=== PATIENT | female | born 1995 | race Caucasian/White ===

== ENCOUNTER → 2017-02-14 09:49 | Outpatient (REF) | payer MEDICAID, SELFPAY ==
[2017-02-14 13:45] LABS: Amphetamine/Metha Screen,Urine Negative ng/mL (<1000); Barbiturates Screen,Urine Negative ng/mL (<200); Benzodiazepines Screen,Urine Negative ng/mL (200); Cannabinoid Screen,Urine Negative ng/mL (<50); Cocaine Screen,Urine Negative ng/g (<300); Methadone Screen,Urine Negative ng/mL (<300); Opiate Screen,Urine Positive ng/mL (<300); Phencyclidine Screen,Urine Negative ng/mL (<25)
[2017-02-26 00:14] LABS: Codeine Positive (.); Hydrocodone Negative (Cutoff=100); Hydromorphone Negative (Cutoff=100); Morphine Positive (.)
[2017-02-26 10:47] LABS: Opiates Positive (.)
== END ==
LOC: LAB 09:49
PROVIDERS: Visit Provider Physician Assistant
DX: Z79.899 Other long term (current) drug therapy (principal)
CPT/HCPCS: 80305; 80361; G0480

== ENCOUNTER → 2020-07-06 17:58 | Outpatient (CLI) | payer MEDICAID, SELFPAY ==
[2020-07-06 18:58] LABS: Basophils # 0.1 K/mm3 (0-0.2); Basophils % 0.6 % (0.1-2.0); Eosinophils # 0.2 K/mm3 (0.0-0.4); Eosinophils % 2.6 % (0.1-12.0); Hematocrit 43.1 % (37.0-47.0); Hemoglobin 14.3 g/dL (12.2-16.2); Lymphocytes # 2.6 K/mm3 (0.7-4.5); Lymphocytes % 29.1 % (10-50); Mean Corpuscular HGB Conc 33.1 g/dL (31.8-35.4); Mean Corpuscular Hemoglobin 30.7 pg (27.0-31.2); Mean Corpuscular Volume 92.7 fl (81-99); Mean Platelet Volume 8.3 fl (7.4-10.4); Monocytes # 0.5 K/mm3 (0.1-1.0); Monocytes % 5.1 % (1.7-9.3); Neutrophils # 5.6 K/mm3 (1.8-7.8); Neutrophils % 62.7 % (37.0-80.0); Platelet Count 364 K/mm3 (142-424); Red Blood Count 4.65 M/mm3 (4.20-5.40); Red Cell Distribution Width 14.2 % (11.5-17.5); White Blood Count 8.9 K/mm3 (4.8-10.8)
[2020-07-06 19:30] LABS: Alanine Aminotransferase 40 U/L (12-78); Albumin/Globulin Ratio 1.6 (1.1-1.8); Alkaline Phosphatase 62 U/L (38-126); Anion Gap 12.2 mEq/L (5-15); Aspartate Amino Transferase 49 U/L (14-36); Bilirubin,Total 0.5 mg/dl (0.2-1.3); Blood Urea Nitrogen 7 mg/dl (7-17); Carbon Dioxide 22 mmol/L (22.0-30.0); Chloride 107 mmol/L (98-107); Chol/HDL Ratio 6.8 (1-3.5); Cholesterol 163 mg/dl (140-200); Estimated Glomerular Filt Rate 191 ml/min (>60); GFR (African American) 232 ML/MIN (>60); Globulin 2.5 g/dL (1.3-3.2); Glucose 213 mg/dl (74-100); HDL Cholesterol 24 mg/dl (40-60); Potassium 4.2 mmoL/L (3.5-5.1); Sodium 137 mmol/L (136-145); Total Protein,Serum 6.5 g/dl (6.3-8.2)
[2020-07-06 19:41] LABS: C-Reactive Protein 16.7 mg/L (0-4); Direct LDL Cholesterol 41.16 mg/dL (100-129)
[2020-07-06 19:45] LABS: Free T4 (Free Thyroxine) 1.16 ng/dl (0.78-2.19)
[2020-07-06 19:46] LABS: 25-OH Vitamin D, Total < 12.8 ng/mL (30-100); Triglycerides 732 mg/dl (30-150)
[2020-07-06 20:54] LABS: Erythrocyte Sedimentation Rate 16 mm/hr (0-20)
[2020-07-06 23:41] LABS: Hemoglobin A1C 8.2 % (4.0-6.0)
[2020-07-08 08:15] LABS: RA Latex Turbid. <10.0 IU/mL (0.0-13.9)
[2020-07-09 00:08] LABS: Anti-Cyclic Citrullinated Pept 4 units (0-19)
== END ==
PROVIDERS: Visit Provider Physician Assistant
DX: E03.9 Hypothyroidism, unspecified (principal); E11.9 Type 2 diabetes mellitus without complications; E78.5 Hyperlipidemia, unspecified; E55.9 Vitamin D deficiency, unspecified; M06.9 Rheumatoid arthritis, unspecified
CPT/HCPCS: 80053; 80061; 82306; 83036; 84439; 84443; 85025; 85651; 86140; 86200; 86431

== ENCOUNTER → 2020-08-12 12:44 | Outpatient (POV) | payer MEDICAID, SELFPAY ==
[2020-08-12 13:00] VITALS: BP 152/100; PULSE 99; RESP 18; O2SAT 97; BMI 45.1
--- NOTE | 2020-08-12 13:19 | HMH.PMCON ---
Assessment and Plan (1) Myofascial muscle pain Status: Chronic Category: Medical Code(s): M79.18 - Myalgia, other site (2) Chronic pain of right thumb Status: Chronic Category: Medical Code(s): M79.644 - Pain in right finger(s); G89.29 - Other chronic pain (3) Peripheral neuropathy Status: Chronic Category: Medical Code(s): G62.9 - Polyneuropathy, unspecified - Assessment and plan all Dx Assessment and Plan for all problems:: We will schedule the patient for a 2-week follow-up. We will start her on gabapentin 100 mg 1 tablet p.o. 3 times daily, Flexeril 5 mg 1 tablet p.o. 3 times daily and compounding cream to apply topically to her right thumb area. She is not in injective therapy candidate due to increased blood glucose levels at this time. We will see if she can be managed with oral medications at this time. She will need to increase on her gabapentin at her next visit. We will give her 2 weeks of gabapentin at this dose and plan to increase her at the next visit. We will see if Flexeril and compounding cream give her any relief. Risks and benefits of the medication have been explained in detail to the patient. The patient has been advised to consult with his/her primary care provider and pharmacist regarding drug-drug interaction of medications currently prescribed. Patient has been instructed to contact the clinic with any concerns before the next appointment. Dr. Colindres has reviewed this note and agrees with this plan of care. This note was dictated using voice recognition software and make contain errors or omissions. HPI - Data of Consult Patient: new to practice Consult date: 08/12/20 Requesting Physician: Kya Silverio APRN Primary Care Provider: SYD Tapia - Consult Narrative Reason for consult: Right thumb pain, myofascial pain History of present illness: Ms. Solano is a 25 year old female who presents today for consultation for right thumb pain and low back pain. Patient was referred to us by Viola Phipps PA-C. Patient says that she has had ongoing low back pain for many years. She is a diabetic with uncontrolled blood glucose levels. She says her blood sugar runs between 300-600. She says they are currently adjusting her medications at her primary care provider's office. She has been on gabapentin in the past for peripheral neuropathy due to severe burning and tingling in her bilateral legs and feet. She became last year and as a result was taken off the medication. She says that she was taking up to 800 mg three times a day. We did discuss starting the medication, however, we will need to start at a lower dose. She is in agreement. Patient says that she has dull aching in her low back area that is worse when she is standing and walking. She also has neck and shoulder pain. She says when she is lying down she has worse pain. Leaning forward does not worsen or lessen her pain. She has tried physical therapy for more than 6 weeks and says her pain worsened. She has been taking ibuprofen and meloxicam. I did advise the patient to use caution in taking more than one anti-inflammatory to time. She also has diabetes with concerns for her kidney function. She says that meloxicam has not been working for her and will contact her primary care provider to inform her she will stop the medication. She will continue with her ibuprofen for now. Patient says that she is having what feels like aching and spasms in her low back and neck area. She has taken muscle relaxers in the past, however, she did feel very groggy with the medication. She says it did help somewhat, however. She does have right thumb pain. She has had multiple surgeries as well as injections to the area with no relief. She is not likely considered a candidate for injective therapy due to increased blood glucose levels. We did discuss compounding cream to apply topically to the area. We also discussed starti
== END ==
PROVIDERS: PCP Physician Assistant; Visit Provider Clinical Nurse Specialist Family Health
DX: M79.18 Myalgia, other site (principal); M79.644 Pain in right finger(s); G62.9 Polyneuropathy, unspecified
CPT/HCPCS: 99202; G0463

== ENCOUNTER → 2020-08-26 12:51 | Outpatient (POV) | payer MEDICAID, SELFPAY ==
[2020-08-26 13:07] VITALS: BP 152/90; PULSE 109; RESP 18; O2SAT 96; BMI 44.6
--- NOTE | 2020-08-26 15:21 | P.CONS_ITS ---
[facility] Pain Management SOAP Note Subjective:: Patient is a 25-year-old white female who presents today for follow-up. She is being treated for peripheral neuropathy. Patient was started on gabapentin 100 mg 1 tablet p.o. 3 times daily at her last visit. She was also started on Flexeril as well as compounding cream. She reports Flexeril is making her very drowsy. She only takes it at bedtime. Gabapentin has given her significant relief of her lower extremity numbness and tingling as well as pain. The compounding cream helps as well, however, only for short time. She says that she has gotten about 30 to 40% relief of her pain with gabapentin. We discussed increasing this dose today. She would like to try this. Her pain is a 3 out of 10 today. Review of Systems General: No recent weight changes, no fever, no sleep disturbances Respiratory: No cough, no shortness of air, no recurring pulmonary infections Cardiovascular/peripheral vascular: No chest pain, no palpitations, no edema, no shortness of breath Gastrointestinal: No new onset incontinence, normal bowel movements reported Genitourinary: No new onset incontinence Musculoskeletal: Bilateral lower extremity pain with numbness and tingling Psychiatric: Normal mood/affect Neurological: [Denies weakness in extremities], [denies balance issues] Objective:: Physical exam General: Alert and oriented x3, no acute distress, pleasant and cooperative, [on room air] Lungs: Respirations even and unlabored, symmetrical chest expansion Eyes: PERRL Musculoskeletal: Flexion and extension of bilateral lower extremities guarded secondary to pain, deep tendon reflexes normal, strength in upper and lower extremities [5/5], [abnormal gait noted] Neurological: Speech clear, energy manager equal, no gross sensory deficit Assessment:: Peripheral neuropathy Plan:: We will increase the patient's gabapentin to 300 mg 1 tablet p.o. twice daily. We will give her 3 months of medication and see her back in the clinic in 3 months for reevaluation of symptoms. She has been instructed she can contact the clinic if she has pain before that appointment. Patient has been instructed to contact the clinic with any concerns before the next appointment. Dr. Colindres has reviewed this note and agrees with this plan of care. This note was dictated using voice recognition software and make contain errors or omissions. [facility] History I have reviewed the patient's past medical history: Yes Medical History: Reports:: Anxiety, Depression, Diabetes Mellitus Type 2, Gastroesophageal Reflux Disease(GERD) *Have you ever received a pneumonia vaccine?: No *Have you received a flu vaccine this season?: No Other Medical History: Reports: Arthritis, Hypothyroidism Other Surgeries: Yes: , Other - *Social History Smoking Status: Current every day smoker Tobacco Type: cigarettes # Packs/Day (cigarettes): 1 Alcohol Intake: never Substance Use Type: denies use *Occupational Status:: unemployed *Travel in the last 8 weeks: None - Psychiatric History Pschychiatric History:: Reports:: Anxiety, Depression Family Hx:: Cancer
== END ==
PROVIDERS: Visit Provider Clinical Nurse Specialist Family Health
DX: G62.9 Polyneuropathy, unspecified (principal)
CPT/HCPCS: 99212; G0463

== ENCOUNTER → 2020-10-07 15:42 | Outpatient (CLI) | payer MEDICAID, SELFPAY ==
[2020-10-07 16:12] LABS: Basophils # 0.1 K/mm3 (0-0.2); Basophils % 1.2 % (0.1-2.0); Eosinophils # 0.3 K/mm3 (0.0-0.4); Eosinophils % 2.5 % (0.1-12.0); Hematocrit 47.1 % (37.0-47.0); Hemoglobin 15.2 g/dL (12.2-16.2); Lymphocytes # 2.6 K/mm3 (0.7-4.5); Lymphocytes % 25.9 % (10-50); Mean Corpuscular HGB Conc 32.4 g/dL (31.8-35.4); Mean Corpuscular Hemoglobin 30.9 pg (27.0-31.2); Mean Corpuscular Volume 95.5 fl (81-99); Mean Platelet Volume 7.6 fl (7.4-10.4); Monocytes # 0.4 K/mm3 (0.1-1.0); Monocytes % 4.1 % (1.7-9.3); Neutrophils # 6.6 K/mm3 (1.8-7.8); Neutrophils % 66.2 % (37.0-80.0); Platelet Count 392 K/mm3 (142-424); Red Blood Count 4.93 M/mm3 (4.20-5.40)
[2020-10-07 16:52] LABS: Hemoglobin A1C 9.5 % (4.0-6.0)
[2020-10-07 18:30] LABS: Alanine Aminotransferase 18 U/L (12-78); Albumin Level 3.9 g/dl (3.5-5.0); Albumin/Globulin Ratio 1.3 (1.1-1.8); Alkaline Phosphatase 72 U/L (38-126); Anion Gap 14.3 mEq/L (5-15); Aspartate Amino Transferase 21 U/L (14-36); Bilirubin,Total 0.3 mg/dl (0.2-1.3); Blood Urea Nitrogen 5 mg/dl (7-17); Calcium 9.6 mg/dl (8.4-10.2); Carbon Dioxide 25 mmol/L (22.0-30.0); Chloride 100 mmol/L (98-107); Chol/HDL Ratio 8.6 (1-3.5); Cholesterol 249 mg/dl (140-200); Estimated Glomerular Filt Rate 191 ml/min (>60); GFR (African American) 232 ML/MIN (>60); Glucose 258 mg/dl (74-100); HDL Cholesterol 29 mg/dl (40-60); Potassium 4.3 mmoL/L (3.5-5.1); Sodium 135 mmol/L (136-145); Total Protein,Serum 6.9 g/dl (6.3-8.2)
[2020-10-07 18:43] LABS: 25-OH Vitamin D, Total 17.2 ng/mL (30-100)
[2020-10-07 18:49] LABS: T4 (Thyroxine) 8.7 ug/dl (5.53-11.0)
[2020-10-07 19:03] LABS: Thyroid Stimulating Hormone 2.58 uIU/mL (0.465-4.68)
[2020-10-07 19:09] LABS: Direct LDL Cholesterol < 30 mg/dL (100-129)
[2020-10-07 19:22] LABS: Triglycerides 1739 mg/dl (30-150)
== END ==
PROVIDERS: Visit Provider Physician Assistant
DX: E11.9 Type 2 diabetes mellitus without complications (principal); Z79.84 Long term (current) use of oral hypoglycemic drugs
CPT/HCPCS: 36415; 80053; 80061; 82043; 82306; 83036; 84436; 84443; 85025

== ENCOUNTER → 2020-10-13 14:54 | Outpatient (CLI) | payer MEDICAID, SELFPAY | PROVIDERS: PCP Physician Assistant; Visit Provider Physician Assistant | DX: G47.30 Sleep apnea, unspecified (principal); R06.83 Snoring | CPT/HCPCS: 95806 ==

== ENCOUNTER → 2020-10-20 17:31 | Outpatient (CLI) | payer MEDICAID, SELFPAY | PROVIDERS: Visit Provider Physician Assistant | DX: R10.2 Pelvic and perineal pain (principal) | CPT/HCPCS: 87086 ==

== ENCOUNTER → 2020-11-15 14:58 | Outpatient (CLI) | payer MEDICAID, SELFPAY | PROVIDERS: Visit Provider Physician Assistant | DX: N39.0 Urinary tract infection, site not specified (principal) | CPT/HCPCS: 87210 ==

== ENCOUNTER → 2020-11-25 12:50 | Outpatient (POV) | payer MEDICAID, SELFPAY ==
[2020-11-25 12:58] VITALS: BP 145/90; PULSE 92; RESP 18; O2SAT 98; BMI 43.9
--- NOTE | 2020-11-25 13:18 | HMH.PAINSOAP ---
[facility] Pain Management SOAP Note Subjective:: Patient is a 25-year-old white female who presents today for follow-up. The patient is treated for peripheral neuropathy. She does report to be getting relief with her gabapentin which is 300 mg 1 tablet p.o. twice daily. She would like an increase. She says the medicine in the middle the day. She is rating her pain a 6 out of 10 today. She has tried taking anti-inflammatories which is not giving her significant relief of her lower extremity pain. She has taken Tylenol 3 in the past which gives her some relief. We discussed trying Ultram for a short period to see if this relieves the pain. She understands we will not be able to increase this to any other medication, however, for peripheral neuropathy. She has tried other medications which have not been beneficial for her pain. Review of Systems General: No recent weight changes, no fever, no sleep disturbances Respiratory: No cough, no shortness of air, no recurring pulmonary infections Cardiovascular/peripheral vascular: No chest pain, no palpitations, no edema, no shortness of breath Gastrointestinal: No new onset incontinence, normal bowel movements reported Genitourinary: No new onset incontinence Musculoskeletal: Bilateral lower extremity pain Psychiatric: [Normal mood/affect] Neurological: [Denies weakness in extremities], [denies balance issues] Objective:: Physical exam General: Alert and oriented x3, no acute distress, pleasant and cooperative Lungs: Respirations even and unlabored, symmetrical chest expansion Eyes: PERRL Musculoskeletal: Flexion and extension of bilateral lower extremities somewhat guarded secondary to pain, [antalgic gait noted] Neurological: Speech clear, no gross sensory deficit Assessment:: Peripheral neuropathy Plan:: We will increase patient's gabapentin to 300 mg 1 tablet p.o. 3 times daily. Patient is having significant pain with standing and walking in her lower extremities. I will start the patient on a low-dose of tramadol at 50 mg 1 tablet p.o. twice daily. We will not be able to change this medication to any other medicines for neuropathy only, however. She has tried other oral medications with no significant relief. If the patient continues to have pain we may need to refer her to neurology for further work-up. Risks and benefits of the medication have been explained in detail to the patient. The patient does understand the risk of dependence on the medication when given over a prolonged period. Patient has been advised of risks of oversedation with the prescribed medication. Narcan has been offered to the paitent in the event of oversedation. Patient has been advised that a family member should also be educated regarding administration of Narcan. The patient has been advised to consult with his/her primary care provider and pharmacist regarding drug-drug interaction of medications currently prescribed. Patient has been prescribed a controlled substance after being counseled on the medication, medication safety, and possible side effects. ARIES report has been obtained and reviewed prior to prescription and found to be appropriate. Opioid contract was reviewed and signed by the patient, and that they have agreed to all of the terms set forth by our compliance program. Patient has been instructed to contact the clinic with any concerns before the next appointment. Dr. Colindres has reviewed this note and agrees with this plan of care. This note was dictated using voice recognition software and make contain errors or omissions. [facility] History I have reviewed the patient's past medical history: Yes Medical History: Reports:: Anxiety, Depression, Diabetes Mellitus Type 2, Gastroesophageal Reflux Disease(GERD) *Have you ever received a pneumonia vaccine?: No *Have you received a flu vaccine this season?: Yes Other Medical History: Reports: Arthritis, Hypothyroidism Other
== END ==
PROVIDERS: Visit Provider Clinical Nurse Specialist Family Health
DX: G62.9 Polyneuropathy, unspecified (principal)
CPT/HCPCS: 99212; G0463

== ENCOUNTER → 2021-02-22 14:35 | Outpatient (POV) | payer MEDICAID, SELFPAY ==
[2021-02-22 14:52] VITALS: BP 186/90; PULSE 110; RESP 18; O2SAT 95; BMI 44.2
--- NOTE | 2021-02-22 18:31 | HMH.PAINSOAP ---
[facility] Pain Management SOAP Note Subjective:: Patient is a 26-year-old white female who presents today for follow-up. The patient is being treated in our clinic for peripheral neuropathy. She was started on gabapentin 1 tablet p.o. 3 times daily which is given her significant relief. She was also started on tramadol which gave her minimal relief. The patient says that she feels she gets more relief with ibuprofen. She is complaining of burning sensation to bilateral feet along with tingling. She has taken Tylenol 3 in the past which did give her relief. She does report have a history of childhood arthritis. She has not had any recent physical therapy. Patient says that her pain is now radiating into the low back area, made worse with standing, walking, and sitting. Review of Systems General: No recent weight changes, no fever, no sleep disturbances Respiratory: No cough, no shortness of air, no recurring pulmonary infections Cardiovascular/peripheral vascular: No chest pain, no palpitations, no edema, no shortness of breath Gastrointestinal: No new onset incontinence, normal bowel movements reported Genitourinary: No new onset incontinence Musculoskeletal: Low back pain with radiation into bilateral lower extremities with numbness and tingling into bilateral feet burning sensation bilateral feet Psychiatric: [Normal mood/affect] Neurological: [Denies weakness in extremities], [denies balance issues] Objective:: Physical exam General: Alert and oriented x3, no acute distress, pleasant and cooperative Lungs: Respirations even and unlabored, symmetrical chest expansion Eyes: PERRL Musculoskeletal: Flexion and extension of lumbar [spine] somewhat guarded secondary to pain, [antalgic gait noted] Neurological: Speech clear, no gross sensory deficit Assessment:: Peripheral neuropathy, low back pain with lumbar radiculopathy Plan:: We will schedule the patient for repeat physical therapy. She has tried physical therapy for greater than 6 weeks in the past and did not get much relief. She is willing to undergo physical therapy once again. She has not had any recent imaging of lumbar spine. We will order MRI lumbar spine. We will also start the patient on Cymbalta 30 mg 1 tablet p.o. daily along with her gabapentin 310 mg 1 tablet p.o. 3 times daily. We will see if the patient gets relief of her peripheral neuropathy symptoms with medication management. We will also review her MRI next visit. [facility] #[id number] has been reviewed and is appropriate. Morphine equivalent is 10. ORT is minimal risk. Patient has signed and completed a pain management agreement/contract today. Risks and benefits of the medication have been explained in detail to the patient. If side effects do present with the medication, patient has been advised to stop the medication immediately and call the clinic. The patient has been advised to consult with his/her primary care provider and pharmacist regarding drug-drug interaction of medications currently prescribed. [facility] History I have reviewed the patient's past medical history: Yes Medical History: Reports:: Anxiety, Depression, Diabetes Mellitus Type 2, Gastroesophageal Reflux Disease(GERD) *Have you ever received a pneumonia vaccine?: No *Have you received a flu vaccine this season?: No Other Medical History: Reports: Arthritis, Hypothyroidism Other Surgeries: Yes: , Other - *Social History Smoking Status: Current every day smoker Tobacco Type: cigarettes # Packs/Day (cigarettes): 1 Alcohol Intake: never Substance Use Type: denies use *Occupational Status:: unemployed *Travel in the last 8 weeks: None - Psychiatric History Pschychiatric History:: Reports:: Anxiety, Depression Family Hx:: Cancer
== END ==
PROVIDERS: Visit Provider Clinical Nurse Specialist Family Health
DX: G62.9 Polyneuropathy, unspecified (principal); M54.50 Low back pain, unspecified; M54.16 Radiculopathy, lumbar region
CPT/HCPCS: 99212; G0463

== ENCOUNTER → 2021-03-22 15:37 | Outpatient (CLI) | payer MEDICAID, SELFPAY ==
[2021-03-22 15:51] LABS: Microscopic, Urine URINE MICROSCOPIC (MICROSCOPIC)
--- NOTE | 2021-03-22 16:03 | MR_ITS ---
PROCEDURE INFORMATION: Exam: MR Lumbar Spine Without Contrast. Exam date and time: 03/22/2021 4:03 PM Age: 26 years old Clinical indication: Low back pain; Additional info: Back pain. Lbp [id number]. No injury or trauma. Bilateral leg pain. No prior. TECHNIQUE: Imaging protocol: Multiplanar magnetic resonance images of the lumbar spine without contrast. COMPARISON: ABDPELW/O CT ABD PELVIS W/O CONTRAST 11/09/2015 10:47 AM FINDINGS: Vertebrae: Mild multilevel spondylosis. Mild facet arthrosis and slight T2 signal within some of the facets, greatest at L4-L5 bilaterally. Epidural space: Epidural lipomatosis causes mild thecal sac effacement, greatest at L5 at S1. Spinal cord: The conus terminates at the L1 level is unremarkable. Discs/Spinal canal/Neural foramina: No evidence of significant central spinal or neural foraminal stenosis. Soft tissues: Unremarkable. IMPRESSION: No evidence of high-grade central spinal or neural foraminal stenosis. Otherwise, as above.
[2021-03-22 16:32] LABS: Basophils # 0.1 K/mm3 (0-0.2); Basophils % 0.9 % (0.1-2.0); Eosinophils # 0.2 K/mm3 (0.0-0.4); Hematocrit 43.1 % (37.0-47.0); Hemoglobin 14.3 g/dL (12.2-16.2); Lymphocytes # 2.9 K/mm3 (0.7-4.5); Lymphocytes % 24.1 % (10-50); Mean Corpuscular HGB Conc 33.2 g/dL (31.8-35.4); Mean Corpuscular Hemoglobin 30.8 pg (27.0-31.2); Mean Corpuscular Volume 92.7 fl (81-99); Mean Platelet Volume 7.5 fl (7.4-10.4); Monocytes # 0.4 K/mm3 (0.1-1.0); Monocytes % 3.6 % (1.7-9.3); Neutrophils # 8.3 K/mm3 (1.8-7.8); Neutrophils % 69.3 % (37.0-80.0); Platelet Count 473 K/mm3 (142-424); Red Blood Count 4.65 M/mm3 (4.20-5.40); Red Cell Distribution Width 13.9 % (11.5-17.5); White Blood Count 11.9 K/mm3 (4.8-10.8)
[2021-03-22 17:08] LABS: Albumin Level 4.1 g/dl (3.5-5.0); Anion Gap 11.2 mEq/L (5-15); Blood Urea Nitrogen 7 mg/dl (7-17); Carbon Dioxide 24 mmol/L (22.0-30.0); Chloride 106 mmol/L (98-107); Estimated Glomerular Filt Rate 190 ml/min (>60); GFR (African American) 230 ML/MIN (>60); Glucose 221 mg/dl (74-100); Phosphorous 3.7 mg/dl (2.5-4.5); Potassium 4.2 mmoL/L (3.5-5.1); Sodium 137 mmol/L (136-145)
[2021-03-22 17:21] LABS: Intact Parathyroid Hormone 36.2 pg/mL (7.5-53.5)
[2021-03-22 17:22] LABS: Appearance,Urine CLEAR (Clear); Bilirubin,Urine Negative (Negative); Blood, Urine TRACE-I (Negative); Color,Urine AMBER (Yellow); Glucose,Urine (UA) 2+ (Negative); Ketones,Urine TRACE (Negative); Leukocyte Esterase,Urine Negative (Negative); Nitrate,Urine POSITIVE (Negative); Protein,Urine Negative (Negative); Specific Gravity, Urine 1.025 (1.005-1.030)
[2021-03-22 17:27] LABS: 25-OH Vitamin D, Total 22.6 ng/mL (30-100)
[2021-03-22 17:33] LABS: Bacteria,Urine Trace /lpf
[2021-03-22 17:34] LABS: Creatinine,Urine Random 83 mg/dL (Not Estab.); Total Protein,Urine Random < 5.0 mg/dL (0.0-12.0)
[2021-03-22 17:38] LABS: Microalbumin/Creatinine Ratio 19.1
== END ==
PROVIDERS: PCP Physician Assistant; Visit Provider Clinical Nurse Specialist Family Health
DX: M54.50 Low back pain, unspecified (principal); R80.9 Proteinuria, unspecified; E55.9 Vitamin D deficiency, unspecified
CPT/HCPCS: 36415; 72148; 76376; 80069; 81001; 82043; 82306; 82570; 83970; 84155; 85025

== ENCOUNTER → 2021-03-29 16:00 | Outpatient (CLI) | payer MEDICAID, SELFPAY | PROVIDERS: Visit Provider Emergency Medicine | DX: R82.90 Unspecified abnormal findings in urine (principal) | CPT/HCPCS: 87086 ==

== ENCOUNTER → 2021-04-11 13:48 | Outpatient (POV) | payer MEDICAID, SELFPAY ==
[2021-04-11 14:04] VITALS: BP 157/84; PULSE 105; RESP 20; TEMP 36.5; O2SAT 98; BMI 42.5
--- NOTE | 2021-04-11 15:36 | HMH.PAINSOAP ---
[facility] Pain Management SOAP Note Subjective:: Patient is a pleasant 26-year-old female who is here today for follow-up. Patient has been having low back pain, bilateral hip pain for a while now. Her MRI on March 22, 2021 is grossly unremarkable. There is no evidence of significant central spinal or neuroforaminal stenosis. We have referred the patient to physical therapy twice with no relief of symptoms. We are currently managing the patient with gabapentin 300 mg 4 times a day and tramadol 50 mg twice a day. Patient states that these medications are helping her manage her pain. The gabapentin is helping her diabetic neuropathies. 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 Patient says that she has been having these bilateral hip pain since her child about 2 years ago. She says that the pain radiates to bilateral lower extremities but does not cross her knees. This is worse with any prolonged activities such as sitting, standing, and walking. Her ODD score is low risk. Loki #[id number] with an active morphine equivalent of 0 Review of Systems General: No recent weight changes, no fever, no sleep disturbances Respiratory: No cough, no shortness of air, no recurring pulmonary infections Cardiovascular/peripheral vascular: No chest pain, no palpitations, no edema, no shortness of breath Gastrointestinal: No new onset incontinence, normal bowel movements reported Genitourinary: No new onset incontinence Musculoskeletal: Low back pain, bilateral hip pain Psychiatric: [Normal mood/affect] Neurological: [Denies weakness in extremities], [denies balance issues] Objective:: Physical exam General: Alert and oriented x3, no acute distress, pleasant and cooperative Lungs: Respirations even and unlabored, symmetrical chest expansion Eyes: PERRL Musculoskeletal: Flexion and extension of lumbar [spine] somewhat guarded secondary to pain; bilateral hips are positive for TITO, Saravanan's, compression and distraction Neurological: Speech clear, no gross sensory deficit Assessment:: Degenerative disc disease of the lumbar spine with lumbar radiculopathy Bilateral sacroiliitis Plan:: Patient's bilateral hips are positive for TITO, Saravanan's, compression, and distraction. She has had 2 rounds of physical therapy with no relief. Patient has also tried and failed conservative therapies as her oral medication and at home exercise regarding 6 weeks. We will schedule the patient for a bilateral SI injection. Risk and benefits of this procedure has been discussed with the patient. patient would like to proceed with this procedure. We will increase the patient's gabapentin 300 mg to 4 times a day and continue her tramadol 50 mg twice a day. We will provide the patient with 1 month worth of refill. Would like to follow-up with the patient after her SI injections. Patient has been instructed to contact the clinic with any concerns before the next appointment. This note was dictated using voice recognition software and may contain errors or omissions. [facility] History Medical History: Reports:: Anxiety, Depression, Diabetes Mellitus Type 2, Gastroesophageal Reflux Disease(GERD) *Have you ever received a pneumonia vaccine?: No *Have you received a flu vaccine this season?: No Other Medical History: Reports: Arthritis, Hypothyroidism Other Surgeries: Yes: , Other - *Social History Smoking Status: Current every day smoker Tobacco Type: cigarettes # Packs/Day (cigarettes): 1 Alcohol Intake: never Substance Use Type: denies use *Occupational Status:: other *Travel in the last 8 weeks: None - Psychiatric History Pschychiatric History:: Reports:: Anxiety, Depression Family Hx:: Cancer
== END ==
PROVIDERS: Visit Provider Student in an Organized Health Care Education/Training Program
DX: M51.16 Intervertebral disc disorders with radiculopathy, lumbar region (principal); M46.1 Sacroiliitis, not elsewhere classified
CPT/HCPCS: 99212; G0463

== ENCOUNTER → 2021-05-24 10:50 | Outpatient (CLI) | payer MEDICAID, SELFPAY ==
[2021-05-24 13:30] LABS: Basophils # 0.2 K/mm3 (0-0.2); Basophils % 2.1 % (0.1-2.0); Eosinophils # 0.3 K/mm3 (0.0-0.4); Eosinophils % 2.7 % (0.1-12.0); Hematocrit 44.3 % (37.0-47.0); Lymphocytes # 2.5 K/mm3 (0.7-4.5); Lymphocytes % 25.9 % (10-50); Mean Corpuscular HGB Conc 31.6 g/dL (31.8-35.4); Mean Corpuscular Hemoglobin 30.2 pg (27.0-31.2); Mean Corpuscular Volume 95.5 fl (81-99); Mean Platelet Volume 8.4 fl (7.4-10.4); Monocytes # 0.4 K/mm3 (0.1-1.0); Monocytes % 4.6 % (1.7-9.3); Neutrophils # 6.1 K/mm3 (1.8-7.8); Neutrophils % 64.7 % (37.0-80.0); Platelet Count 441 K/mm3 (142-424); Red Blood Count 4.64 M/mm3 (4.20-5.40); Red Cell Distribution Width 14.1 % (11.5-17.5); White Blood Count 9.5 K/mm3 (4.8-10.8)
[2021-05-24 13:32] LABS: Alanine Aminotransferase 37 U/L (12-78); Albumin Level 4.2 g/dl (3.5-5.0); Albumin/Globulin Ratio 1.6 (1.1-1.8); Alkaline Phosphatase 51 U/L (38-126); Anion Gap 10.2 mEq/L (5-15); Aspartate Amino Transferase 38 U/L (14-36); Bilirubin,Total 0.3 mg/dl (0.2-1.3); Blood Urea Nitrogen 8 mg/dl (7-17); Calcium 9.2 mg/dl (8.4-10.2); Carbon Dioxide 24 mmol/L (22.0-30.0); Chloride 108 mmol/L (98-107); Cholesterol 149 mg/dl (140-200); Estimated Glomerular Filt Rate 190 ml/min (>60); GFR (African American) 230 ML/MIN (>60); Globulin 2.6 g/dL (1.3-3.2); Glucose 158 mg/dl (74-100); HDL Cholesterol 25 mg/dl (40-60); Potassium 4.2 mmoL/L (3.5-5.1); Sodium 138 mmol/L (136-145); Total Protein,Serum 6.8 g/dl (6.3-8.2)
[2021-05-24 13:40] LABS: Triglycerides 633 mg/dl (30-150)
[2021-05-24 13:43] LABS: Direct LDL Cholesterol 44.54 mg/dL (100-129)
[2021-05-24 13:50] LABS: 25-OH Vitamin D, Total 21.4 ng/mL (30-100)
[2021-05-24 14:19] LABS: Hemoglobin A1C 7.7 % (4.0-6.0)
[2021-05-24 14:22] LABS: Vitamin B12 235 pg/mL (239-931)
== END ==
PROVIDERS: PCP Physician Assistant; Visit Provider Physician Assistant
DX: E11.9 Type 2 diabetes mellitus without complications (principal); Z79.84 Long term (current) use of oral hypoglycemic drugs; Z79.899 Other long term (current) drug therapy
CPT/HCPCS: 80053; 80061; 82306; 82607; 83036; 84443; 85025

== ENCOUNTER → 2021-06-30 10:18 | Outpatient (CLI) | payer MEDICAID, SELFPAY | PROVIDERS: PCP Nurse Practitioner Family; Visit Provider Nurse Practitioner Family | DX: N39.0 Urinary tract infection, site not specified (principal) | CPT/HCPCS: 87086 ==

== ENCOUNTER → 2021-08-04 14:45 | Outpatient (POV) | payer MEDICAID, SELFPAY ==
--- NOTE | 2021-08-04 15:53 | HMH.PAINSOAP ---
[facility] Pain Management SOAP Note Subjective:: Patient is a pleasant 26-year-old white female who is here for follow-up and medication refill. Patient is currently being treated for degenerative disc disease of lumbar spine with lumbar radiculopathy, bilateral sacroiliitis. Patient states her pain today is a 2 out of 10. She states the pain is in her right hand and low back into her right leg. 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 She states her right hand pain started about 4 months ago. She describes it as a stabbing numbing sensation that radiates to her elbow and it is constant. She states her low back and right leg is an aching sensation that worsens with activity such as walking, standing, sitting. patient had previously discussed bilateral SI injections but has not had them currently. Patient is a diabetic and is not well controlled. We are currently managing the patient with gabapentin 300 mg 4 times a day and tramadol twice a day. She states these medications do help manage her pain. She states that she was in the ER in May regarding her hand, at which time she was given Tylenol 3 which helped with her pain. She would like to see about being prescribed this medication over tramadol. She is requesting refills at this time and updated imaging for her worsening symptoms in her hand. Her Loki is [id number]. It has been reviewed and is appropriate. Review of Systems: General: No recent weight changes, no fever, no sleep disturbances Respiratory: No cough, no shortness of air, no recurring pulmonary infections Cardiovascular/peripheral vascular: No chest pain, no palpitations, no edema, no shortness of breath Gastrointestinal: No new onset incontinence, normal bowel movements reported Genitourinary: No new onset incontinence Musculoskeletal: Right hand pain, low back pain Psychiatric: [Normal mood/affect] Neurological: [Denies weakness in extremities], [denies balance issues] Objective:: Physical Exam: General: Alert and oriented x3, no acute distress, pleasant and cooperative Lungs: Respirations even and unlabored, symmetrical chest expansion Eyes: PERRL Musculoskeletal: Flexion and extension of right hand somewhat guarded secondary to pain, [antalgic gait noted] Neurological: Speech clear, no gross sensory deficit Assessment:: Degenerative disc disease of lumbar spine with lumbar radiculopathy, bilateral sacroiliitis, paresthesia, limb pain Plan:: At this time patient has declined injective therapy. She has had injective therapy in her right hand before and stated it gave no relief. We have discussed injections in the past but patient is a poorly controlled diabetic patient has tried and failed conservative therapies such as oral medication and home exercise regarding 6 weeks. She has tried physical therapy with minimal relief in the past. I will refill patient's gabapentin 300 mg 4 times daily and tramadol 50 mg twice daily. These medications will be given a 30-day supply. I did discuss with the patient regarding insurance covering new imaging and that an x-ray would be ordered first before the MRI. I will order an x-ray for her right hand per patient's request. I have told the patient to follow-up with her primary care regarding findings. We have also discussed referring patient to Ortho for her hand. She will return to clinic in 1 month for med refill and follow-up. Patient has been instructed to contact the clinic with any concerns before the next appointment. Dr. Colindres has reviewed this note and agrees with this plan of care. This note was dictated using voice recognition software and make contain errors or omissions. [facility] History I have reviewed the patient's past medical history: Yes Medical History: Reports:: Anxiety, Depression, Diabetes Mellitus Type 2, Gastroesophageal Reflux Disease(GERD) *Have you ever received a pneumonia vaccine?: No *Have you re
[2021-08-04 16:48] VITALS: BP 154/93; PULSE 100; RESP 18; TEMP 36.7; O2SAT 95; BMI 42.5
== END ==
PROVIDERS: Visit Provider Student in an Organized Health Care Education/Training Program
DX: M51.16 Intervertebral disc disorders with radiculopathy, lumbar region (principal); M46.1 Sacroiliitis, not elsewhere classified; M79.18 Myalgia, other site
CPT/HCPCS: 99212; G0463

== ENCOUNTER → 2021-09-01 15:35 | Outpatient (CLI) | payer MEDICAID, SELFPAY ==
--- NOTE | 2021-09-01 15:44 | XR_ITS ---
FINAL REPORT CLINICAL HISTORY: DEFECT, surgery to hand when 1 years old, pt has started having pain again in the last few months FINDINGS: AP, lateral and oblique views of the right hand were obtained. There is no prior exam for comparison. There is no acute fracture or dislocation. There is deformity to the distal tuft of the thumb which may be related to an old injury. There is an expansile slightly lucent lesion measuring 8 mm the proximal phalanx of the thumb which could be a small enchondroma. The remaining osseous structures are without acute abnormality. There is significant soft tissue edema of the thumb and radial side of the hand, etiology is unclear. This is slightly typical for swelling associated with cellulitis. No foreign body is identified. IMPRESSION: Lucent lesion measuring 8 mm the proximal phalanx of the thumb which could be a small enchondroma. Significant soft tissue edema as described, recommend comparison with prior exams, MRI may be helpful. Reviewed, Interpreted and Dictated by Wilma Cat MD Transcribed by Radha Reddy Authenticated and [facility]
== END ==
PROVIDERS: PCP Physician Assistant; Visit Provider Student in an Organized Health Care Education/Training Program
DX: M79.641 Pain in right hand (principal)
CPT/HCPCS: 73130

== ENCOUNTER → 2021-09-05 14:40 | Outpatient (POV) | payer MEDICAID, SELFPAY ==
[2021-09-05 14:55] VITALS: BP 145/98; PULSE 102; RESP 20; TEMP 36.6; O2SAT 99; BMI 44.6
--- NOTE | 2021-09-05 15:27 | HMH.PAINSOAP ---
[facility] Pain Management SOAP Note Subjective:: Patient is a pleasant 26-year-old female with an uncontrolled diabetes presents today for follow-up. Patient is current being treated for degenerative disc disease of lumbar spine with lumbar radiculopathy symptoms, bilateral sacroiliitis, right hand pain, diabetic neuropathy. 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 She is done well with her right hand was started to have pain around 4 to 5 months ago. She has not gone to see orthopedics again. Patient is currently being managed with gabapentin 300 mg 3 times a day and tramadol 50 mg twice a day. She states that the gabapentin is still helping manage her discomfort but the tramadol only provides 1 to 2 hours of relief. She states that about 4 to 5 months ago, she was tried on Tylenol 3 when she was in the ED. She states that this medication helped her pain significantly. She states that she was on this medication for about 8 years when she was being seen at a pain clinic in [place]. States that she is stable on this medication and wants to know if she can try this medication again. Additionally, she is also complaining of pain around her bilateral upper buttock. She previously had SI injections that provided minimal relief. Denies any precipitating factors such as falls or traumas. She does have a point of tenderness around the lateral aspect of her bilateral upper buttocks. Denies any radiating pain to her feet other than her diabetic neuropathy. She rates her pain today as [address] [facility] [id number] morphine equivalent of 10. Review of Systems: General: No recent weight changes, no fever, no sleep disturbances Respiratory: No cough, no shortness of air, no recurring pulmonary infections Cardiovascular/peripheral vascular: No chest pain, no palpitations, no edema, no shortness of breath Gastrointestinal: No new onset incontinence, normal bowel movements reported Genitourinary: No new onset incontinence Musculoskeletal: Right hand pain, LBP, shoaib hip pain Psychiatric: [Normal mood/affect] Neurological: [Denies weakness in extremities], [denies balance issues] Objective:: Physical Exam: General: Alert and oriented x3, no acute distress, pleasant and cooperative Lungs: Respirations even and unlabored, symmetrical chest expansion Eyes: PERRL Musculoskeletal: Flexion and extension of lumbar [spine] somewhat guarded secondary to pain, [antalgic gait noted]; limited range of motion of the right hand secondary to pain. She has point of tenderness around the bilateral upper buttocks that is more lateral from the SI joint Neurological: Speech clear, no gross sensory deficit Assessment:: Degenerative disease of lumbar spine with lumbar radiculopathy symptoms, myofascial pain, right hand pain Plan:: Patient continues to have pain on her right hand that has gotten worse around 4 to 5 months ago. She does have a congenital defect on this right hand and has had multiple surgeries on this hand in the past. We will get a right hand MRI and refer this patient to hand orthopedics for further evaluation. I will try this patient on Tylenol 3 for 2 weeks and start the patient on a compounding cream. I will continue the patient's gabapentin 300 mg 4 times a day. At her next follow up, we will talk about the superior cluneal nerve block since her pain is more lateral from the SI joint. Patient has been instructed to contact the clinic with any concerns before the next appointment. Dr. Colindres has reviewed this note and agrees with this plan of care. This note was dictated using voice recognition software and make contain errors or omissions. [facility] History Medical History: Reports:: Anxiety, Depression, Diabetes Mellitus Type 2, Gastroesophageal Reflux Disease(GERD) *Have you ever received a pneumonia vaccine?: No *Have you received a flu vaccine this season?: No Other Medical History: Estiven
== END ==
PROVIDERS: Visit Provider Student in an Organized Health Care Education/Training Program
DX: M51.16 Intervertebral disc disorders with radiculopathy, lumbar region (principal); M79.18 Myalgia, other site; M79.641 Pain in right hand
CPT/HCPCS: 99212; G0463

== ENCOUNTER 2021-09-15 11:09 | Emergency (ER) | payer MEDICAID, SELFPAY ==
[2021-09-15 11:18] VITALS: BP 138/91; PULSE 103; RESP 17; TEMP 36.7; O2SAT 98; BMI 42.1
--- NOTE | 2021-09-15 11:26 | CA_ITS ---
FINAL REPORT TECHNIQUE: Color Doppler, duplex Doppler and compression sonography of the right lower extremity venous system was performed. CLINICAL HISTORY: r/o dvt, BURNING SENSATION RIGHT LOWER LEG FINDINGS: There is no evidence of deep venous thrombosis from the level of the groin to the calf. The veins are patent and compressible. IMPRESSION: No evidence of deep venous thrombosis right lower extremity. Reviewed, Interpreted and Dictated by Augustine Campa III, MD Transcribed by Radha Reddy Authenticated and . [facility]
--- NOTE | 2021-09-15 11:37 | PC.NURSE ---
echo at the bedside for doppler
--- NOTE | 2021-09-15 11:48 | HMH.EDGENADL ---
ED Disposition Clinical Impression: Pain of right lower extremity Disposition: Home, Self-Care Condition on Discharge: Good Additional Instructions: Tylenol or ibuprofen for pain. Follow-up with primary care provider, call for appointment. Referrals: Viola Phipps PA [Primary Care Provider] - - Critical Care Critical Care Time: No Attestation: On 09/15/21, the high probability of a clinically significant, sudden or life threatening deterioration of the following system(s) required my full and direct attention, intervention and personal management. The time I documented below is in addition to time spent performing reported procedures but includes the following listed in this critical care notation. Medical Decision Making - Loki Inquiry Pt receiving controlled substance: No Vital Signs: 09/15/21 11:18 Temperature 98.1 F Temperature Source Oral Pulse Rate [Left Radial] 103 H Respiratory Rate 17 Blood Pressure [Right Arm] 138/91 H Blood Pressure Mean [Right Arm] 106 02 Sat by Pulse Oximetry 98 Oxygen Delivery Method Room Air - US Data US Images: Lower Extremity Findings Narrative: As per [facility] procedure, doppler report received from compliance field technician: Negative General Adult HPI - General Chief complaint: Extremity Problem,Nontraumatic Stated complaint: possible blood clot rt leg Time Seen by Provider: 09/15/21 11:48 Mode of Arrival: Ambulatory Limitations: No Limitations Description of Symptoms (Recalled from ER Triage Doc. by RN): pt to ed from pcp office for dvt r/o. pt states she has noticed her right calf swelling and feeling tight and painful x2 months. pt states it is painful to bear weight on. pt states she notices redness and heat off and on. - History of Present Illness HPI narrative: Complains of right leg pain and swelling. States her primary care provider sent her into have a blood clot ruled out. For 1 month she has had some pain in her right leg. Initially it started on her medial distal right calf as a burning sensation. She says over the past few days it is moved up to her medial right thigh. Pain increases with walking. No pain with straight leg raising. She has some chronic numbness of her right leg. She feels like her right leg has been a little more swollen than her left leg. She called her PCP this morning to schedule an appointment for evaluation and was told to come to the emergency room. - Related Data Home Medications Medication Instructions Recorded Confirmed aspirin 81 mg tablet,delayed 81 mg PO DAILY 03/29/21 09/12/21 release Atorvastatin Calcium [Lipitor 10mg See Rx Instructions .ROUTE .COMPLEX 04/11/21 09/12/21 Tab] Blood-Glucose Meter See Rx Instructions .ROUTE DAILY 04/11/21 09/12/21 lisinopriL [Lisinopril] 10 mg PO DAILY 04/11/21 09/12/21 Cholecalciferol (Vitamin D3) 25 mcg PO DAILY 08/04/21 09/12/21 [Vitamin D3 1,000 Unit Cap] Cyanocobalamin (Vitamin B-12) 5,000 mcg PO DAILY 08/04/21 09/12/21 [Vitamin B-12] Gabapentin 300 mg PO QID 08/04/21 09/12/21 Phentermine HCl 37.5 mg PO DAILY 08/04/21 09/12/21 Sitagliptin Phosphate [Januvia] See Rx Instructions .ROUTE .COMPLEX 08/04/21 09/12/21 Fluticasone Propionate 2 spray NS DAILY 09/05/21 09/12/21 Previous Rx's Medication Instructions Recorded tizanidine 4 mg tablet 4 mg PO Q8H PRN #90 tab 05/24/21 ergocalciferol (vitamin D2) 1,250 50,000 unit PO WEEKLY #14 cap 05/25/21 mcg (50,000 unit) capsule ondansetron 4 mg disintegrating 4 mg PO Q6H PRN #20 tab 07/01/21 tablet phenazopyridine 100 mg tablet 100 mg PO TID PRN 0 Days #6 tab 07/01/21 blood sugar diagnostic See Rx Instructions .ROUTE 08/05/21 .MEDSUPPLY #100 each dulaglutide 1.5 mg/0.5 mL 1.5 mg SQ WEEKLY #2 ml 08/05/21 subcutaneous pen injector lancets 33 gauge See Rx Instructions .ROUTE DAILY 08/05/21 #100 each alcohol swabs 1 pad TP TID #100 each 08/22/21 glipizide 10 mg tablet, extended 10 mg PO DAILY #90 t
--- NOTE | 2021-09-15 11:56 | PC.NURSE ---
tablet technician reports negative doppler
--- NOTE | 2021-09-15 12:00 | PC.NURSE ---
at the bedside to speak to pt
[2021-09-15 12:03] VITALS: BP 131/79; PULSE 94; RESP 17; TEMP 36.7; O2SAT 96
== END 2021-09-15 12:06 | disposition home or self-care (01) ==
PROVIDERS: Emergency Provider Emergency Medicine; PCP Physician Assistant
DX: M79.604 Pain in right leg (principal); Z79.82 Long term (current) use of aspirin; Z79.899 Other long term (current) drug therapy; Z88.0 Allergy status to penicillin; Z88.1 Allergy status to other antibiotic agents; E11.9 Type 2 diabetes mellitus without complications; K21.9 Gastro-esophageal reflux disease without esophagitis; F41.9 Anxiety disorder, unspecified; F32.A Depression, unspecified; Z72.0 Tobacco use
CPT/HCPCS: 93971; 99284

== ENCOUNTER 2021-10-11 10:22 | Emergency (ER) | payer MEDICAID, SELFPAY ==
[2021-10-11 11:20] VITALS: BP 143/90; PULSE 91; RESP 16; TEMP 36.8; O2SAT 98; BMI 42.5
[2021-10-11 11:30] LABS: Apearance,Urine Cloudy (Clear); Color,Urine Dark Yellow (Yellow); PH,Urine 5.5 (5.0-8.5); Protein,Urine 1+ (Negative); Specific Gravity, Urine >= 1.030 (1.005-1.030)
[2021-10-11 11:31] LABS: Bilirubin,Urine 1+ (Negative); Blood, Urine 3+ (Negative); Glucose,Urine (UA) 4+ (Negative); Ketones,Urine Negative (Negative); UTC Leukocyte Esterase,Urine Negative (Negative); UTC Nitrate,Urine Negative (Negative); Urobilinogen,Urine 0.2 EU/dl (0.2)
--- NOTE | 2021-10-11 11:43 | EXP.UTC ---
Discharge Plan Disposition Patient Disposition: Home, Self-Care Condition: Good Prescriptions Prescriptions: New ciprofloxacin HCl [Cipro] 500 mg tablet 500 mg PO BID Qty: 14 0RF phenazopyridine [Pyridium] 200 mg tablet 200 mg PO Q8H Qty: 6 0RF ondansetron 4 mg Tablet,Disintegrating 4 mg PO Q8H PRN (Reason: Nausea) Qty: 20 0RF No Action tizanidine [Zanaflex] 4 mg tablet 4 mg PO Q8H PRN (Reason: muscle spasticity) Qty: 90 0RF norethindrone (contraceptive) [Ortho Micronor] 0.35 mg tablet 0.35 mg PO DAILY Qty: 28 11RF ergocalciferol (vitamin D2) 1,250 mcg (50,000 unit) capsule 50,000 unit PO WEEKLY Qty: 14 3RF phenazopyridine [Pyridium] 100 mg tablet 100 mg PO TID PRN (Reason: pain) 0 Days Qty: 6 0RF ondansetron 4 mg tablet,disintegrating 4 mg PO Q6H PRN (Reason: nausea and vomiting) Qty: 20 0RF (DME) blood sugar diagnostic Strip See Rx Instructions .Route .MEDSUPPLY Qty: 100 2RF Rx Instructions: Test sugar three times daile of As directed (DME) lancets 33 gauge misc See Rx Instructions .Route DAILY Qty: 100 2RF Rx Instructions: Test sugar three time daily or As directed dulaglutide 1.5 mg/0.5 mL pen injector 1.5 mg SQ WEEKLY Qty: 2 2RF omeprazole 40 mg capsule,delayed release(DR/EC) 40 mg PO DAILY Qty: 90 3RF glipizide 10 mg tablet extended release 24hr 10 mg PO DAILY Qty: 90 3RF metformin 500 mg tablet 500 mg PO BID 90 Days Qty: 180 0RF Rx Instructions: 500 mg PO twice a day; alcohol swabs Pads, Medicated 1 pad TP TID Qty: 100 2RF cholecalciferol (vitamin D3) 25 mcg (1,000 unit) capsule 25 mcg PO DAILY Qty: 90 3RF atorvastatin 10 mg tablet See Rx Instructions .Route .COMPLEX Qty: 90 3RF Rx Instructions: TAKE 1 TABLET BY MOUTH AT BEDTIME cyanocobalamin (vitamin B-12) 5,000 mcg tablet,disintegrating 5,000 mcg PO DAILY Qty: 90 3RF aspirin [Adult Aspirin Regimen] 81 mg tablet,delayed release (DR/EC) 81 mg PO DAILY Qty: 90 3RF Paxlovid (EUA) 300 mg (150 mg x 2)-100 mg tablet See Rx Instructions PO .COMPLEX Qty: 30 0RF Rx Instructions: take TWO 150 mg tablets of nirmatrelvir with ONE 100 mg tablet of ritonavir twice daily for 5 days PO phenazopyridine [Pyridium] 200 mg tablet 200 mg PO TID Qty: 6 0RF acetaminophen-codeine 1 EACH tablet 1 each PO BID Qty: 30 0RF fluticasone propionate 16 GM spray,suspension 2 spray NS DAILY Rx Instructions: administer into each nostril gabapentin 300 MG capsule 300 mg PO QID Qty: 120 0RF (DME) blood-glucose meter 1 EACH kit See Rx Instructions .Route DAILY Rx Instructions: TID lisinopril 10 MG tablet 10 mg PO DAILY phentermine 37.5 MG tablet 37.5 mg PO DAILY Rx Instructions: must administer 30 minutes before or 1-2 hours after breakfast gabapentin 300 MG capsule 300 mg PO QID sitagliptin 100 MG tablet See Rx Instructions .Route .COMPLEX Rx Instructions: TAKE 1 TABLET BY MOUTH ONCE DAILY Referrals Follow up/Referrals: Viola Phipps PA [Primary Care Provider] - See instructions Activity Restrictions/Add. Instructions Additional Instructions/Restrictions: Drink plenty of fluids. Take tylenol or ibuprofen for pain or fever. Take the medications as directed. Follow up with your regular doctor. GO TO THE ER FOR ANY WORSENING SYMPTOMS The pyridium will make your urine turn orange, this is an expected side effect. It will stain your clothes if it comes into contact with them. We will culture the urine. That will tell what bacteria is causing your infection and which antibiotics will treat it best. Sometimes the first antibiotic we prescribe turns out to not work against different bacteria. So, make sure you follow up within 3 days if you are not getting better. Clinical Impressions Clinical Impression: UTI (urinary tract infecti
[2021-10-11 12:09] VITALS: BP 143/90; PULSE 91; RESP 16; TEMP 36.8
== END 2021-10-11 12:10 | disposition home or self-care (01) ==
PROVIDERS: Emergency Provider Nurse Practitioner Family; PCP Physician Assistant
DX: N39.0 Urinary tract infection, site not specified (principal); K21.9 Gastro-esophageal reflux disease without esophagitis; E78.5 Hyperlipidemia, unspecified; E11.9 Type 2 diabetes mellitus without complications; E03.9 Hypothyroidism, unspecified; E55.9 Vitamin D deficiency, unspecified; F32.A Depression, unspecified; F17.210 Nicotine dependence, cigarettes, uncomplicated; R11.0 Nausea; Z79.1 Long term (current) use of non-steroidal anti-inflammatories (NSAID); Z79.51 Long term (current) use of inhaled steroids; Z79.82 Long term (current) use of aspirin; Z79.84 Long term (current) use of oral hypoglycemic drugs; Z79.899 Other long term (current) drug therapy; Z88.0 Allergy status to penicillin; Z88.1 Allergy status to other antibiotic agents; Z88.3 Allergy status to other anti-infective agents; Z88.8 Allergy status to other drugs, medicaments and biological substances
CPT/HCPCS: 81003; 87086; 99213; G0463

== ENCOUNTER → 2021-11-02 13:00 | Outpatient (CLI) | payer MEDICAID, SELFPAY | PROVIDERS: PCP Physician Assistant; Visit Provider Physician Assistant | DX: N39.0 Urinary tract infection, site not specified (principal) | CPT/HCPCS: 87086 ==

== ENCOUNTER → 2021-11-03 11:02 | Outpatient (POV) | payer MEDICAID, SELFPAY ==
[2021-11-03 12:08] VITALS: BP 154/80; PULSE 99; RESP 18; TEMP 36.5; O2SAT 98; BMI 44.1
--- NOTE | 2021-11-03 12:40 | EXP.PAIN.SOA ---
[facility] Pain Management SOAP Note Subjective:: Patient is a pleasant 26-year-old female who presents today for follow-up. We are currently treating the patient for degenerative disc disease of lumbar spine with lumbar radiculopathy symptoms, bilateral sacroiliitis, right hand pain, diabetic neuropathy. Today the patient rates her pain a 4 out of 10. She denies any new trauma or injury. She states the pain is still in her low back and describes it as a aching, throbbing sensation that is worse with increased activity. Patient has had injective therapy in the past for this such as the cluneal nerve nerve block and SI injections however these did not help her pain symptoms. Patient also states she has continued to have pain in her right hand and noticed a second knot that is popped up at her wrist and causes radiating pain into her forearm. Previously we did order a right hand MRI however the patient did not go to this appointment due to being sick. She is interested in proceeding forward with this today. She is currently managed with gabapentin 300 mg a day and Tylenol 3 30 mg twice a day. Patient denies any side effects from this medication. She states this medication does improve her pain symptoms. Patient is also prescribed compounding cream that she states offers some improvement of her symptoms of her feet neuropathy. Her Loki is [id number]. It has been reviewed and appropriate. Review of Systems: General: No recent weight changes, no fever, no sleep disturbances Respiratory: No cough, no shortness of air, no recurring pulmonary infections Cardiovascular/peripheral vascular: No chest pain, no palpitations, no edema, no shortness of breath Gastrointestinal: No new onset incontinence, normal bowel movements reported Genitourinary: No new onset incontinence Musculoskeletal: Low back pain, right hand pain Psychiatric: [Normal mood/affect] Neurological: [Denies weakness in extremities], [denies balance issues] Objective:: Physical Exam: General: Alert and oriented x3, no acute distress, pleasant and cooperative Lungs: Respirations even and unlabored, symmetrical chest expansion Eyes: PERRL Musculoskeletal: Flexion and extension of lumbar [spine] somewhat guarded secondary to pain, [antalgic gait noted] Neurological: Speech clear, no gross sensory deficit Assessment:: Degenerative disc disease of lumbar spine with lumbar radiculopathy symptoms, bilateral sacroiliitis, right hand pain, diabetic neuropathy Plan:: Patient continues to have significant pain in her low back and right hand. I will reorder the patient a right hand MRI and do a referral to hand orthopedics. I have also discussed with the patient that if she continues to have pain along her low back and pelvis that we will order updated imaging in the future. I will refill the patient's gabapentin 300 mg 4 times a day and Tylenol 3 30 mg twice daily and provide a 1 month supply of both of these medications. Patient will follow-up following imaging. Patient has been advised of risks of oversedation with the prescribed medication. Narcan has been offered to the patient in the event of oversedation. Patient has been advised that a family member should also be educated regarding administration of Narcan. Patient has been instructed to contact the clinic with any concerns before the next appointment. Dr. Colindres has reviewed this note and agrees with this plan of care. This note was dictated using voice recognition software and make contain errors or omissions. [facility] Medical History Depression Diabetes mellitus GERD (gastroesophageal reflux disease) Hyperlipidemia Hypothyroidism Vitamin D deficiency Surgical History (Updated 11/02/21 @ 13:01 by Irasema Cochran LPN) History of History of carpal tunnel surgery Social History Smoking Status: Current every day smoker t
== END | disposition home or self-care (01) ==
PROVIDERS: Visit Provider Nurse Practitioner Family
DX: M51.16 Intervertebral disc disorders with radiculopathy, lumbar region (principal); M46.1 Sacroiliitis, not elsewhere classified; E11.40 Type 2 diabetes mellitus with diabetic neuropathy, unspecified; M79.641 Pain in right hand; F17.210 Nicotine dependence, cigarettes, uncomplicated; Z79.899 Other long term (current) drug therapy
CPT/HCPCS: 99212; G0463

== ENCOUNTER → 2021-11-11 06:54 | Outpatient (CLI) | payer MEDICAID, SELFPAY ==
--- NOTE | 2021-11-11 07:12 | CT_ITS ---
FINAL REPORT CLINICAL HISTORY: renal stone protocol. pt states she has hernia at her incision site. c section 2 years ago. COMPARISON: 11/09/2015 FINDINGS: Axial CT images of the abdomen and pelvis were obtained without intravenous contrast. Coronal reformatted images were also obtained.This study was performed with techniques to keep radiation doses as low as reasonably achievable (ALARA). Individualized dose reduction techniques using automated exposure control or adjustment of mA and/or kV according to the patient's size were employed. Abdomen: The lung bases are clear. There is no evidence of renal stone. There is mild left hydronephrosis and hydroureter secondary to a 9 mm stone in the mid left ureter at the L5-S1 level. The gallbladder is present. The liver, spleen and pancreas have an unremarkable, unenhanced appearance. No mass or adenopathy is seen. No inflammatory process is identified. Pelvis: The appendix is normal. The urinary bladder is unremarkable. There is no evidence of bowel obstruction. There is a large infra-umbilical hernia. The hernia orifice measures 6 cm in transverse dimension. The hernia sac measures up to 22 cm in transverse dimension and contains multiple nonobstructed small bowel loops. IMPRESSION: Mild left hydronephrosis and hydroureter secondary to a 9 mm stone in the mid left ureter. Large infra-umbilical hernia containing multiple nonobstructed small bowel loops. Reviewed, Interpreted and Dictated by Augustine Campa III, MD Transcribed by Brooke Floyd Authenticated and [facility]
== END ==
PROVIDERS: PCP Physician Assistant; Visit Provider Physician Assistant
DX: R10.9 Unspecified abdominal pain (principal); R31.9 Hematuria, unspecified
CPT/HCPCS: 74176

== ENCOUNTER → 2021-12-20 14:42 | Outpatient (POV) | payer MEDICAID, SELFPAY ==
[2021-12-20 14:51] VITALS: BP 148/76; PULSE 108; RESP 18; O2SAT 97; BMI 41.6
--- NOTE | 2021-12-20 15:00 | EXP.PAIN.SOA ---
[facility] Pain Management SOAP Note Subjective:: Patient is a pleasant 26-year-old female who presents today for medication refill and follow-up. We are currently treating the patient for degenerative disc disease of lumbar spine with lumbar radiculopathy symptoms, bilateral sacroiliitis, right hand pain, diabetic neuropathy. Today the patient rates her pain a 2 out of 10. Patient denies any new trauma or injury. Patient denies any change in location or type of pain she experiences. Patient does states she continues to have pain in her and describes it as a aching, throbbing sensation that is worse with increased activity. We have done injective therapy in the past such as a cluneal nerve block and SI injection however this did not provide significant improvement. Patient also continues to have significant pain in her right hand that radiates into her forearm. Previously we did order a right hand MRI however the patient was unable to tolerate the procedure due to positioning and adding a weight onto her hand. Patient states that she did have increasing pain and swelling following this attempted imaging. We were planning on referring her to hand orthopedics at our last visit once she completed her imaging however at this time we have not been able to do this. Patient is currently managed with gabapentin 300 mg a day and Tylenol 3 30 mg twice a day. Patient denies any side effects from these medications. She states these medications do help improve her symptoms. She is requesting refills of these 2 medications at today's visit. Patient is also prescribed compounding cream that she states provides some additional improvement. Patient does states since her last visit she has gotten a left kidney stone that is approximately 20 mm in size and is requiring surgery. Patient states she goes to [facility] on the of this month to remove this. Patient also states her abdominal hernia that she was trying to get repaired by someone at however she has not had any luck and has been dismissed by . Patient does state this hernia is about the size of a basketball and she is now trying to contact someone at [facility]. Her Loki is [phone]. It is been reviewed and appropriate. Review of Systems: General: No recent weight changes, no fever, no sleep disturbances Respiratory: No cough, no shortness of air, no recurring pulmonary infections Cardiovascular/peripheral vascular: No chest pain, no palpitations, no edema, no shortness of breath Gastrointestinal: No new onset incontinence, normal bowel movements reported Genitourinary: No new onset incontinence Musculoskeletal: Low back pain, right hand pain Psychiatric: [Normal mood/affect] Neurological: [Denies weakness in extremities], [denies balance issues] Objective:: Physical Exam: General: Alert and oriented x3, no acute distress, pleasant and cooperative Lungs: Respirations even and unlabored, symmetrical chest expansion Eyes: PERRL Musculoskeletal: Flexion and extension of right hand, lumbar [spine] somewhat guarded secondary to pain, [antalgic gait noted] Neurological: Speech clear, no gross sensory deficit Assessment:: Degenerative disc disease of lumbar spine with lumbar radiculopathy symptoms, bilateral sacroiliitis, right hand pain, diabetic neuropathy Plan:: Patient continues to experience significant pain in her low back as well as her right hand. Patient was unable to tolerate the MRI imaging for her right hand in order to be referred to hand orthopedics. I will order a CT without contrast of the right hand at today's appointment. I will also refill the patient's gabapentin 300 mg 4 times a day and Tylenol 3 twice a day and provide a 1 month supply of this medication. We will follow-up with the patient in 1 month. Patient will return to clinic in 1 month for reevaluation of symptoms, medication refill and follow-up. Patient has been instructed to contact the clinic with any concerns b
== END | disposition home or self-care (01) ==
PROVIDERS: PCP Physician Assistant; Visit Provider Nurse Practitioner Family
DX: M51.16 Intervertebral disc disorders with radiculopathy, lumbar region (principal); M46.1 Sacroiliitis, not elsewhere classified; E11.40 Type 2 diabetes mellitus with diabetic neuropathy, unspecified; M79.641 Pain in right hand; Z72.0 Tobacco use
CPT/HCPCS: 99212; G0463

== ENCOUNTER → 2022-01-19 13:38 | Outpatient (POV) | payer MEDICAID, SELFPAY ==
[2022-01-19 13:44] VITALS: BP 133/84; PULSE 102; RESP 18; O2SAT 97; BMI 41.6
--- NOTE | 2022-01-19 14:04 | EXP.PAIN.SOA ---
[facility] Pain Management SOAP Note Subjective:: Patient is a pleasant 26-year-old female who presents today for medication refill and follow-up. We are currently treating the patient for degenerative disc disease of lumbar spine with lumbar radiculopathy symptoms, bilateral sacroiliitis, right hand pain, diabetic neuropathy. Today the patient rates her pain a 3 out of 10. Patient denies any new trauma or injury. Patient denies any change location or type of pain she experiences. Patient is currently managed on Tylenol 3 twice a day and gabapentin 300 mg 4 times a day. Patient denies any side effects from these medications. She states these medications do help manage her pain symptoms along with her compounding cream. She is requesting refills at today's visit. Patient has had multiple injections in the past however she did not have significant improvement. Patient is scheduled to go in for a right hand CT however she stated that she has not been able to schedule this but is planning on doing that after our visit today. Patient was sent for a referral to [facility] orthopedics however we have been waiting on this due to the imaging. Her Loki is [id number]. Its been reviewed and appropriate. Review of Systems: General: No recent weight changes, no fever, no sleep disturbances Respiratory: No cough, no shortness of air, no recurring pulmonary infections Cardiovascular/peripheral vascular: No chest pain, no palpitations, no edema, no shortness of breath Gastrointestinal: No new onset incontinence, normal bowel movements reported Genitourinary: No new onset incontinence Musculoskeletal: No back pain, right hand pain Psychiatric: [Normal mood/affect] Neurological: [Denies weakness in extremities], [denies balance issues] Objective:: Physical Exam: General: Alert and oriented x3, no acute distress, pleasant and cooperative Lungs: Respirations even and unlabored, symmetrical chest expansion Eyes: PERRL Musculoskeletal: Flexion and extension of lumbar [spine] somewhat guarded secondary to pain, [antalgic gait noted] Neurological: Speech clear, no gross sensory deficit Assessment:: Degenerative disc disease of lumbar spine with lumbar radiculopathy symptoms, bilateral sacroiliitis, right hand pain, diabetic neuropathy, chronic hand pain Plan:: -year-oldPatient continues to experience significant pain in her low back as well as her right hand. I will refill the patient's Tylenol 3 twice a day and gabapentin 300 mg 4 times a day and provide a 1 month supply of this medication. Patient is scheduling her CT after our visit here today and as soon as we have this imaging we will send it on with the referral to hand orthopedics. Patient will return to clinic in 1 month for reevaluation of symptoms, medication refill and follow-up. Patient has been advised of risks of oversedation with the prescribed medication. Narcan has been offered to the patient in the event of oversedation. Patient has been advised that a family member should also be educated regarding administration of Narcan. Patient has been instructed to contact the clinic with any concerns before the next appointment. Dr. Colindres has reviewed this note and agrees with this plan of care. This note was dictated using voice recognition software and make contain errors or omissions. [facility] Disclaimer: The information contained in this section may have been updated after the patient was seen, as this information can be updated by other users. Medical History (Updated 01/13/22 @ 14:27 by Cristóbal Ramirez APRN) Depression Diabetes mellitus GERD (gastroesophageal reflux disease) Hyperlipidemia Hypothyroidism Vitamin D deficiency Surgical History (Updated 11/02/21 @ 13:01 by Irasema Cochran LPN) History of History of carpal tunnel surgery Social History Smoking Status: Current every day smoker tobacco type: cigarettes packs per day:
== END | disposition home or self-care (01) ==
PROVIDERS: PCP Nurse Practitioner Family; Visit Provider Nurse Practitioner Family
DX: M51.16 Intervertebral disc disorders with radiculopathy, lumbar region (principal); M46.1 Sacroiliitis, not elsewhere classified; E11.40 Type 2 diabetes mellitus with diabetic neuropathy, unspecified; M79.641 Pain in right hand; G89.29 Other chronic pain
CPT/HCPCS: 99212; G0463

== ENCOUNTER 2022-02-03 14:00 | Outpatient (RCR) | payer MEDICAID, SELFPAY ==
--- NOTE | 2022-02-03 15:38 | HMH.PTOPEV ---
PT Outpatient Evaluation Rehab PT Outpatient Evaluation Start: 02/03/22 14:11 Freq: Status: Active Protocol: Document 02/03/22 15:27 PHORNE (Rec: 02/03/22 15:38 PHORNE [id number]) E-signed By Kareem Lau, PT Outpatient Therapy Subjective History Subjective History This is the initial PT eval for Yamileth Solano 26 yowf who presents with c/o severe vertigo symptoms over the past 2 mos which last mins to hrs per episode. She reports laying or turning to her R side will cause her symptoms. She also reports significant hx of seasonal allergies, recent sinus infection, continued fluid in her R ear, and decreased hearing in the R ear. She reports that if she can tolerate laying on her R side long enough, fluid with drain from her ear onto her pillow. She reports nausea, sometimes severe, associated with her vertigo. She has PMH of RA, DM-II, and anxiety. She reports she had a severe RA flare up just prior to her vertigo symptoms beginning. She presents this date with significant c/o vertigo, but no nystagmus on neo-halpike testing. Diminished hearing noted with finger rub test on R ear. Chief Complaint Other Symptoms Relieved By Rest/Positioning,Prescription Meds Symptoms Aggravated By Bending/Stooping,Twisting Prior Functional Limitations None Current Functional Limitations Reaching,Housework,Driving, Sleeping,Recreation Activity, Walking,Bending/Stooping Symptom Description Constant but Variable Balance Eval Gait/Posture Asssessment General Gait Observation No Deviations/Normal Nystagmus Nystagmus Presence None Oculomotor Gaze Oculomotor Gaze Nml: Vergence Smooth Pursuit Saccades Cover/Uncover Cross Cover
== END 2022-02-03 14:05 | disposition home or self-care (01) ==
LOC: PT 14:00
PROVIDERS: PCP Nurse Practitioner Family; Visit Provider Nurse Practitioner Family
DX: R42 Dizziness and giddiness (principal)
CPT/HCPCS: 97163

== ENCOUNTER → 2022-03-06 14:40 | Outpatient (POV) | payer MEDICAID, SELFPAY ==
--- NOTE | 2022-03-06 15:11 | EXP.PAIN.SOA ---
[facility] Pain Management SOAP Note Subjective:: Patient is a pleasant 27-year-old female who presents today for med refill and follow-up. We are currently treating the patient for degenerative disc disease of lumbar spine with lumbar radiculopathy symptoms, bilateral sacroiliitis, right hand pain, diabetic neuropathy. Today she rates her pain a 3 out of 10. Patient denies any new trauma or injury. Patient denies any change for the location or type of pain she experiences. Patient is currently managed on Tylenol 3 twice a day and gabapentin 300 mg 4 times a day. Patient denies any side effects from these medications. She states these medications do help along with her compounding cream. She is requesting refills at today's visit as well as increasing her Tylenol 3 to 3 times a day. Patient was scheduled for a CT of her right hand because she was unable to tolerate an MRI due to positioning however she states she does have an allergy to the contrast and needs a new order for a CT without. Patient has been waiting to be sent for referral to [facility] orthopedics due to lack of imaging. Her Loki is [id number]. Its been reviewed and appropriate. Review of Systems: General: No recent weight changes, no fever, no sleep disturbances Respiratory: No cough, no shortness of air, no recurring pulmonary infections Cardiovascular/peripheral vascular: No chest pain, no palpitations, no edema, no shortness of breath Gastrointestinal: No new onset incontinence, normal bowel movements reported Genitourinary: No new onset incontinence Musculoskeletal: Right hand pain Psychiatric: [Normal mood/affect] Neurological: [Denies weakness in extremities], [denies balance issues] Objective:: Physical Exam: General: Alert and oriented x3, no acute distress, pleasant and cooperative Lungs: Respirations even and unlabored, symmetrical chest expansion Eyes: PERRL Musculoskeletal: Flexion and extension of right hand somewhat guarded secondary to pain, [antalgic gait noted] Neurological: Speech clear, no gross sensory deficit Assessment:: Degenerative disc disease of lumbar spine with lumbar radiculopathy symptoms, bilateral sacroiliitis, right hand pain, diabetic neuropathy Plan:: Patient continues to experience significant pain in her right hand with limited range of motion. I will refill the patient's gabapentin 300 mg 4 times a day and increase her Tylenol 3 to 3 times a day and provide a 1 month supply of these medications. I will order the patient a CT without contrast of her right hand and patient will return to clinic following her CT imaging for reevaluation of symptoms and plan of care. Patient has been advised of risks of oversedation with the prescribed medication. Narcan has been offered to the patient in the event of oversedation. Patient has been advised that a family member should also be educated regarding administration of Narcan. Patient has been instructed to contact the clinic with any concerns before the next appointment. Dr. Colindres has reviewed this note and agrees with this plan of care. This note was dictated using voice recognition software and make contain errors or omissions. [facility] Disclaimer: The information contained in this section may have been updated after the patient was seen, as this information can be updated by other users. Medical History (Updated 02/27/22 @ 09:32 by Cristóbal Ramirez APRN) Depression Diabetes mellitus GERD (gastroesophageal reflux disease) Hyperlipidemia Hypothyroidism Vitamin D deficiency Surgical History (Updated 11/02/21 @ 13:01 by Irasema Cochran LPN) History of History of carpal tunnel surgery Social History Smoking Status: Current every day smoker tobacco type: cigarettes packs per day: 1 alcohol intake: never substance use type: denies use current occupational status: unemployed Travel in the last 8 weeks: None
[2022-03-06 16:07] VITALS: BP 121/81; PULSE 111; RESP 18; O2SAT 98; BMI 43.0
== END | disposition home or self-care (01) ==
PROVIDERS: PCP Nurse Practitioner Family; Visit Provider Nurse Practitioner Family
DX: M51.16 Intervertebral disc disorders with radiculopathy, lumbar region (principal); M46.1 Sacroiliitis, not elsewhere classified; M79.641 Pain in right hand; E11.40 Type 2 diabetes mellitus with diabetic neuropathy, unspecified
CPT/HCPCS: 99212; G0463

== ENCOUNTER → 2022-03-22 10:48 | Outpatient (CLI) | payer MEDICAID, SELFPAY ==
--- NOTE | 2022-03-22 10:51 | CT_ITS ---
FINAL REPORT CLINICAL HISTORY: R HAND PAIN, DEFECT OF THUMB, SURGERY AT 1 YEARS OLD, PREVIOUS HAND XRAY COMPARISON: Plain radiographs from September 01, 2021 FINDINGS: Technique: Axial images through the right hand were performed by computed tomography. Sagittal and coronal reconstruction images were performed. This study was performed with techniques to keep radiation doses as low as reasonably achievable (ALARA). Individualized dose reduction techniques using automated exposure control or adjustment of mA and/or kV according to the patient's size were employed. No fracture is identified. No dislocation identified. There is an unusual bony protuberance from the anterior aspect of the trapezium. Osteochondroma cannot be excluded. There is deformity of the head of the proximal phalanx of the thumb with a bony protuberance that could also represent an osteochondroma. There is deformity of the distal tuft of the thumb. Findings could all be congenital given patient history. There is abnormal fat and soft tissue in the anterior carpal tunnel that extends to the region of the thenar eminence. There is prominent fatty proliferation in the subcutaneous tissues of the thumb and lateral aspect of the 2nd femur. IMPRESSION: Abnormal fat and soft tissue in the anterior carpal tunnel with prominent fatty proliferation in the subcutaneous tissues as described that could be a form of vascular anomaly. If this is growing or has changed a fat containing neoplasm cannot be excluded. Consider MRI without and with contrast. No acute osseous abnormality. Reviewed, Interpreted and Dictated by Wilma Cat MD Transcribed by Joe Hendricks Authenticated and [facility]
== END ==
PROVIDERS: PCP Nurse Practitioner Family; Visit Provider Nurse Practitioner Family
DX: M79.641 Pain in right hand (principal)
CPT/HCPCS: 73200

== ENCOUNTER → 2022-03-30 10:53 | Outpatient (POV) | payer MEDICAID, SELFPAY ==
--- NOTE | 2022-03-30 11:29 | EXP.PAIN.SOA ---
[facility] Pain Management SOAP Note Subjective:: Patient is a pleasant 27-year-old female who presents today for medication refill and follow-up. We are currently treating the patient for degenerative disc disease of lumbar spine with lumbar radiculopathy symptoms, bilateral sacroiliitis, right hand pain, diabetic neuropathy. Today she rates her pain a 3 out of 10. Patient denies any new trauma or injury. Patient denies any change location or type of pain she experiences. Patient does states she is experiencing more pain in her hand than her low back at this time. Patient did have new CT imaging without contrast. Patient was unable to tolerate MRI positioning due to the pain. She has already been contacted by hand orthopedics who we sent a referral to and states that they did call to tell her her appointment was April 10. Patient states they did go over preop information and that she will be scheduled for surgery on her right hand that day as well. Patient does have some concerns since she has not seen their office before. Patient is currently managed with Tylenol 3 3 times a day and gabapentin 300 mg 4 times a day. Patient denies any side effects from this medication. She is requesting a refill at today's visit. She is also prescribed compounding cream that does help additionally. Her Loki is [id number]. Its been reviewed and appropriate. Review of Systems: General: No recent weight changes, no fever, no sleep disturbances Respiratory: No cough, no shortness of air, no recurring pulmonary infections Cardiovascular/peripheral vascular: No chest pain, no palpitations, no edema, no shortness of breath Gastrointestinal: No new onset incontinence, normal bowel movements reported Genitourinary: No new onset incontinence Musculoskeletal: Right hand pain, low back pain Psychiatric: [Normal mood/affect] Neurological: [Denies weakness in extremities], [denies balance issues] Objective:: Physical Exam: General: Alert and oriented x3, no acute distress, pleasant and cooperative Lungs: Respirations even and unlabored, symmetrical chest expansion Eyes: PERRL Musculoskeletal: Flexion and extension of right hand, lumbar [spine] somewhat guarded secondary to pain, [antalgic gait noted] Neurological: Speech clear, no gross sensory deficit FINAL REPORT CLINICAL HISTORY: R HAND PAIN, DEFECT OF THUMB, SURGERY AT 1 YEARS OLD, PREVIOUS HAND XRAY COMPARISON: Plain radiographs from September 01, 2021 FINDINGS: Technique: Axial images through the? right hand were performed by computed tomography.? Sagittal and coronal reconstruction images were performed. This study was performed with techniques to keep radiation doses as low as reasonably achievable (ALARA). Individualized dose reduction techniques using automated exposure control or adjustment of mA and/or kV according to the patient's size were employed.? No fracture is identified.? No dislocation identified.? There is an unusual bony protuberance from the anterior aspect of the trapezium.? Osteochondroma cannot be excluded.? There is deformity of the head of the proximal phalanx of the thumb with a bony protuberance that could also represent an osteochondroma.? There is deformity of the distal tuft of the thumb.? Findings could all be congenital given patient history.? There is abnormal fat and soft tissue in the anterior carpal tunnel that extends to the region of the thenar eminence.? There is prominent fatty proliferation in the subcutaneous tissues of the thumb and lateral aspect of the 2nd femur. IMPRESSION: Abnormal fat and soft tissue in the anterior carpal tunnel with prominent fatty proliferation in the subcutaneous tissues as described that could be a form of vascular anomaly.? If this is growing or has changed a fat containing neoplasm cannot be excluded.? Consider MRI without and with contrast.? ? No acute osseous abnormality. Reviewed, Interpreted and Dictated by Wilma Cat MD [facility]
[2022-03-30 12:24] VITALS: BP 123/77; PULSE 108; RESP 18; O2SAT 97; BMI 39.8
== END | disposition home or self-care (01) ==
PROVIDERS: PCP Nurse Practitioner Family; Visit Provider Nurse Practitioner Family
DX: M51.16 Intervertebral disc disorders with radiculopathy, lumbar region (principal); M46.1 Sacroiliitis, not elsewhere classified; M25.541 Pain in joints of right hand; E11.40 Type 2 diabetes mellitus with diabetic neuropathy, unspecified; F17.210 Nicotine dependence, cigarettes, uncomplicated; Z79.899 Other long term (current) drug therapy
CPT/HCPCS: 99212; G0463

== ENCOUNTER → 2022-04-11 13:20 | Outpatient (CLI) | payer MEDICAID, SELFPAY ==
[2022-04-11 14:29] LABS: Amphetamine/Metha Screen,Urine Negative ng/ml (<1000)
[2022-04-11 14:30] LABS: Barbiturates Screen,Urine Negative ng/ml (<200)
[2022-04-11 14:31] LABS: Benzodiazepines Screen,Urine Negative ng/ml (<200); Cannabinoid Screen,Urine Negative ng/ml (<50)
[2022-04-11 14:32] LABS: Cocaine Screen,Urine Negative ng/ml (<300)
[2022-04-11 14:33] LABS: Methadone Screen,Urine Negative ng/ml (<300); Opiate Screen,Urine Negative ng/ml (<300)
[2022-04-11 14:34] LABS: Phencyclidine Screen,Urine Negative ng/ml (<25)
[2022-04-17 18:09] LABS: Opiates Negative (Cutoff=100)
== END ==
PROVIDERS: PCP Nurse Practitioner Family; Visit Provider Anesthesiology
DX: Z79.891 Long term (current) use of opiate analgesic (principal)
CPT/HCPCS: 80305; 80361; 80365; G0480

== ENCOUNTER → 2022-05-15 14:22 | Outpatient (CLI) | payer MEDICAID, SELFPAY ==
--- NOTE | 2022-05-15 14:31 | XR_ITS ---
FINAL REPORT CLINICAL HISTORY: left knee pain, F[place]QU[place] FALL[place] FINDINGS: LEFT KNEE 4 views of the left knee obtained. There is no acute fracture or dislocation. The joint spaces are intact. There is no soft tissue abnormality. IMPRESSION: No acute abnormality Reviewed, Interpreted and Dictated by Augustine Campa III, MD Transcribed by Radha Reddy Authenticated and [facility]
[2022-05-15 15:22] LABS: Basophils # 0.1 K/mm3 (0-0.2); Basophils % 0.9 % (0.1-2.0); Eosinophils # 0.3 K/mm3 (0.0-0.4); Eosinophils % 3.5 % (0.1-12.0); Hematocrit 43.6 % (37.0-47.0); Lymphocytes # 2.6 K/mm3 (0.7-4.5); Lymphocytes % 27.8 % (10-50); Mean Corpuscular HGB Conc 32.1 g/dL (31.8-35.4); Mean Corpuscular Hemoglobin 29.4 pg (27.0-31.2); Mean Corpuscular Volume 91.7 fl (81-99); Monocytes # 0.5 K/mm3 (0.1-1.0); Monocytes % 4.7 % (1.7-9.3); Neutrophils % 63.1 % (37.0-80.0); Platelet Count 398 K/mm3 (142-424); Red Blood Count 4.75 M/mm3 (4.20-5.40); Red Cell Distribution Width 13.7 % (11.5-17.5); White Blood Count 9.5 K/mm3 (4.8-10.8)
[2022-05-15 16:36] LABS: Alanine Aminotransferase 24 U/L (12-78); Albumin Level 3.8 g/dl (3.5-5.0); Albumin/Globulin Ratio 1.7 (1.1-1.8); Alkaline Phosphatase 61 U/L (38-126); Anion Gap 8.2 mEq/L (5-15); Aspartate Amino Transferase 28 U/L (14-36); Bilirubin,Total 0.3 mg/dl (0.2-1.3); Blood Urea Nitrogen 10 mg/dl (7-17); Calcium 8.9 mg/dl (8.4-10.2); Carbon Dioxide 24 mmol/L (22.0-30.0); Chloride 105 mmol/L (98-107); Chol/HDL Ratio 7.9 (1-3.5); Cholesterol 150 mg/dl (140-200); Estimated Glomerular Filt Rate 189 ml/min (>60); GFR (African American) 228 ML/MIN (>60); Globulin 2.3 g/dL (1.3-3.2); Glucose 287 mg/dl (74-100); HDL Cholesterol 19 mg/dl (40-60); Potassium 4.2 mmoL/L (3.5-5.1); Sodium 133 mmol/L (136-145); Total Protein,Serum 6.1 g/dl (6.3-8.2)
[2022-05-15 16:55] LABS: 25-OH Vitamin D, Total 23.2 ng/mL (30-100)
[2022-05-15 17:08] LABS: Thyroid Stimulating Hormone 1.58 uIU/mL (0.465-4.68); Triglycerides 1079 mg/dl (30-150)
[2022-05-15 17:27] LABS: Vitamin B12 945 pg/mL (239-931)
== END ==
PROVIDERS: PCP Physician Assistant; Visit Provider Physician Assistant
DX: M25.562 Pain in left knee (principal); L65.9 Nonscarring hair loss, unspecified; E11.9 Type 2 diabetes mellitus without complications; E55.9 Vitamin D deficiency, unspecified; Z79.84 Long term (current) use of oral hypoglycemic drugs
CPT/HCPCS: 36415; 73564; 80053; 80061; 82306; 82607; 83036; 84443; 85025

== ENCOUNTER → 2022-05-31 11:37 | Outpatient (POV) | payer MEDICAID, SELFPAY ==
--- NOTE | 2022-05-31 12:04 | A.OFFVIS_ITS ---
[facility] Pain Management SOAP Note Subjective:: Patient is a pleasant 27-year-old female who presents today for medication refill and follow-up. We are currently treating the patient for degenerative disc disease of lumbar spine with lumbar radiculopathy symptoms, bilateral sacroiliitis, right hand pain, diabetic neuropathy. Today she rates her pain at a 5 out of 10. Patient denies any new trauma or injury. Patient denies any change location or type of pain she experiences. She states she recently has changed her diabetes medication. She was put on insulin and oral medication due to her A1c being around 15. Patient states she has had significant improvement with her glucose numbers and does feel like she has had increased energy however she states she notices her pain more. Patient is scheduled for a MRI with sedation on June 12. She will be seen at [facility] orthopedics following this imaging for plan of care. She is currently managed with Tylenol 3 3 times a day and gabapentin 300 mg 4 times a day. She denies any side effects from this medication. She is also prescribed compounding cream however she states she only has 1 refill left. Her Loki is [id number]. Its been reviewed and appropriate. Review of Systems: General: No recent weight changes, no fever, no sleep disturbances Respiratory: No cough, no shortness of air, no recurring pulmonary infections Cardiovascular/peripheral vascular: No chest pain, no palpitations, no edema, no shortness of breath Gastrointestinal: No new onset incontinence, normal bowel movements reported Genitourinary: No new onset incontinence Musculoskeletal: Low back pain, hand pain Psychiatric: [Normal mood/affect] Neurological: [Denies weakness in extremities], [denies balance issues] Objective:: Physical Exam: General: Alert and oriented x3, no acute distress, pleasant and cooperative Lungs: Respirations even and unlabored, symmetrical chest expansion Eyes: PERRL Musculoskeletal: Flexion and extension of lumbar [spine] somewhat guarded secondary to pain, [antalgic gait noted] Neurological: Speech clear, no gross sensory deficit Assessment:: Degenerative disc disease of lumbar spine with lumbar radiculopathy symptoms, bilateral sacroiliitis, right hand pain, diabetic neuropathy Plan:: Patient is doing well with her current medication regimen. I will refill her gabapentin 300 mg 4 times a day and Tylenol 3 3 times a day and provide a 1 month supply of this medication. I will also send in a new order of the compounding cream. Patient will return to clinic in 1 month for reevaluation of symptoms and medication refill. Patient has been instructed to contact the clinic with any concerns before the next appointment. Dr. Colindres has reviewed this note and agrees with this plan of care. This note was dictated using voice recognition software and make contain errors or omissions. [facility] Disclaimer: The information contained in this section may have been updated after the patient was seen, as this information can be updated by other users. Medical History Depression Diabetes mellitus GERD (gastroesophageal reflux disease) Hyperlipidemia Hypothyroidism Vitamin D deficiency Surgical History History of History of carpal tunnel surgery Social History Smoking Status: Current every day smoker tobacco type: cigarettes packs per day: 1 alcohol intake: never substance use type: denies use current occupational status: unemployed Travel in the last 8 weeks: None
[2022-05-31 12:10] VITALS: BP 100/76; PULSE 112; RESP 19; O2SAT 96; BMI 42.1
== END | disposition home or self-care (01) ==
PROVIDERS: PCP Physician Assistant; Visit Provider Nurse Practitioner Family
DX: M51.16 Intervertebral disc disorders with radiculopathy, lumbar region (principal); M46.1 Sacroiliitis, not elsewhere classified; M79.641 Pain in right hand; E11.40 Type 2 diabetes mellitus with diabetic neuropathy, unspecified
CPT/HCPCS: 99212; G0463

== ENCOUNTER → 2022-06-08 20:09 | Outpatient (CLI) | payer MEDICAID, SELFPAY | PROVIDERS: PCP Nurse Practitioner Family; Visit Provider Nurse Practitioner Family | DX: N39.0 Urinary tract infection, site not specified (principal); B96.29 Other Escherichia coli [E. coli] as the cause of diseases classified elsewhere | CPT/HCPCS: 87086; 87088; 87186 ==

== ENCOUNTER → 2022-06-14 13:30 | Outpatient (CLI) | payer MEDICAID, SELFPAY | PROVIDERS: PCP Physician Assistant; Visit Provider Physician Assistant | DX: R39.9 Unspecified symptoms and signs involving the genitourinary system (principal) | CPT/HCPCS: 87086; 87210 ==

== ENCOUNTER → 2022-06-26 11:38 | Outpatient (POV) | payer MEDICAID, SELFPAY ==
[2022-06-26 12:01] VITALS: BP 104/71; PULSE 108; RESP 18; O2SAT 97; BMI 39.8
--- NOTE | 2022-06-26 12:03 | EXP.PAIN.SOA ---
[facility] Pain Management SOAP Note Subjective:: Patient is a pleasant 27-year-old female who presents today for 1 month follow-up and medication refill. We are currently treating the patient for degenerative disc disease of lumbar spine with lumbar radiculopathy symptoms, bilateral sacroiliitis, right hand pain, diabetic neuropathy. Today she rates her pain a 5 out of 10. She states that she did have a fall yesterday when she was walking around her house and tripped over toys. She states that she did not have any significant injuries however she just been overall sore today. Patient is scheduled for upcoming hand surgery at orthopedics however she states she does not have an official date. She states that they were told that they are backed up until after October and that she will be put on at some point during then. She is currently managed with Tylenol 3 3 times a day and gabapentin 300 mg 4 times a day. Patient does state that she notices a little bit more numbness and tingling and is requesting additional increase if possible. Patient does use her compounding cream at bedtime and this provides additional relief. Her Loki is [id number]. Its been reviewed and appropriate. Review of Systems: General: No recent weight changes, no fever, no sleep disturbances Respiratory: No cough, no shortness of air, no recurring pulmonary infections Cardiovascular/peripheral vascular: No chest pain, no palpitations, no edema, no shortness of breath Gastrointestinal: No new onset incontinence, normal bowel movements reported Genitourinary: No new onset incontinence Musculoskeletal: Right hand pain, generalized joint pain Psychiatric: [Normal mood/affect] Neurological: [Denies weakness in extremities], [denies balance issues] Objective:: Physical Exam: General: Alert and oriented x3, no acute distress, pleasant and cooperative Lungs: Respirations even and unlabored, symmetrical chest expansion Eyes: PERRL Musculoskeletal: Flexion and extension of lumbar [spine] somewhat guarded secondary to pain, [antalgic gait noted] Neurological: Speech clear, no gross sensory deficit Assessment:: Degenerative disc disease of lumbar spine with lumbar radiculopathy symptoms, bilateral sacroiliitis, right hand pain, diabetic neuropathy Plan:: Patient continues to have significant pain on a daily basis. I have counseled her to increase her cream use to more than just at bedtime and see if she gets additional relief. We will refill her Tylenol 3 3 times a day and gabapentin 300 mg 3 times daily and provide a 1 month supply of these medications. At this time we will leave her current gabapentin dosage. patient will return to clinic in 1 month for reevaluation of symptoms, medication refill and follow-up. Patient has been instructed to contact the clinic with any concerns before the next appointment. Dr. Colindres has reviewed this note and agrees with this plan of care. This note was dictated using voice recognition software and make contain errors or omissions. [facility] Disclaimer: The information contained in this section may have been updated after the patient was seen, as this information can be updated by other users. Medical History Depression Diabetes mellitus GERD (gastroesophageal reflux disease) Hyperlipidemia Hypothyroidism Vitamin D deficiency Surgical History History of History of carpal tunnel surgery Social History Smoking Status: Current every day smoker tobacco type: cigarettes packs per day: 1 alcohol intake: never substance use type: denies use current occupational status: unemployed Travel in the last 8 weeks: None
== END | disposition home or self-care (01) ==
PROVIDERS: Visit Provider Nurse Practitioner Family
DX: M51.16 Intervertebral disc disorders with radiculopathy, lumbar region (principal); M46.1 Sacroiliitis, not elsewhere classified; E11.40 Type 2 diabetes mellitus with diabetic neuropathy, unspecified; M79.641 Pain in right hand
CPT/HCPCS: 99212; G0463

== ENCOUNTER → 2022-08-02 11:14 | Outpatient (POV) | payer MEDICAID, SELFPAY ==
--- NOTE | 2022-08-02 11:31 | EXP.PAIN.SOA ---
[facility] Pain Management SOAP Note Subjective:: Patient is a pleasant 27-year-old female who presents today for medication refill and follow-up. We are currently treating the patient for degenerative disc disease of lumbar spine with lumbar radiculopathy symptoms, bilateral sacroiliitis, right hand pain, diabetic neuropathy. Today she rates her pain a 5 out of 10. Patient denies any new injuries or trauma since her last visit. Patient does states she continues to have right hand pain and has also noticed some bumps along her lower extremities with a discoloration noted on one leg. She does state that she is scheduled today to go for her MRI of her right hand and that they will be sending copies of imaging to our office as well as the Count includes the [facility] orthopedics and her primary care doctor. Patient is currently managed with Tylenol 3 3 times a day, gabapentin 300 mg 4 times a day and compounding cream. Patient denies any side effects from this medication. Her Loki is [id number]. Its been reviewed and appropriate. Review of Systems: General: No recent weight changes, no fever, no sleep disturbances Respiratory: No cough, no shortness of air, no recurring pulmonary infections Cardiovascular/peripheral vascular: No chest pain, no palpitations, no edema, no shortness of breath Gastrointestinal: No new onset incontinence, normal bowel movements reported Genitourinary: No new onset incontinence Musculoskeletal: Right hand pain, bilateral leg soreness/discoloration/bumps Psychiatric: [Normal mood/affect] Neurological: [Denies weakness in extremities], [denies balance issues] Objective:: Physical Exam: General: Alert and oriented x3, no acute distress, pleasant and cooperative Lungs: Respirations even and unlabored, symmetrical chest expansion Eyes: PERRL Musculoskeletal: Flexion and extension of right hand somewhat guarded secondary to pain, [antalgic gait noted] Neurological: Speech clear, no gross sensory deficit Skin: Left lower leg has a discolored lesion noted approximately 3 mm in size, right lower leg anterior to her ankle does have approximately 3 knots noted lateral side, left lower leg anterior to ankle has 1 knot lateral side estimated Assessment:: Degenerative disc disease of lumbar spine with lumbar radiculopathy symptoms, bilateral sacroiliitis, right hand pain, diabetic neuropathy, bilateral leg pain/discoloration Plan:: I will refill the patient's gabapentin 300 mg 4 times a day and Tylenol 3 3 times a day and provide a 1 month supply of this medication. I will also send her for referral for dermatology related to her leg discoloration and knots/bumps. Patient will return to clinic in 1 month for reevaluation of symptoms, medication refill and plan of care. Patient has been instructed to contact the clinic with any concerns before the next appointment. Dr. Colindres has reviewed this note and agrees with this plan of care. This note was dictated using voice recognition software and make contain errors or omissions. [facility] Disclaimer: The information contained in this section may have been updated after the patient was seen, as this information can be updated by other users. Medical History Depression Diabetes mellitus GERD (gastroesophageal reflux disease) Hyperlipidemia Hypothyroidism Vitamin D deficiency Surgical History History of History of carpal tunnel surgery Social History Smoking Status: Current every day smoker tobacco type: cigarettes packs per day: 1 alcohol intake: never substance use type: denies use current occupational status: unemployed Travel in the last 8 weeks: None
[2022-08-02 12:16] VITALS: BP 132/98; PULSE 105; RESP 18; O2SAT 98; BMI 43.9
== END | disposition home or self-care (01) ==
PROVIDERS: PCP Physician Assistant; Visit Provider Nurse Practitioner Family
DX: M51.16 Intervertebral disc disorders with radiculopathy, lumbar region (principal); M46.1 Sacroiliitis, not elsewhere classified; M79.641 Pain in right hand; E11.40 Type 2 diabetes mellitus with diabetic neuropathy, unspecified; M79.604 Pain in right leg; M79.605 Pain in left leg
CPT/HCPCS: 99212; G0463

== ENCOUNTER → 2022-08-28 13:29 | Outpatient (POV) | payer MEDICAID, SELFPAY ==
[2022-08-28 13:35] VITALS: BP 136/81; PULSE 107; RESP 20; BMI 41.1
--- NOTE | 2022-08-28 13:41 | EXP.PAIN.SOA ---
[facility] Pain Management SOAP Note Subjective:: Patient is a pleasant 27-year-old female who presents for 1 month follow-up and medication refill. We are currently treating the patient for degenerative disc disease of lumbar spine with lumbar radiculopathy symptoms, bilateral sacroiliitis, right hand pain, diabetic neuropathy. Today she rates her pain a 2 out of 10. She denies any new trauma or injury or any change location or type of pain she experiences. She does state that she has not gotten any updates for her upcoming hand surgery in the last to her knowledge it has been referred to [place] and she is just waiting to hear from that office. Patient is currently managed with Tylenol 3 3 times a day and gabapentin 300 mg 4 times a day along with compounding cream. She denies any side effects from this medication. Her Loki is [id number]. Has been reviewed and appropriate. Review of Systems: General: No recent weight changes, no fever, no sleep disturbances Respiratory: No cough, no shortness of air, no recurring pulmonary infections Cardiovascular/peripheral vascular: No chest pain, no palpitations, no edema, no shortness of breath Gastrointestinal: No new onset incontinence, normal bowel movements reported Genitourinary: No new onset incontinence Musculoskeletal: Right hand pain, low back pain Psychiatric: [Normal mood/affect] Neurological: [Denies weakness in extremities], [denies balance issues] Objective:: Physical Exam: General: Alert and oriented x3, no acute distress, pleasant and cooperative Lungs: Respirations even and unlabored, symmetrical chest expansion Eyes: PERRL Musculoskeletal: Flexion and extension of lumbar [spine] somewhat guarded secondary to pain, [antalgic gait noted] Neurological: Speech clear, no gross sensory deficit Assessment:: Degenerative disc disease of lumbar spine with lumbar radiculopathy symptoms, bilateral sacroiliitis, right hand pain, diabetic neuropathy Plan:: I will refill the patient's Tylenol 3 3 times a day and gabapentin 300 mg 4 times a day and provide a 1 month supply of this medication. Patient will return to clinic in 1 month for reevaluation of symptoms, medication refill and follow-up. Patient has been instructed to contact the clinic with any concerns before the next appointment. Dr. Colindres has reviewed this note and agrees with this plan of care. This note was dictated using voice recognition software and make contain errors or omissions. [facility] Disclaimer: The information contained in this section may have been updated after the patient was seen, as this information can be updated by other users. Medical History Depression Diabetes mellitus GERD (gastroesophageal reflux disease) Hyperlipidemia Hypothyroidism Vitamin D deficiency Surgical History History of History of carpal tunnel surgery Social History Smoking Status: Current every day smoker tobacco type: cigarettes packs per day: 1 alcohol intake: never substance use type: denies use current occupational status: other Travel in the last 8 weeks: None
== END | disposition home or self-care (01) ==
PROVIDERS: Visit Provider Nurse Practitioner Family
DX: M51.16 Intervertebral disc disorders with radiculopathy, lumbar region (principal); M46.1 Sacroiliitis, not elsewhere classified; M79.641 Pain in right hand; E11.40 Type 2 diabetes mellitus with diabetic neuropathy, unspecified
CPT/HCPCS: 99212; G0463

== ENCOUNTER → 2022-09-28 13:40 | Outpatient (POV) | payer MEDICAID, SELFPAY ==
[2022-09-28 14:00] VITALS: BP 114/96; PULSE 130; RESP 18; O2SAT 99; BMI 41.1
--- NOTE | 2022-09-28 14:03 | EXP.PAIN.SOA ---
[facility] Pain Management SOAP Note Subjective:: Patient is a pleasant 27-year-old female who presents today for medication refill and follow-up. We are currently treating the patient for degenerative disc disease of lumbar spine with lumbar radiculopathy symptoms, sacroiliitis, right hand pain, diabetic neuropathy. Today she rates her pain a 4 out of 10. Patient denies any new trauma or injury. She does state that she has been experiencing worsening pain in her back with radiating symptoms down into her legs with numbness and tingling. Patient does states she cannot even walk for long periods of time due to the pain and has to sit down and take multiple breaks. Patient does state it is affecting her ability perform activities of daily living such as cooking and cleaning. She states she has not even been able to lift and care for her 3-year-old due to the worsening pain symptoms. Patient does also state that she has not heard any more updated news on her MRI from [facility]. Patient states that she did call them however the physicians were on lunch and they could not give her any updated information. Patient was going to be scheduled for hand surgery however she states today she is unsure if this is still in process or not. Patient is currently managed with Tylenol 3 3 times a day and gabapentin 300 mg 4 times a day along with compounding cream. She denies any side effects from this medication. Her Loki is [phone]. Its been reviewed and appropriate. Review of Systems: General: No recent weight changes, no fever, no sleep disturbances Respiratory: No cough, no shortness of air, no recurring pulmonary infections Cardiovascular/peripheral vascular: No chest pain, no palpitations, no edema, no shortness of breath Gastrointestinal: No new onset incontinence, normal bowel movements reported Genitourinary: No new onset incontinence Musculoskeletal: Low back pain, bilateral leg pain Psychiatric: [Normal mood/affect] Neurological: [Denies weakness in extremities], [denies balance issues] Objective:: Physical Exam: General: Alert and oriented x3, no acute distress, pleasant and cooperative Lungs: Respirations even and unlabored, symmetrical chest expansion Eyes: PERRL Musculoskeletal: Flexion and extension of lumbar [spine] somewhat guarded secondary to pain, [antalgic gait noted] Neurological: Speech clear, no gross sensory deficit FINDINGS: Vertebrae: Mild multilevel spondylosis. Mild facet arthrosis and slight T2 signal within some of the facets, greatest at L4-L5 bilaterally. Epidural space: Epidural lipomatosis causes mild thecal sac effacement, greatest at L5 at S1. Spinal cord: The conus terminates at the L1 level is unremarkable. Discs/Spinal canal/Neural foramina: No evidence of significant central spinal or neural foraminal stenosis. Soft tissues: Unremarkable. IMPRESSION: No evidence of high-grade central spinal or neural foraminal stenosis. Otherwise, as above. Assessment:: Degenerative disc disease of lumbar spine with lumbar radiculopathy symptoms, lumbar spondylosis, lumbar facet arthropathy, sacroiliitis, right hand pain, diabetic neuropathy Plan:: Patient is experiencing worsening pain in her low back with radiating symptoms into her lower extremities. Patient had limited range of motion of her lumbar spine during today's visit. I have discussed with her that she may benefit from a lumbar epidural steroid injection. Risk and benefits were explained to the patient and she would like to proceed forward with this plan of care. Patient is currently on blood thinner that is written by Viola Phipps related to her diabetes. We will contact her office and confirm she can stop this medication prior to this injection. I will refill the patient's gabapentin 300 mg 4 times a day and Tylenol 3 3 times a day and provide a 1 month supply of this medication. Patient will be sched
== END | disposition home or self-care (01) ==
PROVIDERS: PCP Physician Assistant; Visit Provider Nurse Practitioner Family
DX: M51.16 Intervertebral disc disorders with radiculopathy, lumbar region (principal); M46.1 Sacroiliitis, not elsewhere classified; M79.641 Pain in right hand; E11.40 Type 2 diabetes mellitus with diabetic neuropathy, unspecified; M47.26 Other spondylosis with radiculopathy, lumbar region
CPT/HCPCS: 99212; G0463

== ENCOUNTER → 2022-11-01 23:23 | Outpatient (CLI) | payer MEDICAID, SELFPAY | PROVIDERS: PCP Physician Assistant; Visit Provider Physician Assistant | DX: R39.9 Unspecified symptoms and signs involving the genitourinary system (principal) | CPT/HCPCS: 87086 ==

== ENCOUNTER → 2022-11-09 12:50 | Outpatient (POV) | payer MEDICAID, SELFPAY ==
--- NOTE | 2022-11-09 13:14 | EXP.PAIN.SOA ---
[facility] Pain Management SOAP Note Subjective:: Patient is a pleasant 27-year-old female who presents today for medication refill. We are currently treating the patient for degenerative disc disease of lumbar spine with lumbar radiculopathy symptoms, sacroiliitis, right hand pain, diabetic neuropathy. Today she rates her pain a 5 out of 10. She does state that recently she was in the grocery store parking lot and had to cherise after a cart and may have flared up her back pain. Patient had came in for possible intervention however was denied by insurance for the epidural. She does state that she has recently been diagnosed with a UTI and a kidney infection. She does states she is scheduled for follow-up with this office immediately after her appointment here. Patient has also not heard anything additional from [facility] regarding her MRI of her right hand or possible surgical intervention. Patient states that she has called multiple times however is only gotten the run around. Patient is currently managed with Tylenol 3 3 times a day, gabapentin 300 mg 4 times a day and compounding cream. She denies any side effects from this medication. Patient does have uncontrolled diabetes. She does state that her primary care doctor did send a referral for a audio visual arts director however she has not heard from this office yet. She does also state in the past that she was prescribed muscle relaxers however she does not remember which one specifically. Her Loki is [id number]. Its been reviewed and appropriate. Review of Systems: General: No recent weight changes, no fever, no sleep disturbances Respiratory: No cough, no shortness of air, no recurring pulmonary infections Cardiovascular/peripheral vascular: No chest pain, no palpitations, no edema, no shortness of breath Gastrointestinal: No new onset incontinence, normal bowel movements reported Genitourinary: No new onset incontinence Musculoskeletal: Low back pain, right hand pain Psychiatric: [Normal mood/affect] Neurological: [Denies weakness in extremities], [denies balance issues] Objective:: Physical Exam: General: Alert and oriented x3, no acute distress, pleasant and cooperative Lungs: Respirations even and unlabored, symmetrical chest expansion Eyes: PERRL Musculoskeletal: Flexion and extension of lumbar [spine] somewhat guarded secondary to pain, [antalgic gait noted] Neurological: Speech clear, no gross sensory deficit Assessment:: Degenerative disc disease of lumbar spine with lumbar radiculopathy symptoms, sacroiliitis, right hand pain Plan:: I will send in refills of her Tylenol 3 3 times a day and gabapentin 300 mg 4 times a day as well as Flexeril 10 mg 3 times a day and provide a 1 month supply of these medications. Patient will return to clinic in 1 month for reevaluation of symptoms and plan of care. Patient has been advised of risks of oversedation with the prescribed medication. Narcan has been offered to the patient in the event of oversedation. Patient has been advised that a family member should also be educated regarding administration of Narcan. Patient has been instructed to contact the clinic with any concerns before the next appointment. Dr. Colindres has reviewed this note and agrees with this plan of care. This note was dictated using voice recognition software and make contain errors or omissions. [facility] Disclaimer: The information contained in this section may have been updated after the patient was seen, as this information can be updated by other users. Medical History Depression Diabetes mellitus GERD (gastroesophageal reflux disease) Hyperlipidemia Hypothyroidism Vitamin D deficiency Surgical History History of History of carpal tunnel surgery Social History Smoking Status: Current every day smoker tobacco type: cigarett
[2022-11-09 13:18] VITALS: BP 135/87; PULSE 107; RESP 18; O2SAT 98; BMI 41.3
== END | disposition home or self-care (01) ==
PROVIDERS: PCP Physician Assistant; Visit Provider Nurse Practitioner Family
DX: M51.16 Intervertebral disc disorders with radiculopathy, lumbar region (principal); M46.1 Sacroiliitis, not elsewhere classified; M79.641 Pain in right hand
CPT/HCPCS: 87086; 99212; G0463

== ENCOUNTER → 2022-12-15 10:44 | Outpatient (POV) | payer MEDICAID, SELFPAY ==
--- NOTE | 2022-12-15 11:08 | EXP.PAIN.SOA ---
[facility] Pain Management SOAP Note Subjective:: Patient is a pleasant 27-year-old female comes our clinic today for medication refills. We being treating the patient for quite some time for degenerative disc disease lumbar spine multilevels. Lumbar radiculopathy. Bilateral sacroiliitis. Chronic right hand pain. CRPS right hand. Diabetic neuropathy. Patient rates her pain today 4/10. She is currently being managed by our office with Tylenol 3 1 p.o. 3 times daily. Gabapentin 300 mg 1 p.o. 4 times daily. Compounding pain cream. Flexeril 10 mg 1 p.o. 3 times daily. Patient reports the medication is helping significantly in her overall pain. 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 Patient reports having multiple skin flap surgeries. She continues with hypersensitivity in the right hand. CRPS type I symptoms. Patient does not report any side effects from the medications. Her Loki #[id number] have been reviewed and appropriate. Objective:: Patient is awake alert [place] x3. In no acute distress. Flexion-extension cervical lumbar spine guarded secondary to pain. Deep tendon reflexes upper and lower extremities normal. Motor strength upper lower extremities normal. There is no gross sensory deficit. Gait is normal. Assessment:: Degenerative disease lumbar spine multilevels. Lumbar radiculopathy. Bilateral sacroiliitis. Diabetic neuropathy. CRPS type I right hand. Plan:: I will refill the patient's medications as noted above. Loki been reviewed and appropriate. UDS has been appropriate in the past. She will return to see us in 30 days. [facility] Disclaimer: The information contained in this section may have been updated after the patient was seen, as this information can be updated by other users. Medical History Depression Diabetes mellitus GERD (gastroesophageal reflux disease) Hyperlipidemia Hypothyroidism Vitamin D deficiency Surgical History History of History of carpal tunnel surgery Social History Smoking Status: Current every day smoker tobacco type: cigarettes packs per day: 1 alcohol intake: never substance use type: denies use current occupational status: employed Travel in the last 8 weeks: None
[2022-12-15 11:29] VITALS: BP 111/85; PULSE 108; RESP 18; O2SAT 97; BMI 38.9
== END | disposition home or self-care (01) ==
PROVIDERS: PCP Physician Assistant; Visit Provider Nurse Anesthetist, Certified Registered
DX: M51.16 Intervertebral disc disorders with radiculopathy, lumbar region (principal); M46.1 Sacroiliitis, not elsewhere classified; E11.40 Type 2 diabetes mellitus with diabetic neuropathy, unspecified; G90.511 Complex regional pain syndrome I of right upper limb
CPT/HCPCS: 99212; G0463

== ENCOUNTER → 2023-01-25 14:14 | Outpatient (POV) | payer MEDICAID, SELFPAY ==
--- NOTE | 2023-01-25 14:37 | EXP.PAIN.SOA ---
[facility] Pain Management SOAP Note Subjective:: Patient is a pleasant 27-year-old female who presents today for medication refill and follow-up. We are currently treating the patient for degenerative disc disease of lumbar spine with lumbar radiculopathy symptoms, sacroiliitis, right hand pain, diabetic neuropathy. Today she rates her pain a 3 out of 10. She denies any new trauma or injury she states from her last visit she finally has been up to and was told by a nurse at their office that they do possibly think it is some form of tissue cancer in her thumb area however that they may just monitor it. She states she has an official appointment March 07 to talk to the doctor. She states that they did discuss that most likely she will have upcoming biopsies to confirm whether or not it is cancerous. She is currently managed with Tylenol 3 3 times a day, gabapentin 300 mg 4 times a day, Flexeril 10 mg 3 times a day and compounding cream. She denies any side effects from this medication. She denies any side effects from these medications. At one of her previous visits we did discuss sending her for referral for dermatology regarding some skin lesions that are noted along her lower left leg. Patient states she has not heard from this office. Patient was also submitted for a lumbar epidural previously but was denied for not having recent physical therapy for 6 weeks. Her Loki has been reviewed and is appropriate. Review of Systems: General: No recent weight changes, no fever, no sleep disturbances Respiratory: No cough, no shortness of air, no recurring pulmonary infections Cardiovascular/peripheral vascular: No chest pain, no palpitations, no edema, no shortness of breath Gastrointestinal: No new onset incontinence, normal bowel movements reported Genitourinary: No new onset incontinence Musculoskeletal: Low back pain, right hand pain Psychiatric: [Normal mood/affect] Neurological: [Denies weakness in extremities], [denies balance issues] Objective:: Physical Exam: General: Alert and oriented x3, no acute distress, pleasant and cooperative Lungs: Respirations even and unlabored, symmetrical chest expansion Eyes: PERRL Musculoskeletal: Flexion and extension of lumbar [spine] somewhat guarded secondary to pain, [antalgic gait noted] Neurological: Speech clear, no gross sensory deficit Assessment:: Degenerative disc disease of lumbar spine with lumbar radiculopathy symptoms, sacroiliitis, right hand pain, diabetic neuropathy Plan:: I will refill the patient's Tylenol 3 3 times a day, gabapentin 300 mg 4 times a day and Flexeril 10 mg 3 times a day and provide a 1 month supply of these medications. I have counseled the patient that I will reach out again to dermatology for her referral and see if we can make sure that she does get an upcoming appointment. Patient will return to clinic in 1 month for reevaluation of symptoms and plan of care. Patient has been advised of risks of oversedation with the prescribed medication. Narcan has been offered to the patient in the event of oversedation. Patient has been advised that a family member should also be educated regarding administration of Narcan. Patient has been instructed to contact the clinic with any concerns before the next appointment. Dr. Colindres has reviewed this note and agrees with this plan of care. This note was dictated using voice recognition software and make contain errors or omissions. [facility] Disclaimer: The information contained in this section may have been updated after the patient was seen, as this information can be updated by other users. Medical History Depression Diabetes mellitus GERD (gastroesophageal reflux disease) Hyperlipidemia Hypothyroidism Vitamin D deficiency Surgical History History of History of carpal tunnel surgery Social History (Reviewed 10/07
[2023-01-25 14:48] VITALS: BP 128/68; PULSE 96; RESP 18; O2SAT 99; BMI 37.5
== END | disposition home or self-care (01) ==
PROVIDERS: PCP Physician Assistant; Visit Provider Nurse Practitioner Family
DX: M51.16 Intervertebral disc disorders with radiculopathy, lumbar region (principal); M46.1 Sacroiliitis, not elsewhere classified; M79.641 Pain in right hand; E11.40 Type 2 diabetes mellitus with diabetic neuropathy, unspecified
CPT/HCPCS: 99212; G0463

== ENCOUNTER → 2023-02-26 12:55 | Outpatient (POV) | payer MEDICAID, SELFPAY ==
--- NOTE | 2023-02-26 13:12 | EXP.PAIN.SOA ---
[facility] Pain Management SOAP Note Subjective:: Patient is a pleasant 28-year-old female who presents today for medication refill and follow-up. We are currently treating the patient for degenerative disc disease of lumbar spine with lumbar radiculopathy symptoms, sacroiliitis, right hand pain, diabetic neuropathy. Today she rates her pain a 3 out of 10. She denies any new trauma or injury from her last visit. She does not have any new updates for her follow-up appointment with . Patient does state it is in March. Patient is currently managed with Tylenol 3 3 times a day, gabapentin 300 mg 4 times a day and Flexeril 10 mg 3 times a day. She denies any side effects from this patient. Patient is also prescribed compounded cream. Her Loki has been reviewed and is appropriate. Review of Systems: General: No recent weight changes, no fever, no sleep disturbances Respiratory: No cough, no shortness of air, no recurring pulmonary infections Cardiovascular/peripheral vascular: No chest pain, no palpitations, no edema, no shortness of breath Gastrointestinal: No new onset incontinence, normal bowel movements reported Genitourinary: No new onset incontinence Musculoskeletal: Low back pain, right hand pain Psychiatric: [Normal mood/affect] Neurological: [Denies weakness in extremities], [denies balance issues] Objective:: Physical Exam: General: Alert and oriented x3, no acute distress, pleasant and cooperative Lungs: Respirations even and unlabored, symmetrical chest expansion Eyes: PERRL Musculoskeletal: Flexion and extension of lumbar [spine] somewhat guarded secondary to pain Neurological: Speech clear, no gross sensory deficit Assessment:: Degenerative disc disease of lumbar spine with lumbar radiculopathy symptoms, sacroiliitis, right hand pain, diabetic neuropathy Plan:: I will refill the patient's Tylenol 3 3 times a day, gabapentin 300 mg 4 times a day and Flexeril 10 mg 3 times a day and provide a 1 month supply of this medication. Patient will return to clinic in 1 month for reevaluation of symptoms and plan of care. Patient has been advised of risks of oversedation with the prescribed medication. Narcan has been offered to the patient in the event of oversedation. Patient has been advised that a family member should also be educated regarding administration of Narcan. Patient has been instructed to contact the clinic with any concerns before the next appointment. Dr. Colindres has reviewed this note and agrees with this plan of care. This note was dictated using voice recognition software and make contain errors or omissions. [facility] Disclaimer: The information contained in this section may have been updated after the patient was seen, as this information can be updated by other users. Medical History Depression Diabetes mellitus GERD (gastroesophageal reflux disease) Hyperlipidemia Hypothyroidism Vitamin D deficiency Surgical History History of History of carpal tunnel surgery Social History Smoking Status: Current every day smoker tobacco type: cigarettes packs per day: 1 alcohol intake: never substance use type: denies use current occupational status: employed Travel in the last 8 weeks: None
[2023-02-26 15:04] VITALS: BP 134/87; PULSE 101; RESP 18; O2SAT 97; BMI 41.1
== END | disposition home or self-care (01) ==
PROVIDERS: PCP Physician Assistant; Visit Provider Nurse Practitioner Family
DX: M51.16 Intervertebral disc disorders with radiculopathy, lumbar region (principal); M46.1 Sacroiliitis, not elsewhere classified; M79.641 Pain in right hand; E11.21 Type 2 diabetes mellitus with diabetic nephropathy
CPT/HCPCS: 99212; G0463

== ENCOUNTER 2023-03-29 12:53 | Outpatient (POV) | payer MEDICAID, SELFPAY ==
--- NOTE | 2023-03-29 13:13 | A.OFFVIS_ITS ---
[facility] Pain Management SOAP Note Subjective:: Patient is a pleasant 28-year-old female who presents today for 1 month follow- up and medication refill. We are currently treating the patient for degenerative disc disease of lumbar spine with lumbar radiculopathy symptoms, sacroiliitis, right hand pain, diabetic neuropathy. Today she rates her pain a 3 out of 10. Patient denies any new trauma or injury. She states she continues to get routine visits to check her right hand for any additional growth there at . She also states that she continues to have the skin issues in her lower extremities that we did send her for referral to [facility] dermatology however she is still not heard back from this office. Patient does state the spots have gotten bigger and are still bothering her. Patient is currently managed with Tylenol 3 3 times a day, gabapentin 300 mg 4 times a day and Flexeril 10 mg 3 times a day. Patient denies any side effects from this medication. Her Loki has been reviewed and is appropriate. Review of Systems: General: No recent weight changes, no fever, no sleep disturbances Respiratory: No cough, no shortness of air, no recurring pulmonary infections Cardiovascular/peripheral vascular: No chest pain, no palpitations, no edema, no shortness of breath Gastrointestinal: No new onset incontinence, normal bowel movements reported Genitourinary: No new onset incontinence Musculoskeletal: Right hand pain Psychiatric: [Normal mood/affect] Neurological: [Denies weakness in extremities], [denies balance issues] Objective:: Physical Exam: General: Alert and oriented x3, no acute distress, pleasant and cooperative Lungs: Respirations even and unlabored, symmetrical chest expansion Eyes: PERRL Musculoskeletal: Flexion and extension of right wrist somewhat guarded secondary to pain Neurological: Speech clear, no gross sensory deficit Assessment:: Degenerative disc disease of lumbar spine with lumbar radiculopathy symptoms, sacroiliitis, right hand pain, diabetic neuropathy Plan:: I will refill the patient's Tylenol 3 3 times a day, gabapentin 300 mg 4 times a day and Flexeril 10 mg 3 times a day and provide a 1 month supply of this medication. I have counseled the patient if she has not heard anything from dermatology in the next 2 weeks to reach back out to our office and we will send a new referral to a different cake cutter machine. Patient will return to clinic in 1 month for reevaluation of symptoms and plan of care. Risks and benefits of the medication have been explained in detail to the patient. The patient does understand the risk of dependence on the medication when given over a prolonged period. Patient has been advised of risks of oversedation with the prescribed medication. Narcan has been offered to the paitent in the event of oversedation. Patient has been advised that a family member should also be educated regarding administration of Narcan. The patient has been advised to consult with his/her primary care provider and pharmacist regarding drug-drug interaction of medications currently prescribed. Patient has been prescribed a controlled substance after being counseled on the medication, medication safety, and possible side effects. Opioid contract was reviewed and signed by the patient, and that they have agreed to all of the terms set forth by our compliance program. Patient has been instructed to contact the clinic with any concerns before the next appointment. Dr. Colindres has reviewed this note and agrees with this plan of care. This note was dictated using voice recognition software and make contain errors or omissions. [facility] Disclaimer: The information contained in this section may have been updated after the patient was seen, as this information can be updated by other users. Medical History Depression Diabetes mellitus GERD (gastroesophageal reflux disease) Hyperlipidemia Hypothyroidism Vitamin D deficiency Surgical History History of History of carpal tunnel surgery Social History Smoking Status: Current every day smoker tobacco type: cigarettes packs per day: 1 alcohol intake: never substance use type: denies use current occupational status: unemployed Travel in the last 8 weeks: None
[2023-03-29 15:34] VITALS: BP 124/77; PULSE 104; RESP 18; O2SAT 96; BMI 41.1
== END 2023-03-29 23:59 | disposition home or self-care (01) ==
PROVIDERS: PCP Physician Assistant; Visit Provider Nurse Practitioner Family
DX: M51.16 Intervertebral disc disorders with radiculopathy, lumbar region (principal); M46.1 Sacroiliitis, not elsewhere classified; M79.641 Pain in right hand; E11.40 Type 2 diabetes mellitus with diabetic neuropathy, unspecified
CPT/HCPCS: 99212; G0463

== ENCOUNTER 2023-04-26 13:04 | Outpatient (POV) | payer MEDICAID, SELFPAY ==
--- NOTE | 2023-04-26 13:14 | EXP.PAIN.SOA ---
[facility] Pain Management SOAP Note Subjective:: Patient is a pleasant 28-year-old female who presents today for 1 month follow-up and medication refill. We are currently treating the patient for degenerative disc disease of lumbar spine with lumbar radiculopathy symptoms, sacroiliitis, right hand pain, diabetic neuropathy. Today she rates her pain a 4 out of 10. She does state that she did have about 4 days where she felt like she had flulike symptoms and cannot achy all over. She states that she had a hard time getting up from a seated position. She states that she had taken her son to the ER for an earache and that the doctor on-call did question whether or not she might have some fibromyalgia type symptoms. Patient does also state from our last visit she still has not heard from dermatology regarding the spots on her legs. She said that she did finally talk to her primary care doctor because the spots did open up in the center and have an ulceration area. She states that her primary care doctor put her on a cream to apply for infection. She states that she is following up with her after our visit today. Patient denies any new updates at regarding her right hand. She is currently managed with Tylenol 3 3 times a day, gabapentin 300 mg 4 times a day and Flexeril 10 mg 3 times a day. Patient denies any side effects from this medication. Her Loki has been reviewed and is appropriate. Review of Systems: General: No recent weight changes, no fever, no sleep disturbances Respiratory: No cough, no shortness of air, no recurring pulmonary infections Cardiovascular/peripheral vascular: No chest pain, no palpitations, no edema, no shortness of breath Gastrointestinal: No new onset incontinence, normal bowel movements reported Genitourinary: No new onset incontinence Musculoskeletal: Right hand pain Psychiatric: [Normal mood/affect] Neurological: [Denies weakness in extremities], [denies balance issues] Objective:: Physical Exam: General: Alert and oriented x3, no acute distress, pleasant and cooperative Lungs: Respirations even and unlabored, symmetrical chest expansion Eyes: PERRL Musculoskeletal: Flexion and extension of right wrist somewhat guarded secondary to pain, [antalgic gait noted] Neurological: Speech clear, no gross sensory deficit Assessment:: Degenerative disc disease of lumbar spine with lumbar radiculopathy symptoms, sacroiliitis, right hand pain, diabetic neuropathy Plan:: I have discussed with the patient the diagnosis of fibromyalgia and explained that this is a diagnosis by exclusion. I have recommended that she talk to her primary care provider whether or not she needs to get updated lab work to rule out things like lupus and RA symptoms. I have also counseled her that if it is fibromyalgia sometimes patients do better on a combination of pregabalin and duloxetine. We will follow-up with this at future visits. We will refill the patient's gabapentin 300 mg 4 times a day and 3 3 times a day and Flexeril 10 mg 3 times a day provide 1 month supply of these medications. Patient will return to clinic in 1 month for reevaluation of symptoms and plan of care. Risks and benefits of the medication have been explained in detail to the patient. The patient does understand the risk of dependence on the medication when given over a prolonged period. Patient has been advised of risks of oversedation with the prescribed medication. Narcan has been offered to the paitent in the event of oversedation. Patient has been advised that a family member should also be educated regarding administration of Narcan. The patient has been advised to consult with his/her primary care provider and pharmacist regarding drug-drug interaction of medications currently prescribed. Patient has been prescribed a controlled substance after being counseled on the medication, medication safety, and possible side effects. Opioid contract was reviewed and signed by the patient, and that they have agreed to all of the terms set forth by our compliance program. Patient has been instructed to contact the clinic with any concerns before the next appointment. Dr. Colindres has reviewed this note and agrees with this plan of care. This note was dictated using voice recognition software and make contain errors or omissions. [facility] Disclaimer: The information contained in this section may have been updated after the patient was seen, as this information can be updated by other users. Medical History Depression Diabetes mellitus GERD (gastroesophageal reflux disease) Hyperlipidemia Hypothyroidism Vitamin D deficiency Surgical History History of History of carpal tunnel surgery Social History Smoking Status: Current every day smoker tobacco type: cigarettes packs per day: 1 alcohol intake: never substance use type: denies use current occupational status: unemployed Travel in the last 8 weeks: None
[2023-04-26 13:31] VITALS: BP 143/88; PULSE 101; RESP 18; O2SAT 96; BMI 41.1
[2023-04-26 18:56] LABS: Basophils # 0.1 K/mm3 (0-0.2); Basophils % 0.8 % (0.1-2.0); Eosinophils # 0.2 K/mm3 (0.0-0.4); Eosinophils % 2.4 % (0.1-12.0); Hemoglobin 13.3 g/dL (12.2-16.2); Lymphocytes # 2.5 K/mm3 (0.7-4.5); Lymphocytes % 26.3 % (10-50); Mean Corpuscular HGB Conc 31.8 g/dL (31.8-35.4); Mean Corpuscular Hemoglobin 30.2 pg (27.0-31.2); Mean Corpuscular Volume 95.1 fl (81-99); Mean Platelet Volume 9.2 fl (7.4-10.4); Monocytes # 0.5 K/mm3 (0.1-1.0); Monocytes % 5.1 % (1.7-9.3); Neutrophils # 6.3 K/mm3 (1.8-7.8); Neutrophils % 65.5 % (37.0-80.0); Platelet Count 389 K/mm3 (142-424); Red Blood Count 4.41 M/mm3 (4.20-5.40); Red Cell Distribution Width 14.2 % (11.5-17.5); White Blood Count 9.7 K/mm3 (4.8-10.8)
[2023-04-26 19:18] LABS: Hemoglobin A1C 9.7 % (4.0-6.0)
[2023-04-26 19:36] LABS: Alanine Aminotransferase 30 U/L (12-78); Albumin/Globulin Ratio 1.5 (1.1-1.8); Alkaline Phosphatase 65 U/L (38-126); Anion Gap 13.6 mEq/L (5-15); Aspartate Amino Transferase 37 U/L (14-36); Bilirubin,Total 0.2 mg/dl (0.2-1.3); Blood Urea Nitrogen 9 mg/dl (7-17); Calcium 9.7 mg/dl (8.4-10.2); Carbon Dioxide 22 mmol/L (22.0-30.0); Chloride 104 mmol/L (98-107); Chol/HDL Ratio 6.5 (1-3.5); Cholesterol 157 mg/dl (140-200); Creatinine Clearance Estimated 331 mL/min (50-200); Estimated Glomerular Filt Rate 187 ml/min (>60); GFR (African American) 227 ML/MIN (>60); Globulin 2.6 g/dL (1.3-3.2); Glucose 286 mg/dl (74-100); HDL Cholesterol 24 mg/dl (40-60); Potassium 4.6 mmoL/L (3.5-5.1); Sodium 135 mmol/L (136-145); Total Protein,Serum 6.6 g/dl (6.3-8.2)
[2023-04-26 19:47] LABS: Direct LDL Cholesterol 63.66 mg/dL (100-129)
[2023-04-26 19:49] LABS: Triglycerides 718 mg/dl (30-150)
[2023-04-26 19:54] LABS: 25-OH Vitamin D, Total 33.2 ng/mL (30-100)
[2023-04-26 20:07] LABS: Thyroid Stimulating Hormone 0.08 uIU/mL (0.465-4.68)
== END 2023-04-26 23:59 | disposition home or self-care (01) ==
PROVIDERS: PCP Physician Assistant; Visit Provider Nurse Practitioner Family
DX: M51.16 Intervertebral disc disorders with radiculopathy, lumbar region (principal); M46.1 Sacroiliitis, not elsewhere classified; M79.641 Pain in right hand; E11.40 Type 2 diabetes mellitus with diabetic neuropathy, unspecified
CPT/HCPCS: 80053; 80061; 82306; 83036; 84443; 85025; 99212; G0463

== ENCOUNTER 2023-05-30 08:04 | Outpatient (POV) | payer MEDICAID, SELFPAY ==
[2023-05-30 08:32] VITALS: BP 119/79; PULSE 123; RESP 16; O2SAT 100; BMI 43.9
--- NOTE | 2023-05-30 08:43 | A.OFFVIS_ITS ---
[facility] Pain Management SOAP Note Subjective:: Patient is a pleasant 28-year-old female who presents today for medication refill. Today she rates her pain a 3 out of 10. Patient denies any new trauma or injury. She does state that she is still biting for her dermatology consult that it does seem to be an insurance thing. Patient states that on top of our referral to this office that her primary care did as well. Patient states that she has no change to the skin ulceration she has on her legs. Patient also states that no updates from regarding her right hand. Patient is currently managed with Tylenol 3 3 times a day, gabapentin 300 mg 4 times a day and Flexeril 10 mg 3 times a day. She denies any side effects from these me dications. Her Loki has been reviewed and is appropriate. Review of Systems: General: No recent weight changes, no fever, no sleep disturbances Respiratory: No cough, no shortness of air, no recurring pulmonary infections Cardiovascular/peripheral vascular: No chest pain, no palpitations, no edema, no shortness of breath Gastrointestinal: No new onset incontinence, normal bowel movements reported Genitourinary: No new onset incontinence Musculoskeletal: Low back pain, right hand pain Psychiatric: [Normal mood/affect] Neurological: [Denies weakness in extremities], [denies balance issues] Objective:: Physical Exam: General: Alert and oriented x3, no acute distress, pleasant and cooperative Lungs: Respirations even and unlabored, symmetrical chest expansion Eyes: PERRL Musculoskeletal: Flexion and extension of lumbar [spine] somewhat guarded secondary to pain, [antalgic gait noted] Neurological: Speech clear, no gross sensory deficit Assessment:: Degenerative disc disease of lumbar spine with lumbar radiculopathy symptoms, sacroiliitis, right hand pain, diabetic neuropathy Plan:: We will send in refills on her Tylenol 3 3 times a day, gabapentin 300 mg 4 times a day and Flexeril 10 mg 3 times a day and provide a 1 month supply of this medication. Patient will return to clinic in 1 month for reevaluation of symptoms and plan of care. Risks and benefits of the medication have been explained in detail to the patient. The patient does understand the risk of dependence on the medication when given over a prolonged period. Patient has been advised of risks of oversedation with the prescribed medication. Narcan has been offered to the paitent in the event of oversedation. Patient has been advised that a family member should also be educated regarding administration of Narcan. The patient has been advised to consult with his/her primary care provider and pharmacist regarding drug-drug interaction of medications currently prescribed. Patient has been prescribed a controlled substance after being counseled on the medication, medication safety, and possible side effects. Opioid contract was reviewed and signed by the patient, and that they have agreed to all of the terms set forth by our compliance program. Patient has been instructed to contact the clinic with any concerns before the next appointment. Dr. Colindres has reviewed this note and agrees with this plan of care. This note was dictated using voice recognition software and make contain errors or omissions. [facility] Disclaimer: The information contained in this section may have been updated after the patient was seen, as this information can be updated by other users. Medical History Depression GERD (gastroesophageal reflux disease) Hypothyroidism Vitamin D deficiency Hyperlipidemia Diabetes mellitus Surgical History History of carpal tunnel surgery History of Social History Smoking Status: Current every day smoker tobacco type: cigarettes packs per day: 1 alcohol intake: never substance use type: denies use current occupational status: other Travel in the last 8 weeks: None
[2023-05-30 09:59] LABS: Amphetamine/Metha Screen,Urine Negative ng/ml (<1000)
[2023-05-30 10:00] LABS: Barbiturates Screen,Urine Negative ng/ml (<200)
[2023-05-30 10:01] LABS: Cannabinoid Screen,Urine Negative ng/ml (<50); Cocaine Screen,Urine Negative ng/ml (<300)
[2023-05-30 10:02] LABS: Methadone Screen,Urine Negative ng/ml (<300)
[2023-05-30 10:03] LABS: Opiate Screen,Urine Positive ng/ml (<300); Phencyclidine Screen,Urine Negative ng/ml (<25)
[2023-05-30 10:07] LABS: Benzodiazepines Screen,Urine Negative ng/ml (<200)
[2023-06-04 18:13] LABS: Codeine Positive (.); Hydrocodone Negative (Cutoff=100); Hydromorphone Negative (Cutoff=100); Morphine Positive (.); Opiates Positive (.)
== END 2023-05-30 23:59 | disposition home or self-care (01) ==
PROVIDERS: PCP Physician Assistant; Visit Provider Nurse Practitioner Family
DX: M51.16 Intervertebral disc disorders with radiculopathy, lumbar region (principal); M46.1 Sacroiliitis, not elsewhere classified; M79.641 Pain in right hand; E11.40 Type 2 diabetes mellitus with diabetic neuropathy, unspecified
CPT/HCPCS: 80307; 80361; 80365; 99212; G0463; G0480

== ENCOUNTER 2023-07-04 23:12 | Emergency (ER) | payer MEDICAID, SELFPAY ==
[2023-07-04 23:21] VITALS: BP 124/97; PULSE 96; RESP 16; TEMP 36.8; O2SAT 98; BMI 42.5
--- NOTE | 2023-07-04 23:23 | ED_ITS ---
Discharge Plan Disposition Patient Disposition: Home, Self-Care Prescriptions Prescriptions: New clindamycin HCl 150 mg capsule 450 mg PO TID 7 Days Qty: 63 0RF levofloxacin 750 mg tablet 750 mg PO DAILY 7 Days Qty: 7 0RF No Action venlafaxine 75 mg capsule,extended release 24hr 75 mg PO DAILY doxycycline hyclate 100 mg tablet 100 mg PO BID Qty: 20 0RF mupirocin 2 % ointment 1 applic topical TID Qty: 50 2RF furosemide [Lasix] 20 mg tablet 20 mg PO DAILY PRN (Reason: edema) Qty: 30 2RF ondansetron HCl 4 mg tablet 4 mg PO TID PRN (Reason: nausea and vomiting) Qty: 14 0RF aspirin [Adult Aspirin Regimen] 81 mg tablet,delayed release (DR/EC) 81 mg PO DAILY Qty: 90 3RF atorvastatin 10 mg tablet See Rx Instructions .Route .COMPLEX Qty: 90 3RF Rx Instructions: TAKE 1 TABLET BY MOUTH AT BEDTIME omeprazole 40 mg capsule,delayed release(DR/EC) 40 mg PO DAILY Qty: 90 3RF cholecalciferol (vitamin D3) 25 mcg (1,000 unit) capsule See Rx Instructions .ROUTE .COMPLEX Qty: 90 0RF Dose Instruction: TAKE ONE CAPSULE BY MOUTH EVERY DAY Rx Instructions: TAKE ONE CAPSULE BY MOUTH EVERY DAY cyanocobalamin (vitamin B-12) [Vitamin B-12] 5,000 mcg tablet, sublingual See Rx Instructions .ROUTE .COMPLEX Qty: 90 0RF Dose Instruction: DISSOLVE ONE TABLET UNDER THE TONGUE EVERY DAY Rx Instructions: DISSOLVE ONE TABLET UNDER THE TONGUE EVERY DAY loratadine 10 mg tablet See Rx Instructions .ROUTE .COMPLEX Qty: 90 0RF Dose Instruction: TAKE ONE TABLET BY MOUTH EVERY DAY NEEDED FOR allergic SYMPTOMS Rx Instructions: TAKE ONE TABLET BY MOUTH EVERY DAY NEEDED FOR allergic SYMPTOMS glipizide 10 mg tablet extended release 24hr See Rx Instructions .ROUTE .COMPLEX Qty: 180 0RF Dose Instruction: TAKE ONE TABLET BY MOUTH TWICE DAILY FOR DIABETES Rx Instructions: TAKE ONE TABLET BY MOUTH TWICE DAILY FOR DIABETES lisinopril 10 mg tablet See Rx Instructions .ROUTE .COMPLEX Qty: 90 0RF Dose Instruction: TAKE ONE TABLET BY MOUTH EVERY DAY Rx Instructions: TAKE ONE TABLET BY MOUTH EVERY DAY insulin glargine [Lantus Solostar U-100 Insulin] 100 unit/mL (3 mL) insulin pen 10 unit SQ HS Qty: 15 3RF Januvia 100 mg tablet 100 mg PO DAILY Qty: 90 0RF (DME) pen needle, diabetic [BD Ultra-Fine Mini Pen Needle] 31 gauge x 3/16 needle See Rx Instructions .ROUTE .COMPLEX Qty: 100 1RF Dose Instruction: USE TWICE DAILY OR DIRECTED (FOR diabetes) Rx Instructions: USE TWICE DAILY OR DIRECTED (FOR diabetes) (DME) OneTouch Ultra Test Strip See Rx Instructions .Route Qty: 100 0RF Rx Instructions: As directed,bid insulin asp prt-insulin aspart [Novolog Mix 70-30FlexPen U-100] 100 unit/mL (70-30) insulin pen 10 unit SQ BID Qty: 15 2RF metformin 1,000 mg tablet See Rx Instructions .ROUTE .COMPLEX Qty: 180 0RF Dose Instruction: TAKE ONE TABLET BY MOUTH TWICE DAILY Rx Instructions: TAKE ONE TABLET BY MOUTH TWICE DAILY Alcohol Prep Pad Sterile 100ct Dyn See Rx Instructions .ROUTE .COMPLEX Qty: 100 2RF Dose Instruction: USE DIRECTED TWICE DAILY (FOR diabetes) Rx Instructions: USE DIRECTED TWICE DAILY (FOR diabetes) (DME) OneTouch Verio test strips Strip See Rx Instructions .ROUTE .COMPLEX Qty: 100 2RF Dose Instruction: USE DIRECTED TO test blood sugar THREE TIMES DAILY Rx Instructions: USE DIRECTED TO test blood sugar THREE TIMES DAILY quetiapine 50 mg tablet extended release 24 hr See Rx Instructions .ROUTE .COMPLEX Qty: 30 0RF Dose Instruction: TAKE ONE TABLET BY MOUTH EVERY DAY AT BEDTIME Rx Instructions: TAKE ONE TABLET BY MOUTH EVERY DAY AT BEDTIME meclizine 25 mg tablet See Rx Instructions .ROUTE .COMPLEX Qty: 90 0RF Dose Instruction: TAKE ONE TABLET BY MOUTH THREE TIMES DAILY NEEDED FOR dizziness Rx Instructions: TAKE ONE TABLET BY MOUTH THREE TIMES DAILY NEEDED FOR dizziness fluticasone propionate 50 mcg/actuation spray,suspension See Rx Instructions .ROUTE .COMPLEX Rx Instructions: INSTILL 2 SPRAYS IN EACH NOSTRIL EVERY DAY norethindrone (contraceptive) 0.35 mg tablet See Rx Instructions .ROUTE .COMPLEX Rx Instructions: TAKE ONE TABLET BY MOUTH EVERY DAY ergocalciferol (vitamin D2) 1,250 mcg (50,000 unit) capsule See Rx Instructions .ROUTE .COMPLEX Rx Instructions: TAKE ONE CAPSULE BY MOUTH ONCE A WEEK cyclobenzaprine 10 mg tablet 10 mg PO TID Qty: 90 0RF acetaminophen-codeine 300-30 mg tablet 1 tab PO TID PRN (Reason: pain) Qty: 90 0RF gabapentin 300 MG capsule 300 mg PO QID Qty: 120 0RF Referrals Follow up/Referrals: Viola Phipps PA [Primary Care Provider] - See instructions Activity Restrictions/Add. Instructions Additional Instructions/Restrictions: Please take antibiotics as prescribed. Please follow-up with your primary care provider. Please return to the emergency department if you develop any new or worsening symptoms or become concerned for your health. Clinical Impressions Clinical Impression: Diabetic foot ulcer Qualifiers: Diabetic foot ulcer location: midfoot Diabetes mellitus type: type 2 Laterality: left Non-pressure ulcer stage: unspecified non-pressure ulcer stage Qualified Code(s): E11.621 - Type 2 diabetes mellitus with foot ulcer Instructions Patient Instructions: DI for Skin Abscess Discharge ED Provider: Juan Daniels Adult HPI General Chief complaint: Skin/Abscess/Foreign Body Stated complaint: diabetic, sores on L foot, ankle, leg Time Seen by Provider: 07/04/23 23:23 History of Present Illness HPI narrative: 28-year-old female with history of extremely poorly controlled type 2 diabetes presents with chronic foot ulcers. She reports that she has had these lesions on her left leg and foot for the last year or so. Patient reports that they got infected once but it improved with oral antibiotics. She reports that today she thinks the appearance of the lesions has gotten worse and they have become more painful. She denies any significant purulent drainage. She reports that her PCP is unsure why her diabetes is still poorly controlled. Her A1c is anywhere between 10 and 12. She is on numerous insulins and oral medications. They are awaiting endocrine follow-up. Denies any fever or illness. She reports penicillin allergy. Related Data Home Medications Medication Instructions Recorded Confirmed fluticasone propionate 50 See Rx Instructions .Route 03/06/22 05/30/23 mcg/actuation nasal .COMPLEX ALLERGIES spray,suspension ergocalciferol (vitamin D2) 1,250 See Rx Instructions .Route 05/31/22 05/30/23 mcg (50,000 unit) capsule .COMPLEX SUPPLIMENT norethindrone (contraceptive) 0.35 See Rx Instructions .Route 09/28/22 05/30/23 mg tablet .COMPLEX Control venlafaxine 75 mg capsule,extended 75 mg PO DAILY 11/01/22 05/30/23 release 24 hr Previous Rx's Medication Instructions Recorded ondansetron HCl 4 mg tablet 4 mg PO TID PRN nausea and 06/14/22 vomiting #14 tabs aspirin 81 mg tablet,delayed 81 mg PO DAILY . #90 tabs 09/26/22 release (Adult Aspirin Regimen) atorvastatin 10 mg tablet See Rx Instructions .Route 09/26/22 .COMPLEX . #90 tabs omeprazole 40 mg capsule,delayed 40 mg PO DAILY GERD #90 caps 09/26/22 release cholecalciferol (vitamin D3) 25 See Rx Instructions .Route 04/25/23 mcg (1,000 unit) capsule .COMPLEX #90 ea cyanocobalamin (vitamin B-12) See Rx Instructions .Route 04/25/23 5,000 mcg sublingual tablet .COMPLEX #90 tabs (Vitamin B-12) glipizide 10 mg tablet, extended See Rx Instructions .Route 04/25/23 release 24 hr .COMPLEX #180 tabs lisinopril 10 mg tablet See Rx Instructions .Route 04/25/23 .COMPLEX #90 tabs loratadine 10 mg tablet See Rx Instructions .Route 04/25/23 .COMPLEX #90 tabs doxycycline hyclate 100 mg tablet 100 mg PO BID #20 tabs 04/26/23 furosemide 20 mg tablet (Lasix) 20 mg PO DAILY PRN edema #30 tabs 04/26/23 mupirocin 2 % topical ointment 1 applic topical TID rash #50 grams 04/26/23 insulin glargine 100 unit/mL (3 10 unit (0.1 mL) SQ HS #15 mL 05/03/23 mL) subcutaneous pen (Lantus Solostar U-100 Insulin) sitagliptin phosphate 100 mg 100 mg PO DAILY #90 tabs 05/03/23 tablet (Januvia) blood sugar diagnostic (OneTouch #100 ea 05/04/23 Ultra Test strips) pen needle, diabetic 31 gauge x #100 ea 05/04/23 3/16 (BD Ultra-Fine Mini Pen Needle) insulin aspar prot-insulin aspart 10 unit (0.1 mL) SQ BID #15 mL 05/14/23 100 unit/mL (70-30) subcutaneous pen (Novolog Mix 70-30FlexPen U-100) Alcohol Prep Pad Sterile 100ct Dyn See Rx Instructions .Route 05/30/23 .COMPLEX #100 ea acetaminophen 300 mg-codeine 30 mg 1 tab PO TID PRN pain #90 tabs 05/30/23 tablet blood sugar diagnostic (OneTouch #100 strips 05/30/23 Verio test strips) cyclobenzaprine 10 mg tablet 10 mg PO TID #90 tabs 05/30/23 gabapentin 300 mg capsule 300 mg PO QID . #120 caps 05/30/23 metformin 1,000 mg tablet See Rx Instructions .Route 05/30/23 .COMPLEX #180 tabs quetiapine 50 mg tablet,extended See Rx Instructions .Route 06/05/23 release 24 hr .COMPLEX #30 tabs meclizine 25 mg tablet See Rx Instructions .Route 06/25/23 .COMPLEX #90 tabs clindamycin HCl 150 mg capsule 450 mg (3 x 150 mg) PO TID 7 days 07/04/23 #63 caps levofloxacin 750 mg tablet 750 mg PO DAILY 7 days #7 tabs 07/04/23 Allergies Allergy/AdvReac Type Severity Reaction Status Date / Time Penicillins Allergy Intermediate Rash Verified 04/26/23 15:01 amoxicillin [AMOXICILLIN] Allergy Mild Verified 04/26/23 15:01 cefaclor [From CECLOR] Allergy Mild Verified 04/26/23 15:01 [facility] Disclaimer: The information contained in this section may have been updated after the patient was seen, as this information can be updated by other users. Medical History Depression GERD (gastroesophageal reflux disease) Hypothyroidism Vitamin D deficiency Hyperlipidemia Diabetes mellitus Surgical History History of carpal tunnel surgery History of Social History Smoking Status: Current every day smoker tobacco type: cigarettes packs per day: 1 alcohol intake: never substance use type: denies use current occupational status: other Travel in the last 8 weeks: None ROS Obtained: Yes All systems reviewed & no additional complaints except as documented Physical Exam General General appearance: alert and in no apparent distress Head Head exam: atraumatic and normocephalic Eye Eye exam: Present normal appearance, PERRL and EOMI ENT ENT exam: Present normal oropharynx and normal external ear exam Neck Neck exam: Present normal inspection and full ROM Chest Chest inspection: Present normal inspection and symmetric chest wall rise; Absent tenderness Respiratory Respiratory exam: Present normal lung sounds bilaterally; Absent respiratory distress Cardiovascular Cardiovascular exam: Present regular rate and normal rhythm Abdominal Exam Abdominal exam: Present soft; Absent distention, tenderness or guarding Extremities Exam Extremities exam: Present normal capillary refill and other (3 distinct circular areas of skin discoloration, 1 over the proximal tibia, 1 over the dorsal midfoot, 1 over the medial malleolus. The lesion on the midfoot is ulcerated with exposed subcutaneous fat and is mildly tender. No fluctuance, no evidence of surrounding cellulitis); Absent edema, joint swelling or cyanosis Back Exam Back exam: Present normal inspection; Absent tenderness Neurological Exam Neurological exam: Present alert and oriented X3; Absent motor sensory deficit Psychiatric Psychiatric exam: Present normal affect and normal mood Skin Skin exam: Present warm, dry and normal color Lymphatic Lymphatic Findings: no adenopathy Medical Decision Making Medical Records Medical records reviewed: Yes I reviewed the patient's medical records. Loki Inquiry Pt receiving controlled substance: No Loki was queried for this patient: No Vital Signs: 07/04/23 23:21 07/04/23 23:45 Temperature 98.2 F 98.2 F Temperature Source Oral Oral Pulse Rate 96 H Pulse Rate [Left Radial] 96 H Respiratory Rate 16 18 Blood Pressure 124/97 H Blood Pressure [Right Radial Artery] 124/97 H Blood Pressure Mean [Right Radial Artery] 106 Blood Pressure Source Automatic Cuff Blood Pressure Source [Right Radial Artery] Automatic Cuff Blood Pressure Position Sitting Blood Pressure Position [Right Radial Artery] Sitting 02 Sat by Pulse Oximetry 98 Oxygen Delivery Method Room Air Room Air Lab Data Lab results reviewed: Yes I reviewed the patient's lab results. Orders (Tests/Meds): ED MEDICATIONS Discontinued Medications Generic Name Dose Route Start Last Admin Trade Name Tadq PRN Reason Stop Dose Admin Clindamycin HCl 450 mg 07/04/23 23:33 07/04/23 23:37 Clindamycin 150mg Capsule PO 07/04/23 23:34 450 mg ONCE ONE Administration Levofloxacin 750 mg 07/04/23 23:33 07/04/23 23:38 Levofloxacin 750 Mg Tablet PO 07/04/23 23:34 750 mg ONCE ONE Administration Medical Decision Narrative: 28-year-old female with history of uncontrolled type 2 diabetes and chronic left lower extremity skin lesions. History was obtained interactive discussion with patient, chart review. On arrival, patient is [afebrile, hemodynamically stable, satting appropriately, alert, oriented x4, GCS 15], moving all extremities spontaneously. Full physical exam performed and significant for left lower extremity skin findings as documented above. Differential includes but is not limited to chronic skin ulcers, abscess, cellulitis, osteomyelitis, arterial insufficiency, venous insufficiency. Given patient history, exam and workup, patient's presentation most likely represents chronic diabetic skin wounds of uncertain underlying etiology. No systemic symptoms and relatively benign physical exam without evidence of abscess cellulitis or deep space infection. Given this, we will initiate therapy with oral antibiotics including clindamycin and Levaquin for coverage of diabetic foot wound given penicillin and cephalosporin allergy. Patient has scheduled follow-up with PCP in 1 week. She was discharged in stable condition with prescription for those medications. Return precautions given. Procedures Risk/Benefits of Procedure(s) Were Explained: Yes Critical Care Critical Care Time Critical Care Time: No
[2023-07-04] MEDS: CLINDAMYCIN 150MG CAPSULE 450 MG PO (23:37)
[2023-07-04] MEDS: levoFLOXacin 750 MG TABLET PO (23:38)
[2023-07-04 23:45] VITALS: BP 124/97; PULSE 96; RESP 18; TEMP 36.8; O2SAT 98
== END 2023-07-04 23:50 | disposition home or self-care (01) ==
PROVIDERS: Emergency Provider Emergency Medicine; PCP Physician Assistant
DX: E11.621 Type 2 diabetes mellitus with foot ulcer (principal); F17.210 Nicotine dependence, cigarettes, uncomplicated; E03.9 Hypothyroidism, unspecified; K21.9 Gastro-esophageal reflux disease without esophagitis; E78.5 Hyperlipidemia, unspecified; Z79.4 Long term (current) use of insulin; Z79.84 Long term (current) use of oral hypoglycemic drugs; L97.422 Non-pressure chronic ulcer of left heel and midfoot with fat layer exposed; L97.821 Non-pressure chronic ulcer of other part of left lower leg limited to breakdown of skin
CPT/HCPCS: 99283

== ENCOUNTER 2023-07-16 10:30 | Outpatient (POV) | payer MEDICAID, SELFPAY ==
[2023-07-16 11:01] VITALS: BP 125/78; PULSE 107; RESP 18; O2SAT 97; BMI 42.5
--- NOTE | 2023-07-16 11:30 | A.OFFVIS_ITS ---
[facility] Pain Management SOAP Note Subjective:: Patient is a pleasant 28-year-old female who presents today for medication refill and follow-up. She rates her pain today a 7 out of 10. Patient states that she is experiencing worsening pain in her low back and legs. She states that she has not had any new injuries or falls however it is really starting to bother her. She does describe it as an aching, throbbing sensation with numbness and tingling into her legs. She does state the pain interferes with her ability to perform activities of daily living such as cooking and cleaning. Patient does states she is open to the option of injections. Patient states she has not heard any updates on her dermatology consult for her diabetes consult. Patient is currently managed with Tylenol 3 3 times a day, gabapentin 300 mg 4 times a day and Flexeril 10 mg 3 times a day. She denies any side effects from this medication. Loki has been reviewed and is appropriate. Review of Systems: General: No recent weight changes, no fever, no sleep disturbances Respiratory: No cough, no shortness of air, no recurring pulmonary infections Cardiovascular/peripheral vascular: No chest pain, no palpitations, no edema, no shortness of breath Gastrointestinal: No new onset incontinence, normal bowel movements reported Genitourinary: No new onset incontinence Musculoskeletal: Low back pain, leg pain Psychiatric: [Normal mood/affect] Neurological: [Denies weakness in extremities], [denies balance issues] Objective:: Physical Exam: General: Alert and oriented x3, no acute distress, pleasant and cooperative Lungs: Respirations even and unlabored, symmetrical chest expansion Eyes: PERRL Musculoskeletal: Flexion and extension of lumbar [spine] somewhat guarded secondary to pain, positive left leg raise Neurological: Speech clear, no gross sensory deficit Assessment:: Degenerative disc disease of lumbar spine with lumbar radiculopathy symptoms, sacroiliitis, right hand pain, diabetic neuropathy Plan:: Due to the patient's worsening pain in her low back and legs with numbness and tingling and limited range of motion I have discussed with the patient that she may benefit from a lumbar epidural. Risk and benefits were discussed with patient and she would like to proceed forward with this plan of care. Patient has tried and failed conservative therapy including at home stretching exercises for longer than 6 weeks with no additional improvement. I will refill the patient's Tylenol 3, gabapentin and Flexeril and provide a 1 month supply of this medication. Patient will be submitted for an LESI L4-L5 under fluoroscopy. Risks and benefits of the medication have been explained in detail to the patient. The patient does understand the risk of dependence on the medication when given over a prolonged period. Patient has been advised of risks of oversedation with the prescribed medication. Narcan has been offered to the paitent in the event of oversedation. Patient has been advised that a family member should also be educated regarding administration of Narcan. The patient has been advised to consult with his/her primary care provider and pharmacist regarding drug-drug interaction of medications currently prescribed. Patient has been prescribed a controlled substance after being counseled on the medication, medication safety, and possible side effects. Opioid contract was reviewed and signed by the patient, and that they have agreed to all of the terms set forth by our compliance program. Patient has been instructed to contact the clinic with any concerns before the next appointment. Dr. Colindres has reviewed this note and agrees with this plan of care. This note was dictated using voice recognition software and make contain errors or omissions. [facility] Disclaimer: The information contained in this section may have been updated after the catalino cevallos was seen, as this information can be updated by other users. Medical History Depression GERD (gastroesophageal reflux disease) Hypothyroidism Vitamin D deficiency Hyperlipidemia Diabetes mellitus Surgical History History of carpal tunnel surgery History of Social History Smoking Status: Current every day smoker tobacco type: cigarettes packs per day: 1 alcohol intake: never substance use type: denies use current occupational status: other Travel in the last 8 weeks: None
== END 2023-07-16 23:59 | disposition home or self-care (01) ==
PROVIDERS: PCP Physician Assistant; Visit Provider Nurse Practitioner Family
DX: M51.16 Intervertebral disc disorders with radiculopathy, lumbar region (principal); M46.1 Sacroiliitis, not elsewhere classified; M79.641 Pain in right hand; E11.40 Type 2 diabetes mellitus with diabetic neuropathy, unspecified
CPT/HCPCS: 99212; G0463

== ENCOUNTER 2023-08-30 09:46 | Outpatient (POV) | payer MEDICAID, SELFPAY ==
[2023-08-30 10:09] VITALS: BP 140/77; PULSE 100; RESP 18; BMI 42.5
--- NOTE | 2023-08-30 10:14 | A.OFFVIS_ITS ---
[facility] Disclaimer: The information contained in this section may have been updated after the patient was seen, as this information can be updated by other users. Medical History Depression GERD (gastroesophageal reflux disease) Hypothyroidism Vitamin D deficiency Hyperlipidemia Diabetes mellitus Surgical History History of carpal tunnel surgery History of Family History (Updated 08/30/23 @ 10:09 by Jh Serrato RN) Other No significant family history Social History Smoking Status: Current every day smoker tobacco type: cigarettes packs per day: 1 alcohol intake: never substance use type: denies use current occupational status: other Travel in the last 8 weeks: None PM Subjective & Objective Subjective Subjective:: Patient is a pleasant 28-year-old female who presents today for medication refill and follow-up. Today she rates her pain 3 out of 10. She denies any new trauma or injury. She does state that she continues to have low back and leg pain however was denied her last injection due to not having recent physical therapy. Patient does state that she is still interested in having this injection. Patient is currently managed with Tylenol 3 3 times a day, gabapentin 300 mg 4 times a day and Flexeril 10 mg 3 times a day. She denies any side effects from this medication. Her Loki has been reviewed and is appropriate. Review of Systems: General: No recent weight changes, no fever, no sleep disturbances Respiratory: No cough, no shortness of air, no recurring pulmonary infections Cardiovascular/peripheral vascular: No chest pain, no palpitations, no edema, no shortness of breath Gastrointestinal: No new onset incontinence, normal bowel movements reported Genitourinary: No new onset incontinence Musculoskeletal: Low back pain, leg pain Psychiatric: [Normal mood/affect] Neurological: [Denies weakness in extremities], [denies balance issues] Pain at rest (0-10 scale): 3 Objective Objective:: Physical Exam: General: Alert and oriented x3, no acute distress, pleasant and cooperative Lungs: Respirations even and unlabored, symmetrical chest expansion Eyes: PERRL Musculoskeletal: Flexion and extension of lumbar [spine] somewhat guarded secondary to pain, [antalgic gait noted] Neurological: Speech clear, no gross sensory deficit Has patient had previous pain injection?: No Conservative treatment options previously tried: Home exercise plan Length of treatment: Longer than 6 weeks and Prescription medications Length of treatment: Longer than 6 weeks Meds Home Medications and Allergies Home Medications ?Medication ?Instructions ?Recorded ?Confirmed ?Type fluticasone propionate 50 See Rx Instructions .Route 03/06/22 07/16/23 History mcg/actuation nasal .COMPLEX ALLERGIES spray,suspension ergocalciferol (vitamin D2) 1,250 See Rx Instructions .Route 05/31/22 07/16/23 History mcg (50,000 unit) capsule .COMPLEX SUPPLIMENT ondansetron HCl 4 mg tablet 4 mg PO TID PRN nausea and 06/14/22 07/16/23 Rx vomiting #14 tabs aspirin 81 mg tablet,delayed 81 mg PO DAILY . #90 tabs 09/26/22 07/16/23 Rx release (Adult Aspirin Regimen) atorvastatin 10 mg tablet See Rx Instructions .Route 09/26/22 07/16/23 Rx .COMPLEX . #90 tabs omeprazole 40 mg capsule,delayed 40 mg PO DAILY GERD #90 caps 09/26/22 07/16/23 Rx release norethindrone (contraceptive) 0.35 See Rx Instructions .Route 09/28/22 07/16/23 History mg tablet .COMPLEX Control venlafaxine 75 mg capsule,extended 75 mg PO DAILY 11/01/22 07/16/23 History release 24 hr cholecalciferol (vitamin D3) 25 See Rx Instructions .Route 04/25/23 07/16/23 Rx mcg (1,000 unit) capsule .COMPLEX #90 ea cyanocobalamin (vitamin B-12) See Rx Instructions .Route 04/25/23 07/16/23 Rx 5,000 mcg sublingual tablet .COMPLEX #90 tabs (Vitamin B-12) doxycycline hyclate 100 mg tablet 100 mg PO BID #20 tabs 04/26/23 07/16/23 Rx mupirocin 2 % topical ointment 1 applic topical TID rash #50 grams 04/26/23 07/16/23 Rx insulin glargine 100 unit/mL (3 10 unit (0.1 mL) SQ HS #15 mL 05/03/23 07/16/23 Rx mL) subcutaneous pen (Lantus Solostar U-100 Insulin) sitagliptin phosphate 100 mg 100 mg PO DAILY #90 tabs 05/03/23 07/16/23 Rx tablet (Januvia) blood sugar diagnostic (OneTouch #100 ea 05/04/23 07/16/23 Rx Ultra Test strips) pen needle, diabetic 31 gauge x #100 ea 05/04/23 07/16/23 Rx 3/16 (BD Ultra-Fine Mini Pen Needle) insulin aspar prot-insulin aspart 10 unit (0.1 mL) SQ BID #15 mL 05/14/23 07/16/23 Rx 100 unit/mL (70-30) subcutaneous pen (Novolog Mix 70-30FlexPen U-100) Alcohol Prep Pad Sterile 100ct Dyn See Rx Instructions .Route 05/30/23 07/16/23 Rx .COMPLEX #100 ea blood sugar diagnostic (OneTouch #100 strips 05/30/23 07/16/23 Rx Verio test strips) metformin 1,000 mg tablet See Rx Instructions .Route 05/30/23 07/16/23 Rx .COMPLEX #180 tabs clindamycin HCl 150 mg capsule 450 mg (3 x 150 mg) PO TID 7 days 07/04/23 07/16/23 Rx #63 caps levofloxacin 750 mg tablet 750 mg PO DAILY 7 days #7 tabs 07/04/23 07/16/23 Rx acetaminophen 300 mg-codeine 30 mg 1 tab PO TID PRN pain #90 tabs 07/16/23 Rx tablet cyclobenzaprine 10 mg tablet 10 mg PO TID #90 tabs 07/16/23 Rx gabapentin 300 mg capsule 300 mg PO QID . #120 caps 07/16/23 Rx furosemide 20 mg tablet See Rx Instructions .Route 07/25/23 Rx .COMPLEX #30 tabs glipizide 10 mg tablet, extended See Rx Instructions .Route 07/25/23 Rx release 24 hr .COMPLEX #180 tabs lisinopril 10 mg tablet See Rx Instructions .Route 07/25/23 Rx .COMPLEX #90 tabs loratadine 10 mg tablet See Rx Instructions .Route 07/25/23 Rx .COMPLEX #90 tabs quetiapine 50 mg tablet,extended See Rx Instructions .Route 07/27/23 Rx release 24 hr .COMPLEX #90 tabs meclizine 25 mg tablet See Rx Instructions .Route 08/29/23 Rx .COMPLEX #90 tabs New Prescriptions to Start Prescriptions: Allergies Allergy/AdvReac Type Severity Reaction Status Date / Time Penicillins Allergy Intermediate Rash Verified 04/26/23 15:01 amoxicillin [AMOXICILLIN] Allergy Mild Verified 04/26/23 15:01 cefaclor [From CECLOR] Allergy Mild Verified 04/26/23 15:01 Assessment and Plan *Assessment and plan (1) Degenerative disc disease, lumbar: Status: Acute Category: Medical Code(s): M51.36 - Other intervertebral disc degeneration, lumbar region (2) Lumbar radiculopathy: Status: Acute Category: Medical Code(s): M54.16 - Radiculopathy, lumbar region Plan Patient is still experiencing low back and leg symptoms. I will order evaluation and treatment by physical therapy. I will refill the patient's Tylenol 3, gabapentin and Flexeril and provide a 1 month supply of this medication. Patient will return to clinic in 1 month for reevaluation of symptoms and plan of care. Risks and benefits of the medication have been explained in detail to the patient. The patient does understand the risk of dependence on the medication when given over a prolonged period. Patient has been advised of risks of oversedation with the prescribed medication. Narcan has been offered to the paitent in the event of oversedation. Patient has been advised that a family member should also be educated regarding administration of Narcan. The patient has been advised to consult with his/her primary care provider and pharmacist regarding drug-drug interaction of medications currently prescribed. Patient has been prescribed a controlled substance after being counseled on the medication, medication safety, and possible side effects. Opioid contract was reviewed and signed by the patient, and that they have agreed to all of the terms set forth by our compliance program. Patient has been instructed to contact the clinic with any concerns before the next appointment. Dr. Colindres has reviewed this note and agrees with this plan of care. This note was dictated using voice recognition software and make contain errors or omissions.
== END 2023-08-30 23:59 | disposition home or self-care (01) ==
PROVIDERS: PCP Physician Assistant; Visit Provider Nurse Practitioner Family
DX: M51.36 Other intervertebral disc degeneration, lumbar region (principal); M54.16 Radiculopathy, lumbar region; M54.59 Other low back pain
CPT/HCPCS: 99212; G0463

== ENCOUNTER 2023-10-10 22:17 | Emergency (ER) | payer MEDICAID, SELFPAY ==
[2023-10-10 22:19] VITALS: BP 107/80; PULSE 140; RESP 16; TEMP 37.4; O2SAT 99; BMI 39.8
--- NOTE | 2023-10-10 22:42 | [facility].EDGENADL ---
Discharge Plan Disposition Patient Disposition: Home, Self-Care Prescriptions Prescriptions: No Action venlafaxine 75 mg capsule,extended release 24hr 75 mg PO DAILY doxycycline hyclate 100 mg tablet 100 mg PO BID Qty: 20 0RF mupirocin 2 % ointment 1 applic topical TID Qty: 50 2RF ondansetron HCl 4 mg tablet 4 mg PO TID PRN (Reason: nausea and vomiting) Qty: 14 0RF insulin glargine [Lantus Solostar U-100 Insulin] 100 unit/mL (3 mL) insulin pen 10 unit SQ HS Qty: 15 3RF (DME) pen needle, diabetic [BD Ultra-Fine Mini Pen Needle] 31 gauge x 3/16 needle See Rx Instructions .ROUTE .COMPLEX Qty: 100 1RF Dose Instruction: USE TWICE DAILY OR DIRECTED (FOR diabetes) Rx Instructions: USE TWICE DAILY OR DIRECTED (FOR diabetes) (DME) OneTouch Ultra Test Strip See Rx Instructions .Route Qty: 100 0RF Rx Instructions: As directed,bid insulin asp prt-insulin aspart [Novolog Mix 70-30FlexPen U-100] 100 unit/mL (70-30) insulin pen 10 unit SQ BID Qty: 15 2RF Alcohol Prep Pad Sterile 100ct Dyn See Rx Instructions .ROUTE .COMPLEX Qty: 100 2RF Dose Instruction: USE DIRECTED TWICE DAILY (FOR diabetes) Rx Instructions: USE DIRECTED TWICE DAILY (FOR diabetes) (DME) OneTouch Verio test strips Strip See Rx Instructions .ROUTE .COMPLEX Qty: 100 2RF Dose Instruction: USE DIRECTED TO test blood sugar THREE TIMES DAILY Rx Instructions: USE DIRECTED TO test blood sugar THREE TIMES DAILY loratadine 10 mg tablet See Rx Instructions .ROUTE .COMPLEX Qty: 90 0RF Dose Instruction: TAKE ONE TABLET BY MOUTH EVERY DAY NEEDED FOR allergic SYMPTOMS Rx Instructions: TAKE ONE TABLET BY MOUTH EVERY DAY NEEDED FOR allergic SYMPTOMS glipizide 10 mg tablet extended release 24hr See Rx Instructions .ROUTE .COMPLEX Qty: 180 0RF Dose Instruction: TAKE ONE TABLET BY MOUTH TWICE DAILY FOR DIABETES Rx Instructions: TAKE ONE TABLET BY MOUTH TWICE DAILY FOR DIABETES lisinopril 10 mg tablet See Rx Instructions .ROUTE .COMPLEX Qty: 90 0RF Dose Instruction: TAKE ONE TABLET BY MOUTH EVERY DAY Rx Instructions: TAKE ONE TABLET BY MOUTH EVERY DAY (DME) lancets [OneTouch Delica Plus Lancet] 33 gauge misc See Rx Instructions .Route Qty: 100 12RF Rx Instructions: As directed metformin 1,000 mg tablet See Rx Instructions .ROUTE .COMPLEX Qty: 180 0RF Dose Instruction: TAKE ONE TABLET BY MOUTH TWICE DAILY Rx Instructions: TAKE ONE TABLET BY MOUTH TWICE DAILY Januvia 100 mg tablet See Rx Instructions .ROUTE .COMPLEX Qty: 90 0RF Dose Instruction: TAKE ONE TABLET BY MOUTH EVERY DAY Rx Instructions: TAKE ONE TABLET BY MOUTH EVERY DAY cholecalciferol (vitamin D3) 25 mcg (1,000 unit) capsule See Rx Instructions .ROUTE .COMPLEX Qty: 90 0RF Dose Instruction: TAKE ONE CAPSULE BY MOUTH EVERY DAY Rx Instructions: TAKE ONE CAPSULE BY MOUTH EVERY DAY cyanocobalamin (vitamin B-12) [Vitamin B-12] 5,000 mcg tablet, sublingual See Rx Instructions .ROUTE .COMPLEX Qty: 90 0RF Dose Instruction: DISSOLVE ONE TABLET UNDER THE TONGUE EVERY DAY Rx Instructions: DISSOLVE ONE TABLET UNDER THE TONGUE EVERY DAY quetiapine 50 mg tablet extended release 24 hr See Rx Instructions .ROUTE .COMPLEX Qty: 90 0RF Dose Instruction: TAKE ONE TABLET BY MOUTH EVERY DAY AT BEDTIME Rx Instructions: TAKE ONE TABLET BY MOUTH EVERY DAY AT BEDTIME aspirin 81 mg tablet,delayed release (DR/EC) See Rx Instructions .ROUTE .COMPLEX Qty: 90 3RF Dose Instruction: TAKE ONE TABLET BY MOUTH EVERY DAY Rx Instructions: TAKE ONE TABLET BY MOUTH EVERY DAY omeprazole 40 mg capsule,delayed release(DR/EC) See Rx Instructions .ROUTE .COMPLEX Qty: 90 3RF Dose Instruction: TAKE ONE CAPSULE BY MOUTH EVERY DAY FOR gerd Rx Instructions: TAKE ONE CAPSULE BY MOUTH EVERY DAY FOR gerd atorvastatin 10 mg tablet See Rx Instructions .ROUTE .COMPLEX Qty: 90 3RF Dose Instruction: TAKE ONE TABLET BY MOUTH EVERY DAY AT BEDTIME Rx Instructions: TAKE ONE TABLET BY MOUTH EVERY DAY AT BEDTIME furosemide 20 mg tablet See Rx Instructions .ROUTE .COMPLEX Qty: 30 0RF Dose Instruction: TAKE ONE TABLET BY MOUTH EVERY DAY NEEDED FOR EDEMA Rx Instructions: TAKE ONE TABLET BY MOUTH EVERY DAY NEEDED FOR EDEMA meclizine 25 mg tablet See Rx Instructions .ROUTE .COMPLEX Qty: 90 0RF Dose Instruction: TAKE ONE TABLET BY MOUTH THREE TIMES DAILY NEEDED FOR dizziness Rx Instructions: TAKE ONE TABLET BY MOUTH THREE TIMES DAILY NEEDED FOR dizziness cyclobenzaprine 10 mg tablet See Rx Instructions .ROUTE .COMPLEX Qty: 90 2RF Dose Instruction: TAKE ONE TABLET BY MOUTH THREE TIMES DAILY MAY CAUSE DROWSINESS Rx Instructions: TAKE ONE TABLET BY MOUTH THREE TIMES DAILY MAY CAUSE DROWSINESS fluticasone propionate 50 mcg/actuation spray,suspension See Rx Instructions .ROUTE .COMPLEX Rx Instructions: INSTILL 2 SPRAYS IN EACH NOSTRIL EVERY DAY norethindrone (contraceptive) 0.35 mg tablet See Rx Instructions .ROUTE .COMPLEX Rx Instructions: TAKE ONE TABLET BY MOUTH EVERY DAY clindamycin HCl 150 mg capsule 450 mg PO TID 7 Days Qty: 63 0RF levofloxacin 750 mg tablet 750 mg PO DAILY 7 Days Qty: 7 0RF ergocalciferol (vitamin D2) 1,250 mcg (50,000 unit) capsule See Rx Instructions .ROUTE .COMPLEX Rx Instructions: TAKE ONE CAPSULE BY MOUTH ONCE A WEEK acetaminophen-codeine 300-30 mg tablet 1 tab PO TID PRN (Reason: pain) Qty: 90 0RF gabapentin 300 MG capsule 300 mg PO QID Qty: 120 0RF Referrals Follow up/Referrals: Provider,Referral, MD [Primary Care Provider] - See instructions Activity Restrictions/Add. Instructions Additional Instructions/Restrictions: Please follow-up with your primary care provider. Please return to the emergency department if you develop any new or worsening symptoms or become concerned for your health. Clinical Impressions Clinical Impression: Arthralgia, Acute left ankle pain Cellulitis Qualifiers: Site of cellulitis of extremity: lower extremity Laterality: left Instructions Patient Instructions: Cellulitis Print Language Print Language: Greek Discharge ED Provider: Juan Daniels General Adult HPI <Kathy Barahona DO - Last Filed: 10/11/23 00:05> General Chief complaint: PAIN Stated complaint: joint pain , swelling in legs Time Seen by Provider: 10/10/23 22:40 Mode of Arrival: Wheelchair Source of Information: Patient and Relative Limitations: No Limitations Description of Symptoms (Recalled from ER Triage Doc. by RN): Pt presents with joint stiffness associated with pain and burning that started this evening. Pt left ankle is swollen from a fall 2 days ago, but states the overall body stiffness started today. Pt has multiple places that she states have been on her left leg for over a year. History of Present Illness HPI narrative: This patient is a 28-year-old female with a history of rheumatoid arthritis, juvenile arthritis, type 2 diabetes, obesity, hypothyroidism, GERD, hyperlipidemia, diabetic foot wound presenting to the emergency department for evaluation with concern for left ankle pain, swelling, and redness as well as pain in all of the joints of her entire body. She notes that she had a fall 2 days ago and landed on her left knee. She did have some pain and swelling in her left knee and ankle, but it acutely worsened today. She notes that she got up from the couch and was not able to walk this evening. She states that she has overall body aches and stiffness that is very severe. She also has multiple wounds that have been on her left foot and ankle for about a year, but they look to be healed on clinical exam. No fevers, chills, or other systemic symptoms noted. She notes she has had issues with flare ups of arthritis in the past but nothing this severe. She does note she is being worked up for fibromyalgia. Related Data Home Medications ?Medication ?Instructions ?Recorded ?Confirmed fluticasone propionate 50 See Rx Instructions .Route 03/06/22 07/16/23 mcg/actuation nasal .COMPLEX ALLERGIES spray,suspension ergocalciferol (vitamin D2) 1,250 See Rx Instructions .Route 05/31/22 07/16/23 mcg (50,000 unit) capsule .COMPLEX SUPPLIMENT norethindrone (contraceptive) 0.35 See Rx Instructions .Route 09/28/22 07/16/23 mg tablet .COMPLEX Control venlafaxine 75 mg capsule,extended 75 mg PO DAILY 11/01/22 07/16/23 release 24 hr Previous Rx's ?Medication ?Instructions ?Recorded ondansetron HCl 4 mg tablet 4 mg PO TID PRN nausea and 06/14/22 vomiting #14 tabs doxycycline hyclate 100 mg tablet 100 mg PO BID #20 tabs 04/26/23 mupirocin 2 % topical ointment 1 applic topical TID rash #50 grams 04/26/23 insulin glargine 100 unit/mL (3 10 unit (0.1 mL) SQ HS #15 mL 05/03/23 mL) subcutaneous pen (Lantus Solostar U-100 Insulin) blood sugar diagnostic (OneTouch #100 ea 05/04/23 Ultra Test strips) pen needle, diabetic 31 gauge x #100 ea 05/04/23 3/16 (BD Ultra-Fine Mini Pen Needle) insulin aspar prot-insulin aspart 10 unit (0.1 mL) SQ BID #15 mL 05/14/23 100 unit/mL (70-30) subcutaneous pen (Novolog Mix 70-30FlexPen U-100) Alcohol Prep Pad Sterile 100ct Dyn See Rx Instructions .Route 05/30/23 .COMPLEX #100 ea blood sugar diagnostic (OneTouch #100 strips 05/30/23 Verio test strips) clindamycin HCl 150 mg capsule 450 mg (3 x 150 mg) PO TID 7 days 07/04/23 #63 caps levofloxacin 750 mg tablet 750 mg PO DAILY 7 days #7 tabs 07/04/23 glipizide 10 mg tablet, extended See Rx Instructions .Route 07/25/23 release 24 hr .COMPLEX #180 tabs lisinopril 10 mg tablet See Rx Instructions .Route 07/25/23 .COMPLEX #90 tabs loratadine 10 mg tablet See Rx Instructions .Route 07/25/23 .COMPLEX #90 tabs acetaminophen 300 mg-codeine 30 mg 1 tab PO TID PRN pain #90 tabs 08/30/23 tablet gabapentin 300 mg capsule 300 mg PO QID . #120 caps 08/30/23 cholecalciferol (vitamin D3) 25 See Rx Instructions .Route 09/01/23 mcg (1,000 unit) capsule .COMPLEX #90 ea cyanocobalamin (vitamin B-12) See Rx Instructions .Route 09/01/23 5,000 mcg sublingual tablet .COMPLEX #90 tabs (Vitamin B-12) lancets 33 gauge (OneTouch Delica #100 ea 09/01/23 Plus Lancet) metformin 1,000 mg tablet See Rx Instructions .Route 09/01/23 .COMPLEX #180 tabs quetiapine 50 mg tablet,extended See Rx Instructions .Route 09/01/23 release 24 hr .COMPLEX #90 tabs sitagliptin phosphate 100 mg See Rx Instructions .Route 09/01/23 tablet (Januvia) .COMPLEX #90 tabs aspirin 81 mg tablet,delayed See Rx Instructions .Route 09/25/23 release .COMPLEX #90 tabs atorvastatin 10 mg tablet See Rx Instructions .Route 09/25/23 .COMPLEX #90 tabs furosemide 20 mg tablet See Rx Instructions .Route 09/25/23 .COMPLEX #30 tabs meclizine 25 mg tablet See Rx Instructions .Route 09/25/23 .COMPLEX #90 tabs omeprazole 40 mg capsule,delayed See Rx Instructions .Route 09/25/23 release .COMPLEX #90 caps cyclobenzaprine 10 mg tablet See Rx Instructions .Route 10/01/23 .COMPLEX #90 tabs Allergies Allergy/AdvReac Type Severity Reaction Status Date / Time Penicillins Allergy Intermediate Rash Verified 04/26/23 15:01 amoxicillin [AMOXICILLIN] Allergy Mild Verified 04/26/23 15:01 cefaclor [From CECLOR] Allergy Mild Verified 04/26/23 15:01 PFSH <Kathy Barahona DO - Last Filed: 10/11/23 00:05> [facility] Disclaimer: The information contained in this section may have been updated after the patient was seen, as this information can be updated by other users. Medical History Depression GERD (gastroesophageal reflux disease) Hypothyroidism Vitamin D deficiency Hyperlipidemia Diabetes mellitus Surgical History History of carpal tunnel surgery History of Family History Other No significant family history Social History Smoking Status: Current every day smoker tobacco type: cigarettes packs per day: 1 alcohol intake: never substance use type: denies use current occupational status: other Travel in the last 8 weeks: None <Kathy Barahona DO - Last Filed: 10/11/23 00:05> ROS Obtained: Yes All systems reviewed & no additional complaints except as documented Physical Exam <Kathy Barahona DO - Last Filed: 10/11/23 00:05> General General appearance: alert, in no apparent distress and obese Head Head exam: atraumatic and normocephalic Eye Eye exam: Present normal appearance, PERRL and EOMI ENT ENT exam: Present normal exam, normal oropharynx, mucous membranes moist and normal external ear exam Neck Neck exam: Present normal inspection, full ROM and trachea midline; Absent tenderness Chest Chest inspection: Present normal inspection and symmetric chest wall rise; Absent tenderness Respiratory Respiratory exam: Present normal lung sounds bilaterally; Absent respiratory distress, wheezes, stridor or accessory muscle use Cardiovascular Cardiovascular exam: Present normal rhythm and tachycardia Abdominal Exam Abdominal exam: Present soft; Absent distention, tenderness or guarding Extremities Exam Extremities exam: Present tenderness (All joints, worse in the left ankle), normal capillary refill, joint swelling (Left ankle) and other (Localizable erythema and edema to lateral L ankle. All compartments soft, neurovascularly intact distally); Absent full ROM (Limited range of motion of the left ankle secondary to pain) Expanded Lower Extremity Exam Left: Top foot image: 1. Chronic wound that appears to be healed 2. Chronic wound that appears to be healed Back Exam Back exam: Present normal inspection and full ROM; Absent tenderness Neurological Exam Neurological exam: Present alert, oriented X3, CN II-XII intact and normal gait; Absent motor sensory deficit Psychiatric Psychiatric exam: Present normal affect and normal mood Skin Skin exam: Present warm and dry Medical Decision Making <Kathy Barahona, - Last Filed: 10/11/23 00:05> Medical Records Medical records reviewed: Yes I reviewed the patient's medical records. Loki Inquiry Pt receiving controlled substance: No Vital Signs: 10/10/23 22:19 10/11/23 00:01 10/11/23 00:02 Temperature 99.3 F Temperature Source Oral Pulse Rate 128 H Pulse Rate [Left] 140 H Respiratory Rate 16 Blood Pressure 132/82 Blood Pressure [Right Arm] 107/80 L Blood Pressure Mean 95 Blood Pressure Mean [Right Arm] 89 Blood Pressure Source Blood Pressure Source [Right Arm] Automatic Cuff Blood Pressure Position Blood Pressure Position [Right Arm] Sitting 02 Sat by Pulse Oximetry 99 99 Oxygen Delivery Method Room Air 10/11/23 00:02 10/11/23 00:15 10/11/23 00:31 Temperature Temperature Source Pulse Rate 131 H 134 H 132 H Pulse Rate [Left] Respiratory Rate Blood Pressure Blood Pressure [Right Arm] Blood Pressure Mean Blood Pressure Mean [Right Arm] Blood Pressure Source Blood Pressure Source [Right Arm] Blood Pressure Position Blood Pressure Position [Right Arm] 02 Sat by Pulse Oximetry 98 98 99 Oxygen Delivery Method 10/11/23 00:33 10/11/23 00:33 10/11/23 00:45 Temperature Temperature Source Pulse Rate 131 H 130 H Pulse Rate [Left] Respiratory Rate 18 Blood Pressure 129/79 Blood Pressure [Right Arm] Blood Pressure Mean 88 Blood Pressure Mean [Right Arm] Blood Pressure Source Blood Pressure Source [Right Arm] Blood Pressure Position Blood Pressure Position [Right Arm] 02 Sat by Pulse Oximetry 100 96 Oxygen Delivery Method 10/11/23 01:01 10/11/23 01:12 10/11/23 01:31 Temperature Temperature Source Pulse Rate 120 H 124 H 114 H Pulse Rate [Left] Respiratory Rate 17 18 15 Blood Pressure 127/66 100/64 L 104/62 L Blood Pressure [Right Arm] Blood Pressure Mean 86 82 78 Blood Pressure Mean [Right Arm] Blood Pressure Source Blood Pressure Source [Right Arm] Blood Pressure Position Blood Pressure Position [Right Arm] 02 Sat by Pulse Oximetry 97 97 98 Oxygen Delivery Method Room Air Room Air Room Air 10/11/23 02:07 Temperature 98.6 F Temperature Source Oral Pulse Rate 114 H Pulse Rate [Left] Respiratory Rate 18 Blood Pressure 104/62 L Blood Pressure [Right Arm] Blood Pressure Mean Blood Pressure Mean [Right Arm] Blood Pressure Source Automatic Cuff Blood Pressure Source [Right Arm] Blood Pressure Position Sitting Blood Pressure Position [Right Arm] 02 Sat by Pulse Oximetry Oxygen Delivery Method Room Air Lab Data Lab results reviewed: Yes I reviewed the patient's lab results. Lab Results 10/10/23 22:45: WBC 13.9 H, RBC 4.93, Hgb 14.0, Hct 44.8, MCV 90.9, MCH 28.4, MCHC 31.3 L, RDW 15.1, Plt Count 361, MPV 7.8, Neut % (Auto) 77.2, Lymph % (Auto) 16.3, [place] % (Auto) 4.1, Eos % (Auto) 1.6, Baso % (Auto) 0.8, Neut # (Auto) 10.7 H, Lymph # (Auto) 2.3, [place] # (Auto) 0.6, Eos # (Auto) 0.2, Baso # (Auto) 0.1, ESR 46 H, Sodium 132 L, Potassium 4.2, Chloride 103, Carbon Dioxide 21 L, Anion Gap 12.2, BUN 7, Creatinine 0.40 L, Estimated Creat Clear 331 H, Estimated GFR 187, Est GFR ( Amer) 227, Glucose 286 H, Lactate 3.2 H, Calcium 9.2, Total Bilirubin 0.4, AST 28, ALT 32, Alkaline Phosphatase 57, C-Reactive Protein 43.4 H, Total Protein 6.9, Albumin 3.7, Globulin 3.2, Albumin/Globulin Ratio 1.2 10/11/23 00:59: SARS-CoV-2 (PCR) Not detected, Influenza A Untype (PCR) Not detected, Influenza Type B (PCR) Not detected 10/10/23 22:45 10/10/23 22:45 Orders (Tests/Meds): ED MEDICATIONS Discontinued Medications Generic Name Dose Route Start Last Admin Trade Name Freq PRN Reason Stop Dose Admin Acetaminophen 1,000 mg 10/11/23 00:01 10/11/23 00:24 Acetaminophen 1,000mg/100ml Vial IV 10/11/23 00:02 1,000 mg ONCE ONE Administration Lactated Ringer's 1,000 mls @ 999 mls/hr 10/11/23 00:01 10/11/23 00:25 Lactated Ringer's 1000 Ml Bag IV 10/11/23 01:01 999 mls/hr .Q1H1M ONE Administration Dalbavancin 1,500 mg/ Dextrose 250 mls @ 500 mls/hr 10/11/23 01:09 10/11/23 01:15 IV 10/11/23 01:10 500 mls/hr ONCE ONE Administration Ketorolac Tromethamine 15 mg 10/11/23 00:01 10/11/23 00:24 Ketorolac 30mg/Ml Vial IV 10/11/23 00:02 15 mg ONCE ONE Administration Morphine Sulfate 4 mg 10/11/23 00:20 10/11/23 00:25 Morphine 4mg/Ml Syringe IV 10/11/23 00:21 4 mg ONCE ONE Administration Ondansetron HCl 4 mg 10/11/23 00:28 10/11/23 00:29 Ondansetron 4mg/2ml Vial IV 10/11/23 00:29 4 mg ONCE ONE Administration ORDERS Category Date Time Status CT ankle LT wo con Stat Cat Scan 10/10/23 23:41 Completed Ankle XR - Left 2 Views [XR ankle LT 2V] Stat Exams 10/10/23 22:47 Completed Foot XR left minimum 3 views [XR foot LT min 3V] Stat Exams 10/10/23 22:47 Completed Knee XR left 3 views [XR knee LT 3V] Stat Exams 10/10/23 22:47 Completed Tibia/fibula XR left 2 views [XR tibia fibula LT 2V] Exams 10/10/23 22:47 Completed Stat CRP [C-Reactive Protein] Stat Lab 10/10/23 22:45 Completed Complete Blood Count Auto Diff Stat Lab 10/10/23 22:45 Completed Comprehensive Metabolic Panel Stat Lab 10/10/23 22:45 Completed ESR [Erythrocyte Sedimentation Rate] Stat Lab 10/10/23 22:45 Completed Lactic Acid Stat Lab 10/10/23 22:45 Completed Rapid PCR Covid and Flu A/B Stat Lab 10/11/23 00:59 Completed Blood Culture Stat Micro 10/11/23 01:10 Received Medical Decision Narrative: In summary, this patient is a 28-year-old female presenting to the Emergency Department for evaluation of allover joint pain but worse in the left ankle with left ankle pain, swelling, and redness. Differential diagnoses considered include but are not limited to cellulitis, abscess, septic arthritis, osteoarthritis, rheumatoid arthritis, gouty arthritis, fracture, contusion. Ruling out the most morbid conditions drove assessment. It should be noted patient's history includes obesity, type 2 diabetes, rheumatoid arthritis which are not at goal therapy. This complicates all aspects of care by increasing patient's risk for morbidity. I reviewed patient's past medical records and noted evaluations for foot wound of the left foot in the past. On exam, the patient is sitting upright in wheelchair in no acute distress. She has tenderness palpation, joint effusion, and redness of the left ankle. She has limited range of motion secondary to pain. She is neurovascularly intact distally. She is tachycardic with a temp of 99.3 ?F. workup included CBC, CMP, ESR, CRP, blood cultures, lactic, viral swab, UA, Xr of the injured LLE.. I independently interpreted x-ray prior to the radiologist read and noted soft tissue swelling without obvious acute fracture. Please see their read for final interpretation. Labs were obtained that demonstrated leukocytosis, elevated inflammatory markers. Patient was given a bolus of IV fluids as well as IV Toradol and acetaminophen for symptomatic improvement I called and had an interactive discussion with Dr. Diehl with orthopedics who advised it would be unlikely to get a septic joint in the left ankle without hardware or recent surgery, but he did recommend obtaining CT scan of the left ankle to try to evaluate for possible effusion given that we do not have MRI available at night. Patient is allergic to IV contrast and is refusing IV contrast even with pretreatment. Given this, CT scan of the left ankle without IV contrast was ordered for further assessment. Patient care was signed out to the oncoming provider, Dr. Daniels, pending CT and dispo. <Juan Daniels MD - Last Filed: 10/11/23 03:34> Vital Signs: 10/10/23 22:19 10/11/23 00:01 10/11/23 00:02 Temperature 99.3 F Temperature Source Oral Pulse Rate 128 H Pulse Rate [Left] 140 H Respiratory Rate 16 Blood Pressure 132/82 Blood Pressure [Right Arm] 107/80 L Blood Pressure Mean 95 Blood Pressure Mean [Right Arm] 89 Blood Pressure Source Blood Pressure Source [Right Arm] Automatic Cuff Blood Pressure Position Blood Pressure Position [Right Arm] Sitting 02 Sat by Pulse Oximetry 99 99 Oxygen Delivery Method Room Air 10/11/23 00:02 10/11/23 00:15 10/11/23 00:31 Temperature Temperature Source Pulse Rate 131 H 134 H 132 H Pulse Rate [Left] Respiratory Rate Blood Pressure Blood Pressure [Right Arm] Blood Pressure Mean Blood Pressure Mean [Right Arm] Blood Pressure Source Blood Pressure Source [Right Arm] Blood Pressure Position Blood Pressure Position [Right Arm] 02 Sat by Pulse Oximetry 98 98 99 Oxygen Delivery Method 10/11/23 00:33 10/11/23 00:33 10/11/23 00:45 Temperature Temperature Source Pulse Rate 131 H 130 H Pulse Rate [Left] Respiratory Rate 18 Blood Pressure 129/79 Blood Pressure [Right Arm] Blood Pressure Mean 88 Blood Pressure Mean [Right Arm] Blood Pressure Source Blood Pressure Source [Right Arm] Blood Pressure Position Blood Pressure Position [Right Arm] 02 Sat by Pulse Oximetry 100 96 Oxygen Delivery Method 10/11/23 01:01 10/11/23 01:12 10/11/23 01:31 Temperature Temperature Source Pulse Rate 120 H 124 H 114 H Pulse Rate [Left] Respiratory Rate 17 18 15 Blood Pressure 127/66 100/64 L 104/62 L Blood Pressure [Right Arm] Blood Pressure Mean 86 82 78 Blood Pressure Mean [Right Arm] Blood Pressure Source Blood Pressure Source [Right Arm] Blood Pressure Position Blood Pressure Position [Right Arm] 02 Sat by Pulse Oximetry 97 97 98 Oxygen Delivery Method Room Air Room Air Room Air 10/11/23 02:07 Temperature 98.6 F Temperature Source Oral Pulse Rate 114 H Pulse Rate [Left] Respiratory Rate 18 Blood Pressure 104/62 L Blood Pressure [Right Arm] Blood Pressure Mean Blood Pressure Mean [Right Arm] Blood Pressure Source Automatic Cuff Blood Pressure Source [Right Arm] Blood Pressure Position Sitting Blood Pressure Position [Right Arm] 02 Sat by Pulse Oximetry Oxygen Delivery Method Room Air Lab Data Lab Results 10/10/23 22:45: WBC 13.9 H, RBC 4.93, Hgb 14.0, Hct 44.8, MCV 90.9, MCH 28.4, MCHC 31.3 L, RDW 15.1, Plt Count 361, MPV 7.8, Neut % (Auto) 77.2, Lymph % (Auto) 16.3, [place] % (Auto) 4.1, Eos % (Auto) 1.6, Baso % (Auto) 0.8, Neut # (Auto) 10.7 H, Lymph # (Auto) 2.3, [place] # (Auto) 0.6, Eos # (Auto) 0.2, Baso # (Auto) 0.1, ESR 46 H, Sodium 132 L, Potassium 4.2, Chloride 103, Carbon Dioxide 21 L, Anion Gap 12.2, BUN 7, Creatinine 0.40 L, Estimated Creat Clear 331 H, Estimated GFR 187, Est GFR ( Amer) 227, Glucose 286 H, Lactate 3.2 H, Calcium 9.2, Total Bilirubin 0.4, AST 28, ALT 32, Alkaline Phosphatase 57, C-Reactive Protein 43.4 H, Total Protein 6.9, Albumin 3.7, Globulin 3.2, Albumin/Globulin Ratio 1.2 10/11/23 00:59: SARS-CoV-2 (PCR) Not detected, Influenza A Untype (PCR) Not detected, Influenza Type B (PCR) Not detected Orders (Tests/Meds): ED MEDICATIONS Discontinued Medications Generic Name Dose Route Start Last Admin Trade Name Freq PRN Reason Stop Dose Admin Acetaminophen 1,000 mg 10/11/23 00:01 10/11/23 00:24 Acetaminophen 1,000mg/100ml Vial IV 10/11/23 00:02 1,000 mg ONCE ONE Administration Lactated Ringer's 1,000 mls @ 999 mls/hr 10/11/23 00:01 10/11/23 00:25 Lactated Ringer's 1000 Ml Bag IV 10/11/23 01:01 999 mls/hr .Q1H1M ONE Administration Dalbavancin 1,500 mg/ Dextrose 250 mls @ 500 mls/hr 10/11/23 01:09 10/11/23 01:15 IV 10/11/23 01:10 500 mls/hr ONCE ONE Administration Ketorolac Tromethamine 15 mg 10/11/23 00:01 10/11/23 00:24 Ketorolac 30mg/Ml Vial IV 10/11/23 00:02 15 mg ONCE ONE Administration Morphine Sulfate 4 mg 10/11/23 00:20 10/11/23 00:25 Morphine 4mg/Ml Syringe IV 10/11/23 00:21 4 mg ONCE ONE Administration Ondansetron HCl 4 mg 10/11/23 00:28 10/11/23 00:29 Ondansetron 4mg/2ml Vial IV 10/11/23 00:29 4 mg ONCE ONE Administration ORDERS Category Date Time Status CT ankle LT wo con Stat Cat Scan 10/10/23 23:41 Completed Ankle XR - Left 2 Views [XR ankle LT 2V] Stat Exams 10/10/23 22:47 Completed Foot XR left minimum 3 views [XR foot LT min 3V] Stat Exams 10/10/23 22:47 Completed Knee XR left 3 views [XR knee LT 3V] Stat Exams 10/10/23 22:47 Completed Tibia/fibula XR left 2 views [XR tibia fibula LT 2V] Exams 10/10/23 22:47 Completed Stat CRP [C-Reactive Protein] Stat Lab 10/10/23 22:45 Completed Complete Blood Count Auto Diff Stat Lab 10/10/23 22:45 Completed Comprehensive Metabolic Panel Stat Lab 10/10/23 22:45 Completed ESR [Erythrocyte Sedimentation Rate] Stat Lab 10/10/23 22:45 Completed Lactic Acid Stat Lab 10/10/23 22:45 Completed Rapid PCR Covid and Flu A/B Stat Lab 10/11/23 00:59 Completed Blood Culture Stat Micro 10/11/23 01:10 Received ECG Data Tracing #1: I reviewed this ECG and interpreted as documented below: Sinus tachycardia with rate of 121, no concerning ST changes, no arrhythmia ECG initial impression date: 10/11/23 ECG initial impression time: 00:52 Medical Decision Narrative: In summary, this patient is a 28-year-old female presenting to the Emergency Department for evaluation of allover joint pain but worse in the left ankle with left ankle pain, swelling, and redness. Differential diagnoses considered include but are not limited to cellulitis, abscess, septic arthritis, osteoarthritis, rheumatoid arthritis, gouty arthritis, fracture, contusion. Ruling out the most morbid conditions drove assessment. It should be noted patient's history includes obesity, type 2 diabetes, rheumatoid arthritis which are not at goal therapy. This complicates all aspects of care by increasing patient's risk for morbidity. I reviewed patient's past medical records and noted evaluations for foot wound of the left foot in the past. On exam, the patient is sitting upright in wheelchair in no acute distress. She has tenderness palpation, joint effusion, and redness of the left ankle. She has limited range of motion secondary to pain. She is neurovascularly intact distally. She is tachycardic with a temp of 99.3 ?F. workup included CBC, CMP, ESR, CRP, blood cultures, lactic, viral swab, UA, Xr of the injured LLE.. I independently interpreted x-ray prior to the radiologist read and noted soft tissue swelling without obvious acute fracture. Please see their read for final interpretation. Labs were obtained that demonstrated leukocytosis, elevated inflammatory markers. Patient was given a bolus of IV fluids as well as IV Toradol and acetaminophen for symptomatic improvement I called and had an interactive discussion with Dr. Diehl with orthopedics who advised it would be unlikely to get a septic joint in the left ankle without hardware or recent surgery, but he did recommend obtaining CT scan of the left ankle to try to evaluate for possible effusion given that we do not have MRI available at night. Patient is allergic to IV contrast and is refusing IV contrast even with pretreatment. Given this, CT scan of the left ankle without IV contrast was ordered for further assessment. Patient care was signed out to the oncoming provider, Dr. Daniels, pending CT and dispo. Frances DELEON: I assumed care of the patient at the time of handoff from the prior provider. On reassessment after medications and fluid patient reports significant symptomatic improvement. Heart rate is now 120. I spoke with her about her heart rate, she reports that 120 is the low end of normal for her. She reports that when she gets up and walks around it will often go up to 160. She reports her heart rate is essentially never below 120. CT imaging independently interpreted by me and shows stranding in the lateral soft tissues of the ankle but does not show a joint effusion or obvious abscess. No evidence of acute fracture either. Patient's presentation seems most consistent with cellulitis. Given leukocytosis and heart rate as well as patient's history of poorly controlled diabetes, we will treat with dalbavancin as I think she may benefit from IV antibiotic therapy. Interactive discussion was had with patient regarding her presentation. She was discharged in stable condition with return precautions. Critical Care <Kathy Barahona, DO - Last Filed: 10/11/23 00:05> Critical Care Time Critical Care Time: No
--- NOTE | 2023-10-10 22:47 | XR_ITS ---
PROCEDURE INFORMATION: Exam: XR Left Knee Exam date and time: 10/10/2023 10:47 PM Age: 28 years old Clinical indication: Pain; Knee; Left; Additional info: Pain, swelling TECHNIQUE: Imaging protocol: Radiologic exam of the left knee. Views: 3 views. COMPARISON: CR XR KNEE LT 4V 05/15/2022 2:32 PM FINDINGS: Bones/joints: Normal. No fracture evident Soft tissues: Normal. IMPRESSION: No acute findings.
--- NOTE | 2023-10-10 22:47 | XR_ITS ---
PROCEDURE INFORMATION: Exam: XR Left Ankle Exam date and time: 10/10/2023 10:49 PM Age: 28 years old Clinical indication: Pain; Ankle; Left; Additional info: Pain, swelling TECHNIQUE: Imaging protocol: Radiologic exam of the left ankle. Views: 1 or 2 views. COMPARISON: CR XR TIBIA FIBULA LT 2V 10/10/2023 10:49 PM FINDINGS: Bones/joints: No acute fracture identified. Soft tissues: [id number] soft tissue swelling around the ankle slightly more pronounced laterally. IMPRESSION: Soft tissue swelling. No acute abnormality.
--- NOTE | 2023-10-10 22:47 | XR_ITS ---
PROCEDURE INFORMATION: Exam: XR Left Tibia and Fibula Exam date and time: 10/10/2023 10:49 PM Age: 28 years old Clinical indication: Pain; Lower leg; Left; Additional info: Pain, swelling TECHNIQUE: Imaging protocol: Radiologic exam of the left tibia and fibula. Views: 2 views. COMPARISON: CR XR KNEE LT 3V 10/10/2023 10:47 PM FINDINGS: Bones/joints: No acute fracture identified. Old healed fracture of the mid to distal fibula diaphysis. No other significant bone or joint abnormality. Soft tissues: Normal. IMPRESSION: No acute abnormality.
--- NOTE | 2023-10-10 22:47 | XR_ITS ---
PROCEDURE INFORMATION: Exam: XR Left Foot Exam date and time: 10/10/2023 10:50 PM Age: 28 years old Clinical indication: Pain; Foot; Left; Additional info: Pain, swelling TECHNIQUE: Imaging protocol: Radiologic exam of the left foot. Views: 3 or more views. COMPARISON: CR Ankle L 10/10/2023 10:49 PM FINDINGS: Bones/joints: Normal. No acute fracture identified. Soft tissues: Normal. IMPRESSION: No acute findings.
[2023-10-10 22:53] LABS: Basophils # 0.1 K/mm3 (0-0.2); Basophils % 0.8 % (0.1-2.0); Eosinophils # 0.2 K/mm3 (0.0-0.4); Eosinophils % 1.6 % (0.1-12.0); Hematocrit 44.8 % (37.0-47.0); Lymphocytes # 2.3 K/mm3 (0.7-4.5); Lymphocytes % 16.3 % (10-50); Mean Corpuscular HGB Conc 31.3 g/dL (31.8-35.4); Mean Corpuscular Hemoglobin 28.4 pg (27.0-31.2); Mean Corpuscular Volume 90.9 fl (81-99); Mean Platelet Volume 7.8 fl (7.4-10.4); Monocytes # 0.6 K/mm3 (0.1-1.0); Monocytes % 4.1 % (1.7-9.3); Neutrophils # 10.7 K/mm3 (1.8-7.8); Neutrophils % 77.2 % (37.0-80.0); Platelet Count 361 K/mm3 (142-424); Red Blood Count 4.93 M/mm3 (4.20-5.40); Red Cell Distribution Width 15.1 % (11.5-17.5); White Blood Count 13.9 K/mm3 (4.8-10.8)
[2023-10-10 23:04] LABS: Alanine Aminotransferase 32 U/L (12-78); Albumin Level 3.7 g/dl (3.5-5.0); Albumin/Globulin Ratio 1.2 (1.1-1.8); Alkaline Phosphatase 57 U/L (38-126); Anion Gap 12.2 mEq/L (5-15); Aspartate Amino Transferase 28 U/L (14-36); Bilirubin,Total 0.4 mg/dl (0.2-1.3); Blood Urea Nitrogen 7 mg/dl (7-17); Calcium 9.2 mg/dl (8.4-10.2); Carbon Dioxide 21 mmol/L (22.0-30.0); Chloride 103 mmol/L (98-107); Creatinine Clearance Estimated 331 mL/min (50-200); Estimated Glomerular Filt Rate 187 ml/min (>60); GFR (African American) 227 ML/MIN (>60); Globulin 3.2 g/dL (1.3-3.2); Glucose 286 mg/dl (74-100); Lactic Acid 3.2 mmol/L (0.7-2.1); Potassium 4.2 mmoL/L (3.5-5.1); Sodium 132 mmol/L (136-145); Total Protein,Serum 6.9 g/dl (6.3-8.2)
[2023-10-10 23:09] LABS: C-Reactive Protein 43.4 mg/L (0-4)
[2023-10-10 23:41] LABS: Erythrocyte Sedimentation Rate 46 mm/hr (0-20)
--- NOTE | 2023-10-10 23:41 | CT_ITS ---
PROCEDURE INFORMATION: Exam: CT Left Lower Extremity, Ankle Exam date and time: 10/10/2023 11:54 PM Age: 28 years old Clinical indication: Pain; Ankle; Left; Additional info: L ankle pain/swelling, concern for infxn TECHNIQUE: Imaging protocol: CT of the left lower extremity without contrast was performed. Exam focused on the ankle. Radiation optimization: All CT scans at this facility use at least one of these dose optimization techniques: automated exposure control; mA and/or kV adjustment per patient size (includes targeted exams where dose is matched to clinical indication); or iterative reconstruction. COMPARISON: CR XR ANKLE LT 2V 10/10/2023 10:49 PM FINDINGS: Bones/joints: See Soft tissues finding. Soft tissues: Extensive soft tissue edema around the ankle most severe laterally and extending into the foot. No evidence soft tissue air. No acute bony abnormality. No definite focal fluid collection to suggest abscess but sensitivity limited without IV contrast. Other findings: Study somewhat degraded by motion artifact. IMPRESSION: Diffuse soft tissue edema suggesting possible cellulitis. No definite abscess with above limitations.
[2023-10-11] VITALS (10 sets, daily range): BP systolic 100–132; BP diastolic 62–82; PULSE 114–134; RESP 15–18; TEMP 37; O2SAT 96–100
[2023-10-11] MEDS: KETOROLAC 30MG/ML VIAL 15 MG IV (00:24)
[2023-10-11] MEDS: ACETAMINOPHEN 1,000MG/100ML VIAL 1000 MG IV (00:24)
[2023-10-11] MEDS: LACTATED RINGERS 1000ML 1,000 ML 999 ML IV (00:25)
[2023-10-11] MEDS: MORPHINE 4MG/ML SYRINGE 4 MG IV (00:25)
[2023-10-11] MEDS: ONDANSETRON 4MG/2ML VIAL 4 MG IV (00:29)
--- NOTE | 2023-10-11 00:43 | PC.NURSE ---
MD Daniels notified of pts HR being 130
--- NOTE | 2023-10-11 00:51 | ECG_ITS ---
APPROVED REPORT Exam: Resting ECG HR:121 bpm ECG Measurements Heart Rate 121 AXES SC 137 P 66 QRSd 93 QRS 46 QT 320 T 23 QTc 392 Conclusion SINUS TACHYCARDIA LOW QRS VOLTAGE IN PRECORDIAL LEADS [QRS DEFLECTION < 1.0 mV IN CHEST LEADS] POSSIBLE ANTERIOR MYOCARDIAL INFARCTION , OF INDETERMINATE AGE [30 ms Q WAVE IN V3/V4, OR R < 0.2 mV IN V4] ABNORMAL ECG UNCONFIRMED REPORT Electronically signed by : LEILANI BENJAMIN, 10/11/2023 07:07:24
[2023-10-11 01:03] LABS: Coronavirus 19, PCR Not Detected (NotDetected); Influenza A, PCR Not Detected (NotDetected); Influenza B, PCR Not Detected (NotDetected)
[2023-10-11] MEDS: DALBAVANCIN HCL 1,500 MG in DEXTROSE 5 % IN WATER 250 ML 500 MG IV (01:15)
--- NOTE | 2023-10-11 01:30 | PC.NURSE ---
spoke with selvin at [facility] at this time to check compatibility of LR and Dalvance. Selvin states they have not been tested.
== END 2023-10-11 02:08 | disposition home or self-care (01) ==
PROVIDERS: Emergency Medicine; Emergency Provider Emergency Medicine
DX: M25.572 Pain in left ankle and joints of left foot (principal); R22.42 Localized swelling, mass and lump, left lower limb; M06.9 Rheumatoid arthritis, unspecified; E11.9 Type 2 diabetes mellitus without complications; E03.9 Hypothyroidism, unspecified; K21.9 Gastro-esophageal reflux disease without esophagitis; E78.5 Hyperlipidemia, unspecified; F17.210 Nicotine dependence, cigarettes, uncomplicated; R00.0 Tachycardia, unspecified; D72.829 Elevated white blood cell count, unspecified
CPT/HCPCS: 73562; 73590; 73600; 73630; 73700; 80053; 83605; 85025; 85651; 86140; 87040; 87636; 93005; 96361; 96374; 96375; 99285; J0131; J0875; J1885; J2270; J2405; J7060; J7120

== ENCOUNTER 2023-10-18 10:47 | Outpatient (POV) | payer MEDICAID, SELFPAY ==
--- NOTE | 2023-10-18 11:32 | A.OFFVIS_ITS ---
[facility] Disclaimer: The information contained in this section may have been updated after the patient was seen, as this information can be updated by other users. Medical History Depression GERD (gastroesophageal reflux disease) Hypothyroidism Vitamin D deficiency Hyperlipidemia Diabetes mellitus Surgical History History of carpal tunnel surgery History of Family History Other No significant family history Social History Smoking Status: Current every day smoker tobacco type: cigarettes packs per day: 1 alcohol intake: never substance use type: denies use current occupational status: other Travel in the last 8 weeks: None PM Subjective & Objective Subjective Subjective:: Patient is a pleasant 28-year-old female who presents today for medication refill and follow-up. Today she rates her pain a 4 out of 10. Patient does state that she ended up having to go to the ER last week due to worsening pain in her legs related to the areas on her skin. She states they were very red and inflamed and had severe pain. Patient states they ended up diagnosing her with cellulitis and did put her on a 10-day antibiotic as well as give her some temporary pain medicine. Patient states she is still waiting to hear from dermatology and that now since her PCP is leaving she is in between providers. She states that she is scheduled to see a new provider and [facility] coming up. Patient is currently managed with Tylenol 3 3 times a day, gabapentin 300 mg 4 times a day and Flexeril 10 mg 3 times a day. She denies any side effects from this medication. Her Loki has been reviewed and is appropriate. Review of Systems: General: No recent weight changes, no fever, no sleep disturbances Respiratory: No cough, no shortness of air, no recurring pulmonary infections Cardiovascular/peripheral vascular: No chest pain, no palpitations, no edema, no shortness of breath Gastrointestinal: No new onset incontinence, normal bowel movements reported Genitourinary: No new onset incontinence Musculoskeletal: Low back pain, leg pain Psychiatric: [Normal mood/affect] Neurological: [Denies weakness in extremities], [denies balance issues] Pain at rest (0-10 scale): 4 Objective Objective:: Physical Exam: General: Alert and oriented x3, no acute distress, pleasant and cooperative Lungs: Respirations even and unlabored, symmetrical chest expansion Eyes: PERRL Musculoskeletal: Flexion and extension of lumbar [spine] somewhat guarded secondary to pain, [antalgic gait noted] Neurological: Speech clear, no gross sensory deficit Has patient had previous pain injection?: No Conservative treatment options previously tried: Prescription medications Length of treatment: Longer than 12 weeks Meds Home Medications and Allergies Home Medications ?Medication ?Instructions ?Recorded ?Confirmed ?Type fluticasone propionate 50 See Rx Instructions .Route 03/06/22 07/16/23 History mcg/actuation nasal .COMPLEX ALLERGIES spray,suspension ergocalciferol (vitamin D2) 1,250 See Rx Instructions .Route 05/31/22 07/16/23 History mcg (50,000 unit) capsule .COMPLEX SUPPLIMENT ondansetron HCl 4 mg tablet 4 mg PO TID PRN nausea and 06/14/22 07/16/23 Rx vomiting #14 tabs norethindrone (contraceptive) 0.35 See Rx Instructions .Route 09/28/22 07/16/23 History mg tablet .COMPLEX Control venlafaxine 75 mg capsule,extended 75 mg PO DAILY 11/01/22 07/16/23 History release 24 hr doxycycline hyclate 100 mg tablet 100 mg PO BID #20 tabs 04/26/23 07/16/23 Rx mupirocin 2 % topical ointment 1 applic topical TID rash #50 grams 04/26/23 07/16/23 Rx insulin glargine 100 unit/mL (3 10 unit (0.1 mL) SQ HS #15 mL 05/03/23 07/16/23 Rx mL) subcutaneous pen (Lantus Solostar U-100 Insulin) blood sugar diagnostic (OneTouch #100 ea 05/04/23 07/16/23 Rx Ultra Test strips) pen needle, diabetic 31 gauge x #100 ea 05/04/23 07/16/23 Rx 3/16 (BD Ultra-Fine Mini Pen Needle) insulin aspar prot-insulin aspart 10 unit (0.1 mL) SQ BID #15 mL 05/14/23 07/16/23 Rx 100 unit/mL (70-30) subcutaneous pen (Novolog Mix 70-30FlexPen U-100) Alcohol Prep Pad Sterile 100ct Dyn See Rx Instructions .Route 05/30/23 07/16/23 Rx .COMPLEX #100 ea blood sugar diagnostic (OneTouch #100 strips 05/30/23 07/16/23 Rx Verio test strips) clindamycin HCl 150 mg capsule 450 mg (3 x 150 mg) PO TID 7 days 07/04/23 07/16/23 Rx #63 caps levofloxacin 750 mg tablet 750 mg PO DAILY 7 days #7 tabs 07/04/23 07/16/23 Rx glipizide 10 mg tablet, extended See Rx Instructions .Route 07/25/23 Rx release 24 hr .COMPLEX #180 tabs lisinopril 10 mg tablet See Rx Instructions .Route 07/25/23 Rx .COMPLEX #90 tabs loratadine 10 mg tablet See Rx Instructions .Route 07/25/23 Rx .COMPLEX #90 tabs cholecalciferol (vitamin D3) 25 See Rx Instructions .Route 09/01/23 Rx mcg (1,000 unit) capsule .COMPLEX #90 ea cyanocobalamin (vitamin B-12) See Rx Instructions .Route 09/01/23 Rx 5,000 mcg sublingual tablet .COMPLEX #90 tabs (Vitamin B-12) lancets 33 gauge (Oneuch Delica #100 ea 09/01/23 Rx Plus Lancet) metformin 1,000 mg tablet See Rx Instructions .Route 09/01/23 Rx .COMPLEX #180 tabs quetiapine 50 mg tablet,extended See Rx Instructions .Route 09/01/23 Rx release 24 hr .COMPLEX #90 tabs sitagliptin phosphate 100 mg See Rx Instructions .Route 09/01/23 Rx tablet (Januvia) .COMPLEX #90 tabs aspirin 81 mg tablet,delayed See Rx Instructions .Route 09/25/23 Rx release .COMPLEX #90 tabs atorvastatin 10 mg tablet See Rx Instructions .Route 09/25/23 Rx .COMPLEX #90 tabs furosemide 20 mg tablet See Rx Instructions .Route 09/25/23 Rx .COMPLEX #30 tabs meclizine 25 mg tablet See Rx Instructions .Route 09/25/23 Rx .COMPLEX #90 tabs omeprazole 40 mg capsule,delayed See Rx Instructions .Route 09/25/23 Rx release .COMPLEX #90 caps cyclobenzaprine 10 mg tablet See Rx Instructions .Route 10/01/23 Rx .COMPLEX #90 tabs acetaminophen 300 mg-codeine 30 mg 1 tab PO TID PRN pain #90 tabs 10/18/23 Rx tablet gabapentin 300 mg capsule 300 mg PO QID . #120 caps 10/18/23 Rx New Prescriptions to Start Prescriptions: acetaminophen-codeine Diehl,Kathy A gabapentin Diehl,Kathy A Allergies Allergy/AdvReac Type Severity Reaction Status Date / Time Penicillins Allergy Intermediate Rash Verified 04/26/23 15:01 amoxicillin [AMOXICILLIN] Allergy Mild Verified 04/26/23 15:01 cefaclor [From CECLOR] Allergy Mild Verified 04/26/23 15:01 Assessment and Plan *Assessment and plan (1) Cellulitis: Status: Acute Qualifiers: Laterality: left Site of cellulitis of extremity: lower extremity Category: Medical Code(s): L03.90 - Cellulitis, unspecified (2) Lumbar radiculopathy: Status: Acute Category: Medical Code(s): M54.16 - Radiculopathy, lumbar region (3) Degenerative disc disease, lumbar: Status: Acute Category: Medical Code(s): M51.36 - Other intervertebral disc degeneration, lumbar region Plan I will refill the patient's gabapentin and Tylenol 3 and provide 1 month supply of this medication. I did review over again with the patient regarding her dermatology appointment and we will reach out to the local environmental services aide here at [facility] and see whether or not if we can find out what the hold-up is on getting her in. Patient agrees with this plan of care. Patient will return to clinic in 1 month for reevaluation of symptoms and plan of care. Risks and benefits of the medication have been explained in detail to the patient. The patient does understand the risk of dependence on the medication when given over a prolonged period. Patient has been advised of risks of oversedation with the prescribed medication. Narcan has been offered to the paitent in the event of oversedation. Patient has been advised that a family member should also be educated regarding administration of Narcan. The patient has been advised to consult with his/her primary care provider and pharmacist regarding drug-drug interaction of medications currently prescribed. Patient has been prescribed a controlled substance after being counseled on the medication, medication safety, and possible side effects. Opioid contract was reviewed and signed by the patient, and that they have agreed to all of the terms set forth by our compliance program. Patient has been instructed to contact the clinic with any concerns before the next appointment. Dr. Colinders has reviewed this note and agrees with this plan of care. This note was dictated using voice recognition software and make contain errors or omissions.
[2023-10-18 11:34] VITALS: BP 146/81; PULSE 104; RESP 16; O2SAT 99; BMI 44.2
== END 2023-10-18 23:59 | disposition home or self-care (01) ==
PROVIDERS: PCP Nurse Practitioner Family; Visit Provider Nurse Practitioner Family
DX: L03.90 Cellulitis, unspecified (principal); M51.16 Intervertebral disc disorders with radiculopathy, lumbar region; F17.210 Nicotine dependence, cigarettes, uncomplicated; Z79.899 Other long term (current) drug therapy
CPT/HCPCS: 99212; G0463

== ENCOUNTER 2023-11-08 00:46 | Observation (INO) | payer MEDICAID, SELFPAY ==
[2023-11-08] VITALS (8 sets, daily range): BP systolic 122–163; BP diastolic 68–98; PULSE 99–125; RESP 16–18; TEMP 36.6–36.8; O2SAT 93–100; BMI 41.1; BMI 42.0
--- NOTE | 2023-11-08 00:50 | CT_ITS ---
PROCEDURE INFORMATION: Exam: CT Lumbar Spine Without Contrast Exam date and time: 11/08/2023 1:33 AM Age: 28 years old Clinical indication: Pain; Sciatica; Right; Additional info: Low back pain, rle radiculopathy TECHNIQUE: Imaging protocol: Computed tomography of the lumbar spine without contrast. Radiation optimization: All CT scans at this facility use at least one of these dose optimization techniques: automated exposure control; mA and/or kV adjustment per patient size (includes targeted exams where dose is matched to clinical indication); or iterative reconstruction. COMPARISON: MR LUMBAR SPINE WO CON 03/22/2021 4:26 PM FINDINGS: Bones/joints: There could be trace retrolisthesis of L1 on L2, L2 on L3 and L3 on L4. The alignment is otherwise maintained. The vertebral body heights are maintained. No evidence of acute fractures. There are degenerative changes of the SI joints. T12-L1: Mild facet arthropathy. The spinal canal and neural foramina are patent. L1-L2: Mild facet arthropathy. Mild left neural foraminal narrowing. The spinal canal and neural foramina are otherwise patent. L2-L3: Mild disc bulge. Mild facet arthropathy. The spinal canal and neural foramina are patent. L3-L4: Mild disc bulge/disc osteophyte complex. Mild indentation on the ventral aspect of thecal sac. No high-grade spinal canal stenosis. Bilateral facet arthropathy. No high-grade neural foraminal stenosis. L4-L5: Diffuse disc bulge/disc osteophyte complex with a suspected superimposed central/right central disc protrusion resulting in at least moderate spinal canal stenosis. Mild bilateral facet arthropathy. Mild left neural foraminal stenosis. L5-S1: Minimal disc bulge. No high-grade spinal canal stenosis. Bilateral facet arthropathy. Mild bilateral neural foraminal stenosis. Soft tissues: Unremarkable. IMPRESSION: Mild degenerative disc and joint disease of the lumbosacral spine as detailed level by level above, perhaps worst at L4-L5 where there is up to moderate spinal canal stenosis due to degenerative disc disease, as described.
--- NOTE | 2023-11-08 00:50 | XR_ITS ---
PROCEDURE INFORMATION: Exam: XR Right Femur Exam date and time: 11/08/2023 1:08 AM Age: 28 years old Clinical indication: Pain; Hip; Right TECHNIQUE: Imaging protocol: Radiologic exam of the right femur. Views: 2 views. COMPARISON: CR XR HIP RT 2-3V W/PELVIS 11/08/2023 1:00 AM FINDINGS: Bones/joints: The osseous structures are intact. No acute fracture. Lucency along the dorsal aspect of the upper femur is likely artifactual. Suggestion of mild degenerative changes of the right knee joint. Mild irregularity along the right greater trochanter, likely degenerative in nature. The hip joints appear grossly symmetric. The femoral heads are contained within the respective acetabula. Soft tissues: Unremarkable. IMPRESSION: No evidence of acute fractures or joint dislocation.
--- NOTE | 2023-11-08 00:50 | CT_ITS ---
PROCEDURE INFORMATION: Exam: CT Pelvis Without Contrast, Skeleton Exam date and time: 11/08/2023 1:31 AM Age: 28 years old Clinical indication: Hip pain; Right hip; Additional info: Right hip/femur pain TECHNIQUE: Imaging protocol: Computed tomography of the pelvis without contrast. Exam focused on the skeleton. Radiation optimization: All CT scans at this facility use at least one of these dose optimization techniques: automated exposure control; mA and/or kV adjustment per patient size (includes targeted exams where dose is matched to clinical indication); or iterative reconstruction. COMPARISON: CT BONY PELVIS 11/08/2023 1:31 AM FINDINGS: Intestine: Suggestion of minimal colonic diverticulosis without CT evidence of acute diverticulitis. Reproductive: The uterus is anteverted, anteflexed. Urinary bladder: The urinary bladder is partially empty. Bones/joints: There are degenerative changes of the SI joints. There are degenerative changes of the thoracolumbar and lumbosacral spine, described in the separate lumbar spine report. Soft tissues: There is a large ventral anterior , inferior abdominal hernia containing bowel loops, without incarceration or obstruction. The orifice of the hernia measures approximately 8.9 cm craniocaudally, involving the infraumbilical anterior abdominal wall, (series 602, image 64). The hernia contains omental fat, blood vessels, and small and large bowel loops. No evidence of acute inflammation. Mild atrophy of the gluteal muscles. IMPRESSION: 1. Large ventral anterior abdominal wall, infraumbilical hernia containing omentum and bowel loops without evidence of incarceration or obstruction. 2. No evidence of acute fractures or joint dislocation.
--- NOTE | 2023-11-08 00:50 | XR_ITS ---
PROCEDURE INFORMATION: Exam: XR Right Hip Exam date and time: 11/08/2023 1:00 AM Age: 28 years old Clinical indication: Hip pain; Right hip TECHNIQUE: Imaging protocol: Radiologic exam of the right hip. Views: 2 or 3 views hip with pelvis when performed. COMPARISON: CR XR HIP RT 2-3V W/PELVIS 11/08/2023 1:00 AM FINDINGS: Bones/joints: Unremarkable. No acute fracture. Mild degenerative changes of the SI joints. Soft tissues: Ventral abdominal hernia described on the concurrent CT of the pelvis. IMPRESSION: No acute findings.
--- NOTE | 2023-11-08 00:53 | XR_ITS ---
PROCEDURE INFORMATION: Exam: XR Right Knee Exam date and time: 11/08/2023 1:10 AM Age: 28 years old Clinical indication: Pain; Thigh; Right TECHNIQUE: Imaging protocol: Radiologic exam of the right knee. Views: 1 or 2 views. COMPARISON: CR XR FEMUR RT 2V 11/08/2023 1:08 AM FINDINGS: Bones/joints: Mild degenerative changes of the right knee joint with mildly decreased joint space along the medial compartment. Very subtle sclerosis along the medial tibial plateau. The osseous structures are otherwise intact. No evidence of acute fractures. Soft tissues: No focal soft tissue swelling is identified. IMPRESSION: 1. Mild degenerative changes. 2. No acute fracture or traumatic malalignment. No joint dislocation.
--- NOTE | 2023-11-08 00:55 | ED_ITS ---
Discharge Plan Disposition Patient Disposition: Admitted Prescriptions Prescriptions: No Action venlafaxine 75 mg capsule,extended release 24hr 75 mg PO DAILY doxycycline hyclate 100 mg tablet 100 mg PO BID Qty: 20 0RF mupirocin 2 % ointment 1 applic topical TID Qty: 50 2RF ondansetron HCl 4 mg tablet 4 mg PO TID PRN (Reason: nausea and vomiting) Qty: 14 0RF insulin glargine [Lantus Solostar U-100 Insulin] 100 unit/mL (3 mL) insulin pen 10 unit SQ HS Qty: 15 3RF (DME) OneTouch Ultra Test Strip See Rx Instructions .Route Qty: 100 0RF Rx Instructions: As directed,bid insulin asp prt-insulin aspart [Novolog Mix 70-30FlexPen U-100] 100 unit/mL (70-30) insulin pen 10 unit SQ BID Qty: 15 2RF Alcohol Prep Pad Sterile 100ct Dyn See Rx Instructions .ROUTE .COMPLEX Qty: 100 2RF Dose Instruction: USE DIRECTED TWICE DAILY (FOR diabetes) Rx Instructions: USE DIRECTED TWICE DAILY (FOR diabetes) (DME) OneTouch Verio test strips Strip See Rx Instructions .ROUTE .COMPLEX Qty: 100 2RF Dose Instruction: USE DIRECTED TO test blood sugar THREE TIMES DAILY Rx Instructions: USE DIRECTED TO test blood sugar THREE TIMES DAILY (DME) lancets [OneTouch Delica Plus Lancet] 33 gauge misc See Rx Instructions .Route Qty: 100 12RF Rx Instructions: As directed metformin 1,000 mg tablet See Rx Instructions .ROUTE .COMPLEX Qty: 180 0RF Dose Instruction: TAKE ONE TABLET BY MOUTH TWICE DAILY Rx Instructions: TAKE ONE TABLET BY MOUTH TWICE DAILY Januvia 100 mg tablet See Rx Instructions .ROUTE .COMPLEX Qty: 90 0RF Dose Instruction: TAKE ONE TABLET BY MOUTH EVERY DAY Rx Instructions: TAKE ONE TABLET BY MOUTH EVERY DAY cholecalciferol (vitamin D3) 25 mcg (1,000 unit) capsule See Rx Instructions .ROUTE .COMPLEX Qty: 90 0RF Dose Instruction: TAKE ONE CAPSULE BY MOUTH EVERY DAY Rx Instructions: TAKE ONE CAPSULE BY MOUTH EVERY DAY cyanocobalamin (vitamin B-12) [Vitamin B-12] 5,000 mcg tablet, sublingual See Rx Instructions .ROUTE .COMPLEX Qty: 90 0RF Dose Instruction: DISSOLVE ONE TABLET UNDER THE TONGUE EVERY DAY Rx Instructions: DISSOLVE ONE TABLET UNDER THE TONGUE EVERY DAY quetiapine 50 mg tablet extended release 24 hr See Rx Instructions .ROUTE .COMPLEX Qty: 90 0RF Dose Instruction: TAKE ONE TABLET BY MOUTH EVERY DAY AT BEDTIME Rx Instructions: TAKE ONE TABLET BY MOUTH EVERY DAY AT BEDTIME aspirin 81 mg tablet,delayed release (DR/EC) See Rx Instructions .ROUTE .COMPLEX Qty: 90 3RF Dose Instruction: TAKE ONE TABLET BY MOUTH EVERY DAY Rx Instructions: TAKE ONE TABLET BY MOUTH EVERY DAY omeprazole 40 mg capsule,delayed release(DR/EC) See Rx Instructions .ROUTE .COMPLEX Qty: 90 3RF Dose Instruction: TAKE ONE CAPSULE BY MOUTH EVERY DAY FOR gerd Rx Instructions: TAKE ONE CAPSULE BY MOUTH EVERY DAY FOR gerd atorvastatin 10 mg tablet See Rx Instructions .ROUTE .COMPLEX Qty: 90 3RF Dose Instruction: TAKE ONE TABLET BY MOUTH EVERY DAY AT BEDTIME Rx Instructions: TAKE ONE TABLET BY MOUTH EVERY DAY AT BEDTIME cyclobenzaprine 10 mg tablet See Rx Instructions .ROUTE .COMPLEX Qty: 90 2RF Dose Instruction: TAKE ONE TABLET BY MOUTH THREE TIMES DAILY MAY CAUSE DROWSINESS Rx Instructions: TAKE ONE TABLET BY MOUTH THREE TIMES DAILY MAY CAUSE DROWSINESS meclizine 25 mg tablet See Rx Instructions .ROUTE .COMPLEX Qty: 90 0RF Dose Instruction: TAKE ONE TABLET BY MOUTH THREE TIMES DAILY NEEDED FOR dizziness Rx Instructions: TAKE ONE TABLET BY MOUTH THREE TIMES DAILY NEEDED FOR dizziness furosemide 20 mg tablet See Rx Instructions .ROUTE .COMPLEX Qty: 30 1RF Dose Instruction: TAKE ONE TABLET BY MOUTH EVERY DAY NEEDED FOR EDEMA Rx Instructions: TAKE ONE TABLET BY MOUTH EVERY DAY NEEDED FOR EDEMA (DME) pen needle, diabetic [BD Ultra-Fine Mini Pen Needle] 31 gauge x 3/16 needle See Rx Instructions .ROUTE .COMPLEX Qty: 100 1RF Dose Instruction: USE DIRECTED TWICE DAILY Rx Instructions: USE DIRECTED TWICE DAILY lisinopril 10 mg tablet See Rx Instructions .ROUTE .COMPLEX Qty: 90 1RF Dose Instruction: TAKE ONE TABLET BY MOUTH EVERY DAY Rx Instructions: TAKE ONE TABLET BY MOUTH EVERY DAY glipizide 10 mg tablet extended release 24hr See Rx Instructions .ROUTE .COMPLEX Qty: 180 1RF Dose Instruction: TAKE ONE TABLET BY MOUTH TWICE DAILY FOR DIABETES Rx Instructions: TAKE ONE TABLET BY MOUTH TWICE DAILY FOR DIABETES loratadine 10 mg tablet See Rx Instructions .ROUTE .COMPLEX Qty: 90 1RF Dose Instruction: TAKE ONE TABLET BY MOUTH EVERY DAY NEEDED FOR allergic SYMPTOMS Rx Instructions: TAKE ONE TABLET BY MOUTH EVERY DAY NEEDED FOR allergic SYMPTOMS fluticasone propionate 50 mcg/actuation spray,suspension See Rx Instructions .ROUTE .COMPLEX Rx Instructions: INSTILL 2 SPRAYS IN EACH NOSTRIL EVERY DAY norethindrone (contraceptive) 0.35 mg tablet See Rx Instructions .ROUTE .COMPLEX Rx Instructions: TAKE ONE TABLET BY MOUTH EVERY DAY clindamycin HCl 150 mg capsule 450 mg PO TID 7 Days Qty: 63 0RF levofloxacin 750 mg tablet 750 mg PO DAILY 7 Days Qty: 7 0RF acetaminophen-codeine 300-30 mg tablet 1 tab PO TID PRN (Reason: pain) Qty: 90 0RF gabapentin 300 MG capsule 300 mg PO QID Qty: 120 0RF ergocalciferol (vitamin D2) 1,250 mcg (50,000 unit) capsule See Rx Instructions .ROUTE .COMPLEX Rx Instructions: TAKE ONE CAPSULE BY MOUTH ONCE A WEEK Referrals Follow up/Referrals: Provider,Referral, [Referring] - See instructions Clinical Impressions Clinical Impression: Radicular pain of right lower extremity Print Language Print Language: Togolese Discharge ED Provider: Juan Daniels Adult HPI General Chief complaint: PAIN Stated complaint: Pain Time Seen by Provider: 11/08/23 00:48 History of Present Illness HPI narrative: 28-year-old female with history of rheumatoid arthritis, obesity, abdominal wall hernia presents for worsening severe right leg pain. She reports it has been getting worse over the last few days and today/this evening it is much more severe. She reports a burning shooting pain rating down her buttock as well as a burning pain in her anterior thigh extending to the knee. She denies any pain or tenderness in the knee itself. She reports she does not feel that this feels like a rheumatoid arthritis flare, reports it feels very different. She denies any recent trauma, injury, fall etc. She denies any recent fever or illness, denies IV drug use. She reports no weakness in the leg, but severe pain with movement. She denies bowel or bladder incontinence or retention, denies any paresthesias or numbness within the groin. Patient was noted to appear to pass out secondary to the pain upon arrival to the ER. Related Data Home Medications ?Medication ?Instructions ?Recorded ?Confirmed fluticasone propionate 50 See Rx Instructions .Route 03/06/22 10/18/23 mcg/actuation nasal .COMPLEX ALLERGIES spray,suspension ergocalciferol (vitamin D2) 1,250 See Rx Instructions .Route 05/31/22 10/18/23 mcg (50,000 unit) capsule .COMPLEX SUPPLIMENT norethindrone (contraceptive) 0.35 See Rx Instructions .Route 09/28/22 10/18/23 mg tablet .COMPLEX Control venlafaxine 75 mg capsule,extended 75 mg PO DAILY 11/01/22 10/18/23 release 24 hr Previous Rx's ?Medication ?Instructions ?Recorded ondansetron HCl 4 mg tablet 4 mg PO TID PRN nausea and 06/14/22 vomiting #14 tabs doxycycline hyclate 100 mg tablet 100 mg PO BID #20 tabs 04/26/23 mupirocin 2 % topical ointment 1 applic topical TID rash #50 grams 04/26/23 insulin glargine 100 unit/mL (3 10 unit (0.1 mL) SQ HS #15 mL 05/03/23 mL) subcutaneous pen (Lantus Solostar U-100 Insulin) blood sugar diagnostic (OneTouch #100 ea 05/04/23 Ultra Test strips) insulin aspar prot-insulin aspart 10 unit (0.1 mL) SQ BID #15 mL 05/14/23 100 unit/mL (70-30) subcutaneous pen (Novolog Mix 70-30FlexPen U-100) Alcohol Prep Pad Sterile 100ct Dyn See Rx Instructions .Route 05/30/23 .COMPLEX #100 ea blood sugar diagnostic (OneTouch #100 strips 05/30/23 Verio test strips) clindamycin HCl 150 mg capsule 450 mg (3 x 150 mg) PO TID 7 days 07/04/23 #63 caps levofloxacin 750 mg tablet 750 mg PO DAILY 7 days #7 tabs 07/04/23 cholecalciferol (vitamin D3) 25 See Rx Instructions .Route 09/01/23 mcg (1,000 unit) capsule .COMPLEX #90 ea cyanocobalamin (vitamin B-12) See Rx Instructions .Route 09/01/23 5,000 mcg sublingual tablet .COMPLEX #90 tabs (Vitamin B-12) lancets 33 gauge (OneTouch Delica #100 ea 09/01/23 Plus Lancet) metformin 1,000 mg tablet See Rx Instructions .Route 09/01/23 .COMPLEX #180 tabs quetiapine 50 mg tablet,extended See Rx Instructions .Route 09/01/23 release 24 hr .COMPLEX #90 tabs sitagliptin phosphate 100 mg See Rx Instructions .Route 09/01/23 tablet (Januvia) .COMPLEX #90 tabs aspirin 81 mg tablet,delayed See Rx Instructions .Route 09/25/23 release .COMPLEX #90 tabs atorvastatin 10 mg tablet See Rx Instructions .Route 09/25/23 .COMPLEX #90 tabs omeprazole 40 mg capsule,delayed See Rx Instructions .Route 09/25/23 release .COMPLEX #90 caps cyclobenzaprine 10 mg tablet See Rx Instructions .Route 10/01/23 .COMPLEX #90 tabs acetaminophen 300 mg-codeine 30 mg 1 tab PO TID PRN pain #90 tabs 10/18/23 tablet gabapentin 300 mg capsule 300 mg PO QID . #120 caps 10/18/23 furosemide 20 mg tablet See Rx Instructions .Route 10/31/23 .COMPLEX #30 tabs meclizine 25 mg tablet See Rx Instructions .Route 10/31/23 .COMPLEX #90 tabs glipizide 10 mg tablet, extended See Rx Instructions .Route 11/01/23 release 24 hr .COMPLEX #180 tabs lisinopril 10 mg tablet See Rx Instructions .Route 11/01/23 .COMPLEX #90 tabs loratadine 10 mg tablet See Rx Instructions .Route 11/01/23 .COMPLEX #90 tabs pen needle, diabetic 31 gauge x #100 ea 11/01/23/ (BD Ultra-Fine Mini Pen Needle) Allergies Allergy/AdvReac Type Severity Reaction Status Date / Time Penicillins Allergy Intermediate Rash Verified 04/26/23 15:01 amoxicillin [AMOXICILLIN] Allergy Mild Verified 04/26/23 15:01 cefaclor [From CECLOR] Allergy Mild Verified 04/26/23 15:01 [facility] Disclaimer: The information contained in this section may have been updated after the patient was seen, as this information can be updated by other users. Medical History Depression GERD (gastroesophageal reflux disease) Hypothyroidism Vitamin D deficiency Hyperlipidemia Diabetes mellitus Surgical History History of carpal tunnel surgery History of Family History Other No significant family history Social History Smoking Status: Current every day smoker tobacco type: cigarettes packs per day: 1 alcohol intake: never substance use type: denies use current occupational status: other Travel in the last 8 weeks: None Other Medical History Have you received the Flu Vaccine for this season: Yes Have you received the Pneumonia Vaccine: No ROS Obtained: Yes All systems reviewed & no additional complaints except as documented Physical Exam General General appearance: alert and in distress (Screaming and crying secondary to pain) Head Head exam: atraumatic and normocephalic Eye Eye exam: Present normal appearance, PERRL and EOMI ENT ENT exam: Present normal oropharynx and normal external ear exam Neck Neck exam: Present normal inspection and full ROM Chest Chest inspection: Present normal inspection and symmetric chest wall rise; Absent tenderness Respiratory Respiratory exam: Present normal lung sounds bilaterally; Absent respiratory distress Cardiovascular Cardiovascular exam: Present normal rhythm and tachycardia Abdominal Exam Abdominal exam: Present soft, distention and hernia (Hernia sac in the pannus, soft, nontender); Absent tenderness or guarding Extremities Exam Extremities exam: Present normal inspection and other (No significant tenderness palpation of the hip, knee. Patient has equal 6 strength in the bilateral lower extremities including hip flexion, extension, knee flexion extension, ankle flexion extension.); Absent edema or joint swelling Back Exam Back exam: Present normal inspection and tenderness (Mild midline lumbar and bilateral paraspinal tenderness) Neurological Exam Neurological exam: Present alert and oriented X3; Absent motor sensory deficit (Normal sensation in the bilateral lower extremities, normal/equal strength in the bilateral lower extremities) Psychiatric Psychiatric exam: Present anxious (Crying) Skin Skin exam: Present warm, dry and normal color Lymphatic Lymphatic Findings: no adenopathy Medical Decision Making Medical Records Medical records reviewed: Yes I reviewed the patient's medical records. Screening: Per USPSTF and CDC recommendations, given the prevalence of disease in our region, it is our hospital?s policy to screen for HIV and viral Hepatitis for all patients aged 18 and over and those with ongoing risk factors. Loki Inquiry Pt receiving controlled substance: No Loki was queried for this patient: No Vital Signs: 11/08/23 00:50 11/08/23 01:45 11/08/23 02:00 Temperature 98.3 F Temperature Source Oral Pulse Rate 112 H 117 H Pulse Rate [Left Radial] 114 H Respiratory Rate 18 Blood Pressure 156/98 H Blood Pressure [Right Arm] 163/94 H Blood Pressure Mean [Right Arm] 117 Blood Pressure Source [Right Arm] Automatic Cuff 02 Sat by Pulse Oximetry 100 98 99 Oxygen Delivery Method Room Air 11/08/23 03:00 11/08/23 03:30 Temperature Temperature Source Pulse Rate 115 H 119 H Pulse Rate [Left Radial] Respiratory Rate 18 16 Blood Pressure 128/74 134/76 Blood Pressure [Right Arm] Blood Pressure Mean [Right Arm] Blood Pressure Source [Right Arm] 02 Sat by Pulse Oximetry 94 L 93 L Oxygen Delivery Method Room Air Room Air Lab Data Lab results reviewed: Yes I reviewed the patient's lab results. Lab Results 11/08/23 00:54: WBC 9.4, RBC 4.84, Hgb 14.2, Hct 43.5, MCV 89.9, MCH 29.2, MCHC 32.5, RDW 15.2, Plt Count 359, MPV 8.0, Neut % (Auto) 65.7, Lymph % (Auto) 25.0, [place] % (Auto) 6.2, Eos % (Auto) 2.2, Baso % (Auto) 0.9, Neut # (Auto) 6.2, Lymph # (Auto) 2.4, [place] # (Auto) 0.6, Eos # (Auto) 0.2, Baso # (Auto) 0.1, Sodium 135 L, Potassium 3.8, Chloride 102, Carbon Dioxide 26, Anion Gap 10.8, BUN 12, C reatinine 0.40 L, Estimated Creat Clear 331 H, Estimated GFR 187, Est GFR ( Amer) 227, Glucose 323 H, Calcium 9.7, Total Bilirubin 0.4, AST 30, ALT 33, Alkaline Phosphatase 60, Total Protein 7.4, Albumin 4.3, Globulin 3.1, Albumin/Globulin Ratio 1.4, Serum HCG, Qual Negative, HIV 1&2 Antibody Rapid Nonreactive 11/08/23 00:54 11/08/23 00:54 Orders (Tests/Meds): ED MEDICATIONS Discontinued Medications Generic Name Dose Route Start Last Admin Trade Name Kori PRN Reason Stop Dose Admin Acetaminophen 1,000 mg 11/08/23 02:47 11/08/23 02:55 Acetaminophen 500mg Tab PO 11/08/23 02:48 1,000 mg ONCE ONE Administration Droperidol 5 mg 11/08/23 02:46 11/08/23 02:55 Droperidol 5mg/2ml Vial IV 11/08/23 02:47 5 mg ONCE ONE Administration Gabapentin 400 mg 11/08/23 02:47 11/08/23 02:55 Gabapentin 100mg Capsule PO 11/08/23 02:48 400 mg ONCE ONE Administration Hydromorphone HCl 1 mg 11/08/23 00:50 11/08/23 01:00 Hydromorphone 2mg/Ml Syringe IV 11/08/23 00:51 1 mg ONCE ONE Administration Hydromorphone HCl 1 mg 11/08/23 01:12 11/08/23 01:15 Hydromorphone 2mg/Ml Syringe IV 11/08/23 01:13 1 mg ONCE ONE Administration Hydromorphone HCl 1 mg 11/08/23 01:56 11/08/23 02:22 Hydromorphone 2mg/Ml Syringe IV 11/08/23 01:57 1 mg ONCE ONE Administration Ketorolac Tromethamine 30 mg 11/08/23 00:50 11/08/23 01:00 Ketorolac 30mg/Ml Vial IV 11/08/23 00:51 30 mg ONCE ONE Administration Methocarbamol 1,000 mg 11/08/23 00:50 11/08/23 01:00 Methocarbamol 500mg Tablet PO 11/08/23 00:51 1,000 mg ONCE ONE Administration ORDERS Category Date Time Status CT bony pelvis Stat Cat Scan 11/08/23 00:[address] lumbar spine wo con Stat Cat Scan 11/08/23 00:50 Completed Femur XR right 2 views [XR femur RT 2V] Stat Exams 11/08/23 00:50 Completed Hip XR right minimum 2 views [XR hip RT 2-3V w/pelvis] Exams 11/08/23 00:50 Completed Stat Knee XR right 3 views [XR knee RT 3V] Stat Exams 11/08/23 00:53 Completed CBC w/Auto Diff [Complete Blood Count Auto Diff] Stat Lab 11/08/23 00:54 Completed CMP [Comprehensive Metabolic Panel] Stat Lab 11/08/23 00:54 Completed HCG Qualitative, Serum Stat Lab 11/08/23 00:54 Completed HIV (1&2) Antibody Rapid Stat Lab 11/08/23 00:54 Completed Hep C Ab with Reflex to RNA Stat Lab 11/08/23 00:54 Received ECG Data Tracing #1: I reviewed this ECG and interpreted as documented below: Sinus rhythm, rate of 103, normal QT interval, no significant ST changes ECG initial impression date: 11/08/23 ECG initial impression time: 02:54 Medical Decision Narrative: 28-year-old female with history of rheumatoid arthritis, diabetes, degenerative disc disease, abdominal wall hernia presents for worsening radicular burning right lower extremity pain, ratiating down the buttock and posterior thigh as well as burning pain in the anterior thigh. History was obtained via interactive discussion with patient, family, chart review. On arrival, patient is afebrile, tachycardic to 120, screaming and crying in pain. Full physical exam performed and significant for equal strength in the bilateral lower extremities, normal sensation of the bilateral lower extremities. Patient's abdominal hernia is soft and nontender. No evidence of vascular insufficiency on exam. Differential includes but is not limited to sciatica/radiculopathy, meralgia paresthetica fracture of the lumbar spine, pelvis, femur, disc herniation, spinal cord pathology including canal stenosis, epidural abscess, epidural bleeding. Patient was given multiple doses of Dilaudid as well as Toradol and Robaxin for symptomatic management and correction of underlying abnormalities. Workup initiated including CT of the lumbar spine, bony pelvis as well as radiographs of the pelvis hip and femur. Basic labs obtained as well.. On re-evaluation, patient remains in severe pain, remains tachycardic to 115. Patient was able to spontaneously urinate and had a postvoid residual bladder volume of 1 mL. Laboratory workup independently interpreted by me and significant for no significant leukocytosis, hyperglycemia but otherwise unremarkable chemistry.. Imaging independently interpreted by me and significant for no evidence of acute lumbar fracture, does show degenerative disc disease with mild canal stenosis. No evidence of fracture within the pelvis or femur. The patient's abdominal wall hernia is unremarkable appearing on CT.. See radiology read for full review of final results. Transfer for MRI was considered, but deemed unnecessary due to no significant red flag history such as trauma, IV drug use, etc., normal bilateral strength and sensation on physical exam as well as no groin numbness and normal postvoid residual. On reassessment patient continues to be tachycardic and screaming in pain. Continues to have no focal deficits on exam. She was given Tylenol, gabapentin and droperidol. Given patient history, exam and workup, patient's presentation most likely represents radicular pain of the right lower extremity. No evidence of spinal cord pathology on history exam or workup. The anterior aspect of the patient's pain may be secondary to meralgia paresthetica. Given we were unable to control patient's pain with multiple doses of IV opiates and other medications in the ER, I called and spoke with the hospitalist for admission for pain control. Procedures Risk/Benefits of Procedure(s) Were Explained: Yes Critical Care Critical Care Time Critical Care Time: No
[2023-11-08] MEDS: KETOROLAC 30MG/ML VIAL 30 MG IV ×2 (01:00→10:42)
[2023-11-08] MEDS: HYDROMORPHONE 2MG/ML SYRINGE 1 MG IV ×3 (01:00→02:22)
[2023-11-08] MEDS: METHOCARBAMOL 500MG TABLET 1000 MG PO (01:00)
[2023-11-08 01:03] LABS: Basophils # 0.1 K/mm3 (0-0.2); Basophils % 0.9 % (0.1-2.0); Eosinophils # 0.2 K/mm3 (0.0-0.4); Eosinophils % 2.2 % (0.1-12.0); Hematocrit 43.5 % (37.0-47.0); Hemoglobin 14.2 g/dL (12.2-16.2); Lymphocytes # 2.4 K/mm3 (0.7-4.5); Mean Corpuscular HGB Conc 32.5 g/dL (31.8-35.4); Mean Corpuscular Hemoglobin 29.2 pg (27.0-31.2); Mean Corpuscular Volume 89.9 fl (81-99); Monocytes # 0.6 K/mm3 (0.1-1.0); Monocytes % 6.2 % (1.7-9.3); Neutrophils # 6.2 K/mm3 (1.8-7.8); Neutrophils % 65.7 % (37.0-80.0); Platelet Count 359 K/mm3 (142-424); Red Blood Count 4.84 M/mm3 (4.20-5.40); Red Cell Distribution Width 15.2 % (11.5-17.5); White Blood Count 9.4 K/mm3 (4.8-10.8)
[2023-11-08 01:08] LABS: Alanine Aminotransferase 33 U/L (12-78); Albumin Level 4.3 g/dl (3.5-5.0); Albumin/Globulin Ratio 1.4 (1.1-1.8); Alkaline Phosphatase 60 U/L (38-126); Anion Gap 10.8 mEq/L (5-15); Aspartate Amino Transferase 30 U/L (14-36); Bilirubin,Total 0.4 mg/dl (0.2-1.3); Blood Urea Nitrogen 12 mg/dl (7-17); Calcium 9.7 mg/dl (8.4-10.2); Carbon Dioxide 26 mmol/L (22.0-30.0); Chloride 102 mmol/L (98-107); Creatinine Clearance Estimated 331 mL/min (50-200); Estimated Glomerular Filt Rate 187 ml/min (>60); GFR (African American) 227 ML/MIN (>60); Globulin 3.1 g/dL (1.3-3.2); Glucose 323 mg/dl (74-100); Potassium 3.8 mmoL/L (3.5-5.1); Sodium 135 mmol/L (136-145); Total Protein,Serum 7.4 g/dl (6.3-8.2)
[2023-11-08 01:11] LABS: HCG Qualitative, Serum Negative (Negative)
[2023-11-08 01:27] LABS: HIV (1&2) Antibody Rapid NONREACTIVE (NONREACTIVE)
--- NOTE | 2023-11-08 02:53 | ECG_ITS ---
APPROVED REPORT Exam: Resting ECG HR:103 bpm ECG Measurements Heart Rate 103 AXES IA 144 P 67 QRSd 95 QRS 20 QT 330 T 26 QTc 390 Conclusion SINUS TACHYCARDIA LOW QRS VOLTAGE IN PRECORDIAL LEADS [QRS DEFLECTION < 1.0 mV IN CHEST LEADS] POSSIBLE RIGHT VENTRICULAR CONDUCTION DELAY [RSR (QR) IN V1/V2] ABNORMAL RHYTHM ECG UNCONFIRMED REPORT Electronically signed by : LEILANI BENJAMIN, 11/09/2023 06:44:47
[2023-11-08] MEDS: ACETAMINOPHEN 500MG TAB 1000 MG PO (02:55)
[2023-11-08] MEDS: GABAPENTIN 100MG CAPSULE 400 MG PO (02:55)
[2023-11-08] MEDS: droPERidol 5MG/2ML VIAL 5 MG IV (02:55)
--- NOTE | 2023-11-08 04:05 | PC.NURSE ---
Report called to Radhika
--- NOTE | 2023-11-08 04:13 | EXP.HP ---
History of Present Illness *Admission Date: 11/08/23 *Reason for visit:: Leg pain *History of present illness: Patient is a 28-year-old female with past medical history of rheumatoid arthritis who presents to the hospital due to right leg pain. According to the patient she has not been able to walk or perform her usual activities due to severe right leg pain, she rates pain as 10/10 intensity, radiating from top to bottom of the leg, she also mentions she has a burning sensation, otherwise denied chest pain shortness of breath nausea vomiting diarrhea constipation dysuria fever chills. [facility], LAT[facility] Disclaimer: The information contained in this section may have been updated after the patient was seen, as this information can be updated by other users. Medical History (Updated 11/08/23 @ 04:31 by Radhika Lamas RN) Rheumatoid arthritis Vitamin B deficiency Depression GERD (gastroesophageal reflux disease) Hypothyroidism Vitamin D deficiency Hyperlipidemia Diabetes mellitus Surgical History History of carpal tunnel surgery History of Family History Other No significant family history Social History (Updated 11/08/23 @ 04:34 by Radhika Lamas RN) Smoking Status: Current every day smoker tobacco type: cigarettes packs per day: 1 alcohol intake: never substance use type: denies use current occupational status: other Travel in the last 8 weeks: None Other Medical History Have you received the Flu Vaccine for this season: Yes Have you received the Pneumonia Vaccine: No Review of Systems Review of Systems Review of systems (narrative): docuemnted as per HPI Meds Home Medications and Allergies Home Medications ?Medication ?Instructions ?Recorded ?Confirmed ?Type fluticasone propionate 50 2 spray intranasal DAILY ALLERGIES 03/06/22 11/08/23 History mcg/actuation nasal spray,suspension ergocalciferol (vitamin D2) 1,250 1,250 mcg PO WEEKLY SUPPLIMENT 05/31/22 11/08/23 History mcg (50,000 unit) capsule ondansetron HCl 4 mg tablet 4 mg PO TID PRN nausea and 06/14/22 11/08/23 Rx vomiting #14 tabs norethindrone (contraceptive) 0.35 0.35 mg PO DAILY Control 09/28/22 11/08/23 History mg tablet venlafaxine 75 mg capsule,extended 75 mg PO DAILY 11/01/22 11/08/23 History release 24 hr blood sugar [facility] 05/30/23 11/08/23 Rx Verio test strips) lancets 33 gauge (OneTouch Delica #100 ea 09/01/23 11/08/23 Rx Plus Lancet) acetaminophen 300 mg-codeine 30 mg 1 tab PO TID PRN pain #90 tabs 10/18/23 11/08/23 Rx tablet gabapentin 300 mg capsule 300 mg PO QID . #120 caps 10/18/23 11/08/23 Rx pen needle, diabetic 31 gauge x #100 ea 11/01/23 11/08/23 Rx 3/16 (BD Ultra-Fine Mini Pen Needle) Alcohol Prep Pad Sterile 100ct Dyn 1 pad topical BID 11/08/23 11/08/23 History aspirin 81 mg tablet,delayed 81 mg PO DAILY 11/08/23 11/08/23 History release atorvastatin 10 mg tablet 10 mg PO DAILY 11/08/23 11/08/23 History cholecalciferol (vitamin D3) 25 25 mcg PO DAILY 11/08/23 11/08/23 History mcg (1,000 unit) capsule clindamycin phosphate 1 % topical 1 applic topical BID 11/08/23 11/08/23 History gel cyanocobalamin (vitamin B-12) 5,000 mcg PO DAILY 11/08/23 11/08/23 History 5,000 mcg sublingual tablet (Vitamin B-12) cyclobenzaprine 10 mg tablet 10 mg PO TID 11/08/23 11/08/23 History dulaglutide 0.75 mg/0.5 mL 0.75 mg SQ WEEKLY 11/08/23 11/08/23 History subcutaneous pen injector (Trulicity) furosemide 20 mg tablet 20 mg PO DAILY PRN Edema 11/08/23 11/08/23 History glipizide 10 mg tablet, extended 10 mg PO BID 11/08/23 11/08/23 History release 24 hr lisinopril 10 mg tablet 10 mg PO DAILY 11/08/23 11/08/23 History loratadine 10 mg tablet 10 mg PO DAILY 11/08/23 11/08/23 History meclizine 25 mg tablet 25 mg PO TID 11/08/23 11/08/23 History metformin 1,000 mg tablet 1,000 mg PO BID 11/08/23 11/08/23 History nicotine 14 mg/24 hr daily 1 patch topical DAILY 11/08/23 11/08/23 History transdermal patch omeprazole 40 mg capsule,delayed 40 mg PO DAILY 11/08/23 11/08/23 History release quetiapine 50 mg tablet,extended 50 mg PO HS 11/08/23 11/08/23 History release 24 hr sitagliptin phosphate 100 mg 100 mg PO DAILY 11/08/23 11/08/23 History tablet (Januvia) New Prescriptions to Start Prescriptions: Allergies Allergy/AdvReac Type Severity Reaction Status Date / Time Penicillins Allergy Intermediate Rash Verified 04/26/23 15:01 amoxicillin [AMOXICILLIN] Allergy Mild Verified 04/26/23 15:01 cefaclor [From CECLOR] Allergy Mild Verified 04/26/23 15:01 Exam Data for Last 24 hours Vital signs and Labs for Last 24 Hours: Temp Pulse Resp BP Pulse Ox O2 Del Method 98.3 F 112 H 16 122/78 93 L Room Air 11/08/23 04:09 11/08/23 04:09 11/08/23 04:09 11/08/23 04:09 11/08/23 03:30 11/08/23 04:09 Laboratory Results - last 24 hr 11/08/23 00:54: WBC 9.4, RBC 4.84, Hgb 14.2, Hct 43.5, MCV 89.9, MCH 29.2, MCHC 32.5, RDW 15.2, Plt Count 359, MPV 8.0, Neut % (Auto) 65.7, Lymph % (Auto) 25.0, [place] % (Auto) 6.2, Eos % (Auto) 2.2, Baso % (Auto) 0.9, Neut # (Auto) 6.2, Lymph # (Auto) 2.4, [place] # (Auto) 0.6, Eos # (Auto) 0.2, Baso # (Auto) 0.1, Sodium 135 L, Potassium 3.8, Chloride 102, Carbon Dioxide 26, Anion Gap 10.8, BUN 12, Creatinine 0.40 L, Estimated Creat Clear 331 H, Estimated GFR 187, Est GFR ( Amer) 227, Glucose 323 H, Calcium 9.7, Total Bilirubin 0.4, AST 30, ALT 33, Alkaline Phosphatase 60, Total Protein 7.4, Albumin 4.3, Globulin 3.1, Albumin/Globulin Ratio 1.4, Serum HCG, Qual Negative, HIV 1&2 Antibody Rapid Nonreactive I & O for Last 24 hours: Intake & Output 11/05/23 11/06/23 11/07/23 11/08/23 23:59 23:59 23:59 23:59 Weight 102.058 kg Constitutional Constitutional: no acute distress *Routine HEENT Exam Head: Present normocephalic Eye: Present EOMI and PERRL ENT: Present mucous membranes moist *Routine Neck Exam Neck: Present supple; Absent lymphadenopathy *Routine Respiratory Exam Respiratory: Present CTA bilaterally *Routine Cardiovascular Exam Cardiovascular: Present RRR *Routine Abdominal Exam Abdominal: Present soft and normoactive bowel sounds; Absent tenderness *Routine Rectal Exam Rectal:: deferred *Routine Genitalia Exam Genitalia:: deferred *Routine Extremities Exam Extremities: Absent cyanosis, clubbing or edema *Routine Skin Exam Skin: Present warm; Absent rash *Routine Neurological Exam Neurological: Present alert and oriented X3 Assessment and Plan *Assessment and plan (1) Radicular pain of right lower extremity: Status: Acute Category: Medical Code(s): M54.10 - Radiculopathy, site unspecified (2) Diabetes type 2, uncontrolled: Status: Acute Category: Medical (3) GERD (gastroesophageal reflux disease): Status: Chronic Qualifiers: Esophagitis presence: esophagitis presence not specified Qualified Code(s): K21.9 - Gastro-esophageal reflux disease without esophagitis Category: Medical Code(s): K21.9 - Gastro-esophageal reflux disease without esophagitis (4) Hypothyroidism: Status: Chronic Qualifiers: Hypothyroidism type: unspecified Qualified Code(s): E03.9 - Hypothyroidism, unspecified Category: Medical Code(s): E03.9 - Hypothyroidism, unspecified (5) Hyperlipidemia: Status: Chronic Qualifiers: Hyperlipidemia type: mixed hyperlipidemia Qualified Code(s): E78.2 - Mixed hyperlipidemia Category: Medical Code(s): E78.5 - Hyperlipidemia, unspecified Plan Patient is a 28-year-old female with past medical history of rheumatoid arthritis who presents to the hospital due to right leg pain. According to the patient she has not been able to walk or perform her usual activities due to severe right leg pain, she rates pain as 10/10 intensity, radiating from top to bottom of the leg, she also mentions she has a burning sensation, otherwise denied chest pain shortness of breath nausea vomiting diarrhea constipation dysuria fever chills. Assessment and plan Right lower extremity pain, radicular pain, differentials include sciatica, rheumatoid arthritis flare Pain control Consult PT/OT Encourage mobility Diabetes mellitus Insulin sliding scale Chronic medical conditions GERD Hypothyroidism Hyperlipidemia -Resume home ASA, Atorvastatin, neurontin, lisinopril DVT PPx - heparin
--- NOTE | 2023-11-08 04:17 | PC.NURSE ---
Patient arrived to floor via stretcher from ED at 04:17.
[2023-11-08] MEDS: MORPHINE 2MG/ML SYRINGE 2 MG IV ×3 (04:27→08:45)
[2023-11-08] MEDS: HYDROCODONE/APAP 5/325 MG TABLET 1 TAB PO ×2 (05:17→09:15)
[2023-11-08 05:28] LABS: POC Glucose,Bedside 333 (70-110)
--- NOTE | 2023-11-08 06:03 | PC.NURSE ---
Pt arrived to floor screaming in pain. Rating pain in upper right leg/hip 10/10. Pt was administered Morphine with little effect. Pt given [place] and pt states much relief rating pain 4/10 at this time. Pt appears much more comfortable. Pt placed on cont pulse ox. Pt FSBS 333 this AM. Pt refused humalog stating the last time she took insulin in the hospital, her sugar bottomed out. Fiance at bedside. Call light within reach.
[2023-11-08 07:09] LABS: Chloride 103 mmol/L (98-107)
[2023-11-08 07:10] LABS: Potassium 4.1 mmoL/L (3.5-5.1); Sodium 135 mmol/L (136-145)
[2023-11-08 07:12] LABS: Blood Urea Nitrogen 14 mg/dl (7-17); Creatinine Clearance Estimated 170 mL/min (50-200); Estimated Glomerular Filt Rate 187 ml/min (>60); GFR (African American) 227 ML/MIN (>60)
[2023-11-08 07:13] LABS: Anion Gap 12.1 mEq/L (5-15); Calcium 9.7 mg/dl (8.4-10.2); Carbon Dioxide 24 mmol/L (22.0-30.0); Glucose 299 mg/dl (74-100)
[2023-11-08] MEDS: CYCLOBENZAPRINE 10MG TABLET 10 MG PO (07:34)
[2023-11-08 07:40] LABS: Basophils # 0.1 K/mm3 (0-0.2); Basophils % 0.5 % (0.1-2.0); Eosinophils # 0.2 K/mm3 (0.0-0.4); Eosinophils % 1.9 % (0.1-12.0); Hematocrit 39.5 % (37.0-47.0); Lymphocytes # 2.2 K/mm3 (0.7-4.5); Lymphocytes % 18.9 % (10-50); Mean Corpuscular HGB Conc 31.7 g/dL (31.8-35.4); Mean Corpuscular Hemoglobin 29.8 pg (27.0-31.2); Mean Corpuscular Volume 93.9 fl (81-99); Mean Platelet Volume 7.5 fl (7.4-10.4); Monocytes # 0.6 K/mm3 (0.1-1.0); Monocytes % 5.4 % (1.7-9.3); Neutrophils # 8.7 K/mm3 (1.8-7.8); Neutrophils % 73.3 % (37.0-80.0); Platelet Count 331 K/mm3 (142-424); Red Blood Count 4.21 M/mm3 (4.20-5.40); White Blood Count 11.9 K/mm3 (4.8-10.8)
[2023-11-08 08:01] LABS: Hemoglobin 12.6 g/dL (12.2-16.2)
--- NOTE | 2023-11-08 08:03 | HMH.PHAINT1 ---
Pharmacy Intervention Comments: Home medication list verified using list from pharmacy and patient interview.
[2023-11-08] MEDS: LISINOPRIL 10MG TABLET 10 MG PO (08:50)
[2023-11-08] MEDS: METHYLPREDNISOLONE SOD SUCC 125MG VIAL 125 MG IM (08:50)
[2023-11-08] MEDS: ENOXAPARIN 40MG/0.4ML SYRINGE 40 MG SQ (08:50)
--- NOTE | 2023-11-08 09:41 | HMH.PTEV ---
Physical Therapy Evaluation Rehab PT IP Evaluation Start: 11/08/23 04:57 Freq: ONCE Status: Active Protocol: Document 11/08/23 09:26 DIVINA (Rec: 11/08/23 09:40 DIVINA [id number]) Subjective/History History History Per H&P: Patient is a 28-year -old female with past medical history of rheumatoid arthritis who presents to the hospital due to right leg pain . According to the patient she has not been able to walk or perform her usual activities due to severe right leg pain, she rates pain as 10/10 intensity, radiating from top to bottom of the leg, she also mentions she has a burning sensation, otherwise denied chest pain shortness of breath nausea vomiting diarrhea constipation dysuria fever chills. Subjective Subjective Pt visibly in distress d/t high pain level but consented to PT evaluation. Pt reports she lives in a single-story home with her son and danae. Lore? is able to stay and help her as needed unless he gets called into work. Pt reports she also has a mother who can come stay with her if needed. Pt has 3-4 [place] home. Pt was IND prior to admission with all mobility. Pt reports ~4 days ago she started experiencing severe RLE burning pain. Pt has been unable to walk or perform her daily activities d/t the pain. Pt denies a fall prior to pain. New diagnosis of cancer in past 12 No months? Rehab PT IP Eval Objective Appearance Patient Behavior Appropriate,Crying Patient Orientation Person,Situation Difficulty following instructions none Speech Pattern Clear Ambulation Patient Able to Ambulate No Balance Ability to Arise Able, uses arms to help Sitting Balance Steady, safe Standing Balance Unsteady Transfers Bed Transfer Ability Supervision/Stand by Sit to Stand Bed Transfer Ability Supervision/Stand by Rehab PT IP prob,goals,plan Problems Date of Evaluation: 11/08/23 PT IP Problems Bed Mobility,Transfers,Gait, Balance,Safety Rehab Potential Rehab Potential Good Equipment Needs Assistive Devices Rolling / Wheeled Walker Plan PT Intervention Plan Bed Mobility,Gait,Self care, Safety,Therapeutic Exercise Other Intervention Plan 1-2 times PT Plan Frequency Daily Duration LOS Discharge Goals Bed Transfer Ability Independent Sit to Stand Chair Transfer Ability Independent Ambulation Assistive Device Rolling Walker Ambulation Distance (feet) 10 Discharge Plan PT Discharge Plan Pt's was emotional/crying throughout PT assessment d/t severity of her pain level. Pt was unable to ambulate d/t her RLE pain. Pt stood using a RW but did not put much weight on her RLE. Pt was SUP level for her mobility but again was limited by pain. Pt does not own a RW but would benefit from one d/t current pain level. Upon d/c from [facility], pt safe to d/c home d/t home set-up and family support. Recommending OP PT services for radiating LE pain if pt obtains medical clearance. Pt would benefit from skilled acute care PT while at [facility] ( when pain levels are controlled) to prevent functional decline. Eval Complexity Eval Charge Codes 92288 - Moderate Complexity PHYSICIAN CERTIFICATION: I certify the specified therapy services for Yamileth Solano are required, authorized, and reviewed every 30 days.
--- NOTE | 2023-11-08 09:43 | HMH.OTEV ---
OT Inpatient Evaluation Rehab OT IP Evaluation Start: 11/08/23 04:57 Freq: ONCE Status: Active Protocol: Document 11/08/23 09:26 [facility] (Rec: 11/08/23 09:42 [facility] [id number]) Rehab OT IP Assessment Subjective History Pt oriented x3 on arrival and agreeable to engage in OT evaluation. Pt admitted to [facility] on 11/08/23 due to right leg pain. Pt history and physical report : Patient is a 28-year-old female with past medical history of rheumatoid arthritis who presents to the hospital due to right leg pain . According to the patient she has not been able to walk or perform her usual activities due to severe right leg pain, she rates pain as 10/10 intensity, radiating from top to bottom of the leg, she also mentions she has a burning sensation, otherwise denied chest pain shortness of breath nausea vomiting diarrhea constipation dysuria fever chills. Subjective The pain almost makes me sick . Pt resting in bed on arrival with danae present in the room. Prior to admission to hospital, pt lived at home with her fianc? and son. Pt's home has ~3-4 steps to enter. Pt reports being independent with all ADLs and IADLs. Pt reports that they engaged in driving up until this incident . Pt does not have any assistive devices at home to use during functional mobility . Pt reports that her fiance would be available for assistance as long as he did not get called into work. Otherwise, pt reports that her mom would be able to assist as needed at home. Objective Patient Orientation Place,Name,Birthday Right Upper Extremity Gross ROM WFL Left Upper Extremity Gross ROM WFL Bed Mobility bed mobility-scooting,bed mobility - supine/sit,bed mobility - rolling Assist Level Minimal x 2 (25% assist) Transfer Training Sit/Stand Transfer Assist Level Minimal x 2 (25% assist) Upper Body Dressing Ability Minimal Assistance Decrease in Endurance Yes Rehab OT IP prob,goals,plan Problems Date of Evaluation: 11/08/23 OT IP Problems Bed Mobility,Transfers,Balance ,Self care,Safety Rehab Potential Rehab Potential Good Equipment Needs Assistive Devices Rolling / Wheeled Walker Plan OT intervention Plan Bed Mobility,Transfers,Balance ,Self care,Safety,Therapeutic Exercise OT Plan Frequency Daily Duration LOS Discharge Goals Bed Mobility Ability Assistance x1 Sit to Stand Chair Transfer Ability Minimal x 1 (25% assist) Chair Transfer Ability Minimal x 1 (25% assist) Chair Transfer Technique Sit to/from Ambulatory Chair Transfer Assistive Devices Rolling Walker Feeding Ability Independent Lower Body Dressing Ability Moderate Assistance Upper Body Dressing Ability Contact Guard Bathing Ability Moderate Assistance Performing Toilet Hygiene Ability Minimal Assistance Overall Commode/Toilet Transfer Ability Minimal Assistance Commode/Toilet Transfer Technique Sit to/from Ambulatory Commode/Toilet Transfer Assistive Grab Bars Devices Oral Care Assist Independent Decrease in Endurance No Discharge Plan OT Discharge Plan Pt will continue to be seen for OT services while at [facility]. Once medically stable, pt could return home with 24/7 assistance from fiance or mother. Pt would benefit most from outpatient PT evaluation to address functional decline. Pt is recommended for a walker to support safety and independence with functional transfers. Continued skilled services are important to improve safety, balance, endurance, ADL independence, and functional transfers to reach PLOF. Eval Complexity Eval Charge Codes 82329 - Moderate Complexity PHYSICIAN CERTIFICATION: I certify the specified therapy services for Yamileth Solano are required, authorized, and reviewed every 30 days.
[2023-11-08 10:59] LABS: POC Glucose,Bedside 274 (70-110)
[2023-11-08] MEDS: humaLOG 100 UNITS/ML 10ML VIAL (SSI) SQ (11:05)
--- NOTE | 2023-11-08 13:42 | EXP.DC.SUM ---
General Admission date:: 11/08/23 HPI HPI HPI: Patient is a 28-year-old female with past medical history of rheumatoid arthritis who presents to the hospital due to right leg pain. According to the patient she has not been able to walk or perform her usual activities due to severe right leg pain, she rates pain as 10/10 intensity, radiating from top to bottom of the leg, she also mentions she has a burning sensation, otherwise denied chest pain shortness of breath nausea vomiting diarrhea constipation dysuria fever chills. Hospital Course Hospital Course Hospital Course: Patient is a 28-year-old female with past medical history of rheumatoid arthritis who presents to the hospital due to right leg pain. According to the patient she has not been able to walk or perform her usual activities due to severe right leg pain, she rates pain as 10/10 intensity, radiating from top to bottom of the leg, she also mentions she has a burning sensation, otherwise denied chest pain shortness of breath nausea vomiting diarrhea constipation dysuria fever chills. #Right lower extremity pain #H/o of right knee osteoarthritis - Acute on chornic right knee arthritic pain with radation to hip. No gross swelling, erythema suggesting septic knee. - Lumbar CT shows degenerative disc disease with moderate spinal stenosis at L4-5. However, patient does not have radicular pain to feet, rather just pain from buttock to right knee. - No red flag symptoms suggesting cauda equina. - Pain significant improved with toradol therapy. Ambulating appropriately. - Discharged with PO toradol. Will follow-up with establish pain clinic within 1 week. #Large ventral abdominal hernia - Pelvic CT does revealed containing omentum and bowel loops without evidence of incarceration or obstruction. - Clinically stable at this time. Will refer to general [facility] for further evaluation and management. Exam Data for Last 24 hours Vital signs and Labs for Last 24 Hours: Temp Pulse Resp BP Pulse Ox O2 Del Method 98 F 99 H 17 124/68 98 Room Air 11/08/23 08:00 11/08/23 08:00 11/08/23 08:00 11/08/23 08:00 11/08/23 08:00 11/08/23 13:00 Laboratory Results - last 24 hr 11/08/23 00:54: WBC 9.4, RBC 4.84, Hgb 14.2, Hct 43.5, MCV 89.9, MCH 29.2, MCHC 32.5, RDW 15.2, Plt Count 359, MPV 8.0, Neut % (Auto) 65.7, Lymph % (Auto) 25.0, [place] % (Auto) 6.2, Eos % (Auto) 2.2, Baso % (Auto) 0.9, Neut # (Auto) 6.2, Lymph # (Auto) 2.4, [place] # (Auto) 0.6, Eos # (Auto) 0.2, Baso # (Auto) 0.1, Sodium 135 L, Potassium 3.8, Chloride 102, Carbon Dioxide 26, Anion Gap 10.8, BUN 12, Creatinine 0.40 L, Estimated Creat Clear 331 H, Estimated GFR 187, Est GFR ( Amer) 227, Glucose 323 H, Calcium 9.7, Total Bilirubin 0.4, AST 30, ALT 33, Alkaline Phosphatase 60, Total Protein 7.4, Albumin 4.3, Globulin 3.1, Albumin/Globulin Ratio 1.4, Serum HCG, Qual Negative, HIV 1&2 Antibody Rapid Nonreactive 11/08/23 05:19: POC Glucose 333 H* 11/08/23 05:56: WBC 11.9 H D, RBC 4.21, Hgb 12.6 D, Hct 39.5, MCV 93.9, MCH 29.8, MCHC 31.7 L, RDW 15.0, Plt Count 331, MPV 7.5, Neut % (Auto) 73.3, Lymph % (Auto) 18.9, [place] % (Auto) 5.4, Eos % (Auto) 1.9, Baso % (Auto) 0.5, Neut # (Auto) 8.7 H, Lymph # (Auto) 2.2, [place] # (Auto) 0.6, Eos # (Auto) 0.2, Baso # (Auto) 0.1, Sodium 135 L, Potassium 4.1, Chloride 103, Carbon Dioxide 24, Anion Gap 12.1, BUN 14, Creatinine 0.40 L, Estimated Creat Clear 170, Estimated GFR 187, Est GFR ( Amer) 227, Glucose 299 H, Calcium 9.7 11/08/23 10:51: POC Glucose 274 H I & O for Last 24 hours: Intake & Output 11/05/23 11/06/23 11/07/23 10/03/24 23:59 23:59 23:59 23:59 Intake Total 895 / 895 Balance 895 / 895 Weight 107.637 kg Constitutional Constitutional: no acute distress and obese *Routine HEENT Exam Head: Present normocephalic Eye: Present EOMI and PERRL ENT: Present mucous membranes moist *Routine Neck Exam Neck: Present supple; Absent lymphadenopathy *Routine Respiratory Exam Respiratory: Present CTA bilaterally *Routine Cardiovascular Exam Cardiovascular: Present RRR *Routine Abdominal Exam Abdominal: Present soft and normoactive bowel sounds; Absent tenderness *Routine Extremities Exam Extremities: Absent cyanosis, clubbing or edema *Routine Skin Exam Skin: Present warm; Absent rash *Routine Neurological Exam Neurological: Present alert and oriented X3 Results Data Completed and Pending Labs on day of discharge: Labs from last 24 hours 11/08/23 11/08/23 11/08/23 10:51 05:56 05:19 WBC 11.9 H D RBC 4.21 Hgb 12.6 D Hct 39.5 MCV 93.9 MCH 29.8 MCHC 31.7 L RDW 15.0 Plt Count 331 MPV 7.5 Neut % (Auto) 73.3 Lymph % (Auto) 18.9 [place] % (Auto) 5.4 Eos % (Auto) 1.9 Baso % (Auto) 0.5 Neut # (Auto) 8.7 H Lymph # (Auto) 2.2 [place] # (Auto) 0.6 Eos # (Auto) 0.2 Baso # (Auto) 0.1 Sodium 135 L Potassium 4.1 Chloride 103 Carbon Dioxide 24 Anion Gap 12.1 BUN 14 Creatinine 0.40 L Estimated Creat Clear 170 Estimated GFR 187 Est GFR ( Amer) 227 Glucose 299 H POC Glucose 274 H 333 H* Calcium 9.7 Total Bilirubin AST ALT Alkaline Phosphatase Total Protein Albumin Globulin Albumin/Globulin Ratio Serum HCG, Qual HIV 1&2 Antibody Rapid 11/08/23 00:54 WBC 9.4 RBC 4.84 Hgb 14.2 Hct 43.5 MCV 89.9 MCH 29.2 MCHC 32.5 RDW 15.2 Plt Count 359 MPV 8.0 Neut % (Auto) 65.7 Lymph % (Auto) 25.0 [place] % (Auto) 6.2 Eos % (Auto) 2.2 Baso % (Auto) 0.9 Neut # (Auto) 6.2 Lymph # (Auto) 2.4 [place] # (Auto) 0.6 Eos # (Auto) 0.2 Baso # (Auto) 0.1 Sodium 135 L Potassium 3.8 Chloride 102 Carbon Dioxide 26 Anion Gap 10.8 BUN 12 Creatinine 0.40 L Estimated Creat Clear 331 H Estimated GFR 187 Est GFR ( Amer) 227 Glucose 323 H POC Glucose Calcium 9.7 Total Bilirubin 0.4 AST 30 ALT 33 Alkaline Phosphatase 60 Total Protein 7.4 Albumin 4.3 Globulin 3.1 Albumin/Globulin Ratio 1.4 Serum HCG, Qual Negative HIV 1&2 Antibody Rapid Nonreactive DS: Diagnosis Discharge Diagnosis (1) Radicular pain of right lower extremity: Status: Acute Code(s): M54.10 - Radiculopathy, site unspecified (2) Diabetes type 2, uncontrolled: Status: Acute (3) GERD (gastroesophageal reflux disease): Status: Chronic Code(s): K21.9 - Gastro-esophageal reflux disease without esophagitis Qualifiers: Esophagitis presence: esophagitis presence not specified Qualified Code(s): K21.9 - Gastro-esophageal reflux disease without esophagitis (4) Hypothyroidism: Status: Chronic Code(s): E03.9 - Hypothyroidism, unspecified Qualifiers: Hypothyroidism type: unspecified Qualified Code(s): E03.9 - Hypothyroidism, unspecified (5) Hyperlipidemia: Status: Chronic Code(s): E78.5 - Hyperlipidemia, unspecified Qualifiers: Hyperlipidemia type: mixed hyperlipidemia Qualified Code(s): E78.2 - Mixed hyperlipidemia Meds Home Medications and Allergies Home Medications ?Medication ?Instructions ?Recorded ?Confirmed ?Type fluticasone propionate 50 2 spray intranasal DAILY 03/06/22 11/08/23 History mcg/actuation nasal spray,suspension ergocalciferol (vitamin D2) 1,250 1,250 mcg PO WEEKLY 05/31/22 11/08/23 History mcg (50,000 unit) capsule ondansetron HCl 4 mg tablet 4 mg PO TID PRN nausea and 06/14/22 11/08/23 Rx vomiting #14 tabs venlafaxine 75 mg capsule,extended 75 mg PO DAILY 11/01/22 11/08/23 History release 24 hr blood sugar diagnostic (OneTouch #100 strips 05/30/23 11/08/23 Rx Verio test strips) lancets 33 gauge (OneTouch Delica #100 ea 09/01/23 11/08/23 Rx Plus Lancet) acetaminophen 300 mg-codeine 30 mg 1 tab PO TID PRN pain #90 tabs 10/18/23 11/08/23 Rx tablet pen needle, diabetic 31 gauge x #100 ea 11/01/23 11/08/23 Rx 3/16 (BD Ultra-Fine Mini Pen Needle) Alcohol Prep Pad Sterile 100ct Dyn 1 pad topical BID 11/08/23 11/08/23 History aspirin 81 mg tablet,delayed 81 mg PO DAILY 11/08/23 11/08/23 History release atorvastatin 10 mg tablet 10 mg PO DAILY 11/08/23 11/08/23 History cholecalciferol (vitamin D3) 25 25 mcg PO DAILY 11/08/23 11/08/23 History mcg (1,000 unit) capsule clindamycin phosphate 1 % topical 1 applic topical BID 11/08/23 11/08/23 History gel cyanocobalamin (vitamin B-12) 5,000 mcg PO DAILY 11/08/23 11/08/23 History 5,000 mcg sublingual tablet (Vitamin B-12) dulaglutide 0.75 mg/0.5 mL 0.75 mg SQ WEEKLY 11/08/23 11/08/23 History subcutaneous pen injector (Trulicity) furosemide 20 mg tablet 20 mg PO DAILY PRN Edema 11/08/23 11/08/23 History gabapentin 300 mg capsule 300 mg PO QID 11/08/23 11/08/23 History glipizide 10 mg tablet, extended 10 mg PO BID 11/08/23 11/08/23 History release 24 hr ketorolac 10 mg tablet 10 mg PO Q8H PRN pain #30 tabs 11/08/23 Rx lisinopril 10 mg tablet 10 mg PO DAILY 11/08/23 11/08/23 History loratadine 10 mg tablet 10 mg PO DAILY 11/08/23 11/08/23 History meclizine 25 mg tablet 25 mg PO TID PRN Dizziness 11/08/23 11/08/23 History meloxicam 7.5 mg tablet 7.5 mg PO BID PRN pain #20 tabs 11/08/23 Rx metformin 1,000 mg tablet 1,000 mg PO BID 11/08/23 11/08/23 History nicotine 14 mg/24 hr daily 1 patch topical DAILY 11/08/23 11/08/23 History transdermal patch omeprazole 40 mg capsule,delayed 40 mg PO DAILY 11/08/23 11/08/23 History release quetiapine 50 mg tablet,extended 50 mg PO HS 11/08/23 11/08/23 History release 24 hr sitagliptin phosphate 100 mg 100 mg PO DAILY 11/08/23 11/08/23 History tablet (Januvia) New Prescriptions to Start Prescriptions: ketorolac [place]es[place],Al meloxicam Nemesio,Al Allergies Allergy/AdvReac Type Severity Reaction Status Date / Time Penicillins Allergy Intermediate Rash Verified 04/26/23 15:01 amoxicillin [AMOXICILLIN] Allergy Mild Verified 04/26/23 15:01 cefaclor [From CECLOR] Allergy Mild Verified 04/26/23 15:01 Discharge Plan Disposition Patient Disposition: Home, Self-Care Follow up Plan Follow up with: Kathy Pierce APRN [Referring] - 11/16/23 11:30 am Mario Jacobson MD [Staff Physician] - 11/14/23 2:15 pm Prescriptions/Medication Reconciliation: New ketorolac 10 mg tablet 10 mg PO Q8H PRN (Reason: pain) Qty: 30 0RF Rx Instructions: maximum total duration of 5 days from all oral, intranasal, or parenteral formulations meloxicam 7.5 mg tablet 7.5 mg PO BID PRN (Reason: pain) Qty: 20 0RF Continued venlafaxine 75 mg capsule,extended release 24hr 75 mg PO DAILY ondansetron HCl 4 mg tablet 4 mg PO TID PRN (Reason: nausea and vomiting) Qty: 14 0RF (DME) OneTouch Verio test strips Strip See Rx Instructions .ROUTE .COMPLEX Qty: 100 2RF Dose Instruction: USE DIRECTED TO test blood sugar THREE TIMES DAILY Rx Instructions: USE DIRECTED TO test blood sugar THREE TIMES DAILY (DME) lancets [OneTouch Delica Plus Lancet] 33 gauge misc See Rx Instructions .Route Qty: 100 12RF Rx Instructions: As directed (DME) pen needle, diabetic [BD Ultra-Fine Mini Pen Needle] 31 gauge x 3/16 needle See Rx Instructions .ROUTE .COMPLEX Qty: 100 1RF Dose Instruction: USE DIRECTED TWICE DAILY Rx Instructions: USE DIRECTED TWICE DAILY fluticasone propionate 50 mcg/actuation spray,suspension 2 spray intranasal DAILY Rx Instructions: INSTILL 2 SPRAYS IN EACH NOSTRIL EVERY DAY acetaminophen-codeine 300-30 mg tablet 1 tab PO TID PRN (Reason: pain) Qty: 90 0RF meclizine 25 mg tablet 25 mg PO TID PRN (Reason: Dizziness) loratadine 10 mg tablet 10 mg PO DAILY Rx Instructions: TAKE ONE TABLET BY MOUTH EVERY DAY NEEDED FOR allergic SYMPTOMS glipizide 10 mg tablet extended release 24hr 10 mg PO BID Rx Instructions: TAKE ONE TABLET BY MOUTH TWICE DAILY FOR DIABETES lisinopril 10 mg tablet 10 mg PO DAILY Rx Instructions: TAKE ONE TABLET BY MOUTH EVERY DAY nicotine 14 mg/24 hr patch 24 hour 1 patch topical DAILY clindamycin phosphate 1 % gel 1 applic TOPICAL BID Patient Comments: APPLY A THIN LAYER TO THE AFFECTED AREA(S) BY TOPICAL ROUTE 2 TIMES PER DAY Trulicity 0.75 mg/0.5 mL pen injector 0.75 mg SQ WEEKLY Patient Comments: INJECT 0.75 MG WEEKLY SUBCUTANEOUSLY Alcohol Prep Pad Sterile 100ct Dyn 1 pad topical BID Rx Instructions: USE DIRECTED TWICE DAILY (FOR diabetes) atorvastatin 10 mg tablet 10 mg PO DAILY Rx Instructions: TAKE ONE TABLET BY MOUTH EVERY DAY AT BEDTIME omeprazole 40 mg capsule,delayed release(DR/EC) 40 mg PO DAILY Rx Instructions: TAKE ONE CAPSULE BY MOUTH EVERY DAY FOR gerd aspirin 81 mg tablet,delayed release (DR/EC) 81 mg PO DAILY Rx Instructions: TAKE ONE TABLET BY MOUTH EVERY DAY metformin 1,000 mg tablet 1,000 mg PO BID Rx Instructions: TAKE ONE TABLET BY MOUTH TWICE DAILY furosemide 20 mg tablet 20 mg PO DAILY PRN (Reason: Edema) Rx Instructions: TAKE ONE TABLET BY MOUTH EVERY DAY NEEDED FOR EDEMA cholecalciferol (vitamin D3) 25 mcg (1,000 unit) capsule 25 mcg PO DAILY Rx Instructions: TAKE ONE CAPSULE BY MOUTH EVERY DAY Januvia 100 mg tablet 100 mg PO DAILY Rx Instructions: TAKE ONE TABLET BY MOUTH EVERY DAY quetiapine 50 mg tablet extended release 24 hr 50 mg PO HS Rx Instructions: TAKE ONE TABLET BY MOUTH EVERY DAY AT BEDTIME cyanocobalamin (vitamin B-12) [Vitamin B-12] 5,000 mcg tablet, sublingual 5,000 mcg PO DAILY Rx Instructions: DISSOLVE ONE TABLET UNDER THE TONGUE EVERY DAY gabapentin 300 MG capsule 300 mg PO QID ergocalciferol (vitamin D2) 1,250 mcg (50,000 unit) capsule 1,250 mcg PO WEEKLY Rx Instructions: TAKE ONE CAPSULE BY MOUTH ONCE A WEEK Problem Reconciliation Problems Reviewed?: Yes Patient Discharge Instructions ACTIVITY: Continue current activity DIET: continue same diet Additional Instructions: If you are unable to afford ketorolac, I have prescribed meloxicam instead for pain. Do not take both as this can cause kidney damage. Follow-up with pain management for further evaluation and management. Patient Instructions: DI for Low Back Pain Print Language: Frisian Providers Primary Care Provider: Viola Phipps Admit Provider: Al Herr Attending Provider: Al Herr
[2023-11-09 05:14] LABS: HCV Ab Non Reactive (Non Reactive)
--- NOTE | 2023-11-09 13:25 | CARE MANAGER ---
Contacted patient's related to hospital discharge. He states patient is in a lot of pain right now. She did get the Torodol, but not the Meloxicam as pharmacy said she could only do the Torodol or Meloxicam, not both. She states the pain is not as bad when she initially came into hospital. She is aware of follow up appointments. JERRI Celeste
== END 2023-11-08 15:08 | disposition home or self-care (01) ==
LOC: ER 03:54 → 2ND 03:58
PROVIDERS: Internal Medicine; Admitting Provider Student in an Organized Health Care Education/Training Program; Emergency Provider Emergency Medicine; PCP Physician Assistant; Visit Provider Student in an Organized Health Care Education/Training Program
DX: M54.10 Radiculopathy, site unspecified (principal); K21.9 Gastro-esophageal reflux disease without esophagitis; E03.9 Hypothyroidism, unspecified; E78.2 Mixed hyperlipidemia; F17.210 Nicotine dependence, cigarettes, uncomplicated; Z79.899 Other long term (current) drug therapy; E11.9 Type 2 diabetes mellitus without complications; Z79.4 Long term (current) use of insulin; E55.9 Vitamin D deficiency, unspecified; M17.11 Unilateral primary osteoarthritis, right knee; Z74.1 Need for assistance with personal care; K43.9 Ventral hernia without obstruction or gangrene
CPT/HCPCS: 36415; 72131; 72192; 73502; 73552; 73562; 80048; 80053; 82962; 84703; 85025; 86803; 87389; 93005; 97162; 97166; 97530; 99285; G0378; J1171; J1650; J1790; J1885; J2270; J2919

== ENCOUNTER 2023-11-22 13:12 | Outpatient (POV) | payer MEDICAID, SELFPAY ==
[2023-11-22 13:52] VITALS: BP 134/91; PULSE 114; RESP 16; O2SAT 99; BMI 42.4
--- NOTE | 2023-11-22 14:01 | EXP.PAIN.SOA ---
[facility] Disclaimer: The information contained in this section may have been updated after the patient was seen, as this information can be updated by other users. Medical History (Updated 11/12/23 @ 00:00 by Tresa Meraz) Lumbar radiculopathy Rheumatoid arthritis Vitamin B deficiency Depression GERD (gastroesophageal reflux disease) Hypothyroidism Vitamin D deficiency Hyperlipidemia Diabetes mellitus Surgical History History of carpal tunnel surgery History of Family History Other No significant family history Social History (Updated 11/08/23 @ 04:34 by Radhika Lamas RN) Smoking Status: Current every day smoker tobacco type: cigarettes packs per day: 1 alcohol intake: never substance use type: denies use current occupational status: other Travel in the last 8 weeks: None PM Subjective & Objective Subjective Subjective:: Patient is a pleasant 28-year-old female who presents today for medication refill and follow-up. She rates her pain today a 5 out of 10. Patient does states that she ended up having an episode of severe pain back on 07 November and had to come into the ER for evaluation. Patient states that they ended up doing imaging and did feel like it was a nerve that was being irritated in her lumbar spine. Patient states that she was having difficulty even walking. Patient states that they did give her several IV pain medications along with Lortab to go home with. Patient does state that this did help better than the Tylenol 3 because at that time it was not touching her pain. Patient states today is the first day that she has not had to use a walker due to the pain. She states it has been a little bit better however has still been more than what her normal is. Patient is prescribed Tylenol 3 3 times a day, gabapentin 300 mg 4 times a day and Flexeril 10 mg 3 times a day. She denies any side effects from this medication. Her Loki has been reviewed and is appropriate. Review of Systems: General: No recent weight changes, no fever, no sleep disturbances Respiratory: No cough, no shortness of air, no recurring pulmonary infections Cardiovascular/peripheral vascular: No chest pain, no palpitations, no edema, no shortness of breath Gastrointestinal: No new onset incontinence, normal bowel movements reported Genitourinary: No new onset incontinence Musculoskeletal: Low back pain, leg pain Psychiatric: [Normal mood/affect] Neurological: [Denies weakness in extremities], [denies balance issues] Pain at rest (0-10 scale): 5 Objective Objective:: Physical Exam: General: Alert and oriented x3, no acute distress, pleasant and cooperative Lungs: Respirations even and unlabored, symmetrical chest expansion Eyes: PERRL Musculoskeletal: Flexion and extension of lumbar [spine] somewhat guarded secondary to pain, [antalgic gait noted] Neurological: Speech clear, no gross sensory deficit Has patient had previous pain injection?: No Conservative treatment options previously tried: Home exercise plan Length of treatment: Longer than 12 weeks Meds Home Medications and Allergies Home Medications ?Medication ?Instructions ?Recorded ?Confirmed ?Type fluticasone propionate 50 2 spray intranasal DAILY 03/06/22 11/22/23 History mcg/actuation nasal spray,suspension ergocalciferol (vitamin D2) 1,250 1,250 mcg PO WEEKLY 05/31/22 11/22/23 History mcg (50,000 unit) capsule ondansetron HCl 4 mg tablet 4 mg PO TID PRN nausea and 06/14/22 11/22/23 Rx vomiting #14 tabs venlafaxine 75 mg capsule,extended 75 mg PO DAILY 11/01/22 11/22/23 History release 24 hr blood sugar diagnostic (Be my eyesTouch #100 strips 05/30/23 11/22/23 Rx Verio test strips) lancets 33 gauge (OneTouch Delica #100 ea 09/01/23 11/22/23 Rx Plus Lancet) acetaminophen 300 mg-codeine 30 mg 1 tab PO TID PRN pain #90 tabs 10/18/23 11/22/23 Rx tablet pen needle, diabetic 31 gauge x #100 ea 11/01/23 11/22/23 Rx 3/16 (BD Ultra-Fine Mini Pen Needle) Alcohol Prep Pad Sterile 100ct Dyn 1 pad topical BID 11/08/23 11/22/23 History aspirin 81 mg tablet,delayed 81 mg PO DAILY 11/08/23 11/22/23 History release atorvastatin 10 mg tablet 10 mg PO DAILY 11/08/23 11/22/23 History cholecalciferol (vitamin D3) 25 25 mcg PO DAILY 11/08/23 11/22/23 History mcg (1,000 unit) capsule clindamycin phosphate 1 % topical 1 applic topical BID 11/08/23 11/22/23 History gel cyanocobalamin (vitamin B-12) 5,000 mcg PO DAILY 11/08/23 11/22/23 History 5,000 mcg sublingual tablet (Vitamin B-12) dulaglutide 0.75 mg/0.5 mL 0.75 mg SQ WEEKLY 11/08/23 11/22/23 History subcutaneous pen injector (Trulicity) furosemide 20 mg tablet 20 mg PO DAILY PRN Edema 11/08/23 11/22/23 History gabapentin 300 mg capsule 300 mg PO QID 11/08/23 11/22/23 History glipizide 10 mg tablet, extended 10 mg PO BID 11/08/23 11/22/23 History release 24 hr ketorolac 10 mg tablet 10 mg PO Q8H PRN pain #30 tabs 11/08/23 11/22/23 Rx lisinopril 10 mg tablet 10 mg PO DAILY 11/08/23 11/22/23 History loratadine 10 mg tablet 10 mg PO DAILY 11/08/23 11/22/23 History meclizine 25 mg tablet 25 mg PO TID PRN Dizziness 11/08/23 11/22/23 History meloxicam 7.5 mg tablet 7.5 mg PO BID PRN pain #20 tabs 11/08/23 11/22/23 Rx metformin 1,000 mg tablet 1,000 mg PO BID 11/08/23 11/22/23 History nicotine 14 mg/24 hr daily 1 patch topical DAILY 11/08/23 11/22/23 History transdermal patch omeprazole 40 mg capsule,delayed 40 mg PO DAILY 11/08/23 11/22/23 History release quetiapine 50 mg tablet,extended 50 mg PO HS 11/08/23 11/22/23 History release 24 hr sitagliptin phosphate 100 mg 100 mg PO DAILY 11/08/23 11/22/23 History tablet (Januvia) New Prescriptions to Start Prescriptions: Allergies Allergy/AdvReac Type Severity Reaction Status Date / Time Penicillins Allergy Intermediate Rash Verified 04/26/23 15:01 amoxicillin [AMOXICILLIN] Allergy Mild Verified 04/26/23 15:01 cefaclor [From CECLOR] Allergy Mild Verified 04/26/23 15:01 Assessment and Plan *Assessment and plan (1) Degenerative disc disease, lumbar: Status: Acute Category: Medical Code(s): M51.36 - Other intervertebral disc degeneration, lumbar region (2) Radicular pain of right lower extremity: Status: Acute Category: Medical Code(s): M54.10 - Radiculopathy, site unspecified Plan I did discuss with the patient that I will send in a 3-month supply of her gabapentin and Flexeril and I will do a 2-week supply of the [place] 5 mg 3 times daily. Patient was reviewed over her lumbar imaging report and I did discuss with the patient that I do believe in future she would benefit from a lumbar epidural steroid injection at the L4-L5 level. We will follow-up with this at future visits. Patient will return to clinic in 2 weeks for reevaluation of symptoms and plan of care. Risks and benefits of the medication have been explained in detail to the patient. The patient does understand the risk of dependence on the medication when given over a prolonged period. Patient has been advised of risks of oversedation with the prescribed medication. Narcan has been offered to the paitent in the event of oversedation. Patient has been advised that a family member should also be educated regarding administration of Narcan. The patient has been advised to consult with his/her primary care provider and pharmacist regarding drug-drug interaction of medications currently prescribed. Patient has been prescribed a controlled substance after being counseled on the medication, medication safety, and possible side effects. Opioid contract was reviewed and signed by the patient, and that they have agreed to all of the terms set forth by our compliance program. Patient has been instructed to contact the clinic with any concerns before the next appointment. Dr. Colindres has reviewed this note and agrees with this plan of care. This note was dictated using voice recognition software and make contain errors or omissions.
== END 2023-11-22 23:59 | disposition home or self-care (01) ==
PROVIDERS: PCP Nurse Practitioner Family; Visit Provider Nurse Practitioner Family
DX: M51.16 Intervertebral disc disorders with radiculopathy, lumbar region (principal); F17.210 Nicotine dependence, cigarettes, uncomplicated; Z79.899 Other long term (current) drug therapy
CPT/HCPCS: 99212; G0463

== ENCOUNTER 2023-12-12 08:27 | Outpatient (POV) | payer MEDICAID, SELFPAY ==
[2023-12-12 08:49] VITALS: BP 132/89; PULSE 127; RESP 16; O2SAT 99; BMI 40.1
--- NOTE | 2023-12-12 09:11 | A.OFFVIS_ITS ---
[facility] Disclaimer: The information contained in this section may have been updated after the patient was seen, as this information can be updated by other users. Medical History (Updated 11/26/23 @ 00:01 by Tresa Meraz) Radicular pain of right lower extremity Acute left ankle pain Lumbar radiculopathy Rheumatoid arthritis Vitamin B deficiency Depression GERD (gastroesophageal reflux disease) Hypothyroidism Vitamin D deficiency Hyperlipidemia Diabetes mellitus Surgical History History of carpal tunnel surgery History of Family History Other No significant family history Social History (Updated 11/08/23 @ 04:34 by Radhika Lamas RN) Smoking Status: Current every day smoker tobacco type: cigarettes packs per day: 1 alcohol intake: never substance use type: denies use current occupational status: other Travel in the last 8 weeks: None PM Subjective & Objective Subjective Subjective:: Patient is a pleasant 28-year-old female who presents today for 2-week follow-up and medication refill. Today she rates her pain a 3 out of 10. Patient states overall she is doing great with the last medicine of [place]. She states that this worked a lot better than her Tylenol 3 in the past and has seemed to maintain her decreased pain. She does state that she would like to see about sticking with this instead of referral back to the Tylenol 3. She does state the only issues she had with this medication was that she could not take her Flexeril and gabapentin at the same time and did have to separate by a couple of hours due to increased anxiety. Patient does state that she has a history of anxiety and is just seem to flare everything up taking them together. Patient is currently managed with gabapentin 300 mg 4 times a day, Flexeril 10 mg 3 times a day and [place] 5 mg 3 times a day from our office. She denies any side effects. Her Loki has been reviewed and is appropriate. Review of Systems: General: No recent weight changes, no fever, no sleep disturbances Respiratory: No cough, no shortness of air, no recurring pulmonary infections Cardiovascular/peripheral vascular: No chest pain, no palpitations, no edema, no shortness of breath Gastrointestinal: No new onset incontinence, normal bowel movements reported Genitourinary: No new onset incontinence Musculoskeletal: Low back pain Psychiatric: [Normal mood/affect] Neurological: [Denies weakness in extremities], [denies balance issues] Pain at rest (0-10 scale): 3 Objective Objective:: Physical Exam: General: Alert and oriented x3, no acute distress, pleasant and cooperative Lungs: Respirations even and unlabored, symmetrical chest expansion Eyes: PERRL Musculoskeletal: Flexion and extension of lumbar [spine] somewhat guarded secondary to pain, [antalgic gait noted] Neurological: Speech clear, no gross sensory deficit Has patient had previous pain injection?: No Conservative treatment options previously tried: Home exercise plan Length of treatment: Longer than 12 weeks Meds Home Medications and Allergies Home Medications ?Medication ?Instructions ?Recorded ?Confirmed ?Type fluticasone propionate 50 2 spray intranasal DAILY 03/06/22 12/12/23 History mcg/actuation nasal spray,suspension ergocalciferol (vitamin D2) 1,250 1,250 mcg PO WEEKLY 05/31/22 12/12/23 History mcg (50,000 unit) capsule ondansetron HCl 4 mg tablet 4 mg PO TID PRN nausea and 06/14/22 12/12/23 Rx vomiting #14 tabs venlafaxine 75 mg capsule,extended 75 mg PO DAILY 11/01/22 12/12/23 History release 24 hr blood sugar diagnostic (OneTouch #100 strips 05/30/23 12/12/23 Rx Verio test strips) lancets 33 gauge (OneTouch Delica #100 ea 09/01/23 12/12/23 Rx Plus Lancet) acetaminophen 300 mg-codeine 30 mg 1 tab PO TID PRN pain #90 tabs 10/18/23 12/12/23 Rx tablet pen needle, diabetic 31 gauge x #100 ea 11/01/23 12/12/23 Rx 3/16 (BD Ultra-Fine Mini Pen Needle) Alcohol Prep Pad Sterile 100ct Dyn 1 pad topical BID 11/08/23 12/12/23 History aspirin 81 mg tablet,delayed 81 mg PO DAILY 11/08/23 12/12/23 History release atorvastatin 10 mg tablet 10 mg PO DAILY 11/08/23 12/12/23 History cholecalciferol (vitamin D3) 25 25 mcg PO DAILY 11/08/23 12/12/23 History mcg (1,000 unit) capsule clindamycin phosphate 1 % topical 1 applic topical BID 11/08/23 12/12/23 History gel cyanocobalamin (vitamin B-12) 5,000 mcg PO DAILY 11/08/23 12/12/23 History 5,000 mcg sublingual tablet (Vitamin B-12) dulaglutide 0.75 mg/0.5 mL 0.75 mg SQ WEEKLY 11/08/23 12/12/23 History subcutaneous pen injector (Trulicity) furosemide 20 mg tablet 20 mg PO DAILY PRN Edema 11/08/23 12/12/23 History glipizide 10 mg tablet, extended 10 mg PO BID 11/08/23 12/12/23 History release 24 hr ketorolac 10 mg tablet 10 mg PO Q8H PRN pain #30 tabs 11/08/23 12/12/23 Rx lisinopril 10 mg tablet 10 mg PO DAILY 11/08/23 12/12/23 History loratadine 10 mg tablet 10 mg PO DAILY 11/08/23 12/12/23 History meclizine 25 mg tablet 25 mg PO TID PRN Dizziness 11/08/23 12/12/23 History meloxicam 7.5 mg tablet 7.5 mg PO BID PRN pain #20 tabs 11/08/23 12/12/23 Rx metformin 1,000 mg tablet 1,000 mg PO BID 11/08/23 12/12/23 History nicotine 14 mg/24 hr daily 1 patch topical DAILY 11/08/23 12/12/23 History transdermal patch omeprazole 40 mg capsule,delayed 40 mg PO DAILY 11/08/23 12/12/23 History release quetiapine 50 mg tablet,extended 50 mg PO HS 11/08/23 12/12/23 History release 24 hr sitagliptin phosphate 100 mg 100 mg PO DAILY 11/08/23 12/12/23 History tablet (Januvia) cyclobenzaprine 10 mg tablet 10 mg PO TID #90 tabs 11/22/23 12/12/23 Rx gabapentin 300 mg capsule 300 mg PO QID #120 caps 11/22/23 12/12/23 Rx hydrocodone 5 mg-acetaminophen 325 1 tab PO TID #42 tabs 11/22/23 12/12/23 Rx mg tablet New Prescriptions to Start Prescriptions: Allergies Allergy/AdvReac Type Severity Reaction Status Date / Time Penicillins Allergy Intermediate Rash Verified 04/26/23 15:01 amoxicillin [AMOXICILLIN] Allergy Mild Verified 04/26/23 15:01 cefaclor [From [facility]] Allergy Mild Verified 04/26/23 15:01 Assessment and Plan *Assessment and plan (1) Degenerative disc disease, lumbar: Status: Acute Category: Medical Code(s): M51.36 - Other intervertebral disc degeneration, lumbar region Plan I did discuss with the patient that if we do continue the [place] we would have to see her monthly. Patient agrees with this plan of care. Patient did have much more significant improvement with this medication versus the Tylenol 3. Patient was asked regarding any updates of her hand surgery with [facility] or dermatology consult that we have been working for over a year to get. She states that she has not heard anything and that even her primary care has been working on these as well. Patient will be refilled on her [place] and given a 1 month supply. Patient will return to clinic in 1 month for reevaluation of symptoms and plan of care. Risks and benefits of the medication have been explained in detail to the patient. The patient does understand the risk of dependence on the medication when given over a prolonged period. Patient has been advised of risks of oversedation with the prescribed medica tion. Narcan has been offered to the paitent in the event of oversedation. Patient has been advised that a family member should also be educated regarding administration of Narcan. The patient has been advised to consult with his/her primary care provider and pharmacist regarding drug-drug interaction of medications currently prescribed. Patient has been prescribed a controlled substance after being counseled on the medication, medication safety, and possible side effects. Opioid contract was reviewed and signed by the patient, and that they have agreed to all of the terms set forth by our compliance program. Patient has been instructed to contact the clinic with any concerns before the next appointment. Dr. Colindres has reviewed this note and agrees with this plan of care. This note was dictated using voice recognition software and make contain errors or omissions.
== END 2023-12-12 23:59 | disposition home or self-care (01) ==
PROVIDERS: PCP Nurse Practitioner Family; Visit Provider Nurse Practitioner Family
DX: M51.369 Other intervertebral disc degeneration, lumbar region without mention of lumbar back pain or lower extremity pain (principal); F17.210 Nicotine dependence, cigarettes, uncomplicated; Z79.899 Other long term (current) drug therapy
CPT/HCPCS: 99212; G0463

== ENCOUNTER 2024-01-21 09:01 | Outpatient (POV) | payer MEDICAID, SELFPAY ==
[2024-01-21 09:39] VITALS: BP 156/92; PULSE 103; RESP 18; O2SAT 97; BMI 41.1
--- NOTE | 2024-01-21 09:41 | A.OFFVIS_ITS ---
[facility] Disclaimer: The information contained in this section may have been updated after the patient was seen, as this information can be updated by other users. Medical History (Updated 11/26/23 @ 00:01 by Tresa Meraz) Radicular pain of right lower extremity Acute left ankle pain Lumbar radiculopathy Rheumatoid arthritis Vitamin B deficiency Depression GERD (gastroesophageal reflux disease) Hypothyroidism Vitamin D deficiency Hyperlipidemia Diabetes mellitus Surgical History History of carpal tunnel surgery History of Family History Other No significant family history Social History (Updated 11/08/23 @ 04:34 by Radhika Lamas RN) Smoking Status: Current every day smoker tobacco type: cigarettes packs per day: 1 alcohol intake: never substance use type: denies use current occupational status: other Travel in the last 8 weeks: None PM Subjective & Objective Subjective Subjective:: Patient is a pleasant 28-year-old female who presents today for medication refill. Today she rates her pain a 3 out of 10 and denies any new changes or injuries from her last appointment. Patient is currently managed with gabape ntin 300 mg 4 times a day, Flexeril 10 mg 3 times a day and [place] 5 mg 3 times a day. She denies any side effects from this medication. Her Loki has been reviewed and is appropriate. Review of Systems: General: No recent weight changes, no fever, no sleep disturbances Respiratory: No cough, no shortness of air, no recurring pulmonary infections Cardiovascular/peripheral vascular: No chest pain, no palpitations, no edema, no shortness of breath Gastrointestinal: No new onset incontinence, normal bowel movements reported Genitourinary: No new onset incontinence Musculoskeletal: Low back pain, right hand pain Psychiatric: [Normal mood/affect] Neurological: [Denies weakness in extremities], [denies balance issues] Pain at rest (0-10 scale): 3 Objective Objective:: Physical Exam: General: Alert and oriented x3, no acute distress, pleasant and cooperative Lungs: Respirations even and unlabored, symmetrical chest expansion Eyes: PERRL Musculoskeletal: Flexion and extension of lumbar [spine] somewhat guarded secondary to pain, [antalgic gait noted] Neurological: Speech clear, no gross sensory deficit Has patient had previous pain injection?: No Conservative treatment options previously tried: Prescription medications Length of treatment: Longer than 12 weeks Meds Home Medications and Allergies Home Medications ?Medication ?Instructions ?Recorded ?Confirmed ?Type fluticasone propionate 50 2 spray intranasal DAILY 03/06/22 01/21/24 History mcg/actuation nasal spray,suspension ergocalciferol (vitamin D2) 1,250 1,250 mcg PO WEEKLY 05/31/22 01/21/24 History mcg (50,000 unit) capsule ondansetron HCl 4 mg tablet 4 mg PO TID PRN nausea and 06/14/22 01/21/24 Rx vomiting #14 tabs venlafaxine 75 mg capsule,extended 75 mg PO DAILY 11/01/22 01/21/24 History release 24 hr blood sugar diagnostic (OneTouch #100 strips 05/30/23 01/21/24 Rx Verio test strips) lancets 33 gauge (OneTouch Delica #100 ea 09/01/23 01/21/24 Rx Plus Lancet) acetaminophen 300 mg-codeine 30 mg 1 tab PO TID PRN pain #90 tabs 10/18/23 01/21/24 Rx tablet pen needle, diabetic 31 gauge x #100 ea 11/01/23 01/21/24 Rx 3/16 (BD Ultra-Fine Mini Pen Needle) Alcohol Prep Pad Sterile 100ct Dyn 1 pad topical BID 11/08/23 01/21/24 History aspirin 81 mg tablet,delayed 81 mg PO DAILY 11/08/23 01/21/24 History release atorvastatin 10 mg tablet 10 mg PO DAILY 11/08/23 01/21/24 History cholecalciferol (vitamin D3) 25 25 mcg PO DAILY 11/08/23 01/21/24 History mcg (1,000 unit) capsule clindamycin phosphate 1 % topical 1 applic topical BID 11/08/23 01/21/24 History gel cyanocobalamin (vitamin B-12) 5,000 mcg PO DAILY 11/08/23 01/21/24 History 5,000 mcg sublingual tablet (Vitamin B-12) dulaglutide 0.75 mg/0.5 mL 0.75 mg SQ WEEKLY 11/08/23 01/21/24 History subcutaneous pen injector (Trulicity) furosemide 20 mg tablet 20 mg PO DAILY PRN Edema 11/08/23 01/21/24 History glipizide 10 mg tablet, extended 10 mg PO BID 11/08/23 01/21/24 History release 24 hr ketorolac 10 mg tablet 10 mg PO Q8H PRN pain #30 tabs 11/08/23 01/21/24 Rx lisinopril 10 mg tablet 10 mg PO DAILY 11/08/23 01/21/24 History loratadine 10 mg tablet 10 mg PO DAILY 11/08/23 01/21/24 History meclizine 25 mg tablet 25 mg PO TID PRN Dizziness 11/08/23 01/21/24 History meloxicam 7.5 mg tablet 7.5 mg PO BID PRN pain #20 tabs 11/08/23 01/21/24 Rx metformin 1,000 mg tablet 1,000 mg PO BID 11/08/23 01/21/24 History nicotine 14 mg/24 hr daily 1 patch topical DAILY 11/08/23 01/21/24 History transdermal patch omeprazole 40 mg capsule,delayed 40 mg PO DAILY 11/08/23 01/21/24 History release quetiapine 50 mg tablet,extended 50 mg PO HS 11/08/23 01/21/24 History release 24 hr sitagliptin phosphate 100 mg 100 mg PO DAILY 11/08/23 01/21/24 History tablet (Januvia) cyclobenzaprine 10 mg tablet 10 mg PO TID #90 tabs 11/22/23 01/21/24 Rx gabapentin 300 mg capsule 300 mg PO QID #120 caps 11/22/23 01/21/24 Rx hydrocodone 5 mg-acetaminophen 325 1 tab PO TID #90 tabs 12/12/23 01/21/24 Rx mg tablet New Prescriptions to Start Prescriptions: Allergies Allergy/AdvReac Type Severity Reaction Status Date / Time Penicillins Allergy Intermediate Rash Verified 04/26/23 15:01 amoxicillin (AMOXICILLIN) Allergy Mild Verified 04/26/23 15:01 cefaclor (From [facility]) Allergy Mild Verified 04/26/23 15:01 Assessment and Plan *Assessment and plan (1) Degenerative disc disease, lumbar: Status: Acute Category: Medical Code(s): M51.369 - Other intervertebral disc degeneration, lumbar region without mention of lumbar back pain or lower extremity pain (2) Chronic pain of right thumb: Status: Chronic Category: Medical Code(s): M79.644 - Pain in right finger(s); G89.29 - Other chronic pain Plan We will refill the patient's gabapentin, Flexeril and [place] and provide a 1 month supply of these medications. Patient will return to clinic in 1 month for reevaluation of symptoms and plan of care. Risks and benefits of the medication have been explained in detail to the patient. The patient does understand the risk of dependence on the medication when given over a prolonged period. Patient has been advised of risks of oversedation with the prescribed medication. Narcan has been offered to the paitent in the event of oversedat ion. Patient has been advised that a family member should also be educated regarding administration of Narcan. The patient has been advised to consult with his/her primary care provider and pharmacist regarding drug-drug interaction of medications currently prescribed. Patient has been prescribed a controlled substance after being counseled on the medication, medication safety, and possible side effects. Opioid contract was reviewed and signed by the patient, and that they have agreed to all of the terms set forth by our compliance program. A UDS is needed to verify patient's compliance with our office pain contract. This is ordered based off specific treatments related to chronic pain with the potential to abuse certain medications. Patient has been instructed to contact the clinic with any concerns before the next appointment. Dr. Colindres has reviewed this note and agrees with this plan of care. This note was dictated using voice recognition software and make contain errors or omissions.
== END 2024-01-21 23:59 | disposition home or self-care (01) ==
PROVIDERS: PCP Nurse Practitioner Family; Visit Provider Nurse Practitioner Family
DX: M51.369 Other intervertebral disc degeneration, lumbar region without mention of lumbar back pain or lower extremity pain (principal); M79.644 Pain in right finger(s); G89.29 Other chronic pain; F17.210 Nicotine dependence, cigarettes, uncomplicated; Z79.899 Other long term (current) drug therapy
CPT/HCPCS: 99212; G0463

== ENCOUNTER 2024-02-21 11:18 | Outpatient (POV) | payer MEDICAID, SELFPAY ==
--- NOTE | 2024-02-21 11:29 | A.OFFVIS_ITS ---
[facility] Disclaimer: The information contained in this section may have been updated after the patient was seen, as this information can be updated by other users. Medical History (Updated 11/26/23 @ 00:01 by Tresa Meraz) Radicular pain of right lower extremity Acute left ankle pain Lumbar radiculopathy Rheumatoid arthritis Vitamin B deficiency Depression GERD (gastroesophageal reflux disease) Hypothyroidism Vitamin D deficiency Hyperlipidemia Diabetes mellitus Surgical History History of carpal tunnel surgery History of Family History Other No significant family history Social History (Updated 11/08/23 @ 04:34 by Radhika Lamas RN) Smoking Status: Current every day smoker tobacco type: cigarettes packs per day: 1 alcohol intake: never substance use type: denies use current occupational status: other Travel in the last 8 weeks: None PM Subjective & Objective Subjective Subjective:: Patient is a pleasant 29-year-old female who presents today for medication refill and follow-up. She rates her pain today 2 out of 10. She denies any new trauma or injury. She does state that she still has not had any updated reports regarding the dermatology consult for the areas of concern on her legs. Patient states like still for about the same. Patient is currently managed with our office with gabapentin 300 mg 4 times a day, Flexeril 10 mg 3 times a day and [place] 5 mg 3 times a day. She denies any side effects. Patient does state that her pharmacy mention that she needs a PA on the [place] because it is not being covered by her insurance currently. Her Loki has been reviewed and is appropriate. Review of Systems: General: No recent weight changes, no fever, no sleep disturbances Respiratory: No cough, no shortness of air, no recurring pulmonary infections Cardiovascular/peripheral vascular: No chest pain, no palpitations, no edema, no shortness of breath Gastrointestinal: No new onset incontinence, normal bowel movements reported Genitourinary: No new onset incontinence Musculoskeletal: Low back pain Psychiatric: [Normal mood/affect] Neurological: [Denies weakness in extremities], [denies balance issues] Pain at rest (0-10 scale): 2 Objective Objective:: Physical Exam: General: Alert and oriented x3, no acute distress, pleasant and cooperative Lungs: Respirations even and unlabored, symmetrical chest expansion Eyes: PERRL Musculoskeletal: Flexion and extension of lumbar [spine] somewhat guarded secondary to pain, [antalgic gait noted] Neurological: Speech clear, no gross sensory deficit Has patient had previous pain injection?: No Conservative treatment options previously tried: Prescription medications Length of treatment: Longer than 12 weeks Meds Home Medications and Allergies Home Medications ?Medication ?Instructions ?Recorded ?Confirmed ?Type fluticasone propionate 50 2 spray intranasal DAILY 03/06/22 01/21/24 History mcg/actuation nasal spray,suspension ergocalciferol (vitamin D2) 1,250 1,250 mcg PO WEEKLY 05/31/22 01/21/24 History mcg (50,000 unit) capsule ondansetron HCl 4 mg tablet 4 mg PO TID PRN nausea and 06/14/22 01/21/24 Rx vomiting #14 tabs venlafaxine 75 mg capsule,extended 75 mg PO DAILY 11/01/22 01/21/24 History release 24 hr blood sugar diagnostic (OneTouch #100 strips 05/30/23 01/21/24 Rx Verio test strips) lancets 33 gauge (OneTouch Delica #100 ea 09/01/23 01/21/24 Rx Plus Lancet) acetaminophen 300 mg-codeine 30 mg 1 tab PO TID PRN pain #90 tabs 10/18/23 1 03/23/23 Rx tablet pen needle, diabetic 31 gauge x #100 ea 11/01/23 01/21/24 Rx 3/16 (BD Ultra-Fine Mini Pen Needle) Alcohol Prep Pad Sterile 100ct Dyn 1 pad topical BID 11/08/23 01/21/24 History aspirin 81 mg tablet,delayed 81 mg PO DAILY 11/08/23 01/21/24 History release atorvastatin 10 mg tablet 10 mg PO DAILY 11/08/23 01/21/24 History cholecalciferol (vitamin D3) 25 25 mcg PO DAILY 11/08/23 01/21/24 History mcg (1,000 unit) capsule clindamycin phosphate 1 % topical 1 applic topical BID 11/08/23 01/21/24 History gel cyanocobalamin (vitamin B-12) 5,000 mcg PO DAILY 11/08/23 01/21/24 History 5,000 mcg sublingual tablet (Vitamin B-12) dulaglutide 0.75 mg/0.5 mL 0.75 mg SQ WEEKLY 11/08/23 01/21/24 History subcutaneous pen injector (Trulicity) furosemide 20 mg tablet 20 mg PO DAILY PRN Edema 11/08/23 01/21/24 History glipizide 10 mg tablet, extended 10 mg PO BID 11/08/23 01/21/24 History release 24 hr ketorolac 10 mg tablet 10 mg PO Q8H PRN pain #30 tabs 11/08/23 01/21/24 Rx lisinopril 10 mg tablet 10 mg PO DAILY 11/08/23 01/21/24 History loratadine 10 mg tablet 10 mg PO DAILY 11/08/23 01/21/24 History meclizine 25 mg tablet 25 mg PO TID PRN Dizziness 11/08/23 01/21/24 History meloxicam 7.5 mg tablet 7.5 mg PO BID PRN pain #20 tabs 11/08/23 01/21/24 Rx metformin 1,000 mg tablet 1,000 mg PO BID 11/08/23 01/21/24 History nicotine 14 mg/24 hr daily 1 patch topical DAILY 11/08/23 01/21/24 History transdermal patch omeprazole 40 mg capsule,delayed 40 mg PO DAILY 11/08/23 01/21/24 History release quetiapine 50 mg tablet,extended 50 mg PO HS 11/08/23 01/21/24 History release 24 hr sitagliptin phosphate 100 mg 100 mg PO DAILY 11/08/23 01/21/24 History tablet (Januvia) cyclobenzaprine 10 mg tablet 10 mg PO TID #90 tabs 11/22/23 01/21/24 Rx gabapentin 300 mg capsule 300 mg PO QID #120 caps 11/22/23 01/21/24 Rx hydrocodone 5 mg-acetaminophen 325 1 tab PO TID #90 tabs 01/21/24 Rx mg tablet New Prescriptions to Start Prescriptions: Allergies Allergy/AdvReac Type Severity Reaction Status Date / Time Penicillins Allergy Intermediate Rash Verified 04/26/23 15:01 amoxicillin (AMOXICILLIN) Allergy Mild Verified 04/26/23 15:01 cefaclor (From [facility]) Allergy Mild Verified 04/26/23 15:01 Assessment and Plan *Assessment and plan (1) Degenerative disc disease, lumbar: Status: Acute Category: Medical Code(s): M51.369 - Other intervertebral disc degeneration, lumbar region without mention of lumbar back pain or lower extremity pain (2) Chronic pain of right thumb: Status: Chronic Category: Medical Code(s): M79.644 - Pain in right finger(s); G89.29 - Other chronic pain Plan I did check in with our office staff and it appears that her insurance is not accepted by multiple dermatology offices. We will continue to monitor this. I will refill her [place], gabapentin and Flexeril medications. Patient will return to clinic in 1 month for reevaluation of symptoms and plan of care. I did discuss with patient to have her pharmacy send this documentation for the PA on the hydrocodone. Patient agrees with this plan of care. Risks and benefits of the medication have been explained in detail to the patient. The patient does understand the risk of dependence on the medication when given over a prolonged period. Patient has been advised of risks of oversedation with the prescribed medication. Narcan has been offered to the paitent in the event of oversedation. Patient has been advised that a family member should also be e ducated regarding administration of Narcan. The patient has been advised to consult with his/her primary care provider and pharmacist regarding drug-drug interaction of medications currently prescribed. Patient has been prescribed a controlled substance after being counseled on the medication, medication safety, and possible side effects. Opioid contract was reviewed and signed by the patient, and that they have agreed to all of the terms set forth by our compliance program. A UDS is needed to verify patient's compliance with our office pain contract. This is ordered based off specific treatments related to chronic pain with the potential to abuse certain medications. Patient has been instructed to contact the clinic with any concerns before the next appointment. Dr. Colindres has reviewed this note and agrees with this plan of care. This note was dictated using voice recognition software and make contain errors or omissions.
[2024-02-21 11:30] VITALS: BP 105/72; PULSE 110; RESP 16; O2SAT 98; BMI 39.8
== END 2024-02-21 23:59 | disposition home or self-care (01) ==
PROVIDERS: PCP Nurse Practitioner Family; Visit Provider Nurse Practitioner Family
DX: M51.369 Other intervertebral disc degeneration, lumbar region without mention of lumbar back pain or lower extremity pain (principal); M79.644 Pain in right finger(s); G89.29 Other chronic pain; F17.210 Nicotine dependence, cigarettes, uncomplicated; Z79.899 Other long term (current) drug therapy
CPT/HCPCS: 99212; G0463

== ENCOUNTER 2024-03-20 10:37 | Outpatient (POV) | payer MEDICAID, SELFPAY ==
--- NOTE | 2024-03-20 10:55 | EXP.PAIN.SOA ---
[facility] Disclaimer: The information contained in this section may have been updated after the patient was seen, as this information can be updated by other users. Medical History (Updated 11/26/23 @ 00:01 by Tresa Meraz) Radicular pain of right lower extremity Acute left ankle pain Lumbar radiculopathy Rheumatoid arthritis Vitamin B deficiency Depression GERD (gastroesophageal reflux disease) Hypothyroidism Vitamin D deficiency Hyperlipidemia Diabetes mellitus Surgical History History of carpal tunnel surgery History of Family History Other No significant family history Social History (Updated 11/08/23 @ 04:34 by Radhika Lamas RN) Smoking Status: Current every day smoker tobacco type: cigarettes packs per day: 1 alcohol intake: never substance use type: denies use current occupational status: other Travel in the last 8 weeks: None PM Subjective & Objective Subjective Subjective:: Patient is a pleasant 29-year-old female who presents today for medication refill and follow-up. Today she does rate her pain a 4 out of 10. She denies any new trauma or injury. She does state that the same issues continue including her chronic low back pain, right thumb and hand pain as well as still the skin issues on her lower legs. She states that they are no worse they are just very dry, itchy and tender. Patient has been trying to get into see a media planner for longer than a year with referrals from our office and her primary care. Patient is currently managed with gabapentin 300 mg 4 times a day, Flexeril 10 mg 3 times a day and [place] 5 mg 3 times a day from our office. She denies any side effects. Her Loki has been reviewed and is appropriate. Review of Systems: General: No recent weight changes, no fever, no sleep disturbances Respiratory: No cough, no shortness of air, no recurring pulmonary infections Cardiovascular/peripheral vascular: No chest pain, no palpitations, no edema, no shortness of breath Gastrointestinal: No new onset incontinence, normal bowel movements reported Genitourinary: No new onset incontinence Musculoskeletal: Low back pain, right hand pain, bilateral leg pain Psychiatric: [Normal mood/affect] Neurological: [Denies weakness in extremities], [denies balance issues] Pain at rest (0-10 scale): 4 Objective Objective:: Physical Exam: General: Alert and oriented x3, no acute distress, pleasant and cooperative Lungs: Respirations even and unlabored, symmetrical chest expansion Eyes: PERRL Musculoskeletal: Flexion and extension of lumbar [spine] somewhat guarded secondary to pain, [antalgic gait noted] Neurological: Speech clear, no gross sensory deficit Has patient had previous pain injection?: No Conservative treatment options previously tried: Home exercise plan Length of treatment: Longer than 12 weeks Meds Home Medications and Allergies Home Medications ?Medication ?Instructions ?Recorded ?Confirmed ?Type fluticasone propionate 50 2 spray intranasal DAILY 03/06/22 02/21/24 History mcg/actuation nasal spray,suspension ergocalciferol (vitamin D2) 1,250 1,250 mcg PO WEEKLY 05/31/22 02/21/24 History mcg (50,000 unit) capsule ondansetron HCl 4 mg tablet 4 mg PO TID PRN nausea and 06/14/22 02/21/24 Rx vomiting #14 tabs venlafaxine 75 mg capsule,extended 75 mg PO DAILY 11/01/22 02/21/24 History release 24 hr blood sugar diagnostic (OneTouch #100 strips 05/30/23 02/21/24 Rx Verio test strips) lancets 33 gauge (OneTouch Delica #100 ea 09/01/23 02/21/24 Rx Plus Lancet) acetaminophen 300 mg-codeine 30 mg 1 tab PO TID PRN pain #90 tabs 10/18/23 02/21/24 Rx tablet pen needle, diabetic 31 gauge x #100 ea 11/01/23 02/21/24 Rx 3/16 (BD Ultra-Fine Mini Pen Needle) Alcohol Prep Pad Sterile 100ct Dyn 1 pad topical BID 11/08/23 02/21/24 History aspirin 81 mg tablet,delayed 81 mg PO DAILY 11/08/23 02/21/24 History release atorvastatin 10 mg tablet 10 mg PO DAILY 11/08/23 02/21/24 History cholecalciferol (vitamin D3) 25 25 mcg PO DAILY 11/08/23 02/21/24 History mcg (1,000 unit) capsule clindamycin phosphate 1 % topical 1 applic topical BID 11/08/23 02/21/24 History gel cyanocobalamin (vitamin B-12) 5,000 mcg PO DAILY 10/03/24 01/16/25 History 5,000 mcg sublingual tablet (Vitamin B-12) dulaglutide 0.75 mg/0.5 mL 0.75 mg SQ WEEKLY 11/08/23 02/21/24 History subcutaneous pen injector (Trulicity) furosemide 20 mg tablet 20 mg PO DAILY PRN Edema 11/08/23 02/21/24 History glipizide 10 mg tablet, extended 10 mg PO BID 11/08/23 02/21/24 History release 24 hr ketorolac 10 mg tablet 10 mg PO Q8H PRN pain #30 tabs 11/08/23 02/21/24 Rx lisinopril 10 mg tablet 10 mg PO DAILY 11/08/23 02/21/24 History loratadine 10 mg tablet 10 mg PO DAILY 11/08/23 02/21/24 History meclizine 25 mg tablet 25 mg PO TID PRN Dizziness 11/08/23 02/21/24 History meloxicam 7.5 mg tablet 7.5 mg PO BID PRN pain #20 tabs 11/08/23 02/21/24 Rx metformin 1,000 mg tablet 1,000 mg PO BID 11/08/23 02/21/24 History nicotine 14 mg/24 hr daily 1 patch topical DAILY 11/08/23 02/21/24 History transdermal patch omeprazole 40 mg capsule,delayed 40 mg PO DAILY 11/08/23 02/21/24 History release quetiapine 50 mg tablet,extended 50 mg PO HS 11/08/23 02/21/24 History release 24 hr sitagliptin phosphate 100 mg 100 mg PO DAILY 11/08/23 02/21/24 History tablet (Januvia) cyclobenzaprine 10 mg tablet 10 mg PO TID #90 tabs 02/21/24 Rx gabapentin 300 mg capsule 300 mg PO QID #120 caps 02/21/24 Rx hydrocodone 5 mg-acetaminophen 325 1 tab PO TID #90 tabs 02/21/24 Rx mg tablet New Prescriptions to Start Prescriptions: Allergies Allergy/AdvReac Type Severity Reaction Status Date / Time Penicillins Allergy Intermediate Rash Verified 04/26/23 15:01 amoxicillin (AMOXICILLIN) Allergy Mild Verified 04/26/23 15:01 cefaclor (From [facility]) Allergy Mild Verified 04/26/23 15:01 Assessment and Plan *Assessment and plan (1) Degenerative disc disease, lumbar: Status: Acute Category: Medical Code(s): M51.369 - Other intervertebral disc degeneration, lumbar region without mention of lumbar back pain or lower extremity pain (2) Chronic pain of right thumb: Status: Chronic Category: Medical Code(s): M79.644 - Pain in right finger(s); G89.29 - Other chronic pain Plan I did discuss with the patient that apparently a lot of her issues with the referrals to dermatology is that they do not accept her [employer] insurance. We are still trying to see about getting her in for other offices. We will continue to proceed forward with this option. I will refill her medications of the [place] gabapentin and Flexeril. Patient will return to clinic in 1 month. Risks and benefits of the medication have been explained in detail to the patient. The patient does understand the risk of dependence on the medication when given over a prolonged period. Patient has been advised of risks of oversedation with the prescribed medication. Narcan has been offered to the paitent in the event of oversedation. Patient has been advised that a family member should also be educated regarding administration of Narcan. The patient has been advised to consult with his/her primary care provider and pharmacist regarding drug-drug interaction of medications currently prescribed. Patient has been prescribed a controlled substance after being counseled on the medication, medication safety, and possible side effects. Opioid contract was reviewed and signed by the patient, and that they have agreed to all of the terms set forth by our compliance program. A UDS is needed to verify patient's compliance with our office pain contract. This is ordered based off specific treatments related to chronic pain with the potential to abuse certain medications. Patient has been instructed to contact the clinic with any concerns before the next appointment. Dr. Colindres has reviewed this note and agrees with this plan of care. This note was dictated using voice recognition software and make contain errors or omissions.
[2024-03-20 11:27] VITALS: BP 130/83; PULSE 101; RESP 14; O2SAT 99; BMI 41.1
== END 2024-03-20 23:59 | disposition home or self-care (01) ==
PROVIDERS: PCP Nurse Practitioner Family; Visit Provider Nurse Practitioner Family
DX: M51.369 Other intervertebral disc degeneration, lumbar region without mention of lumbar back pain or lower extremity pain (principal); M79.644 Pain in right finger(s); G89.29 Other chronic pain; F17.210 Nicotine dependence, cigarettes, uncomplicated; Z79.899 Other long term (current) drug therapy
CPT/HCPCS: 99212; G0463

== ENCOUNTER 2024-04-17 13:26 | Outpatient (POV) | payer MEDICAID, SELFPAY ==
[2024-04-17 13:46] VITALS: BP 115/69; PULSE 98; RESP 18; O2SAT 97; BMI 39.8
--- NOTE | 2024-04-17 14:04 | A.OFFVIS_ITS ---
[facility] Disclaimer: The information contained in this section may have been updated after the patient was seen, as this information can be updated by other users. Medical History Radicular pain of right lower extremity Acute left ankle pain Lumbar radiculopathy Rheumatoid arthritis Vitamin B deficiency Depression GERD (gastroesophageal reflux disease) Hypothyroidism Vitamin D deficiency Hyperlipidemia Diabetes mellitus Surgical History History of carpal tunnel surgery History of Family History Other No significant family history Social History (Updated 11/08/23 @ 04:34 by Radhika Lamas RN) Smoking Status: Current every day smoker tobacco type: cigarettes packs per day: 1 alcohol intake: never substance use type: denies use current occupational status: other Travel in the last 8 weeks: None PM Subjective & Objective Subjective Subjective:: Patient is a pleasant 29-year-old female who presents today for monthly medication refill. She rates her pain today at 3 out of 10. She denies any new trauma or injury. Patient is currently managed with gabapentin 300 mg 4 times a day, Flexeril 10 mg 3 times a day and [place] 5 mg 3 times a day. She denies any side effects from this medication. Patient does still have the skin lesions most prominent along her left lower leg and foot. Patient has been trying to get into see dermatology for longer than a year however we have not had any success due to her insurance. Patient was also even having her PCP send in referrals with no luck as well. Her Loki has been reviewed and is appropriate. Review of Systems: General: No recent weight changes, no fever, no sleep disturbances Respiratory: No cough, no shortness of air, no recurring pulmonary infections Cardiovascular/peripheral vascular: No chest pain, no palpitations, no edema, no shortness of breath Gastrointestinal: No new onset incontinence, normal bowel movements reported Genitourinary: No new onset incontinence Musculoskeletal: Low back pain, lower leg lesions Psychiatric: [Normal mood/affect] Neurological: [Denies weakness in extremities], [denies balance issues] Pain at rest (0-10 scale): 3 Objective Objective:: Physical Exam: General: Alert and oriented x3, no acute distress, pleasant and cooperative Lungs: Respirations even and unlabored, symmetrical chest expansion Eyes: PERRL Musculoskeletal: Flexion and extension of lumbar [spine] somewhat guarded secondary to pain, [antalgic gait noted] Neurological: Speech clear, no gross sensory deficit Has patient had previous pain injection?: No Conservative treatment options previously tried: Home exercise plan Length of treatment: Longer than 12 weeks Meds Home Medications and Allergies Home Medications ?Medication ?Instructions ?Recorded ?Confirmed ?Type fluticasone propionate 50 2 spray intranasal DAILY 03/06/22 04/17/24 History mcg/actuation nasal spray,suspension ergocalciferol (vitamin D2) 1,250 1,250 mcg PO WEEKLY 05/31/22 04/17/24 History mcg (50,000 unit) capsule ondansetron HCl 4 mg tablet 4 mg PO TID PRN nausea and 06/14/22 04/17/24 Rx vomiting #14 tabs venlafaxine 75 mg capsule,extended 75 mg PO DAILY 11/01/22 04/17/24 History release 24 hr blood sugar diagnostic (OneTouch #100 strips 05/30/23 04/17/24 Rx Verio test strips) lancets 33 gauge (OneTouch Delica #100 ea 09/01/23 04/17/24 Rx Plus Lancet) acetaminophen 300 mg-codeine 30 mg 1 tab PO TID PRN pain #90 tabs 10/18/23 04/17/24 Rx tablet pen needle, diabetic 31 gauge x #100 ea 11/01/23 04/17/24 Rx 3/16 (BD Ultra-Fine Mini Pen Needle) aspirin 81 mg tablet,delayed 81 mg PO DAILY 11/08/23 04/17/24 History release atorvastatin 10 mg tablet 10 mg PO DAILY 11/08/23 04/17/24 History cholecalciferol (vitamin D3) 25 25 mcg PO DAILY 11/08/23 04/17/24 History mcg (1,000 unit) capsule clindamycin phosphate 1 % topical 1 applic topical BID 11/08/23 04/17/24 History gel cyanocobalamin (vitamin B-12) 5,000 mcg PO DAILY 11/08/23 04/17/24 History 5,000 mcg sublingual tablet (Vitamin B-12) dulaglutide 0.75 mg/0.5 mL 0.75 mg SQ WEEKLY 11/08/23 04/17/24 History subcutaneous pen injector (Trulicity) furosemide 20 mg tablet 20 mg PO DAILY PRN Edema 11/08/23 04/17/24 History glipizide 10 mg tablet, extended 10 mg PO BID 11/08/23 04/17/24 History release 24 hr ketorolac 10 mg tablet 10 mg PO Q8H PRN pain #30 tabs 11/08/23 04/17/24 Rx lisinopril 10 mg tablet 10 mg PO DAILY 11/08/23 04/17/24 History loratadine 10 mg tablet 10 mg PO DAILY 11/08/23 04/17/24 History meclizine 25 mg tablet 25 mg PO TID PRN Dizziness 11/08/23 04/17/24 History meloxicam 7.5 mg tablet 7.5 mg PO BID PRN pain #20 tabs 11/08/23 04/17/24 Rx metformin 1,000 mg tablet 1,000 mg PO BID 11/08/23 04/17/24 History nicotine 14 mg/24 hr daily 1 patch topical DAILY 11/08/23 04/17/24 History transdermal patch omeprazole 40 mg capsule,delayed 40 mg PO DAILY 11/08/23 04/17/24 History release quetiapine 50 mg tablet,extended 50 mg PO HS 11/08/23 04/17/24 History release 24 hr sitagliptin phosphate 100 mg 100 mg PO DAILY 11/08/23 04/17/24 History tablet (Januvia) cyclobenzaprine 10 mg tablet 10 mg PO TID #90 tabs 02/21/24 04/17/24 Rx gabapentin 300 mg capsule 300 mg PO QID #120 caps 02/21/24 04/17/24 Rx hydrocodone 5 mg-acetaminophen 325 1 tab PO TID #90 tabs 03/20/24 04/17/24 Rx mg tablet New Prescriptions to Start Prescriptions: Allergies Allergy/AdvReac Type Severity Reaction Status Date / Time Penicillins Allergy Intermediate Rash Verified 04/26/23 15:01 amoxicillin (AMOXICILLIN) Allergy Mild Verified 04/26/23 15:01 cefaclor (From [facility]) Allergy Mild Verified 04/26/23 15:01 Assessment and Plan *Assessment and plan (1) Degenerative disc disease, lumbar: Status: Acute Category: Medical Code(s): M51.369 - Other intervertebral disc degeneration, lumbar region without mention of lumbar back pain or lower extremity pain (2) Hyperlipidemia: Status: Chronic Qualifiers: Hyperlipidemia type: mixed hyperlipidemia Qualified Code(s): E78.2 - Mixed hyperlipidemia Category: Medical Code(s): E78.5 - Hyperlipidemia, unspecified (3) Diabetes mellitus: Status: Chronic Qualifiers: Diabetes mellitus complication status: with hyperglycemia 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 I did discuss at length with the patient regarding my research on possible diagnosis to explain her lower leg lesions. 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 I did discuss with her that it is something that would have to be diagnosed through biopsies. Patient does mention that even her primary care tried getting approval for such biopsies in the past and that it was denied by her insurance. I have gone over that we can try the topical tacrolimus cream and she would like to proceed forward with this plan of care. I have counseled her to watch for any signs of worsening pain or infection or rash and to try this medication on 1 area initially. Patient agrees with this plan of care. We will follow-up with her next month regarding progression and improvement of her lesions. Risks and benefits of the medication have been explained in detail to the patient. The patient does understand the risk of dependence on the medication when given over a prolonged period. Patient has been advised of risks of oversedation with the prescribed medication. Narcan has been offered to the paitent in the event of oversedation. Patient has been advised that a family member should also be educated regarding administration of Narcan. The patient has been advised to consult with his/her primary care provider and pharmacist regarding drug-drug interaction of medications currently prescribed. Patient has been prescribed a controlled substance after being counseled on the medication, medication safety, and possible side effects. Opioid contract was reviewed and signed by the patient, and that they have agreed to all of the terms set forth by our compliance program. A UDS is needed to verify patient's compliance with our office pain contract. This is ordered based off specific treatments related to chronic pain with the potential to abuse certain medications. Patient has been instructed to contact the clinic with any concerns before the next appointment. Dr. Colindres has reviewed this note and agrees with this plan of care. This note was dictated using voice recognition software and make contain errors or omissions.
== END 2024-04-17 23:59 | disposition home or self-care (01) ==
PROVIDERS: PCP Nurse Practitioner Family; Visit Provider Nurse Practitioner Family
DX: M51.369 Other intervertebral disc degeneration, lumbar region without mention of lumbar back pain or lower extremity pain (principal); E11.65 Type 2 diabetes mellitus with hyperglycemia; E78.2 Mixed hyperlipidemia; M79.18 Myalgia, other site; M79.644 Pain in right finger(s); G89.29 Other chronic pain; F17.210 Nicotine dependence, cigarettes, uncomplicated; Z79.899 Other long term (current) drug therapy
CPT/HCPCS: 99212; G0463

== ENCOUNTER 2024-05-27 13:12 | Outpatient (POV) | payer MEDICAID, SELFPAY ==
--- NOTE | 2024-05-27 13:17 | A.OFFVIS_ITS ---
[facility] Disclaimer: The information contained in this section may have been updated after the patient was seen, as this information can be updated by other users. Medical History Radicular pain of right lower extremity Acute left ankle pain Lumbar radiculopathy Rheumatoid arthritis Vitamin B deficiency Depression GERD (gastroesophageal reflux disease) Hypothyroidism Vitamin D deficiency Hyperlipidemia Diabetes mellitus Surgical History History of carpal tunnel surgery History of Family History Other No significant family history Social History (Updated 11/08/23 @ 04:34 by Radhika Lamas RN) Smoking Status: Current every day smoker tobacco type: cigarettes packs per day: 1 alcohol intake: never substance use type: denies use current occupational status: other Travel in the last 8 weeks: None PM Subjective & Objective Subjective Subjective:: Patient is a pleasant 29-year-old female who presents today for medication refill and 1 month follow-up. Today she rates her pain a 4 out of 10. She does state that she had things come up and had to reschedule her appointments and so she has not had her pain medication since around the th of this month. Patient is having a urine drug screen during today's visit. She also states that she has been on some medication for UTI. Patient is currently managed with gabapentin 300 mg 4 times a day, Flexeril 10 mg 3 times a day, [place] 5 mg 3 times a day and was recently given a new prescription of tacrolimus topical. Today she denies any side effects. She does state that the cream has been helping and that the discoloration has improved since starting this topical. Her Loki has been reviewed and is appropriate. Review of Systems: General: No recent weight changes, no fever, no sleep disturbances Respiratory: No cough, no shortness of air, no recurring pulmonary infections Cardiovascular/peripheral vascular: No chest pain, no palpitations, no edema, no shortness of breath Gastrointestinal: No new onset incontinence, normal bowel movements reported Genitourinary: No new onset incontinence Musculoskeletal: Low back pain, right thumb pain Psychiatric: [Normal mood/affect] Neurological: [Denies weakness in extremities], [denies balance issues] Pain at rest (0-10 scale): 4 Objective Objective:: Physical Exam: General: Alert and oriented x3, no acute distress, pleasant and cooperative Lungs: Respirations even and unlabored, symmetrical chest expansion Eyes: PERRL Musculoskeletal: Flexion and extension of lumbar [spine] somewhat guarded secondary to pain, [antalgic gait noted] Neurological: Speech clear, no gross sensory deficit Has patient had previous pain injection?: No Conservative treatment options previously tried: Prescription medications Length of treatment: Longer than 12 weeks Meds Home Medications and Allergies Home Medications ?Medication ?Instructions ?Recorded ?Confirmed ?Type fluticasone propionate 50 2 spray intranasal DAILY 03/06/22 04/17/24 History mcg/actuation nasal spray,suspension ergocalciferol (vitamin D2) 1,250 1,250 mcg PO WEEKLY 05/31/22 04/17/24 History mcg (50,000 unit) capsule ondansetron HCl 4 mg tablet 4 mg PO TID PRN nausea and 06/14/22 04/17/24 Rx vomiting #14 tabs venlafaxine 75 mg capsule,extended 75 mg PO DAILY 11/01/22 04/17/24 History release 24 hr blood sugar diagnostic (OneTouch #100 strips 05/30/23 04/17/24 Rx Verio test strips) lancets 33 gauge (OneTouch [facility] #[facility] ea 09/01/23 04/17/24 Rx Plus Lancet) acetaminophen 300 mg-codeine 30 mg 1 tab PO TID PRN pain #90 tabs 10/18/23 04/17/24 Rx tablet pen needle, diabetic 31 gauge x #100 ea 11/01/23 04/17/24 Rx 3/16 (BD Ultra-Fine Mini Pen Needle) aspirin 81 mg tablet,delayed 81 mg PO DAILY 11/08/23 04/17/24 History release atorvastatin 10 mg tablet 10 mg PO DAILY 11/08/23 04/17/24 History cholecalciferol (vitamin D3) 25 25 mcg PO DAILY 11/08/23 04/17/24 History mcg (1,000 unit) capsule clindamycin phosphate 1 % topical 1 applic topical BID 11/08/23 04/17/24 History gel cyanocobalamin (vitamin B-12) 5,000 mcg PO DAILY 11/08/23 04/17/24 History 5,000 mcg sublingual tablet (Vitamin B-12) dulaglutide 0.75 mg/0.5 mL 0.75 mg SQ WEEKLY 11/08/23 04/17/24 History subcutaneous pen injector (Trulicity) furosemide 20 mg tablet 20 mg PO DAILY PRN Edema 11/08/23 04/17/24 History glipizide 10 mg tablet, extended 10 mg PO BID 11/08/23 04/17/24 History release 24 hr ketorolac 10 mg tablet 10 mg PO Q8H PRN pain #30 tabs 11/08/23 04/17/24 Rx lisinopril 10 mg tablet 10 mg PO DAILY 11/08/23 04/17/24 History loratadine 10 mg tablet 10 mg PO DAILY 11/08/23 04/17/24 History meclizine 25 mg tablet 25 mg PO TID PRN Dizziness 11/08/23 04/17/24 History meloxicam 7.5 mg tablet 7.5 mg PO BID PRN pain #20 tabs 11/08/23 04/17/24 Rx metformin 1,000 mg tablet 1,000 mg PO BID 11/08/23 04/17/24 History nicotine 14 mg/24 hr daily 1 patch topical DAILY 11/08/23 04/17/24 History transdermal patch omeprazole 40 mg capsule,delayed 40 mg PO DAILY 11/08/23 04/17/24 History release quetiapine 50 mg tablet,extended 50 mg PO HS 11/08/23 04/17/24 History release 24 hr sitagliptin phosphate 100 mg 100 mg PO DAILY 11/08/23 04/17/24 History tablet (Januvia) cyclobenzaprine 10 mg tablet 10 mg PO TID #90 tabs 02/21/24 04/17/24 Rx gabapentin 300 mg capsule 300 mg PO QID #120 caps 02/21/24 04/17/24 Rx hydrocodone 5 mg-acetaminophen 325 1 tab PO TID #90 tabs 04/17/24 Rx mg tablet tacrolimus 0.1 % topical ointment 1 applic topical BID #30 grams 04/17/24 Rx New Prescriptions to Start Prescriptions: Allergies Allergy/AdvReac Type Severity Reaction Status Date / Time Penicillins Allergy Intermediate Rash Verified 04/26/23 15:01 amoxicillin (AMOXICILLIN) Allergy Mild Verified 04/26/23 15:01 cefaclor (From CECLOR) Allergy Mild Verified 04/26/23 15:01 Assessment and Plan *Assessment and plan (1) Degenerative disc disease, lumbar: Status: Acute Category: Medical Code(s): M51.369 - Other intervertebral disc degeneration, lumbar region without mention of lumbar back pain or lower extremity pain (2) Diabetes type 2, uncontrolled: Status: Acute Category: Medical (3) Chronic pain of right thumb: Status: Chronic Category: Medical Code(s): M79.644 - Pain in right finger(s); G89.29 - Other chronic pain Plan I will refill the patient's gabapentin, [place], Flexeril and tacrolimus topical. I will make sure to give refills for 3-month supply of the gabapentin, Flexeril and topical. Patient will be given a month refill of the [place]. Patient will return to clinic in 1 month for reevaluation of symptoms and plan of care. Risks and benefits of the medication have been explained in detail to the p atient. The patient does understand the risk of dependence on the medication when given over a prolonged period. Patient has been advised of risks of oversedation with the prescribed medication. Narcan has been offered to the paitent in the event of oversedation. Patient has been advised that a family member should also be educated regarding administration of Narcan. The patient has been advised to consult with his/her primary care provider and pharmacist regarding drug-drug interaction of medications currently prescribed. Patient has been prescribed a controlled substance after being counseled on the medication, medication safety, and possible side effects. Opioid contract was reviewed and signed by the patient, and that they have agreed to all of the terms set forth by our compliance program. A UDS is needed to verify patient's compliance with our office pain contract. This is ordered based off specific treatments related to chronic pain with the potential to abuse certain medications. Patient has been instructed to contact the clinic with any concerns before the next appointment. Dr. Colindres has reviewed this note and agrees with this plan of care. This note was dictated using voice recognition software and make contain errors or omissions.
[2024-05-27 13:45] VITALS: BP 138/88; PULSE 109; RESP 16; O2SAT 97; BMI 41.1
== END 2024-05-27 23:59 | disposition home or self-care (01) ==
PROVIDERS: PCP Nurse Practitioner Family; Visit Provider Nurse Practitioner Family
DX: M51.369 Other intervertebral disc degeneration, lumbar region without mention of lumbar back pain or lower extremity pain (principal); M79.644 Pain in right finger(s); G89.29 Other chronic pain; E11.9 Type 2 diabetes mellitus without complications; F17.210 Nicotine dependence, cigarettes, uncomplicated; Z79.899 Other long term (current) drug therapy
CPT/HCPCS: 99212; G0463

== ENCOUNTER 2024-06-05 03:02 | Observation (INO) | payer MEDICAID, SELFPAY ==
[2024-06-05] VITALS (11 sets, daily range): BP systolic 112–151; BP diastolic 54–103; PULSE 87–109; RESP 18–20; TEMP 36.4–37.2; O2SAT 97–99; BMI 41.6
[2024-06-05 03:18] LABS: Microscopic, Urine URINE MICROSCOPIC (MICROSCOPIC)
[2024-06-05 03:20] LABS: Appearance,Urine CLEAR (Clear); Bilirubin,Urine Negative (Negative); Blood, Urine 3+ (Negative); Color,Urine YELLOW (Yellow); Glucose,Urine (UA) 3+ (Negative); Ketones,Urine 1+ (Negative); Leukocyte Esterase,Urine Negative (Negative); Nitrate,Urine Negative (Negative); Protein,Urine Negative (Negative); Urobilinogen,Urine 0.2 EU/dl (0.2)
--- NOTE | 2024-06-05 03:28 | ED_ITS ---
Discharge Plan Disposition Patient Disposition: Admitted Condition: Fair Clinical Impressions Clinical Impression: Vaginal bleeding affecting early , Asymptomatic bacteriuria in Discharge ED Provider: Gil Moreland Adult HPI General Chief complaint: Vaginal Bleeding Stated complaint: possible miscarriage, 6 wks Time Seen by Provider: 06/05/24 03:06 Mode of Arrival: Ambulatory Source of Information: Patient Description of Symptoms (Recalled from ER Triage Doc. by RN): PT C/O SUDDEN ONSET OF VAGINAL BLEEDING STARTING THIS AM. APPROX 6 WEEKS, History of Present Illness HPI narrative: 29-year-old female G2, P1 who reports she is 6 weeks presents to the ER with vaginal bleeding. LMP 04/29/24. Patient reports she is a diabetic on insulin. She reports she has been having small intermittent spotting but this morning around 1 AM approximately 2 hours prior to arrival she felt a big gush and has had more steady bleeding since that time. She is not passing clots. She reports she is soaking through approximately 1 pad per hour. She states she is having pelvic cramping similar to strong period Cramps. No nausea or vomiting, no recent fevers, chills, chest pain, difficulty breathing. She does state she is having some painful urination and thought she was may be having a UTI but that the bleeding has far exceeded normal UTI bleeding. No other associated symptoms. Related Data Home Medications ?Medication ?Instructions ?Recorded ?Confirmed fluticasone propionate 50 2 spray intranasal DAILY 03/06/22 05/27/24 mcg/actuation nasal spray,suspension ergocalciferol (vitamin D2) 1,250 1,250 mcg PO WEEKLY 05/31/22 05/27/24 mcg (50,000 unit) capsule venlafaxine 75 mg capsule,extended 75 mg PO DAILY 11/01/22 05/27/24 release 24 hr aspirin 81 mg tablet,delayed 81 mg PO DAILY 11/08/23 05/27/24 release atorvastatin 10 mg tablet 10 mg PO DAILY 11/08/23 05/27/24 cholecalciferol (vitamin D3) 25 25 mcg PO DAILY 11/08/23 05/27/24 mcg (1,000 unit) capsule clindamycin phosphate 1 % topical 1 applic topical BID 11/08/23 05/27/24 gel cyanocobalamin (vitamin B-12) 5,000 mcg PO DAILY 11/08/23 05/27/24 5,000 mcg sublingual tablet (Vitamin B-12) dulaglutide 0.75 mg/0.5 mL 0.75 mg SQ WEEKLY 11/08/23 05/27/24 subcutaneous pen injector (Trulicity) furosemide 20 mg tablet 20 mg PO DAILY PRN Edema 11/08/23 05/27/24 glipizide 10 mg tablet, extended 10 mg PO BID 11/08/23 05/27/24 release 24 hr lisinopril 10 mg tablet 10 mg PO DAILY 11/08/23 05/27/24 loratadine 10 mg tablet 10 mg PO DAILY 11/08/23 05/27/24 meclizine 25 mg tablet 25 mg PO TID PRN Dizziness 11/08/23 05/27/24 metformin 1,000 mg tablet 1,000 mg PO BID 11/08/23 05/27/24 nicotine 14 mg/24 hr daily 1 patch topical DAILY 11/08/23 05/27/24 transdermal patch omeprazole 40 mg capsule,delayed 40 mg PO DAILY 11/08/23 05/27/24 release quetiapine 50 mg tablet,extended 50 mg PO HS 11/08/23 05/27/24 release 24 hr sitagliptin phosphate 100 mg 100 mg PO DAILY 11/08/23 05/27/24 tablet (Januvia) Previous Rx's ?Medication ?Instructions ?Recorded ondansetron HCl 4 mg tablet 4 mg PO TID PRN nausea and 06/14/22 vomiting #14 tabs blood sugar diagnostic (OneTouch #100 strips 05/30/23 Verio test strips) lancets 33 gauge (OneTouch [employer] #100 ea 09/01/23 Plus Lancet) acetaminophen 300 mg-codeine 30 mg 1 tab PO TID PRN pain #90 tabs 10/18/23 tablet pen needle, diabetic 31 gauge x #100 ea 11/01/23/16 (BD Ultra-Fine Mini Pen Needle) ketorolac 10 mg tablet 10 mg PO Q8H PRN pain #30 tabs 11/08/23 meloxicam 7.5 mg tablet 7.5 mg PO BID PRN pain #20 tabs 11/08/23 cyclobenzaprine 10 mg tablet 10 mg PO TID #90 tabs 05/27/24 gabapentin 300 mg capsule 300 mg PO QID #120 caps 05/27/24 hydrocodone 5 mg-acetaminophen 325 1 tab PO TID #90 tabs 05/27/24 mg tablet tacrolimus 0.1 % topical ointment 1 applic topical BID #30 grams 05/27/24 Allergies Allergy/AdvReac Type Severity Reaction Status Date / Time Penicillins Allergy Intermediate Rash Verified 06/05/24 03:18 amoxicillin (AMOXICILLIN) Allergy Mild Unknown Verified 06/05/24 03:18 allergy reaction cefaclor (From CECLOR) Allergy Mild Unknown Verified 06/05/24 03:18 allergy reaction PFSH PFS Disclaimer: The information contained in this section may have been updated after the patient was seen, as this information can be updated by other users. Medical History (Updated 06/05/24 @ 05:45 by iGl Moreland MD) Radicular pain of right lower extremity Acute left ankle pain Lumbar radiculopathy Rheumatoid arthritis Vitamin B deficiency Depression GERD (gastroesophageal reflux disease) Hypothyroidism Vitamin D deficiency Hyperlipidemia Diabetes mellitus Surgical History History of carpal tunnel surgery History of Family History Other No significant family history Social History Smoking Status: Unknown if ever smoked alcohol intake: never substance use type: denies use current occupational status: other Travel in the last 8 weeks?: None Have you lived/traveled outside [place] in past 30 days?: No Contact w/someone who lives/traveled outside US past 30 days?: No Exposure to someone with infectious disease in past 14 days?: No Do you have a fever (greater than 100.4 F or 38 C)?: No Have you tested positive for COVID-19?: No Exposed to someone with COVID-19 in past 14 days?: No Do you have a sore throat?: No Do you have a cough?: No Do you have any weakness?: No Do you have any diarrhea?: No Are you experiencing any unusual bleeding?: No Do you have any muscle aches/pain?: No Do you have any abdominal pain?: No Are you experiencing loss of taste or smell?: No Other Medical History Have you received the Flu Vaccine for this season: No Have you received the Pneumonia Vaccine: No ROS Obtained: Yes Systems reviewed as appropriate & no additional complaints except as documented per HPI Physical Exam General General appearance: alert and in no apparent distress Head Head exam: atraumatic and normocephalic Eye Eye exam: Present PERRL and EOMI ENT ENT exam: Present mucous membranes moist Neck Neck exam: Present normal inspection and full ROM Chest Chest inspection: Present symmetric chest wall rise Respiratory Respiratory exam: Present normal lung sounds bilaterally; Absent respiratory distress, wheezes or stridor Cardiovascular Cardiovascular exam: Present regular rate and normal rhythm Abdominal Exam Abdominal exam: Present soft and tenderness (Mild lower abdominal/suprapubic discomfort to palpation without rebound or guarding); Absent distention, guarding or rebound Extremities Exam Extremities exam: Present full ROM Neurological Exam Neurological exam: Present alert and oriented X3; Absent motor sensory deficit Psychiatric Psychiatric exam: Present normal affect and normal mood Skin Skin exam: Present warm and dry Medical Decision Making Medical Records Medical records reviewed: Yes I reviewed the patient's medical records. Screening: Per USPSTF and CDC recommendations, given the prevalence of disease in our region, it is our hospital?s policy to screen for HIV and viral Hepatitis for all patients aged 18 and over and those with ongoing risk factors. MR Comment: Patient was admitted in November 2019 for with right leg pain, she also had a known ventral abdominal wall hernia. Loki Inquiry Pt receiving controlled substance: No Vital Signs: 06/05/24 03:13 06/05/24 03:18 06/05/24 03:33 Temperature 98.9 F Temperature Source Temporal Artery Scan Pulse Rate 103 H 102 H Pulse Rate [Apical] 102 H Respiratory Rate 20 Blood Pressure 148/91 H 130/76 Blood Pressure [Right Arm] 151/87 H Blood Pressure Mean [Right Arm] 108 02 Sat by Pulse Oximetry 99 97 98 Oxygen Delivery Method Room Air Room Air Room Air 06/05/24 04:05 06/05/24 04:16 06/05/24 04:31 Temperature Temperature Source Pulse Rate 105 H 109 H 98 H Pulse Rate [Apical] Respiratory Rate Blood Pressure 136/73 121/66 126/75 Blood Pressure [Right Arm] Blood Pressure Mean [Right Arm] 02 Sat by Pulse Oximetry 99 99 98 Oxygen Delivery Method Room Air Room Air Room Air 06/05/24 05:16 06/05/24 05:30 Temperature Temperature Source Pulse Rate 98 H 103 H Pulse Rate [Apical] Respiratory Rate Blood Pressure 128/54 L 150/103 H Blood Pressure [Right Arm] Blood Pressure Mean [Right Arm] 02 Sat by Pulse Oximetry 99 98 Oxygen Delivery Method Room Air Room Air Lab Data Lab Results 06/05/24 03:11: Urine Color Yellow, Urine Appearance Clear, Urine pH 6.0, Ur Specific [place] 1.020, Urine Protein Negative, Urine Glucose (UA) 3+, Urine Ketones 1+, Urine Blood 3+ A, Urine Nitrate Negative, Urine Bilirubin Negative, Urine Urobilinogen 0.2, Ur Leukocyte Esterase Negative, Urine RBC 50-100, Urine WBC 3-5, Ur Squamous Epith Cells 3-5, Urine Bacteria 1+ 06/05/24 03:16: WBC 8.1, RBC 4.37, Hgb 12.7, Hct 38.5, MCV 88.1, MCH 29.1, MCHC 33.0, RDW 13.5, Plt Count 399, MPV 9.3, Neut % (Auto) 59.3, Lymph % (Auto) 33.4, [place] % (Auto) 6.0, Eos % (Auto) 0.2, Baso % (Auto) 0.7, Neut # (Auto) 4.8, Lymph # (Auto) 2.7, [place] # (Auto) 0.5, Eos # (Auto) 0.0, Baso # (Auto) 0.1, PT 9.7 L, INR 0.85 L, Sodium 133 L, Potassium 4.2, Chloride 102, Carbon Dioxide 23, Anion Gap 12.2, BUN 9, Creatinine 0.40 L, Estimated Creat Clear 169, Estimated GFR 186, Est GFR ( Amer) 225, Glucose 343 H, Calcium 10.0, Total Bilirubin 0.2, AST 24, ALT 29, Alkaline Phosphatase 60, Total Protein 6.9, Albumin 4.1, Globulin 2.8, Albumin/Globulin Ratio 1.5, HCG, Quant 203 H, Blood Type A Negative 06/05/24 03:16 06/05/24 03:16 Orders (Tests/Meds): ED MEDICATIONS Generic Name Dose Route Start Last Admin Trade Name Freq PRN Reason Stop Dose Admin Ketorolac Tromethamine 30 mg 06/05/24 05:30 06/05/24 05:42 Ketorolac 30mg/Ml Vial IV 06/05/24 05:31 30 mg ONCE ONE Administration Nitrofurantoin Macrocrystals 100 mg 06/05/24 05:44 Nitrofurantoin 100mg Capsule PO 06/05/24 05:45 ONCE ONE Discontinued Medications Generic Name Dose Route Start Last Admin Trade Name Kori PRN Reason Stop Dose Admin Acetaminophen 1,000 mg 06/05/24 04:05 06/05/24 04:07 Acetaminophen 500mg Tab PO 06/05/24 04:06 1,000 mg ONCE ONE Administration ORDERS Category Date Time Status ABO/RH Type Stat BBK 06/05/24 03:16 Completed POCUS Point of Care (ER Only) Stat Exams 06/05/24 04:26 Completed Beta HCG, Quant [HCG,Quantitative] Stat Lab 06/05/24 03:16 Completed CBC w/Auto Diff [Complete Blood Count Auto Diff] Stat Lab 06/05/24 03:16 Completed CMP [Comprehensive Metabolic Panel] Stat Lab 06/05/24 03:16 Completed PT INR [Prothrombin Time INR] Stat Lab 06/05/24 03:16 Completed Urinalysis and Microscopic Stat Lab 06/05/24 03:11 Completed US OB transvaginal Stat Ultrasound 06/05/24 04:15 Completed Medical Decision Narrative: In summary, this 29-year-old female G2, P1 approximately 6 weeks with comorbidities described in the HPI presents to the emergency department today with vaginal bleeding. On initial evaluation patient is hemodynamically stable, afebrile, cardiopulmonary exam benign, abdominal exam with mild suprapubic tenderness without rebound or guarding, no peritonitic findings. Differential diagnosis includes but is not limited to subchorionic hemorrhage, miscarriage, ectopic , anemia, urinary tract infection, bacteriuria, among others. Based on these concerns, I ordered serum labs, ABO/Rh, urine studies. Patient was offered Tylenol but declined it at this time. Labs personally reviewed demonstrate no leukocytosis or anemia, normal platelets, CBC normal, PT/INR nonactionable, CMP nonactionable, patient has hyperglycemia consistent with her known diabetes, quantitative hCG 203. UA negative for findings of overt infection however patient does have positive bacteria and with her symptoms of dysuria, she will be treated with Macrobid. Patient did request Tylenol for cramping. This has been administered. Patient had very mild tachycardia that was developing so I attempted to perform [id number] bedside ultrasound to evaluate for pelvic free fluid which could indicate ruptured ectopic , however patient has very large lower abdominal ventral wall hernia which complicates the exam. Unfortunately despite multiple attempts I was not able to obtain any transabdominal views of the pelvic organs. Transvaginal ultrasound has been ordered and radiology ct technologist is on the way. She is not hypotensive and pain is controlled. She is only mildly tachycardic with heart rate 102-108. Will await results of transvaginal ultrasound. chief technology officer reported after performing the ultrasound that she did not identify an intrauterine and that the endometrium did not show evidence of a . She states there is evidence of possible corpus luteum cyst versus ectopic on the left ovary with ring of fire sign. She did not appreciate free fluid. See radiology read for full interpretation. After discussing results with the patient, she initially thought she wanted to go to [place] where she has established care for high risk , however she changed her mind and would prefer to maintain her care here since she is so early in if possible. I discussed this case with Dr. Pradhan with OB. We reviewed the patient's presentation, bleeding of approximately 1 pad per hour, continued pelvic discomfort, and ultrasound findings. After discussion, he believes patient most likely had a miscarriage and has already expelled all uterine contents, however since she is mildly tachycardic and still having heavy bleeding he recommended OB admission for continued observation. He also recommended Toradol for discomfort and bleeding. Patient comfortable with this plan. Toradol administered. Patient admitted to OB in stable condition. Critical Care Critical Care Time Critical Care Time: No
[2024-06-05 03:33] LABS: Bacteria,Urine 1+ /lpf; RBC,Urine 50-100 #/hpf (0-3)
[2024-06-05 03:36] LABS: Basophils # 0.1 K/mm3 (0-0.2); Basophils % 0.7 % (0.1-2.0); Eosinophils % 0.2 % (0.1-12.0); Hematocrit 38.5 % (37.0-47.0); Hemoglobin 12.7 g/dL (12.2-16.2); Lymphocytes # 2.7 K/mm3 (0.7-4.5); Lymphocytes % 33.4 % (10-50); Mean Corpuscular Hemoglobin 29.1 pg (27.0-31.2); Mean Corpuscular Volume 88.1 fl (81-99); Mean Platelet Volume 9.3 fl (7.4-10.4); Monocytes # 0.5 K/mm3 (0.1-1.0); Neutrophils # 4.8 K/mm3 (1.8-7.8); Neutrophils % 59.3 % (37.0-80.0); Nucleated Red Blood Cells # 0 10^3/uL; Nucleated Red Blood Cells % 0 %; Platelet Count 399 K/mm3 (142-424); Red Blood Count 4.37 M/mm3 (4.20-5.40); Red Cell Distribution Width 13.5 % (11.5-17.5); Red Cell Distribution Width-SD 43.5 fL; White Blood Count 8.1 K/mm3 (4.8-10.8)
[2024-06-05 03:41] LABS: Albumin Level 4.1 g/dl (3.5-5.0); Chloride 102 mmol/L (98-107)
[2024-06-05 03:42] LABS: Potassium 4.2 mmoL/L (3.5-5.1); Sodium 133 mmol/L (136-145)
[2024-06-05 03:44] LABS: Alanine Aminotransferase 29 U/L (12-78); Albumin/Globulin Ratio 1.5 (1.1-1.8); Alkaline Phosphatase 60 U/L (38-126); Anion Gap 12.2 mEq/L (5-15); Aspartate Amino Transferase 24 U/L (14-36); Bilirubin,Total 0.2 mg/dl (0.2-1.3); Blood Urea Nitrogen 9 mg/dl (7-17); Carbon Dioxide 23 mmol/L (22.0-30.0); Creatinine Clearance Estimated 169 mL/min (50-200); Estimated Glomerular Filt Rate 186 ml/min (>60); GFR (African American) 225 ML/MIN (>60); Globulin 2.8 g/dL (1.3-3.2); Total Protein,Serum 6.9 g/dl (6.3-8.2)
[2024-06-05 03:45] LABS: Glucose 343 mg/dl (74-100)
[2024-06-05 03:56] LABS: INR 0.85 (0.9-1.1); Prothrombin Time 9.7 seconds (10.1-12.5)
[2024-06-05 04:02] LABS: HCG,Quantitative 203 mIU/ml (0-5.42)
[2024-06-05] MEDS: ACETAMINOPHEN 500MG TAB 1000 MG PO (04:07)
--- NOTE | 2024-06-05 04:15 | US_ITS ---
PROCEDURE INFORMATION: Exam: US , Transvaginal Exam date and time: 06/05/2024 4:38 AM Age: 29 years old Clinical indication: complicated by abdominal or pelvic pain; Lower; First trimester (<14 weeks 0 days); Gestational age or lmp: 5w 6days; ; Additional info: Vaginal bleeding, cramping, pain early preg LABS AND CLINICAL REPORTS: Choriogonadotropin in serum (Serum HCG): 200 mIU/mL TECHNIQUE: Imaging protocol: Real-time transvaginal obstetrical ultrasound of the maternal pelvis with image documentation. Transvaginal imaging was used for better evaluation of the fetus, adnexa, and/or cervix. COMPARISON: US OB TRANSVAGINAL 11/12/2018 4:21 PM FINDINGS: MATERNAL: Uterus: Prominent endometrial stripe measuring up to 1 cm with trilaminar appearance. Previous scars noted. Right ovary/adnexa: Physiologic cyst/follicle within the right ovary. Left ovary/adnexa: Collapsed presumed left corpus luteal cyst. Intraperitoneal space: No pathologic free fluid within the pelvis. IMPRESSION: 1. of unknown location. Recommend close imaging and laboratory follow-up, as ectopic can not be entirely excluded. 2. Collapsed appearing corpus luteal cyst within the left ovary.
--- NOTE | 2024-06-05 04:16 | PC.NURSE ---
called radiology to call us tech at this time per MD Moreland
[2024-06-05] MEDS: KETOROLAC 30MG/ML VIAL 30 MG IV (05:42)
--- NOTE | 2024-06-05 05:45 | PC.NURSE ---
Report received from CHEYENNE Saucedo RN
[2024-06-05] MEDS: NITROFURANTOIN 100MG CAPSULE 100 MG PO (05:48)
--- NOTE | 2024-06-05 06:05 | PC.NURSE ---
Patient arrived onto floor and ambulated from wheelchair to bathroom to void. Reports bleeding has decreased and is now brown in color with the addition of a small clot. Peripads provided for patient and patient now resting in bed
--- NOTE | 2024-06-05 06:40 | PC.NURSE ---
Dr. Garcia phoned and notified of patient arrival onto unit, VS WNL with heart rate 94, patient reports of pain level 3/10 and patient reports of decreased bleeding. MD states patient may have a regular diet and Toradol 30 mg IV [id number] may be continued. Orders read back and verified.
--- NOTE | 2024-06-05 09:04 | HMH.PHAINT1 ---
Pharmacy Intervention Comments: MEDICATION RECONCILIATION COMPLETED ON PATIENT USING EXTERNAL FILL HISTORY FROM PHARMACY AND ARIES REPORT. -MALENA WILLIS, [place]
--- NOTE | 2024-06-05 09:07 | EXP.HPDC ---
General Admission date:: 06/05/24 Discharge date: 06/05/24 *Admission Date: 06/05/24 *Chief complaint: Vaginal bleeding likely miscarriage. *History of present illness: She is a 29-year-old 2 para 1 at approximately 6 weeks gestational age. She has a history of a ventral hernia and as result of that was going to [place] for her care. She has not been seen yet in this . Last evening she began having heavy bleeding and came into the emergency department. On ultrasound did not reveal an intrauterine her beta hCG was only 200. There was a corpus luteum on the left ovary that had a typical ring of fire. There was no evidence of free fluid and she did not describe any left-sided pain. She just had severe menstrual cramps. She was slightly tachycardic and was bleeding about a pad an hour or so after having discussed the case with the ER physician we elected to just admit her for observation for now. [facility] Disclaimer: The information contained in this section may have been updated after the patient was seen, as this information can be updated by other users. Medical History Radicular pain of right lower extremity Acute left ankle pain Lumbar radiculopathy Rheumatoid arthritis Vitamin B deficiency Depression GERD (gastroesophageal reflux disease) Hypothyroidism Vitamin D deficiency Hyperlipidemia Diabetes mellitus Surgical History History of carpal tunnel surgery History of Family History No significant family history Social History Smoking Status: Former smoker tobacco type: cigarettes packs per day: 1 alcohol intake: never substance use type: denies use current occupational status: unemployed and other Travel in the last 8 weeks?: None Have you lived/traveled outside [place] in past 30 days?: No Contact w/someone who lives/traveled outside US past 30 days?: No Exposure to someone with infectious disease in past 14 days?: No Do you have a fever (greater than 100.4 F or 38 C)?: No Have you tested positive for COVID-19?: No Exposed to someone with COVID-19 in past 14 days?: No Do you have a sore throat?: No Do you have a cough?: No Do you have any weakness?: No Are you experiencing any nausea/vomitting?: No Do you have any diarrhea?: No Are you experiencing any unusual bleeding?: No Do you have any muscle aches/pain?: No Do you have any abdominal pain?: No Are you experiencing loss of taste or smell?: No Other Medical History Have you received the Flu Vaccine for this season: No Have you received the Pneumonia Vaccine: No Review of Systems Review of Systems Review of systems:: pertinent systems reviewed and negative unless documented below Exam Data for Last 24 hours Vital signs and Labs for Last 24 Hours: Temp Pulse Resp BP Pulse Ox O2 Del Method 98.0 F 94 H 19 112/69 98 Room Air 06/05/24 06:21 06/05/24 06:21 06/05/24 06:21 06/05/24 06:21 06/05/24 06:21 06/05/24 06:21 Laboratory Results - last 24 hr 06/05/24 03:11: Urine Color Yellow, Urine Appearance Clear, Urine pH 6.0, Ur Specific [place] 1.020, Urine Protein Negative, Urine Glucose (UA) 3+, Urine Ketones 1+, Urine Blood 3+ A, Urine Nitrate Negative, Urine Bilirubin Negative, Urine Urobilinogen 0.2, Ur Leukocyte Esterase Negative, Urine RBC 50-100, Urine WBC 3-5, Ur Squamous Epith Cells 3-5, Urine Bacteria 1+ 06/05/24 03:16: WBC 8.1, RBC 4.37, Hgb 12.7, Hct 38.5, MCV 88.1, MCH 29.1, MCHC 33.0, RDW 13.5, Plt Count 399, MPV 9.3, Neut % (Auto) 59.3, Lymph % (Auto) 33.4, [place] % (Auto) 6.0, Eos % (Auto) 0.2, Baso % (Auto) 0.7, Neut # (Auto) 4.8, Lymph # (Auto) 2.7, [place] # (Auto) 0.5, Eos # (Auto) 0.0, Baso # (Auto) 0.1, PT 9.7 L, INR 0.85 L, Sodium 133 L, Potassium 4.2, Chloride 102, Carbon Dioxide 23, Anion Gap 12.2, BUN 9, Creatinine 0.40 L, Estimated Creat Clear 169, Estimated GFR 186, Est GFR ( Amer) 225, Glucose 343 H, Calcium 10.0, Total Bilirubin 0.2, AST 24, ALT 29, Alkaline Phosphatase 60, Total Protein 6.9, Albumin 4.1, Globulin 2.8, Albumin/Globulin Ratio 1.5, HCG, Quant 203 H, Blood Type A Negative I & O for Last 24 hours: Intake & Output 06/02/24 06/03/24 06/04/24 06/05/24 11:59 11:59 11:59 11:59 Weight 234 lb 15.992 oz Constitutional Constitutional: no acute distress and obese *Routine HEENT Exam Head: Present normocephalic Eye: Present EOMI and PERRL ENT: Present mucous membranes moist *Routine Neck Exam Neck: Present supple; Absent lymphadenopathy *Routine Respiratory Exam Respiratory: Present CTA bilaterally *Routine Cardiovascular Exam Cardiovascular: Present RRR *Routine Abdominal Exam Abdominal: Present soft and normoactive bowel sounds; Absent tenderness *Routine Rectal Exam Rectal:: deferred *Routine Genitalia Exam Genitalia:: deferred *Routine Extremities Exam Extremities: Absent cyanosis, clubbing or edema *Routine Skin Exam Skin: Present warm; Absent rash *Routine Neurological Exam Neurological: Present alert and oriented X3 Meds Home Medications and Allergies Home Medications ?Medication ?Instructions ?Recorded ?Confirmed ?Type blood sugar diagnostic (OneTouch #100 strips 05/30/23 06/05/24 Rx Verio test strips) lancets 33 gauge (OneTouch Delica #100 ea 09/01/23 06/05/24 Rx Plus Lancet) pen needle, diabetic 31 gauge x #100 ea 11/01/23 06/05/24 Rx 3/16 (BD Ultra-Fine Mini Pen Needle) furosemide 20 mg tablet 20 mg PO DAILYP PRN Edema 11/08/23 06/05/24 History glipizide 10 mg tablet, extended 10 mg PO BID 11/08/23 06/05/24 History release 24 hr metformin 1,000 mg tablet 1,000 mg PO BID 11/08/23 06/05/24 History omeprazole 40 mg capsule,delayed 40 mg PO DAILY 11/08/23 06/05/24 History release quetiapine 50 mg tablet,extended 50 mg PO HS 11/08/23 06/05/24 History release 24 hr cyclobenzaprine 10 mg tablet 10 mg PO TID #90 tabs 05/27/24 06/05/24 Rx gabapentin 300 mg capsule 300 mg PO QID #120 caps 05/27/24 06/05/24 Rx hydrocodone 5 mg-acetaminophen 325 1 tab PO TID #90 tabs 05/27/24 06/05/24 Rx mg tablet tacrolimus 0.1 % topical ointment 1 applic topical BID #30 grams 05/27/24 06/05/24 Rx New Prescriptions to Start Prescriptions: Allergies Allergy/AdvReac Type Severity Reaction Status Date / Time Penicillins Allergy Intermediate Rash Verified 06/05/24 06:29 amoxicillin (AMOXICILLIN) Allergy Mild Unknown Verified 06/05/24 06:29 allergy reaction cefaclor (From [facility]) Allergy Mild Unknown Verified 06/05/24 06:29 allergy reaction Hospital Course Hospital Course Hospital Course: She was observed for a few hours in labor and delivery and her tachycardia has resolved. Her bleeding has also settled down and she is just spotting on a pad. She denies any severe cramps or abdominal pain. We will discharge her home this morning and she will follow-up for a quantitative beta-hCG tomorrow to see the direction the beta-hCG is going. I personally reviewed her ultrasound and the endometrium looks like there is some bleeding and possibly some small pieces of tissue. I looked at her left ovary and the area of concern looks like a corpus luteum. It does not look like an ectopic . I have reassured her about this. She will be discharged home and will start taking folic acid. She will continue with her vitamins. I told her she should wait a couple of months to try getting again and that she could use ovulation kit if necessary to track her periods. She was happy with this plan. She will take ibuprofen or Aleve for any pain. Results Data Completed and Pending Labs on day of discharge: Labs from last 24 hours 06/05/24 06/05/24 03:16 03:11 WBC 8.1 RBC 4.37 Hgb 12.7 Hct 38.5 MCV 88.1 MCH 29.1 MCHC 33.0 RDW 13.5 Plt Count 399 MPV 9.3 Neut % (Auto) 59.3 Lymph % (Auto) 33.4 [place] % (Auto) 6.0 Eos % (Auto) 0.2 Baso % (Auto) 0.7 Neut # (Auto) 4.8 Lymph # (Auto) 2.7 [place] # (Auto) 0.5 Eos # (Auto) 0.0 Baso # (Auto) 0.1 PT 9.7 L INR 0.85 L Sodium 133 L Potassium 4.2 Chloride 102 Carbon Dioxide 23 Anion Gap 12.2 BUN 9 Creatinine 0.40 L Estimated Creat Clear 169 Estimated GFR 186 Est GFR ( Amer) 225 Glucose 343 H Calcium 10.0 Total Bilirubin 0.2 AST 24 ALT 29 Alkaline Phosphatase 60 Total Protein 6.9 Albumin 4.1 Globulin 2.8 Albumin/Globulin Ratio 1.5 HCG, Quant 203 H Urine Color Yellow Urine Appearance Clear Urine pH 6.0 Ur Specific [place] 1.020 Urine Protein Negative Urine Glucose (UA) 3+ Urine Ketones 1+ Urine Blood 3+ A Urine Nitrate Negative Urine Bilirubin Negative Urine Urobilinogen 0.2 Ur Leukocyte Esterase Negative Urine RBC 50-100 Urine WBC 3-5 Ur Squamous Epith Cells 3-5 Urine Bacteria 1+ Blood Type A Negative DS: Diagnosis Discharge Diagnosis (1) Vaginal bleeding affecting early : Start date: 06/05/24 Start time: 05:00 Status: Acute Code(s): O20.9 - Hemorrhage in early , unspecified (2) Missed : Start date: 06/05/24 Start time: 05:00 Status: Acute Code(s): O02.1 - Missed Discharge Plan Disposition Patient Disposition: Home, Self-Care Condition: Fair Follow up Plan Prescriptions/Medication Reconciliation: Continued (DME) OneTouch Verio test strips Strip See Rx Instructions .ROUTE .COMPLEX Qty: 100 2RF Dose Instruction: USE DIRECTED TO test blood sugar THREE TIMES DAILY Rx Instructions: USE DIRECTED TO test blood sugar THREE TIMES DAILY (DME) lancets [OneTouch Delica Plus Lancet] 33 gauge misc See Rx Instructions .Route Qty: 100 12RF Rx Instructions: As directed (DME) pen needle, diabetic [BD Ultra-Fine Mini Pen Needle] 31 gauge x 3/16 needle See Rx Instructions .ROUTE .COMPLEX Qty: 100 1RF Dose Instruction: USE DIRECTED TWICE DAILY Rx Instructions: USE DIRECTED TWICE DAILY glipizide 10 mg tablet extended release 24hr 10 mg PO BID omeprazole 40 mg capsule,delayed release(DR/EC) 40 mg PO DAILY metformin 1,000 mg tablet 1,000 mg PO BID furosemide 20 mg tablet 20 mg PO DAILYP PRN (Reason: Edema) quetiapine 50 mg tablet extended release 24 hr 50 mg PO HS cyclobenzaprine 10 mg tablet 10 mg PO TID Qty: 90 2RF hydrocodone-acetaminophen 5-325 mg tablet 1 tab PO TID Qty: 90 0RF tacrolimus 0.1 % ointment 1 applic topical BID Qty: 30 3RF gabapentin 300 MG capsule 300 mg PO QID Qty: 120 2RF Problem Reconciliation Problems Reviewed?: Yes Patient Discharge Instructions ACTIVITY: Continue current activity Print Language: Vietnamese Providers Primary Care Provider: Kathy Pierce Admit Provider: Kojo Garcia Attending Provider: Kojo Garcia
== END 2024-06-05 10:00 | disposition home or self-care (01) ==
LOC: ER 03:09 → OB 05:45
PROVIDERS: Admitting Provider Nurse Practitioner Obstetrics & Gynecology; Emergency Provider Emergency Medicine; PCP Nurse Practitioner Family; Visit Provider Nurse Practitioner Obstetrics & Gynecology
DX: O02.1 Missed abortion (principal); O99.891 Other specified diseases and conditions complicating pregnancy; M06.9 Rheumatoid arthritis, unspecified; K21.9 Gastro-esophageal reflux disease without esophagitis; E03.9 Hypothyroidism, unspecified; M54.16 Radiculopathy, lumbar region; E66.9 Obesity, unspecified; K43.9 Ventral hernia without obstruction or gangrene; E78.5 Hyperlipidemia, unspecified; R00.0 Tachycardia, unspecified; R30.0 Dysuria; E11.65 Type 2 diabetes mellitus with hyperglycemia; Z79.84 Long term (current) use of oral hypoglycemic drugs; Z88.0 Allergy status to penicillin; Z88.1 Allergy status to other antibiotic agents; Z3A.01 Less than 8 weeks gestation of pregnancy; Z87.891 Personal history of nicotine dependence; Z28.39 Other underimmunization status; Z79.4 Long term (current) use of insulin; Z79.85 Long-term (current) use of injectable non-insulin antidiabetic drugs; Z79.82 Long term (current) use of aspirin
CPT/HCPCS: 76817; 80053; 81001; 84702; 85025; 85610; 86900; 86901; G0378; J1885

== ENCOUNTER 2024-06-26 14:30 | Outpatient (POV) | payer MEDICAID, SELFPAY ==
--- NOTE | 2024-06-26 14:48 | EXP.PAIN.SOA ---
[facility] Disclaimer: The information contained in this section may have been updated after the patient was seen, as this information can be updated by other users. Medical History Radicular pain of right lower extremity Acute left ankle pain Lumbar radiculopathy Rheumatoid arthritis Vitamin B deficiency Depression GERD (gastroesophageal reflux disease) Hypothyroidism Vitamin D deficiency Hyperlipidemia Diabetes mellitus Surgical History History of carpal tunnel surgery History of Family History No significant family history Social History Smoking Status: Former smoker tobacco type: cigarettes packs per day: 1 alcohol intake: never substance use type: denies use current occupational status: unemployed and other Travel in the last 8 weeks?: None PM Subjective & Objective Subjective Subjective:: Patient is a pleasant 29-year-old female who presents today for medication refill and follow-up. Today she rates her pain a 5 out of 10. Patient does state that she has had a lot going on from her last appointment. Patient states she ended up getting and then found out that she was . Patient states then she was having extensive bleeding and after 10 days straight she ended up going to the doctor and did not have any additional growth on the fetus. Patient states that she has lost the baby however they are waiting to see if she does pass the sac or whether or not they are going to have to do additional intervention to remove this. Patient does state that she has not been able to use her topical or some of her medicines since finding out she was . She does not need a refill on the topical since she has not used it over the last month. Patient is currently managed with [place] 5 mg 3 times a day, Flexeril 10 mg 3 times a day, gabapentin 300 mg 4 times a day and tacrolimus topical twice a day Loki has been reviewed and is appropriate. Review of Systems: General: No recent weight changes, no fever, no sleep disturbances Respiratory: No cough, no shortness of air, no recurring pulmonary infections Cardiovascular/peripheral vascular: No chest pain, no palpitations, no edema, no shortness of breath Gastrointestinal: No new onset incontinence, normal bowel movements reported Genitourinary: No new onset incontinence Musculoskeletal: Chronic back pain, right thumb pain Psychiatric: [Normal mood/affect] Neurological: [Denies weakness in extremities], [denies balance issues] Pain at rest (0-10 scale): 5 Objective Objective:: Physical Exam: General: Alert and oriented x3, no acute distress, pleasant and cooperative Lungs: Respirations even and unlabored, symmetrical chest expansion Eyes: PERRL Musculoskeletal: Flexion and extension of lumbar [spine] somewhat guarded secondary to pain, [antalgic gait noted] Neurological: Speech clear, no gross sensory deficit Has patient had previous pain injection?: No Conservative treatment options previously tried: Prescription medications Length of treatment: Longer than 12-week Meds Home Medications and Allergies Home Medications ?Medication ?Instructions ?Recorded ?Confirmed ?Type blood sugar diagnostic ([employer] #100 strips 05/30/23 06/05/24 Rx Verio test strips) lancets 33 gauge ([employer] Delica #100 ea 09/01/23 06/05/24 Rx Plus Lancet) pen needle, diabetic 31 gauge x #100 ea 11/01/23 06/05/24 Rx 3/16 (BD Ultra-Fine Mini Pen Needle) furosemide 20 mg tablet 20 mg PO DAILYP PRN Edema 11/08/23 06/05/24 History glipizide 10 mg tablet, extended 10 mg PO BID 11/08/23 06/05/24 History release 24 hr metformin 1,000 mg tablet 1,000 mg PO BID 11/08/23 06/05/24 History omeprazole 40 mg capsule,delayed 40 mg PO DAILY 11/08/23 06/05/24 History release quetiapine 50 mg tablet,extended 50 mg PO HS 11/08/23 06/05/24 History release 24 hr cyclobenzaprine 10 mg tablet 10 mg PO TID #90 tabs 05/27/24 06/05/24 Rx gabapentin 300 mg capsule 300 mg PO QID #120 caps 05/27/24 06/05/24 Rx hydrocodone 5 mg-acetaminophen 325 1 tab PO TID #90 tabs 05/27/24 06/05/24 Rx mg tablet tacrolimus 0.1 % topical ointment 1 applic topical BID #30 grams 05/27/24 06/05/24 Rx New Prescriptions to Start Prescriptions: Allergies Allergy/AdvReac Type Severity Reaction Status Date / Time Penicillins Allergy Intermediate Rash Verified 06/05/24 06:29 amoxicillin (AMOXICILLIN) Allergy Mild Unknown Verified 06/05/24 06:29 allergy reaction cefaclor (From CECLOR) Allergy Mild Unknown Verified 06/05/24 06:29 allergy reaction Assessment and Plan *Assessment and plan (1) Degenerative disc disease, lumbar: Status: Acute Category: Medical Code(s): M51.369 - Other intervertebral disc degeneration, lumbar region without mention of lumbar back pain or lower extremity pain (2) Chronic pain of right thumb: Status: Chronic Category: Medical Code(s): M79.644 - Pain in right finger(s); G89.29 - Other chronic pain Plan I will refill her Blue [place] and make sure she does have refills on her gabapentin and Flexeril. Patient will return to clinic in 1 month. I did credit support counselor her if she needs anything whatsoever during this time please to let our office know. Patient will return to clinic in 1 month for reevaluation of symptoms and plan of care. Risks and benefits of the medication have been explained in detail to the patient. The patient does understand the risk of dependence on the medication when given over a prolonged period. Patient has been advised of risks of oversedation with the prescribed medication. Narcan has been offered to the paitent in the event of oversedation. Patient has been advised that a family member should also be educated regarding administration of Narcan. The patient has been advised to consult with his/her primary care provider and pharmacist regarding drug-drug interaction of medications currently prescribed. Patient has been prescribed a controlled substance after being counseled on the medication, medication safety, and possible side effects. Opioid contract was reviewed and signed by the patient, and that they have agreed to all of the terms set forth by our compliance program. A UDS is needed to verify patient's compliance with our office pain contract. This is ordered based off specific treatments related to chronic pain with the potential to abuse certain medications. Patient has been instructed to contact the clinic with any concerns before the next appointment. Dr. Colindres has reviewed this note and agrees with this plan of care. This note was dictated using voice recognition software and make contain errors or omissions.
[2024-06-26 15:01] VITALS: BP 121/75; PULSE 113; RESP 16; O2SAT 100; BMI 41.3
== END 2024-06-26 23:59 | disposition home or self-care (01) ==
PROVIDERS: PCP Nurse Practitioner Family; Visit Provider Nurse Practitioner Family
DX: M51.369 Other intervertebral disc degeneration, lumbar region without mention of lumbar back pain or lower extremity pain (principal); M79.644 Pain in right finger(s); G89.29 Other chronic pain; Z87.891 Personal history of nicotine dependence
CPT/HCPCS: 99212; G0463

== ENCOUNTER 2024-07-28 14:16 | Outpatient (POV) | payer MEDICAID, SELFPAY ==
--- OUTSIDE RECORDS SUMMARY | 2024-06-11 05:14 | XMS_ITS | Continuity of Care Document ---
Author Organization [facility] Phone Care Team Providers Care District Sales Representative Name Role Phone AMEENA, OMER E Primary Attending Unavailable AMEENA, OMER E Unavailable Unavailable AMEENA, OMER E Admitting Unavailable ANJALI ZIEGLER Primary Care ALLERGIES AND ADVERSE REACTIONS ALLERGIES AND ADVERSE REACTIONS Code System Allergy Substance Adverse Reaction Date Reaction (Severity) Comment Status Reported By Updated By 8742 RXNorm PHENERGAN Adverse reaction to substance u active [id number] on June 10, 2024 1:08:48 AM [place] 2176 RXNorm CECLOR Adverse reaction to substance u active [id number] on June 10, 2024 1:08:48 AM [facility] [address]8964 RXNorm AUGMENTIN Adverse reaction to substance u active [id number] on June 10, 2024 1:08:48 AM [facility] IV contrast dye (Free Text Allergy) Adverse reaction to substance Not Specified active [id number] on June 10, 2024 1:08:48 AM [facility] [id number] SNOMED CT Penicillins Adverse reaction to substance Not Specified active [id number] on June 10, 2024 1:08:48 AM [facility] FAMILY HISTORY RELATION: Father Status: LIVING SNOMED-CT Diagnosis Age At Onset [id number] Coronary arteriosclerosis RELATION: Mother Status: LIVING SNOMED-CT Diagnosis Age At Onset Information not available RESULTS Patient: ADAL MAYERS Date of : [birth year] LABORATORY RESULTS ORDER 100: CBC AUTO W DIFF ( LOINC: 61941-1) ORDER DATE: June 10, 2024 1:05:00 AM [place] Specimen Source: Whole Blood Specimen Type: Whole blood s ample PERFORMING LAB: [address] [id number] Result Comment: Final Result Date: June 10, 2024 1:36:00 AM UT (TECH: HC) LOINC TEST FLAG RESULT REFERENCE RANGE UPDA RICH BY 6690-2 Leukocytes [#/volume] in Blood by Automated count N 7.8 10^3/uL 4.5 10^3/uL - 11.5 10^3/uL June 10, 2024 1:36:00 AM UTC ([employer]: SANDOW) 789-8 Erythrocytes [#/volume] in Blood by Automated count L 4.18 10^6/uL 4.25 10^6/uL - 5.57 10^6/uL June 10, 2024 1:36:00 AM UTC (TECH: SANDOW) 718-7 Hemoglobin [Mass/volume] in Blood N 12.3 g/dL 12.0 g/dL - 15.7 g/dL June 10, 2024 1:36:00 AM UTC ([employer]: SANDOW) 01577-7 Hematocrit [Volume Fraction] of Blood N 37.9 % 36.0 % - 47.0 % June 10, 2024 1:36:00 AM UTC (TECH: SANDOW) 787-2 Erythrocyte mean corpuscular volume [Entitic volume] by Automated count N 90.7 fl 80 fl - 95 fl June 10, 2024 1:36:00 AM UTC ([place]) 58745-5 Erythrocyte mean corpuscular hemoglobin [Entitic mass] in Blood from Fetus by Automated count N 29.4 pg 27.0 pg - 34.0 pg June 10, 2024 1:36:00 AM UT ([employer]: SANDOW) 19508-6 Erythrocyte mean corpuscular hemoglobin concentration [Mass/volume] in Blood from Fetus by Automated count N 32.5 g/dL 32.0 g/dL - 36.0 g/dL June 10, 2024 1:36:00 AM UT ([employer]: SANDOW) 88386-7 Platelets [#/volume] in Blood N 338 10^3/uL 150 10^3/uL - 450 10^3/uL June 10, 2024 1:36:00 AM UTC ([employer]: SANDOW) 88579-5 Erythrocyte distribution width [Ratio] N 14.2 % 12.3 % - 15.1 % June 10, 2024 1:36:00 AM UTC (TECH: SANDOW) 06840-8 Platelet mean volume [Entitic volume] in Blood by Automated count N 9.1 fl 7.4 fl - 10.4 fl June 10, 2024 1:36:00 AM UTC (TECH: HC) 88066-6 Granulocytes/100 leukocytes in Blood by Automated count N 56.1 % 40 % - 75 % June 10, 2024 1:36:00 AM UTC (TECH: HC) 736-9 Lymphocytes/100 leukocytes in Blood by Automated count N 35.9 % 15 % - 57 % June 10, 2024 1:36:00 AM UTC (TECH: HC) 5905-5 Monocytes/100 leukocytes in Blood by Automated count N 7.2 % 4.0 % - 12.0 % June 10, 2024 1:36:00 AM UTC (TECH: HC) 713-8 Eosinophils/100 leukocytes in Blood by Automated count N 0.1 % 0.0 % - 4.0 % June 10, 2024 1:36:00 AM UTC (TECH: HC) 706-2 Basophils/100 leukocytes in Blood by Automated count N 0.4 % 0.0 % - 1.0 % June 10, 2024 1:36:00 AM UTC (TECH: HC) 15041-7 Immature granulocytes [#/volume] in Blood N 0.3 % 0.0 % - 0.8 % June 10, 2024 1:36:00 AM UTC (TECH: HC) 08577-1 Granulocytes [#/volume] in Blood by Automated count N 4.40 10^3/uL June 10, 2024 1:36:00 AM UTC (TECH: HC) 731-0 Lymphocytes [#/volume] in Blood by Automated count N 2.81 10^3/uL June 10, 2024 1:36:00 AM UTC (TECH: HC) 742-7 Monocytes [#/volume] in Blood by Automated count N 0.56 10^3/uL June 10, 2024 1:36:00 AM UTC (TECH: HC) 711-2 Eosinophils [#/volume] in Blood by Automated count N 0.01 10^3/uL June 10, 2024 1:36:00 AM UTC (TECH: HC) 704-7 Basophils [#/volume] in Blood by Automated count N 0.03 10^3/uL June 10, 2024 1:36:00 AM UTC (TECH: HC) 36802-8 Immature granulocytes [#/volume] in Blood N 0.02 10^3/uL June 10, 2024 1:36:00 AM UT (TECH: SANDOW) 54486-4 Manual differential performed [Presence] in Blood N NO June 10, 2024 1:36:00 AM UT (TECH: SANDOW) ORDER 200: PT PROTHROMBIN TI ME W INR (LOINC: 98126-6) ORDER DATE: June 10, 2024 1:05:00 AM UT Specimen Source: Plasma Specimen Type: Plasma specim en PERFORMING LAB: [address] [id number] Result Comment: Final Result Date: June 10, 2024 1:47:00 AM UT (TECH: SANDOW) LOINC TEST [place] [address]-0 INR in Platelet poor plasma or blood by Coagulation assay N 9.4 seconds 9.1 seconds - 12.0 seconds June 10, 2024 1:47:00 AM UT (TECH: SANDOW) 6301-6 INR in Platelet poor plasma by Coagulation assay L 0.85 0.9 - 1.1 June 10, 2024 1:47:00 AM UT (TECH: SANDOW) ORDER 300: PTT PARTIAL THROM B TIME (LOINC: 41965-7) ORDER DATE: June 10, 2024 1:05:00 AM UT Specimen Source: Plasma Specimen Type: Plasma specim en PERFORMING LAB: [address] [id number] Result Comment: Final Result Date: June 10, 2024 1:47:00 AM UT (TECH: SANDOW) LOINC TEST [place] [address]-5 Activated partial thromboplastin time (aPTT) in Platelet poor plasma by Coagulation assay L 22.5 seconds 24.5 seconds - 32.8 seconds June 10, 2024 1:47:00 AM UT (TECH: SANDOW) ORDER 400: HCG BETA QUANT (L OINC: 09816-8) ORDER DATE: June 10, 2024 1:05:00 AM UT Specimen Source: Serum/Plasm a Specimen Type: Acellular blo od (serum or plasma) specimen PERFORMING LAB: [address] [id number] Result Comment: Final Result Date: June 10, 2024 2:00:00 AM UTC (TECH: SANDOW) LOINC TEST FLAG [place] [address]-4 Choriogonadotrop in.beta subunit [Mass/volume] in Serum or Plasma H 872 mIU/mL 0 mIU/mL - 5 mIU/mL June 10, 2024 2:00:00 AM UTC (TECH: SANDOW) ORDER 500: UA AND MICRO/CULT IF INDICATED (LOINC: 75358-0) ORDER DATE: June 10, 2024 1:14:00 AM UTC Specimen Source: URINE Specimen Type: Urine specime n PERFORMING LAB: [address] [id number] Result Comment: Final Result Date: June 10, 2024 1:47:00 AM UTC (TECH: SANDOW) LOINC TEST FLAG RESULT REFERENCE RANGE UPDA RICH BY 5778-6 Color of Urine N red YELLOW June 1:47:00 AM UTC (TECH: SANDOW) 5767-9 Appearance of Urine N turbid CLEAR June 10, 2024 1:47:00 AM UTC (TECH: SANDOW) 5792-7 Glucose [Mass/volume ] in Urine by Test strip N 1000 NORMAL June 10 1:47:00 AM UTC (TECH: SANDOW) 79699-5 Bilirubin.total [Mass/volume] in Urine by Automated test strip N NEGATIVE NEGATIVE June 10 025 1:47:00 AM UTC (TECH: SANDOW) 5797-6 Ketones [Mass/volume ] in Urine by Test strip N 15 (1+) mg/dL NEGATIVE June 10 1:47:00 AM UTC (TECH: SANDOW) 2965-2 Specific gravity of Urine N 1.015 1.005 - 1.035 June 10, 2024 1:47:00 AM UTC (TECH: SANDOW) 22302-3 Erythrocytes [#/volu me] in Urine by Automated test strip N 250 (4+) /mcL NEGATIVE June 10, 2024 1:47:00 AM UTC (TECH: SANDOW) 04711-2 pH of Urine by Automated test strip N 5.00 5.0 - 7.5 June 10, 2024 1:47:00 AM UTC (TECH: SANDOW) 89286-3 Protein [Presence] i n Urine by Test strip N 100 (2+) mg/dL NEGATIVE June 10, 2024 1:47:00 AM UTC (TECH: SANDOW) 98820-0 Urobilinogen [Mass/volume] in Urine by Automated test strip N NORM NORMAL June 10 025 1:47:00 AM UTC (TECH: SANDOW) 52821-1 Nitrate [Presence] i n Urine POSITIVE NEGATIVE June 10, 2024 1:47:00 AM UTC (TECH: SANDOW) 72573-7 Leukocytes [#/volume ] in Urine by Test strip N 100 (1+) /mcL NEGATIVE June 10 1:47:00 AM UTC (TECH: SANDOW) 20449-9 Other elements in Ur ine sediment N NOT REQUIRED June 10, 2024 1:47:00 AM UTC (TECH: SANDOW) 01214-3 Microscopic observat ion [Identifier] in Urine sediment by Light microscopy N YES June 10, 2024 1:47:00 AM UTC (TECH: SANDOW) 13206-2 Erythrocytes [#/area ] in Urine sediment by Microscopy high power field TNTC 0-3 June 10, 2024 1:47:00 AM UTC (TECH: SANDOW) 5821-4 Leukocytes [#/area] in Urine sediment by Microscopy high power field N NONE SEEN NONE SEEN June 10, 2024 1:47:00 AM UTC ([employer]: SANDOW) 21934-9 Epithelial cells.squamous [#/area] in Urine sediment by Microscopy high power field N 1-5 NONE SEEN June 10, 2024 1:47:00 AM UTC (TECH: SANDOW) 5769-5 Bacteria [#/area] in Urine sediment by Microscopy high power field N NONE SEEN NONE SEEN June 10, 2024 1:47:00 AM UTC (TECH: SANDOW) 51198-3 Mucus [#/area] in Ur ine sediment by Microscopy low power field N NONE SEEN NONE SEEN June 10, 2024 1:47:00 AM UTC (TECH: SANDOW) LABORATORY NARRATIVE RESULTS Information is not available RADIOLOGY RESULTS Information is not available PATHOLOGY NARRATIVE RESULTS Information is not available MICROBIOLOGY RESULTS No Micro Labs/Results Exist for Patient BLOOD ADMIN RESULTS Information is not available MEDICATIONS HOME MEDICATIONS Status RXNORM NDC Medication Dose Route Frequency Dates Comments Reported By Updated By Drug Treatment Unknown DISCHARGE MEDICATIONS Status RXNORM NDC Medication Dose Route Frequency Dates Comments Physician Updated By No Discharge Medication Info rmation Available INPATIENT MEDICATIONS Status RXNORM NDC Medication Dose Route Frequency Rat e Quantity Dates Comments Physician Updated By No Inpatient Medication Info rmation Available SOCIAL HISTORY SOCIAL HISTORY SNOMED-CT Social History Element Description Effective Dates Offered Cessation Comment UpdatedBy [id number] Current Tobacco smoking status Never Smoked [id number] on June 10, 2024 1:17:18 AM UT [id number] Historical Tobacco smoking status Current Every Day Smoker Yes [id number] on October 22, 2017 3:21:58 PM UT SOCIAL HISTORY - Gender Sex: Female SOCIAL HISTORY - Status : status i nformation is not available Intention in Next Year: intention information is not available SOCIAL HISTORY - Sexual Behavior Sexual Orientation Gender Identity SNOMED-CT Description SNO MED -CT Description Activity Level No of Partners Partner Type UpdatedBy Information is not available VITAL SIGNS PATIENT VITAL SIGNS This section displays the mo st recent value for each vital sign as of June 11, 2024 9:14:37 AM [facility] Loinc Code Vital Sign Activity Date Result Updated By 8310-5 Body temperature June 10, 2024 2:3 7:00 AM UT 98.4 [degF] [id number] on June 10, 2024 2:38:[place] [address]-6 Body weight Measured June 10, 2024 1:07:48 AM UTC 106.8 kg (235.0 lb) [id number] on June 10, 2024 1:07:48 AM UT 8462-4 Diastolic blood pressure June 10, 2024 2:37:00 AM UTC 74.0 mm[Hg] [id number] on June 10, 2024 2:38:53 AM UT 8867-4 Heart rate June 10, 2024 2:37 :00 AM UTC 89 /min [id number] on June 10, 2024 2:38:[place] [address]-8 Oxygen saturation in Arterial blood by Pulse oximetry June 10, 2024 2:37:00 AM UT 100.0 % [id number] on June 10, 2024 2:38:53 AM UT 9279-1 Respiratory rate June 10, 2024 2:3 7:00 AM UTC 16 /min [id number] on June 10, 2024 2:38:53 AM UT 8480-6 Systolic blood pressure June 10, 2024 2:37:00 AM UT 132.0 mm[Hg] [id number] on June 10, 2024 2:38:53 AM [facility] PEDIATRIC GROWTH CHART - VITAL SIGNS This section displays Head C ircumference Percentile, Weight for Length Percentile and BMI Percentile Loinc Code Pediatric Measure Age (Months) Result Updat ed By No Pediatric Growth Chart Pe rcentile Information Available. HEALTH CONCERNS Problems Concern Status Health Concern problem infor mation not available. Smoking Status Status Years Used Consumed packs p er day Health Concern smoking histo ry information not available. Family History Concern Status Health Concern family histor y information not available. ENCOUNTERS ENCOUNTER INFORMATION Reason for Visit BLEEDING VAGINALLY Admission June 10, 2024 12:50:[address] [id number] Discharge June 10, 2024 2:39:00 AM [facility] DISCH ARGED TO HOME OR SELF CARE ENCOUNTER DIAGNOSES Notes information is not tiara ilable. Code System Diagnosis Onset Date Diagnosis information is not available. ABSTRACT DIAGNOSES Code System Diagnosis Updated By O46.90 ICD10 ANTEPARTUM HEMOR RHAGE, UNSPECIFIED, UNSPECIFIED TRIMESTER [id number] on June 11, 2024 9:14:09 AM [facility] O26.899 ICD10 OTHER SPECIFIED RELATED CONDITIONS, UNSPECIFIED TRIMESTER [id number] on June 11, 2024 9:14:09 AM [facility] R10.30 ICD10 LOWER ABDOMINAL PAIN, UNSPEC IFIED [id number] on June 11, 2024 9:14:09 AM [facility] O46.91 ICD10 ANTEPARTUM HEMOR RHAGE, UNSPECIFIED, FIRST TRIMESTER [id number] on June 11, 2024 9:14:09 AM [facility] O26.91 ICD10 RELATE D CONDITIONS, UNSPECIFIED, FIRST TRIMESTER [id number] on June 11, 2024 9:14:09 AM [facility] Z88.0 ICD10 ALLERGY STATUS TO PENICILLIN [id number] on June 11, 2024 9:14:09 AM [facility] Z88.1 ICD10 ALLERGY STATUS T O OTHER ANTIBIOTIC AGENTS [id number] on June 11, 2024 9:14:09 AM [facility] Z91.041 ICD10 RADIOGRAPHIC DYE ALLERGY STA TUS [id number] on June 11, 2024 9:14:09 AM [facility] Z88.8 ICD10 ALLERGY STATUS T O OTHER DRUGS, MEDICAMENTS AND BIOLOGICAL SUBSTANCES [id number] on June 11, 2024 9:14:09 AM [place] CARE TEAM Care District Sales Representative Role OMER LINDQUIST Primary Attending OMER LINDQUIST Referring OMER LINDQUIST Admitting ANJALI ZIEGLER Primary Care CARE TEAM CARE music journalist Role on Team Status Start Date End Date Update d By AMEENA Camarillo MD Referring normal June 10, 2024 1:01:41 AM UT June 10, 2024 2:39:00 AM UT [id number] on June 10, 2024 1:01:41 AM [facility] AMEENA Camarillo MD Attending normal June 10, 2024 1:01:41 AM UT June 10, 2024 2:39:00 AM UT [id number] on June 10, 2024 1:01:41 AM UT AMEENA Camarillo MD Admitting normal June 10, 2024 1:01:41 AM [facility] June 10, 2024 2:39:00 AM UT [id number] on June 10, 2024 1:01:41 AM [facility] KARLIE CRAMER APRN PCP normal June 10, 2024 12:51:13 AM UT June 10, 2024 2:39:00 AM UTC [id number] on June 10, 2024 1:01:41 AM [facility]
--- OUTSIDE RECORDS SUMMARY | 2024-07-28 14:19 | XMS_ITS | Encounter Summary ---
Author Organization [facility] Address [address] [place] [address] Care Team Providers Care Training Officer Name Role Phone Viola Phipps PA-C Primary Care Provider [phone] Reason for Visit * Reason Onset Date Comments Triage Call 06/10/2024 Encounter Details Date Type Department Care Team (Late st Contact Info) Description 06/10/2024 Telephone [facility] NETWORK OPERATIONS MANAGER - [address] [facility] [address] [place] [phone] Joya Padilla medication administration professional Call Social History Tobacco Use Types Packs/Day Years Used Date Smoking Tobacco: Every Day Smokeless Tobacco: Never Alcohol Use Standard Drinks/Week Comments Not Currently 0 (1 standard drink = 0.6 oz pur e alcohol) Interpersonal Safety Answer Date Record ed Family or friends hurt you Not on file 02/22 Family or friends insult you Not on file Family or friends threaten you Not on file 0 02/22/2023 Family or friends scream or curse at you Not on file 02/22/2023 Housing Stability Answer Date Recorded Living situation today Not on file Living situation problems Not on file 2023 Food Insecurity Answer Date Recorded Food run out past 12 months Not on file 02/05 Food did not last past 12 months Not on file 02/22/2023 Employment Answer Date Recorded Help finding and keeping a job Not on file 0 02/22/2023 Family and Community Support Answer Zay e Recorded Help with Day to Day Activities Not on file 02/22/2023 Feeling Lonely or Isolated Not on file 02/22 Educational Attainment Answer Date Marco Antonio rded Speak language other than Syrian at home Not on file 02/22/2023 Want help with school or training Not on file 02/22/2023 Depression Answer Date Recorded PHQ-2 Risk Not on file 02/22/2023 Disabilities Answer Date Recorded Difficulty concentrating Not on file 024 Difficulty doing errands alone Not on file 0 02/22/2023 Substance Use Answer Date Recorded Used prescription meds for non-medical reasons N ot on file 02/22/2023 Used illegal drugs past 12 months Not on file 02/22/2023 Comments Unknown Sex and Gender Information Value Date Recorded Sex Assigned at Not on file Legal Sex Female 12:14 PM CDT Gender Identity Not on file Sexual Orientation Not on file documented as of this encounter Miscellaneous Notes * Telephone Encounter - Joya Padilla RN - 06/10/2024 1:10 PM EDT Patient called triage stating she went to ED twice for vaginal bleeding. She went to [facility]. U/s was too early to confirm . Hcg increased from [address] Blue, advised to repeat serial HCG's again, progesterone lab added as well. Advised to get labs done 48 hours apart and at the same lab. All questions answered, patient acknowledged. documented in this encounter Plan of Treatment Scheduled Orders Name Type Priority Associated Diagnoses Orde r Schedule hCG, quantitative, Lab Routine Missed menses Vaginal bleeding in Expected: 06/12/2024 (Approximate), Expires: 09/08/2024 hCG, quantitative, Lab Routine Missed menses Vaginal bleeding in Expected: 06/10/2024 (Approximate), Expires: 09/08/2024 Progesterone Lab Routine Missed menses Vaginal bleeding in Expected: 06/10/2024 (Approximate), Expires: 09/08/2024 documented as of this encounter Visit Diagnoses Diagnosis Missed menses- Primary Vaginal bleeding in documented in this encounter Care Teams Training Officer Relationship Specialty Start Date End Date Viola Phipps, PAAnurag [address] [place] [address] PCP - General Physician Transformer Coil Winder 02/27/22 documented as of this encounter
--- OUTSIDE RECORDS SUMMARY | 2024-07-28 14:19 | XMS_ITS | Encounter Summary ---
Author Organization Healthcare Address [address] [place] [address] Care Team Providers Care Mold Mechanic Name Role Phone Aravind Josue MD Primary Care Provider [phone] Viola Phipps Primary Care Provider [phone] Reason for Referral * Consultation (Routine) - Closed Specialty Diagnoses / Procedures Referred By Contac t Referred To Contact Urology Diagnoses Ureteral calculus Viola Phipps PA [address] [place] [address] Phone: tel: fax: [facility] [address] [place] [address] Phone: tel: fax: Referral ID Status Reason Start Date Expiration Date V isits Requested Visits Authorized [id number] Closed Specialty Services Required 11/25/2021 05/27/2023 1 1 Encounter Details Date Type Department Care Team (Late st Contact Info) Description 11/25/2021 [facility] [address] [place] [address] Viola Phipps PA [address] [place] [address] Ureteral calculus (Primary Dx) Social History Tobacco Use Types Packs/Day Years Used Date Smoking Tobacco: Every Day Cigarettes Smokeless Tobacco: Never Alcohol Use Standard Drinks/Week Comments No 0 (1 standard drink = 0.6 oz pur e alcohol) PHQ-2 Answer Date Recorded Patient Health Questionnaire-2 Score 0 03/25/2021 Comments Unknown Sex and Gender Information Value Date Recorded Sex Assigned at Not on file Legal Sex Female 8:03 PM EDT Gender Identity Not on file Sexual Orientation Not on file documented as of this encounter Plan of Treatment Scheduled Referrals Name Type Priority Associated Diagnoses Order Schedule Ambulatory referral to Urology Outpatient Referral Routine Ureteral calculus Expected: 11/25/2021 (Approximate), Expires: 01/25/2022 documented as of this encounter Visit Diagnoses Diagnosis Ureteral calculus- Primary Calculus of ureter documented in this encounter Additional Health Concerns Assessment Noted Time A fall risk assessment has been complete d for the patient 03/25/2021 2:19 PM EST documented as of this encounter Care Teams Mold Mechanic Relationship Specialty Start Date End Date Aravind Josue MD [address] [place] [address] PCP - General 06/18/20 12/26/21 Viola Phipps PA [address] [place] [address] PCP - General 12/27/21 documented as of this encounter
--- OUTSIDE RECORDS SUMMARY | 2024-07-28 14:19 | XMS_ITS | Encounter Summary ---
Author Organization Healthcare Address [address] [place] [address] Care Team Providers Care Web Content Director Name Role Phone Aravind Josue MD Primary Care Provider [phone] Viola Phipps Primary Care Provider [phone] Encounter Details Date Type Department Care Team ([facility] st Contact Info) Description 11/11/2021 Orders Only External Location [address] [place] [address] Provider, External Social History Tobacco Use Types Packs/Day Years [...] as of this encounter Plan of Treatment Not on file documented as of this encounter Procedures Procedure Name Priority Date/Time Associated Diagnosis Comments CT MSK OUTSIDE IMAGES 11/11/2021 7:12 AM EDT documented in this encounter Results * CT MSK OUTSIDE IMAGES (11/11/2021 7:12 AM EDT) Anatomical Region Laterality Modality Computed Tomogra phy 11/11/2021 7:12 AM EDT us External Provider IMG CT PROCEDURES Final Result documented in this encounter Visit Diagnoses Not on filedocumented in this encounter Additional Health Concerns Assessment Noted Time A fall risk assessment has been complete d for the patient 03/25/2021 2:19 PM EST documented as of this encounter Care Teams Web Content Director Relationship Specialty Start Date End Date Aravind Josue MD [address] [place] [address] PCP - General 06/18/20 12/26/21 Viola Phipps PA [address] [place] [address] PCP - General 12/27/21 documented as of this encounter
--- OUTSIDE RECORDS SUMMARY | 2024-07-28 14:19 | XMS_ITS | Referral Summary ---
Author Organization [facility] Address [address] [place] [address] Care Team Providers Care Arboriculture Instructor Name Role Phone Viola Phipps PA-C Primary Care Provider [phone] Encounters Date Type Department Care Team Description 06/10/2024 Telephone [facility] WINDMILL TECHNICIAN - [facility] [address] [place] [address] Joya Padilla RN Triage Call from Last 3 Months Allergies Active Allergy Reactions Criticality Noted Date Comments Cefaclor 03/08/2022 Iodinated Contrast Media 03/08/2022 Penicillin Rash Low 03/03/2022 Medications acetaminophen- codeine (TYLENOL #3) 300-30 mg per tablet Take 1 tablet by mouth every 4 (four) hours as needed. Active aspirin 81 MG EC tablet Take 81 mg by mouth daily. Active dulaglutide (TRULICITY) 1.5 mg/0.5 mL syringe Inject 1.5 mg subcutaneously every 7 days. Active gabapentin (NEURONTIN) 300 MG capsule Take 300 mg by mouth 3 (three) times daily. Active glipiZIDE (GLUCOTROL) 10 MG tablet Take 10 mg by mouth 2 (two) times daily before meals. Active lisinopriL (PRINIVIL,ZEST RIL) 10 MG tablet Take 10 mg by mouth daily. Active loratadine (CLARITIN) 10 mg tablet Take 10 mg by mouth daily. Active meclizine (ANTIVERT) 25 MG tablet Take 25 mg by mouth 3 (three) times daily as needed. Active omeprazole (PriLOSEC) 40 MG capsule Take 40 mg by mouth daily. Active phentermine 37.5 MG capsule Take 37.5 mg by mouth every morning. Active atorvastatin (LIPITOR) 10 MG tablet Take 10 mg by mouth daily. Active metFORMIN (GLUCOPHAGE) 1000 MG tablet Take 1,000 mg by mouth 2 (two) times daily with breakfast and dinner. Active Social History Tobacco Use Types Packs/Day Years [...] Marco Antonio rded Speak language other than Marshallese at home Not on file 02/22/2023 Want [...] on file Sexual Orientation Not on file Last Filed Vital Signs Vital Sign Reading Time Taken Comments Blood Pressure 138/80 03/08/2022 8:46 AM EST Pulse 105 03/08/2022 8:46 AM EST Temperature - - Respiratory Rate - - Oxygen Saturation - - Inhaled Oxygen Concentration - - Weight 107.5 kg (237 lb) 03/08/2022 8:46 AM EST Height 160 cm (5' 3 ) 03/08/2022 8:46 AM EST Body Mass Index 41.98 03/08/2022 8:46 AM EST Plan of Treatment Not on file Insurance [facility] Care Teams Arboriculture Instructor Relationship Specialty Start Date End Date Viola Phipps PA-C [address] [place] [address] PCP - General Physician Light Fixture Servicer 02/27/22
--- OUTSIDE RECORDS SUMMARY | 2024-07-28 14:19 | XMS_ITS | Clinical Summary ---
Author Organization Healthcare Address [address] [place] [address] Care Team Providers Care Returned Goods Repairer Name Role Phone MoiseViola SYD Primary Care Provider [phone] Allergies Active Allergy Reactions Criticality Noted Date Comments Amoxicillin-Pot Clavulanate Unknown - Pa tient states they do not know rxn details Low 08/15/2016 Cefaclor Swelling,Hives,Short ness of breath,Unknown - Patient states they do not know rxn details High 08/15/2016 Iv Contrast Anaphylaxis High 10/25/2020 Penicillins Swelling,Hives,Short ness of breath High 11/06/2017 Medications atorvastatin (Lipitor) 10 MG tablet Take 10 mg by mouth every night. 1 Active cholecalcifero l 25 MCG (1000 UT) capsule Take by mouth 1 (one) time each day. 1 Active clindamycin (Cleocin) 150 MG capsule TAKE TWO CAPSULES NOW. THEN, TAKE 1 CAPSULE 4 TIMES EACH DAY UNTIL GONE 1 Active cyclobenzaprin e (Flexeril) 5 MG tablet TAKE ONE TABLET BY MOUTH THREE TIMES DAILY NEEDED FOR MUSCLE SPASMS MAY CAUSE DROWSINESS 1 Active ergocalciferol 1.25 MG (41737 UT) capsule Take 1 capsule by mouth 1 (one) time per week. 1 Active gabapentin (Neurontin) 300 MG capsule Take 300 mg by mouth 4 (four) times a day. 1 Active glipiZIDE XL (Glucotrol XL) 10 MG 24 hr tablet Take 10 mg by mouth 1 (one) time each day. 1 Active lisinopril 10 MG tablet Take 10 mg by mouth 1 (one) time each day. 1 Active Sprintec 28 0.25-35 MG-MCG tablet Take 1 tablet by mouth every night. 1 Active dulaglutide (Trulicity) 0.75 MG/0.5ML solution pen-injector inj. pen Inject 0.75 mg under the skin 1 (one) time per week. Active Melatonin 5 MG tablet tablet Take 5 mg by mouth every night. Active cyanocobalamin (Vitamin B-12) 1000 MCG tablet Take 1,000 mcg by mouth 1 (one) time each day. Active aspirin 81 MG EC tablet Take 81 mg by mouth every night. Active Multiple Vitamins-Magnet Valve Assembler als (multivitamin with minerals) tablet Take 1 tablet by mouth 1 (one) time each day. Active SITagliptin (Januvia) 50 MG tablet Take 50 mg by mouth 1 (one) time each day. Active acetaminophen- codeine (Tylenol w/ Codeine #3) 300-30 MG tablet Take 1 tablet by mouth 2 (two) times a day. Active metFORMIN (Glucophage) 500 MG tablet Take 500 mg by mouth 2 (two) times a day with meals. Active omeprazole (PriLOSEC) [address] capsule Take 20 mg by mouth 1 (one) time each day. Do not crush or chew. Active fluticasone (Flonase) 50 MCG/ACT nasal spray Administer 1 spray into each nostril 1 (one) time each day. Shake gently. Before first use, prime pump. After use, clean tip and replace cap. Active ferrous sulfate 325 (65 Fe) MG tablet Take 325 mg by mouth 1 (one) time each day with breakfast. Active docusate sodium (Colace) 100 MG capsule Take 100 mg by mouth 1 (one) time per week. Active meclizine (Antivert) 25 MG tablet Take 25 mg by mouth 2 (two) times a day if needed for dizziness. Active ibuprofen 400 MG tablet Take 400 mg by mouth every 6 (six) hours if needed for moderate pain. Active Alcohol Swabs (Alcohol Prep) 70 % pads as directed 3 Active amantadine (Symmetrel) 100 MG tablet 2 Active OneTouch Verio test strip USE TO test blood sugar THREE TIMES DAILY 3 Active Lancets (OneTouch Delica Plus [id number]) misc USE TO test blood sugar THREE TIMES DAILY 2 Active loratadine (Claritin) 10 MG tablet TAKE ONE TABLET BY MOUTH EVERY DAY NEEDED FOR allergic symptoms 3 Active metFORMIN (Glucophage) 1000 MG tablet Take 1,000 mg by mouth. 3 Active Paxlovid Oral Therapy Pack PLEASE SEE ATTACHED FOR DETAILED DIRECTIONS 2 Active norethindrone (Micronor) 0.35 MG tablet Take 1 tablet by mouth 1 (one) time each day. 3 Active Nyamyc 917918 UNIT/GM powder APPLY TO AFFECTED AREA THREE TIMES DAILY 2 Active ondansetron (Zofran) 4 MG tablet Take 4 mg by mouth. 3 Active phenazopyridin e (Pyridium) 200 MG tablet TAKE ONE TABLET BY MOUTH EVERY 8 HOURS MAY CAUSE DISCOLORATION OF URINE 2 Active QUEtiapine (SEROquel) 25 MG tablet 3 Active Active Problems Problem Noted Date Diagnosed Date Anticoagulated 04/24/2022 Obesity (BMI 30-39.9) 04/24/2022 Incisional hernia, without obstruction or gangre ne 04/24/2022 Ureteral calculus 12/07/2021 Diabetes mellitus 03/04/2020 Resolved Problems Problem Noted Date Diagnosed Date Resolved Date Morbid obesity with body mas s index (BMI) of 40.0 or higher 03/25/2021 04/24/2022 Immunizations Immunization Administration Dates Next Due DTaP, Unspecified 07/13/1997 MMR 07/13/1997 OPV 07/13/1997 Tdap 10/13/2005 Family History Medical History Relation Name Comments Cardiac disorder Father Other cancer Father Relation Name Status Comments Father Social History Tobacco Use Types Packs/Day Years Used Date Smoking Tobacco: Former Cigarettes 0.5 5 2 018 - 2022 Smokeless Tobacco: Never Tobacco Cessation:Counseling Given: Not Answered Alcohol Use Standard Drinks/Week Comments No 0 (1 standard drink = 0.6 oz pur e alcohol) PHQ-2 Answer Date Recorded Patient Health Questionnaire-2 Score 0 05/01/2022 PHQ-2A Answer Date Recorded Patient Health Questionnaire-2 Score 0 05/01/2022 Comments No Sex and Gender Information Value Date Recorded Sex Assigned at Not on file Legal Sex Female 8:03 PM EDT Gender Identity Not on file Sexual Orientation Not on file Last Filed Vital Signs Vital Sign Reading Time Taken Comments Blood Pressure 130/82 05/01/2022 10:21 AM EDT Pulse 107 05/01/2022 10:21 AM EDT Temperature 36.4 C (97.6 F) 05/01/2022 10:21 AM EDT Respiratory Rate 10 12/27/2021 9:45 AM EST Oxygen Saturation 97% 05/01/2022 10:21 AM EDT Inhaled Oxygen Concentration - - Weight 107 kg (235 lb) 08/02/2022 4:35 PM EDT Height 157.5 cm (5' 2 ) 08/02/2022 4:35 PM EDT Body Mass Index 42.98 08/02/2022 4:35 PM EDT Plan of Treatment Health Maintenance Due Date Last Done Comments [facility]-/Child/Adol SDOH Screenings 1993 [facility]-IPV Vaccines (2 of 3 - 4-dose series) 08/10/1997 07/13/1997 Diabetes: Dental Exam 2003 [facility]-Varicella Vaccines (1 of 2 - 13+ 2-dose series) 2006 HPV Vaccines (1 - 3-dose series) 02/07/2008 [facility]- SDOH Screenings 2011 [facility]-Adult SDOH Screenings 2011 [facility]-Hepatitis B Vaccines (1 of 3 - 19+ 3-dose series) 02/07/2012 [facility]-Pneumococcal Vaccine: Pediatrics (0 to 5 Years) and At-Risk Patients (6 to 49 Years) (1 of 2 - PCV) 02/07/2012 [facility]-Pap Smear 2014 [facility]-DTaP,Tdap,and Td Vaccine s (3 - Td or Tdap) 10/14/2015 10/13/2005, 07/13/1997 [facility]-Diabetes: Hemoglobin A1C 10/22/2022 04/24/2022 [facility]-Cervical Cancer Screening 2023 [facility]-HPV/Cotest 2023 [facility]-Depression Screening 05/02/2023 05/01/2022 HTZ-HREAY-33 Vaccine ( season) 2023 [facility]-Influenza Vaccine (Seas[place] n Ended) 2024 [facility]-Zoster Vaccines (1 of 2) 2043 [facility]-HIV Screening Completed 10/14/2020 [facility]-Hepatitis C Screening Completed 10/14/2020 [facility]-Obesity Intervention Completed 023, 12/07/2021 [facility]-HIB Vaccines Aged Out No longer e ligible based on patient's age to complete this topic [facility]-Hepatitis A Vaccines Aged Out No longer eligible based on patient's age to complete this topic [facility]-Rotavirus Vaccines Aged Out No lo nger eligible based on patient's age to complete this topic Medical Devices Implanted Type Area Vessel Crew Member Device Identifier Shelf Expiration Date Model / Serial / Lot Stent Ureteral Double Pigtail Pos 5fr 24cm - [id number] Implanted:Qty: 1 on 12/27/2021 by Henry Paulino MD at [facility] Stent Left: [id number] 03/30/2023 [id number] / / [id number] Procedures Procedure Name Priority Date/Time Associated Diagnosis Comments POCT GLYCOSYLATED HEMOGLOBIN (HGB A1C) Routine 04/24/2022 11:29 AM EDT Type 2 diabetes mellitus without complication, with long-term current use of insulin (CMS/HCC) HEPATITIS C ANTIBODY - ED W/REFLEX TO HCV QUANT PCR STAT 10/14/2020 9:39 PM EDT HIV 1/2 ANTIBODY/ANTIGEN SCREEN WITH REFLEX TO HIV I/II DIFFERENTIATION STAT 10/14/2020 9:39 PM EDT from Last 3 Months or Most Recently Relevant to Health Maintenance Results * POCT Glycosylated Hemoglobin (Hgb A1C) (04/24/2022 11:29 AM EDT) POCT Hemoglobin A1C 10.2 4.4-6.6 % % [employer] [facility] Kit Lot Number [id number] [facility] Kit Expiration Date [facility] Blood Venous blood specimen / Unknown 04/24/2022 11:29 AM EDT Amanda Holcomb APRN POINT OF CARE TEST ENTER/EDIT ORDERABLES Final Result Performing Organization Address City/[facility]/ZIP Co de Phone Number [facility]ALTHCARE [facility] [address] [place] [address] * HIV 1 & 2 Antibody/Antigen Screen (10/14/2020 9:39 PM EDT) HIV 1 & 2 Antibody/Anti gen Screen Nonreactive Nonreactive 10/14/2020 10:50 PM EDT HEALTHCARE LAB Blood Venous blood specimen / Unknown Venipuncture / Unknown 10/14/2020 9:39 PM EDT 10/14/2020 9:46 PM EDT Sharita Chance MD LAB BLOOD ORDERABLES Final Res ult Performing Organization Address City/[facility] Co de Phone Number HEALTHCARE [facility] [address] [place] [address] * [place] Hepatitis C Antibody (10/14/2020 9:39 PM EDT) Pathologist [facility] Hepatitis C Antibody Negative Negative 10/14/2020 10:50 PM EDT HEALTHCARE LAB Blood Venous blood specimen / Unknown Venipuncture / Unknown 10/14/2020 9:39 PM EDT 10/14/2020 9:46 PM EDT Sharita Chance MD LAB BLOOD ORDERABLES Final Res ult Performing Organization Address City/[facility] Co de Phone Number HEALTHCARE LAB [address] [place] [address] from Last 3 Months or Most Recently Relevant to Health Maintenance Insurance MEDICAID Care Teams Returned Goods Repairer Relationship Specialty Start Date End Date Viola Phipps PA [address] [place] [address] PCP - General 12/27/21
--- OUTSIDE RECORDS SUMMARY | 2024-07-28 14:19 | XMS_ITS | Clinical Summary ---
Author Organization [employer] [facility] Address [address] [place] [address] Care Team Providers Care Outsoles Channel Opener Name Role Phone Viola Phipps PA-C Primary Care Provider [phone] Allergies Active Allergy Reactions Criticality Noted Date [...] times daily with breakfast and dinner. Active Encounters Date Type Department Care Team Description 06/10/2024 Telephone [facility] BRICK CHIMNEY SUPERVISOR - [place] [address] [place] [phone] Joya Padilla phys ther Call from Last 3 Months Family History Medical History Relation Name Comments Diabetes Father Hypertension Father Arthritis Maternal Grandmother COPD Maternal Grandmother Diabetes Maternal Grandmother Hypertension Maternal Grandmother Stroke Maternal Grandmother COPD Mother Osteoporosis Mother Stroke Mother Seizures Sister Relation Name Status Comments Father Maternal Grandmother Mother Sister Social History Tobacco Use Types Packs/Day Years [...] Marco Antonio rded Speak language other than Equatorial Guinean at home Not on file 02/22/2023 Want [...] 03/08/2022 8:46 AM EST Plan of Treatment Health Maintenance Due Date Last Done Comments Depression Screening (12+) 2005 HIV Screening 02/07/2008 Hepatitis C Screening 2011 Pneumococcal Vaccine: 0-49 Y ears (1 of 2 - PCV) 02/07/2012 Lipid Panel 2013 Pap Smear 2014 DTAP/TDAP/TD VACCINES (3 - Td or Tdap) 10/14/2015, 07/13/1997 Tobacco Cessation Counseling and Screening (12+) 03/08/2023 03/08/2022 COVID-19 VACCINE ( - 2023- season) 2023 Influenza Vaccine (Season Ended) 2024 Insurance [facility] Care Teams Outsoles Channel Opener Relationship Specialty Start Date End Date Viola Phipps PA-C [address] [place] [address] PCP - General Physician Claim Taker 02/27/22
[2024-07-28 14:55] VITALS: BP 110/70; PULSE 108; RESP 14; O2SAT 96; BMI 41.6
--- NOTE | 2024-07-28 14:56 | EXP.PAIN.SOA ---
[facility] Disclaimer: The information contained in this section may have been updated after the patient was seen, as this information can be updated by other users. Medical History Radicular pain of right lower extremity Acute left ankle pain Lumbar radiculopathy Rheumatoid arthritis Vitamin B deficiency Depression GERD (gastroesophageal reflux disease) Hypothyroidism Vitamin D deficiency Hyperlipidemia Diabetes mellitus Surgical History History of carpal tunnel surgery History of Family History No significant family history Social History Smoking Status: Former smoker tobacco type: cigarettes packs per day: 1 alcohol intake: never substance use type: denies use current occupational status: other Travel in the last 8 weeks?: None PM Subjective & Objective Subjective Subjective:: Patient is a pleasant 29-year-old female who presents today for medication refill. She rates her pain today 2 out of 10. Patient denies any new falls or injuries. Patient is currently managed with Dulac 5 mg 3 times a day, Flexeril 10 mg 3 times a day, gabapentin 300 mg 4 times a day and tacrolimus topical twice a day. She denies any side effects. Patient does make mention that she still has not lost the fetus however she was never given any additional follow-up with her OFFICE CLERK ROUTINE. Patient does state it was a Dr. Colindres around [facility]. Her Loki has been reviewed and is appropriate. Review of Systems: General: No recent weight changes, no fever, no sleep disturbances Respiratory: No cough, no shortness of air, no recurring pulmonary infections Cardiovascular/peripheral vascular: No chest pain, no palpitations, no edema, no shortness of breath Gastrointestinal: No new onset incontinence, normal bowel movements reported Genitourinary: No new onset incontinence Musculoskeletal: Chronic back pain Psychiatric: [Normal mood/affect] Neurological: [Denies weakness in extremities], [denies balance issues] Pain at rest (0-10 scale): 2 Objective Objective:: Physical Exam: General: Alert and oriented x3, no acute distress, pleasant and cooperative Lungs: Respirations even and unlabored, symmetrical chest expansion Eyes: PERRL Musculoskeletal: Flexion and extension of lumbar [spine] somewhat guarded secondary to pain, [antalgic gait noted] Neurological: Speech clear, no gross sensory deficit Has patient had previous pain injection?: No Conservative treatment options previously tried: Prescription medications Length of treatment: Longer than 12 weeks Meds Home Medications and Allergies Home Medications ?Medication ?Instructions ?Recorded ?Confirmed ?Type blood sugar diagnostic (OneTouch #100 strips 05/30/23 06/26/24 Rx Verio test strips) lancets 33 gauge (OneTouch Delica #100 ea 09/01/23 06/26/24 Rx Plus Lancet) pen needle, diabetic 31 gauge x #100 ea 11/01/23 06/26/24 Rx 3/16 (BD Ultra-Fine Mini Pen Needle) furosemide 20 mg tablet 20 mg PO DAILYP PRN Edema 11/08/23 06/26/24 History glipizide 10 mg tablet, extended 10 mg PO BID 11/08/23 06/26/24 History release 24 hr metformin 1,000 mg tablet 1,000 mg PO BID 11/08/23 06/26/24 History omeprazole 40 mg capsule,delayed 40 mg PO DAILY 11/08/23 06/26/24 History release quetiapine 50 mg tablet,extended 50 mg PO HS 11/08/23 06/26/24 History release 24 hr cyclobenzaprine 10 mg tablet 10 mg PO TID #90 tabs 05/27/24 06/26/24 Rx gabapentin 300 mg capsule 300 mg PO QID #120 caps 05/27/24 06/26/24 Rx tacrolimus 0.1 % topical ointment 1 applic topical BID #30 grams 05/27/24 06/26/24 Rx hydrocodone 5 mg-acetaminophen 325 1 tab PO TID #90 tabs 06/26/24 Rx mg tablet New Prescriptions to Start Prescriptions: Allergies Allergy/AdvReac Type Severity Reaction Status Date / Time Penicillins Allergy Intermediate Rash Verified 06/05/24 06:29 amoxicillin (AMOXICILLIN) Allergy Mild Unknown Verified 06/05/24 06:29 allergy reaction cefaclor (From CECLOR) Allergy Mild Unknown Verified 06/05/24 06:29 allergy reaction Assessment and Plan *Assessment and plan (1) Diabetes type 2, uncontrolled: Status: Acute Category: Medical (2) Degenerative disc disease, lumbar: Status: Acute Category: Medical Code(s): M51.369 - Other intervertebral disc degeneration, lumbar region without mention of lumbar back pain or lower extremity pain (3) Chronic pain of right thumb: Status: Chronic Category: Medical Code(s): M79.644 - Pain in right finger(s); G89.29 - Other chronic pain (4) Peripheral neuropathy: Status: Chronic Category: Medical Code(s): G62.9 - Polyneuropathy, unspecified Plan I will make sure that she does have refills on her Dulac, Flexeril, gabapentin and tacrolimus cream. Patient will return to clinic in 1 month for reevaluation of symptoms and plan of care. Risks and benefits of the medication have been explained in detail to the patient. The patient does understand the risk of dependence on the medication when given over a prolonged period. Patient has been advised of risks of oversedation with the prescribed medication. Narcan has been offered to the paitent in the event of oversedation. Patient has been advised that a family member should also be educated regarding administration of Narcan. The patient has been advised to consult with his/her primary care provider and pharmacist regarding drug-drug interaction of medications currently prescribed. Patient has been prescribed a controlled substance after being counseled on the medication, medication safety, and possible side effects. Opioid contract was reviewed and signed by the patient, and that they have agreed to all of the terms set forth by our compliance program. A UDS is needed to verify patient's compliance with our office pain contract. This is ordered based off specific treatments related to chronic pain with the potential to abuse certain medications. Patient has been instructed to contact the clinic with any concerns before the next appointment. Dr. Colindres has reviewed this note and agrees with this plan of care. This note was dictated using voice recognition software and make contain errors or omissions.
== END 2024-07-28 23:59 | disposition home or self-care (01) ==
PROVIDERS: PCP Nurse Practitioner Family; Visit Provider Nurse Practitioner Family
DX: E11.40 Type 2 diabetes mellitus with diabetic neuropathy, unspecified (principal); M51.360 Other intervertebral disc degeneration, lumbar region with discogenic back pain only; M79.644 Pain in right finger(s); Z79.891 Long term (current) use of opiate analgesic; Z79.899 Other long term (current) drug therapy
CPT/HCPCS: 99212; G0463

== ENCOUNTER 2024-09-17 14:35 | Outpatient (POV) | payer MEDICAID, SELFPAY ==
--- OUTSIDE RECORDS SUMMARY | 2024-09-17 14:38 | XMS_ITS | Encounter Summary ---
Author Organization Healthcare Address [address] [place] [address] Care Team Providers Care Bone Drier Operator Name Role Phone Aravind Josue MD Primary Care Provider [phone] Viola Phipps Primary Care Provider [phone] Encounter Details Date Type Department Care Team ([facility] st Contact Info) Description 11/11/2021 Orders Only External Location [address] [place] [address] Provider, External Social History Tobacco Use Types [...] documented as of this encounter Care Teams Bone Drier Operator Relationship Specialty Start Date End Date Aravind Josue MD [address] [place] [address] PCP - General 06/18/20 12/26/21 Viola Phipps PA [address] [place] [address] PCP - General 12/27/21 documented as of this encounter
--- OUTSIDE RECORDS SUMMARY | 2024-09-17 14:38 | XMS_ITS | Clinical Summary ---
[facility] Organization [facility] Address [address] [place] [address] Care Team Providers Care Cost Specialist Name Role Phone Aravind Josue MD Primary Care Provider [phone] Allergies Active Allergy Reactions Criticality Noted Date Comments Cefaclor Hives,Shortness Of Breath High 11/06/2017 Penicillins Shortness Of Breath High 11/06/2017 Medications SITagliptin (JANUVIA) 100 MG tablet Take 100 mg by mouth Daily. Active Social History Tobacco Use Types Packs/Day Years Used Date Smoking Tobacco: Never Assessed Abuse Screen Answer Date Recorded Unsafe at Home or Work/School Not on file Feels Threatened by Someone? Not on file 01/2023 Does Anyone Keep You from Co ntacting Others or Doint Things Outside the Home? Not on file 11/16/2022 Physical Sign of Abuse Present Not on file 1 Housing Stability Answer Date Recorded Current Living Arrangements Not on file 11/05 Potentially Unsafe Housing Conditions Not on sylvester e 11/16/2022 Family and Community Support Answer Zay e Recorded Help with Day-to-Day Activities Not on file 11/16/2022 Lonely or Isolated Not on file 11/16/2022 Employment Answer Date Recorded Do you want help finding or keeping work or a dafne b? Not on file 11/16/2022 Disabilities Answer Date Recorded Concentrating, Remembering, or Making Decisions Difficulty Not on file 11/16/2022 Doing Errands Independently Difficulty Not on fi le 11/16/2022 Education Answer Date Recorded Help with school or training? Not on file Preferred Language Not on file 11/16/2022 Comments No Sex and Gender Information Value Date Recorded Sex Assigned at Not on file Legal Sex Female 10:45 AM EDT Gender Identity Not on file Sexual Orientation Not on file Last Filed Vital Signs Vital Sign Reading Time Taken Comments Blood Pressure 122/84 11/06/2017 10:50 AM EDT Pulse 89 11/06/2017 11:00 AM EDT Temperature 36.2 C (97.2 F) 11/06/2017 10:50 AM EDT Respiratory Rate 15 11/06/2017 10:50 AM EDT Oxygen Saturation 97% 11/06/2017 10:50 AM EDT Inhaled Oxygen Concentration - - Weight 124 kg (272 lb 6.4 oz) 11/06/2017 10:50 A M EDT Height 160 cm (5' 3 ) 11/06/2017 10:50 AM EDT Body Mass Index 48.25 11/06/2017 10:50 AM EDT Plan of Treatment Health Maintenance Due Date Last Done Comments Annual Gynecologic Pelvic an d Breast Exam 1993 TDAP/TD VACCINES (1 - Tdap) 02/07/2012 ANNUAL PHYSICAL 11/06/2017 HEPATITIS C SCREENING 11/06/2017 COVID-19 Vaccine (2023-2 5 season) 2023 INFLUENZA VACCINE 11/05/2024 Pneumococcal Vaccine 0-49 Aged Out No longer eligible based on patient's age to complete this topic Insurance [employer] Care Teams Cost Specialist Relationship Specialty Start Date End Date Aravind Josue MD [address] [id number] PCP - General Family Medicine 11/06/17
--- OUTSIDE RECORDS SUMMARY | 2024-09-17 14:38 | XMS_ITS | Clinical Summary ---
Author Organization [employer] ([place], [place], [place], [place]) Address [address] [place] [address] Care Team Providers Care Navy Senior Officer Name Role Phone Viola Phipps PA-C Primary Care Provider Allergies Active Allergy Reactions Criticality Noted Date [...] times daily with breakfast and dinner. Active Family History Medical History Relation Name Comments [...] drink = 0.6 oz pur e alcohol) Food Insecurity Answer Date Recorded Food run [...] Marco Antonio rded Speak language other than Russian at home Not on file 02/22/2023 Want help with school or training Not on file 02/22/2023 Substance Use Answer Date Recorded Used [...] and Screening (12+) 03/08/2023 03/08/2022 COVID-19 VACCINE (2023- season) 2023 Influenza Vaccine (#1) 2024 Insurance [facility] Care Teams Navy Senior Officer Relationship Specialty Start Date End Date Viola Phipps PA-C [address] [place] [address] PCP - General Physician Abrasive Mixer Helper 02/27/22
--- OUTSIDE RECORDS SUMMARY | 2024-09-17 14:38 | XMS_ITS | Clinical Summary ---
Author Organization Healthcare Address [address] [place] [address] Care Team Providers Care Social Worker Aide Name Role Phone MoiseViola SYD Primary Care Provider [phone] Allergies Active Allergy Reactions Criticality Noted Date [...] CAUSE DROWSINESS 1 Active ergocalciferol 1.25 MG (53673 UT) capsule Take 1 capsule by mouth [...] mg by mouth every night. Active Multiple Vitamins-Audubon als (multivitamin with minerals) tablet Take 1 [...] DAILY 3 Active Lancets (OneTouch Delica Plus [id number]) misc USE TO test blood sugar THREE [...] (one) time each day. 3 Active Nyamyc 913828 UNIT/GM powder APPLY TO AFFECTED AREA THREE [...] of 3 - 4-dose series) 08/10/1997 07/13/1997 [id number] Vaccine (#1) 1998 Diabetes: Dental Exam 2003 [facility]-Varicella Vaccines (1 of 2 - 13+ 2-dose series) 2006 [facility]- SDOH Screenings 2011 [facility]-Adult SDOH Screenings 2011 [facility]-Hepatitis B Vaccines (1 of 3 - 19+ 3-dose series) 02/07/2012 [facility]-Pneumococcal Vaccine: Pediatrics (0 to 5 Years) and At-Risk Patients (6 to 49 Years) (1 of 2 - PCV) 02/07/2012 [facility]-Pap Smear 2014 [facility]-DTaP,Tdap,and Td Vaccine s (3 - Td or Tdap) 10/14/2015 10/13/2005, 07/13/1997 HPV Vaccines (1 - 3-dose SCD M series) 02/07/2020 [facility]-Diabetes: Hemoglobin A1C 10/22/2022 04/24/2022 [facility]-Cervical Cancer Screening 2023 [facility]-HPV/Cotest 2023 [facility]-Depression Screening 05/02/2023 05/01/2022 [facility]-Influenza Vaccine (#1) 2024 [facility]-Zoster Vaccines (1 of 2) 2043 [...] this topic Medical Devices Implanted 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 Device 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 Shelf Expiration Date Model / Serial / Lot Stent Ureteral Double Pigtail Pos 5fr 24cm - [id number] Implanted:Qty: 1 on 12/27/2021 by Henry Paulino MD at [facility] Stent Left: [id number] 03/30/2023 [id number] / / [id number] Procedures Procedure Name Priority Date/Time Associated Diagnosis [...] POCT Hemoglobin A1C 10.2 4.4-6.6 % % [place] [employer] [facility] Kit Lot Number [id number] [facility] Kit Expiration Date [employer] [facility] Blood Venous blood specimen / Unknown 04/24/2022 11:29 AM EDT us Amanad Holcomb APRN POINT OF CARE TEST ENTER/EDIT ORDERABLES Final Result Performing Organization Address City/[facility]/ZIP Co de Phone Number HEALTHCARE LAB [address] [place] [address] * HIV 1 & 2 Antibody/Antigen Screen (10/14/2020 9:39 PM EDT) Pathologist [facility] HIV 1 & 2 Antibody/Anti gen Screen Nonreactive Nonreactive 10/14/2020 10:50 PM EDT HEALTH[facility]ARE LAB Blood Venous blood specimen / Unknown Venipuncture / Unknown 10/14/2020 9:39 PM EDT 10/14/2020 9:46 PM EDT Sharita Chance MD LAB BLOOD ORDERABLES Final Res ult Performing Organization Address City/[facility] Co de Phone Number HEALTHCARE LAB [address] [place] [address] * [place] Hepatitis C Antibody (10/14/2020 9:39 PM EDT) Pathologist [facility] Hepatitis C Antibody Negative Negative 10/14/2020 10:50 PM EDT [facility] Blood Venous blood specimen / Unknown Venipuncture / Unknown 10/14/2020 9:39 PM EDT 10/14/2020 9:46 PM EDT Sharita Chance MD LAB BLOOD ORDERABLES Final Res ult Performing Organization Address City/[facility] Co de Phone Number HEALTHCARE LAB [address] [place] [address] from Last 3 Months or Most Recently Relevant to Health Maintenance Insurance Care Teams Social Worker Aide Relationship Specialty Start Date End Date Viola Phipps PA [address] [place] [address] PCP - General 12/27/21
--- OUTSIDE RECORDS SUMMARY | 2024-09-17 14:38 | XMS_ITS | Encounter Summary ---
Author Organization Healthcare Address [address] [place] [address] Care Team Providers Care Manager Public Name Role Phone Aravind Josue MD Primary Care Provider Viola Phipps Primary Care Provider Reason for Referral * Consultation (Routine) - Closed Specialty Diagnoses / Procedures Referred By Contac t Referred To Contact Urology Diagnoses Ureteral calculus Viola Phipps PA [address] [place] [address] Phone: tel: fax: [facility] [address] [place] [address] Phone: tel: fax: Referral ID Status Reason Start Date Expiration Date V isits Requested Visits Authorized [id number] Closed Specialty Services Required 11/25/2021 05/27/2023 1 1 Encounter Details Date Type Department Care Team (Late st Contact Info) Description 11/25/2021 [facility] [address] [place] [address] Viola Phipps PA [address] [place] [address] Ureteral calculus (Primary Dx) Social [...] documented as of this encounter Care Teams Manager Public Relationship Specialty Start Date End Date Aravind Josue MD [address] [place] [address] PCP - General 06/18/20 12/26/21 Viola Phipps PA [address] [place] [address] PCP - General 12/27/21 documented as of this encounter
--- OUTSIDE RECORDS SUMMARY | 2024-09-17 14:38 | XMS_ITS | Referral Summary ---
Author Organization [employer] ([place], [place], [place], [place]) Address [address] [place] [address] Care Team Providers Care Director Cardiology Name Role Phone Viola Phipps PA-C Primary Care Provider [phone] Allergies Active Allergy Reactions Criticality Noted Date [...] Marco Antonio rded Speak language other than Honduran at home Not on file 02/22/2023 Want [...] Plan of Treatment Not on file Insurance [facility] Care Teams Director Cardiology Relationship Specialty Start Date End Date Viola Phipps PA-C [address] [place] [address] PCP - General Physician Aerospace Technician 02/27/22
[2024-09-17 15:05] VITALS: BP 124/84; PULSE 103; RESP 14; O2SAT 98; BMI 40.7
--- NOTE | 2024-09-17 15:12 | EXP.PAIN.SOA ---
[facility] Disclaimer: The information contained in this section may have been updated after the patient was seen, as this information can be updated by other users. Medical History Radicular pain of right lower extremity Acute left ankle pain Lumbar radiculopathy Rheumatoid arthritis Vitamin B deficiency Depression GERD (gastroesophageal reflux disease) Hypothyroidism Vitamin D deficiency Hyperlipidemia Diabetes mellitus Surgical History History of carpal tunnel surgery History of Family History No significant family history Social History Smoking Status: Former smoker tobacco type: cigarettes packs per day: 1 pack-years: 12 alcohol intake: never substance use type: denies use current occupational status: other Travel in the last 8 weeks?: None PM Subjective & Objective Subjective Subjective:: Patient is a pleasant 29-year-old female presents today for her monthly medication refill. She rates her pain today a 3 out of 10. She does state from her last visit that she ended up having to reschedule because she was hospitalized 3 days there at [place]. Patient states that the previous miscarriage that she had not lost the fetus and it ultimately ended up causing a UTI and a yeast infection as well as a infection around her ovaries that required antibiotics. Patient does state she is feeling a little bit better today. Patient is currently managed with [place] 5 mg 3 times a day, Flexeril 10 mg 3 times a day, gabapentin 300 mg 4 times a day and tacrolimus topical twice a day. She denies any side effects. Her Loki has been reviewed and is appropriate. Review of Systems: General: No recent weight changes, no fever, no sleep disturbances Respiratory: No cough, no shortness of air, no recurring pulmonary infections Cardiovascular/peripheral vascular: No chest pain, no palpitations, no edema, no shortness of breath Gastrointestinal: No new onset incontinence, normal bowel movements reported Genitourinary: No new onset incontinence Musculoskeletal: Chronic back pain Psychiatric: [Normal mood/affect] Neurological: [Denies weakness in extremities], [denies balance issues] Pain at rest (0-10 scale): 3 Objective Objective:: Physical Exam: General: Alert and oriented x3, no acute distress, pleasant and cooperative Lungs: Respirations even and unlabored, symmetrical chest expansion Eyes: PERRL Musculoskeletal: Flexion and extension of lumbar [spine] somewhat guarded secondary to pain, [antalgic gait noted] Neurological: Speech clear, no gross sensory deficit Has patient had previous pain injection?: No Conservative treatment options previously tried: Home exercise plan Length of treatment: Longer than 12 weeks Meds Home Medications and Allergies Home Medications ?Medication ?Instructions ?Recorded ?Confirmed ?Type blood sugar diagnostic (OneTouch #100 strips 05/30/23 09/17/24 Rx Verio test strips) lancets 33 gauge (OneTouch Delica #100 ea 09/01/23 09/17/24 Rx Plus Lancet) pen needle, diabetic 31 gauge x #100 ea 11/01/23 09/17/24 Rx 3/16 (BD Ultra-Fine Mini Pen Needle) furosemide 20 mg tablet 20 mg PO DAILYP PRN Edema 11/08/23 09/17/24 History glipizide 10 mg tablet, extended 10 mg PO BID 11/08/23 09/17/24 History release 24 hr metformin 1,000 mg tablet 1,000 mg PO BID 11/08/23 09/17/24 History omeprazole 40 mg capsule,delayed 40 mg PO DAILY 11/08/23 09/17/24 History release quetiapine 50 mg tablet,extended 50 mg PO HS 11/08/23 09/17/24 History release 24 hr cyclobenzaprine 10 mg tablet 10 mg PO TID #90 tabs 07/28/24 09/17/24 Rx gabapentin 300 mg capsule 300 mg PO QID #120 caps 07/28/24 09/17/24 Rx hydrocodone 5 mg-acetaminophen 325 1 tab PO TID #90 tabs 07/28/24 09/17/24 Rx mg tablet tacrolimus 0.1 % topical ointment 1 applic topical BID #30 grams 07/28/24 09/17/24 Rx New Prescriptions to Start Prescriptions: Allergies Allergy/AdvReac Type Severity Reaction Status Date / Time Penicillins Allergy Intermediate Rash Verified 06/05/24 06:29 amoxicillin (AMOXICILLIN) Allergy Mild Unknown Verified 06/05/24 06:29 allergy reaction cefaclor (From CECLOR) Allergy Mild Unknown Verified 06/05/24 06:29 allergy reaction Assessment and Plan *Assessment and plan (1) Degenerative disc disease, lumbar: Status: Acute Category: Medical Code(s): M51.369 - Other intervertebral disc degeneration, lumbar region without mention of lumbar back pain or lower extremity pain Plan I will refill her medications of [place], Flexeril, gabapentin and tacrolimus cream and provide 1 month supply of these medications. Patient return to clinic in 1 month. Risks and benefits of the medication have been explained in detail to the patient. The patient does understand the risk of dependence on the medication when given over a prolonged period. Patient has been advised of risks of oversedation with the prescribed medication. Narcan has been offered to the paitent in the event of oversedation. Patient has been advised that a family member should also be educated regarding administration of Narcan. The patient has been advised to consult with his/her primary care provider and pharmacist regarding drug-drug interaction of medications currently prescribed. Patient has been prescribed a controlled substance after being counseled on the medication, medication safety, and possible side effects. Opioid contract was reviewed and signed by the patient, and that they have agreed to all of the terms set forth by our compliance program. A UDS is needed to verify patient's compliance with our office pain contract. This is ordered based off specific treatments related to chronic pain with the potential to abuse certain medications. Patient has been instructed to contact the clinic with any concerns before the next appointment. Dr. Colindres has reviewed this note and agrees with this plan of care. This note was dictated using voice recognition software and make contain errors or omissions.
== END 2024-09-17 23:59 | disposition home or self-care (01) ==
PROVIDERS: Visit Provider Nurse Practitioner Family
DX: M51.360 Other intervertebral disc degeneration, lumbar region with discogenic back pain only (principal); Z79.891 Long term (current) use of opiate analgesic; Z79.899 Other long term (current) drug therapy
CPT/HCPCS: 99212; G0463